=== PATIENT | female | born 1955 | race Caucasian/White ===

== ENCOUNTER 2020-10-02 14:58 | Emergency (ER) | payer OTHER, SELFPAY ==
--- NOTE | ~2020-10-02 | XR_ITS ---
EXAMINATION: XR chest 2V DATE: 10/02/2020 15:52 INDICATION: Mid chest pain. Fall. TECHNIQUE: Frontal and lateral views of the chest were obtained. COMPARISON: Chest single view 11/12/2018 FINDINGS: The chest demonstrates clear lungs without pneumonia, pleural effusion, or pneumothorax. Th e heart size is normal. IMPRESSION: 1. No acute cardiopulmonary disease. Reviewed, dictated and finalized at location A.
--- NOTE | ~2020-10-02 | XR_ITS ---
EXAMINATION: XR wrist RT min 3V DATE: 10/02/2020 15:52 INDICATION: Right wrist pain. Fall. TECHNIQUE: 4 views of right wrist were obtained. COMPARISON: None. FINDINGS: Bone alignment is normal. No fracture. There is mild osteoarthritis of first carpometacarpa l joint. IMPRESSION: 1. Mild osteoarthritis of first carpometacarpal joint. Reviewed, dictated and finalized at location A.
--- NOTE | ~2020-10-02 | XR_ITS ---
EXAMINATION: XR toe 1st RT min 2V DATE: 10/02/2020 15:52 INDICATION: Right great toe injury and swelling. TECHNIQUE: 3 views of right great toe were obtained. COMPARISON: None. FINDINGS: There is mild hallux valgus. No fracture. There is mild osteoarthritis of first metatarsoph alangeal joint and first interphalangeal joint. IMPRESSION: 1. Mild hallux valgus. 2. Mild polyarticular osteoarthritis. Reviewed, dictated and finalized at location A.
[2020-10-02 15:27] VITALS: BP 139/52; PULSE 84; RESP 20; TEMP 36.6; O2SAT 100
--- NOTE | 2020-10-02 15:32 | ED.FALL ---
HPI - Fall General Chief Complaint: Fall Stated Complaint: Right Wrist Pain,Right toe Are Time Seen by Provider: 10/02/20 15:21 Source: patient and RN notes reviewed Mode of arrival: ambulatory Limitations: no limitations History of Present Illness HPI Narrative: Patient presents today complaining of a fall after she was walking down the road and her back went into spasm. She fell forward injuring her chin, right wrist, rib cage, and right great toe. She denies head injury or loss of consciousness, neck pain, shortness of breath. She currently rates her pain 9.5/10. She currently takes naproxen, gabapentin, and prednisone for her chronic back pain. Injury occurred 1 hour prior to arrival. MD complaint: fall Related Data Home Medications Medication Instructions Recorded Confirmed gabapentin 10/02/20 gabapentin 10/02/20 lidocaine patch 10/02/20 naproxen 10/02/20 Allergies Allergy/AdvReac Type Severity Reaction Status Date / Time No Known Allergies Allergy Mild Verified 04/03/10 08:52 Review of Systems Review of Systems: CONSTITUTIONAL: Denies body aches, fever, chills, or sweats. EYES: Denies visual changes, redness, or discharge. ENT: Denies rhinorrhea, congestion, sore throat, or otalgia. CARDIOVASCULAR: Denies chest pain, palpitations, or edema. RESPIRATORY: Denies cough or dyspnea. GASTROINTESTINAL: Denies abdominal pain, nausea, vomiting, or diarrhea. GENITOURINARY: Denies dysuria or hematuria. SKIN: Denies rash, itching, or wounds. MUSCULOSKELETAL: Denies back pain, or myalgia. + Right wrist injury, right great toe injury, rib injury NEUROLOGIC: Denies headache, numbness, tingling, or weakness. PSYCH: Denies depression or anxiety. PMFSH Comments At time of signature, I have reviewed and agree with nursing past medical, surgical, social and family history unless otherwise noted. Please see nursing chart for further information. There is no relevant family history pertinent to the presenting complaint Exam Narrative: GENERAL: Well-appearing, well-nourished, and in no acute distress. HEAD: Normocephalic, atraumatic. EYES: EOMI. No redness or drainage. Conjunctivae normal. ENT: Mucous membranes pink and moist. NECK: Normal AROM. CHEST: No respiratory distress. Clear to auscultation. Mild tenderness to the left ribs at the nipple line just left of the sternum. Faint dime sized bruise to this area as well. No crepitus or deformity noted. HEART: Regular rate and rhythm. No murmur appreciated. Normal peripheral pulses. ABDOMEN: Soft, nontender, nondistended, normal active bowel sounds. EXTREMITIES: Right wrist: Tenderness to the distal radius. Bruising and mild edema to the thenar eminence. Full range of motion with increased pain. Distal sensation intact. Capillary refill normal. Radial pulse normal. Right great toe: Mild edema noted. No ecchymosis or erythema noted. No deformity noted. Tenderness to the toe. Toenail intact and is nontender. Full range of motion noted. Distal sensation intact. Capillary refill normal. SKIN: Warm, dry, no rash. Capillary refill normal. Normal skin turgor. NEURO: No focal deficits. Alert and oriented x3. Gait steady. PSYCH: Normal affect. No signs of depression or anxiety. Course Vital Signs Vital signs: Vital Signs Temperature 97.8 F 10/02/20 15:27 Pulse Rate 84 10/02/20 15:27 Respiratory Rate 20 10/02/20 15:27 Blood Pressure 139/52 L 10/02/20 15:27 Pulse Oximetry 100 10/02/20 15:27 Temperature 97.8 F 10/02/20 15:27 Pulse Rate 84 10/02/20 15:27 Respiratory Rate 20 10/02/20 15:27 Blood Pressure 139/52 L 10/02/20 15:27 Pulse Oximetry 100 10/02/20 15:27 Reviewed. Pt has been instructed to follow up with her PCP regarding her elevated blood pressure today. MDM - Fall Differential Diagnosis Differential diagnosis: Likely other (Toe fracture, toe contusion, wrist sprain, wrist contusion, wrist fracture, rib fracture,
== END 2020-10-02 16:29 | disposition home or self-care (01) ==
PROVIDERS: Emergency Provider Nurse Practitioner; PCP Nurse Practitioner
DX: S00.83XA Contusion of other part of head, initial encounter (principal); S20.212A Contusion of left front wall of thorax, initial encounter; S63.501A Unspecified sprain of right wrist, initial encounter; S93.501A Unspecified sprain of right great toe, initial encounter; W19.XXXA Unspecified fall, initial encounter
CPT/HCPCS: 71046; 73110; 73660; 99214; G0463

== ENCOUNTER 2022-04-10 12:40 | Outpatient (CLI) | payer MEDICARE, SELFPAY ==
--- NOTE | 2022-04-10 12:51 | ECG_ITS ---
Measurements Intervals [place] Rate: 64 P: [place]: 0 QRS: 46 QRSD: 90 T: 32 QT: 404 QTc: 417 Interpretive Statements SINUS RHYTHM WITH INTERMITTENT JUNCTIONAL BEATS ABNORMAL RHYTHM ECG NO PREVIOUS ECG AVAILABLE FOR COMPARISON Electronically Signed On 04-10-2022 16:34:43 CONTINUITY PERSON by Jose Cuadra M.D.
== END 2022-04-10 12:41 | disposition home or self-care (01) ==
PROVIDERS: PCP Nurse Practitioner Family; Visit Provider Nurse Practitioner Family
DX: I49.9 Cardiac arrhythmia, unspecified (principal); R01.1 Cardiac murmur, unspecified; R42 Dizziness and giddiness
CPT/HCPCS: 93005

== ENCOUNTER 2022-07-21 19:31 | Emergency (ER) | payer MEDICARE, SELFPAY ==
--- NOTE | ~2022-07-21 | XR_ITS ---
EXAMINATION: XR elbow LT min 3V DATE: 07/21/2022 19:59 INDICATION: Left elbow pain post fall TECHNIQUE: Anteroposterior, two oblique and lateral views of the left elbow were obtained. COMPARISON: None. FINDINGS: Alignment is normal. No fracture or joint effusion. Mild osteoarthritis at the left elbow with mild n onuniform joint space narrowing and small marginal osteophytes in all 3 compartments. Soft tissues ar e unremarkable. IMPRESSION: 1. Mild osteoarthritis of the left elbow. No acute osseous abnormality. Reviewed, dictated and finalized at location A.
--- NOTE | ~2022-07-21 | XR_ITS ---
EXAMINATION: XR shoulder LT min 2V DATE: 07/21/2022 19:59 INDICATION: Left shoulder pain post fall TECHNIQUE: AP internally and externally rotated and AP oblique externally rotated views of the left s houlder were obtained. COMPARISON: None FINDINGS: Normal alignment. No fracture.Mild left glenohumeral and acromioclavicular osteoarthritis. This is p ortions of the lungs are clear. Multilevel anterior spinal fusion in the mid to lower cervical spine with bone graft cages at 3 levels and anterior plate and screw fixation. Soft tissues are unremarkabl e. IMPRESSION: Mild left glenohumeral and acromio clavicular osteoarthritis. No acute osseous abnormality. Reviewed, dictated and finalized at location A.
[2022-07-21 19:39] VITALS: BP 124/57; PULSE 77; RESP 18; TEMP 36.7; O2SAT 100
--- NOTE | 2022-07-21 19:39 | ED.FALL ---
HPI - Fall General Chief Complaint: Extremity Injury, Upper Stated Complaint: Lt Shoulder and Elbow Pain Due to Fall Time Seen by Provider: 07/21/22 19:39 Source: patient Mode of arrival: ambulatory Limitations: no limitations History of Present Illness HPI Narrative: Patient is a 66-year-old female who presents with left shoulder and elbow pain after fall and kitchen. Patient states she was having a back spasm and sciatic pain shooting down her legs causing her to fall. Patient states she fell directly on to left arm. Patient denies hitting her head or having any episode of LOC. patient states it is now very painful to move arm but denies any numbness or tingling in arm. Related Data Allergies Allergy/AdvReac Type Severity Reaction Status Date / Time No Known Allergies Allergy Mild Verified 07/21/22 19:43 Review of Systems Review of Systems: All systems reviewed & are unremarkable except as noted in HPI and below Constitutional: Constitutional: Denies body ache(s), Denies chills, Denies fatigue, Denies fever(s), Denies headache(s), Denies malaise and Denies weakness Eyes: Eyes: Denies blurry vision, Denies irritation and Denies loss of vision ENT: Denies otalgia, Denies headache(s), Denies nasal discharge, Denies sinus pain and Denies sore throat Cardiovascular: Cardiovascular: Denies chest pain, Denies irregular heart rhythm and Denies dyspnea Respiratory: Respiratory: Denies dyspnea Gastrointestinal: Gastrointestinal: Denies abdominal pain, Denies melena, Denies hematochezia, Denies diarrhea, Denies nausea and Denies vomiting Musculoskeletal: Musculoskeletal: Denies back pain, Denies myalgias and Reports arthralgias Integumentary/Breasts: Skin/Breast: Denies pruritus and Denies rash Neurologic: Denies headache(s), Denies loss of vision and Denies weakness Psychiatric: Psychiatric: Reports no additional psychiatric complaints Endocrine: Endocrine: Denies fatigue PMFSH Past Medical History Medical History Abnormal heart rhythm Anemia Anxiety B12 deficiency Cervical radiculitis Cervical vertebral fusion Cervicalgia Encounter to establish care Folic acid deficiency GERD (gastroesophageal reflux disease) Light-headed feeling group home use of drug Low back pain with right-sided sciatica Murmur Muscle cramps Pre-op testing Screening for cardiovascular condition Urinary incontinence Surgical History Surgical History H/O gastric bypass H/O parathyroidectomy Family History Family History Mother Cerebrovascular accident Diabetes mellitus Hypertension Heart disease Father Heart disease Diabetes mellitus Hypertension Social History Social History Smoking status: Never smoker Alcohol intake: current Alcohol use details: Very Rarely Substance use: never Substance use type: does not use Current Housing: Decline to Answer Concerned About Future Housing: Decline to Answer Difficulty Paying Gas/Electric Bills: Decline to Answer Difficulty Paying for Meds: Decline to Answer Currently Unemployed: Decline to Answer Education: Decline to Answer Difficulty w/ Childcare or Family Care: Decline to Answer Comments At time of signature, agree with nursing past medical, surgical, social and family history. There is no relevant family history pertinent to the presenting complaint. Exam Const: General: cooperative, healthy appearing, comfortable, no acute distress and well nourished Nutritional Appearance: well nourished Orientation/consciousness: patient oriented x3 Limitations: no limitations HENMT: Head: normal to inspection, normocephalic and atraumatic Ears: hearing grossly normal bilaterally and external ears normal Face/Nose/Sinus: Normal die mounter
== END 2022-07-21 20:20 | disposition home or self-care (01) ==
PROVIDERS: Emergency Provider Nurse Practitioner Family; PCP Nurse Practitioner Family
DX: M25.512 Pain in left shoulder (principal); M25.522 Pain in left elbow; W19.XXXA Unspecified fall, initial encounter; K21.9 Gastro-esophageal reflux disease without esophagitis; Z90.89 Acquired absence of other organs
CPT/HCPCS: 73030; 73080; 99214; A4565; G0463

== ENCOUNTER 2023-06-15 09:06 | Outpatient (CLI) | payer MEDICARE, SELFPAY ==
[2023-06-15 10:18] LABS: Basophils Absolute Auto 0.1 K/mm3 (0.0-0.1); Basophils Percent Auto 1.1 % (0.2-1.2); Eosinophils Absolute Auto 0.1 K/mm3 (0-0.3); Eosinophils Percent Auto 1.3 % (0-4.4); Hematocrit 28.9 % (37.0-47.0); Hemoglobin 8.3 g/dL (12.0-15.0); Immature Granulocyte Absolute 0.02 K/mm3 (0.00-0.031); Immature Granulocyte Percent A 0.4 % (0-0.5); Lymphocytes Absolute Auto 1.69 K/mm3 (0.9-3.2); Lymphocytes Percent Auto 31.4 % (18.3-44.2); Mean Corpuscular HGB Conc 28.7 g/dl (32-36); Mean Corpuscular Hemoglobin 18.7 pg (26-34); Mean Corpuscular Volume 65.2 fl (80-100); Mean Platelet Volume 9.5 fl (7.4-10.4); Monocytes Absolute Auto 0.4 K/mm3 (0.1-0.6); Monocytes Percent Auto 6.5 % (2.6-8.5); Neutrophils Absolute Auto 3.2 K/mm3 (1.3-6.7); Neutrophils Percent Auto 59.3 % (45.5-73.1); Platelet Count Result 318 k/mm3 (150-375); Red Blood Count 4.43 M/mm3 (4.2-5.4); Red Cell Distribution Width 20.5 % (11.5-14.5); White Blood Count 5.4 K/mm3 (4.5-10.0)
[2023-06-15 10:20] LABS: Appearance Urine Clear (Clear); Bilirubin Urine Negative (Negative); Blood Urine Negative (Negative); Color Urine Yellow (Yellow); Glucose Urine UA Negative (Negative); Ketones Urine Negative (Negative); Leukocyte Esterase Ur Negative LEU/UL (Negative); Nitrate Urine Negative (Negative); Protein Urine Negative (Negative); Specific Grav Ur 1.021 (1.001-1.035)
[2023-06-15 10:28] LABS: Add Urine Microscopic? NO
[2023-06-15 10:29] LABS: Alanine Aminotransferase 10 U/L (6-35); Albumin Level 4.1 g/dL (3.5-5.1); Alkaline Phosphatase 66 U/L (38-126); Anion Gap 4 mmol/L (4-12); Aspartate Amino Transferase 23 U/L (14-36); Bilirubin,Total 0.5 mg/dL (0.2-1.3); Blood Urea Nitrogen 18 mg/dL (7-17); Calcium 8.4 mg/dL (8.4-10.2); Carbon Dioxide 28 mmol/L (22-30); Chloride 109 mmol/L (98-107); Cholesterol 185 mg/dL (0-200); Estimated Glomerular Filt Rate > 60; Glucose 105 mg/dL (65-110); HDL Direct 91 mg/dL; Potassium 4.2 mmol/L (3.4-5.0); Sodium 141 mmol/L (137-145); Triglycerides 46 mg/dL (<150)
[2023-06-15 10:36] LABS: Iron 27 ug/dL (37-170)
[2023-06-15 10:40] LABS: LDL Cholesterol Direct 77 mg/dL
[2023-06-15 10:44] LABS: Percent Iron Saturation 7 % (20-50)
[2023-06-15 10:45] LABS: Vitamin D 25 Hydroxy 13.8 ng/mL
[2023-06-15 11:06] LABS: Ferritin 5.18 ng/mL (11.1-264)
[2023-06-15 11:07] LABS: Anisocytosis 2+; Hypochromasia 1+; Platelet Estimate Adequate (Adequate)
[2023-06-15 11:08] LABS: Schistocytes None Seen
== END 2023-06-15 09:07 | disposition home or self-care (01) ==
PROVIDERS: PCP Nurse Practitioner Family; Visit Provider Nurse Practitioner Family
DX: D50.9 Iron deficiency anemia, unspecified (principal); F41.9 Anxiety disorder, unspecified; E53.8 Deficiency of other specified B group vitamins; D64.9 Anemia, unspecified; E55.9 Vitamin D deficiency, unspecified; Z13.6 Encounter for screening for cardiovascular disorders; Z13.29 Encounter for screening for other suspected endocrine disorder
CPT/HCPCS: 36415; 80053; 80061; 81003; 82306; 82607; 82728; 83540; 83550; 84443; 85025

== ENCOUNTER 2023-09-16 14:28 | Outpatient (CLI) | payer MEDICARE, SELFPAY ==
[2023-09-16 15:05] LABS: Hematocrit 35.8 % (37.0-47.0); Hemoglobin 10.6 g/dL (12.0-15.0); Mean Corpuscular HGB Conc 29.6 g/dl (32-36); Mean Corpuscular Hemoglobin 18.9 pg (26-34); Mean Corpuscular Volume 63.9 fl (80-100); Mean Platelet Volume 8.9 fl (7.4-10.4); Platelet Count Result 311 k/mm3 (150-375); Red Cell Distribution Width 21.2 % (11.5-14.5); White Blood Count 5.6 K/mm3 (4.5-10.0)
[2023-09-16 15:18] LABS: Iron 27 ug/dL (37-170)
[2023-09-16 15:20] LABS: Alanine Aminotransferase 11 U/L (6-35); Albumin Level 4.7 g/dL (3.5-5.1); Alkaline Phosphatase 73 U/L (38-126); Anion Gap 9 mmol/L (4-12); Aspartate Amino Transferase 24 U/L (14-36); Bilirubin,Total 0.5 mg/dL (0.2-1.3); Blood Urea Nitrogen 13 mg/dL (7-17); Carbon Dioxide 27 mmol/L (22-30); Chloride 102 mmol/L (98-107); Estimated Glomerular Filt Rate > 60; Glucose 108 mg/dL (65-110); Lipase 58 U/L (23-300); Potassium 4.2 mmol/L (3.4-5.0); Sodium 138 mmol/L (137-145)
[2023-09-16 15:27] LABS: Percent Iron Saturation 6 % (20-50)
[2023-09-16 15:55] LABS: Ferritin 5.65 ng/mL (11.1-264)
[2023-09-16 16:25] LABS: Folic Acid 5.2 ng/mL (2.76->20)
== END 2023-09-16 14:29 | disposition home or self-care (01) ==
LOC: ANHLAB 14:33
PROVIDERS: PCP Nurse Practitioner Family; Visit Provider Nurse Practitioner
DX: D50.9 Iron deficiency anemia, unspecified (principal); R53.83 Other fatigue; E53.8 Deficiency of other specified B group vitamins; K21.9 Gastro-esophageal reflux disease without esophagitis; K28.7 Chronic gastrojejunal ulcer without hemorrhage or perforation; R10.13 Epigastric pain; R11.0 Nausea
CPT/HCPCS: 36415; 80053; 82607; 82728; 82746; 83540; 83550; 83690; 85027

== ENCOUNTER 2023-11-28 12:47 | Day surgery (SDC) | payer MEDICARE, SELFPAY ==
[2023-10-03 11:49] VITALS: BMI 23.5
[2023-10-09 10:18] VITALS: BMI 22.4
--- NOTE | 2023-11-28 13:21 | SUR.PREOP ---
PT STATES SHE VOMITTED THE [facility]. SO SHE DROVE TO THE PHARMACY/CONVENIENCE STORE AND PURCHASED ALL THE OTC LAXATIVES I COULD FIND AND TOOK THEM PT C/O STOMACH CRAMPING. STATES LAST BM WAS YELLOW/ORANGE AND CLEAR.
[2023-11-28 13:26] VITALS: BMI 22.3
[2023-11-28 13:29] VITALS: BP 101/64; PULSE 68; RESP 16; TEMP 36.9; O2SAT 100
--- NOTE | 2023-11-28 13:32 | SUR.PREOP ---
DR FORTE NOTIFIED OF PT'S CHOICE OF BOWEL PREP
[2023-11-28] MEDS: LACTATED RINGERS 1,000 ML 150 ML IV CONT (13:46)
--- NOTE | 2023-11-28 14:08 | PM.HPGS ---
History of Present Illness History of Present Illness Consent: Risks, benefits, and alternatives have been discussed and questions answered. Patient agrees to proceed with procedure. Chief complaint: Iron Dificient Anemia, HX Colon Polyps, Nausea Narrative: Makenna Harrison is a 68 year old female referred both colonoscopy and EGD. Patient states she was found to have iron deficiency anemia. This has delayed anticipated cervical spine surgery. Patient denies any obvious blood in her stools. She does take iron supplements but this causes her nausea and she is unable to take it consistently. Patient also has a history of gastric bypass in the past. Previous endoscopy 5 years ago revealed anastomotic ulcers. Additionally patient has a history of colon polyps 5 years ago. Patient has chronically been maintained on omeprazole since having her EGD years ago. She has an appointment to see hematology, but has not yet seen the [facility] to arrange intravenous iron. Review of Systems Review of Systems: All systems reviewed & are unremarkable except as noted in HPI and below PMFSH Past Medical History Medical History (Updated 09/16/23 @ 14:36 by Dotty Sellers APRN) Abnormal heart rhythm Anemia Anxiety B12 deficiency Cervical radiculitis Cervical vertebral fusion Cervicalgia Depression Encounter to establish care Folic acid deficiency GERD (gastroesophageal reflux disease) Light-headed feeling correction use of drug Low back pain radiating to both legs Low back pain with right-sided sciatica Murmur Muscle cramps Osteopenia Pre-op testing Screening for cardiovascular condition Urinary incontinence Vitamin D deficiency Surgical History Surgical History (Updated 11/28/23 @ 14:11 by Johnny Rider MD) H/O gastric bypass H/O parathyroidectomy History of laminectomy Family History Family History Mother Cerebrovascular accident Diabetes mellitus Hypertension Heart disease Father Heart disease Diabetes mellitus Hypertension Social History Social History Smoking status: Never smoker Alcohol intake: current Alcohol use details: Very Rarely Substance use: never Substance use type: does not use Lack of Transportation: No Lack of Food: Often True Current Housing: I Have Housing Concerned About Future Housing: No Difficulty Paying Gas/Electric Bills: YES Difficulty Paying for Meds: YES Currently Unemployed: No Education: Master's Degree or Higher Difficulty w/ Childcare or Family Care: No Living arrangements: alone Spiritual care concerns: No Meds Home Medications and Allergies Home Medications Medication Instructions Recorded Confirmed Type cholecalciferol (vitamin D3) 1,250 1,250 mcg PO WEEKLY #4 caps 06/13/23 11/28/23 Rx mcg (50,000 unit) capsule cyanocobalamin (vitamin B-12) 1,000 mcg IM MONTHLY #1 mL 06/13/23 11/28/23 Rx 1,000 mcg/mL injection solution fluticasone propionate 50 1 spray intranasal BID #16 grams 06/13/23 11/28/23 Rx mcg/actuation nasal spray,suspension (Flonase Allergy Relief) multivitamin with iron 1 tablet PO DAILY #30 tabs 06/13/23 11/28/23 Rx omeprazole 40 mg capsule,delayed 40 mg PO BID #180 caps 06/13/23 11/28/23 Rx release syringe with needle 3 mL 23 gauge #1 ea 06/13/23 06/13/23 Rx x 1 1/2 ([employer] Luer Lock Syringe with needle) alendronate 35 mg tablet 35 mg PO WEEKLY #12 tabs 06/25/23 11/28/23 Rx calcium carbonate [Calcium 500] 1 tablet PO DAILY 06/25/23 11/28/23 History famotidine 40 mg tablet 40 mg PO QHS #30 tabs 09/16/23 11/28/23 Rx sucralfate 1 gram tablet See Rx Instructions .Route 09/16/23 11/28/23 Rx .COMPLEX #360 tabs acetaminophen 500 mg tablet 500 mg PO QID PRN Pain 10/15/23 11/28/23 History (Acetaminophen Extra Strength) Allergies Allergy/AdvReac Type Severity Reaction Status
--- NOTE | 2023-11-28 14:18 | WPDANESEPPF ---
Anes - Initial Pre Proc Eval Procedure: Operation Date: 11/28/23 14:30 Proposed Procedures p Esophagogastroduodenoscopy - Johnny Rider MD s Diagnostic Colonoscopy - Johnny Rider MD Date/Time: 11/28/23 14:18 Surgeon: Johnny Rider MD Pre Op Diagnosis: Iron Dificient Anemia, HX Colon Polyps, Nausea Patient Data Age: 68 Gender: F Height: 1.68 m Weight: 62.8 kg Last Vital Signs Temp 36.9 C 11/28/23 13:29 Pulse 68 11/28/23 13:29 Resp 16 11/28/23 13:29 BP 101/64 11/28/23 13:29 Pulse Ox 100 11/28/23 13:29 O2 Del Method Room Air 11/28/23 13:29 Allergies Allergy/AdvReac Type Severity Reaction Status Date / Time No Known Allergies Allergy Mild Verified 11/28/23 13:18 Home Medications Medication Instructions Recorded Confirmed Type cholecalciferol (vitamin D3) 1,250 1,250 mcg PO WEEKLY #4 caps 06/13/23 11/28/23 Rx mcg (50,000 unit) capsule cyanocobalamin (vitamin B-12) 1,000 mcg IM MONTHLY #1 mL 06/13/23 11/28/23 Rx 1,000 mcg/mL injection solution fluticasone propionate 50 1 spray intranasal BID #16 grams 06/13/23 11/28/23 Rx mcg/actuation nasal spray,suspension (Flonase Allergy Relief) multivitamin with iron 1 tablet PO DAILY #30 tabs 06/13/23 11/28/23 Rx omeprazole 40 mg capsule,delayed 40 mg PO BID #180 caps 06/13/23 11/28/23 Rx release syringe with needle 3 mL 23 gauge #1 ea 06/13/23 06/13/23 Rx x 1 1/2 ([employer] Luer Lock Syringe with needle) alendronate 35 mg tablet 35 mg PO WEEKLY #12 tabs 06/25/23 11/28/23 Rx calcium carbonate [Calcium 500] 1 tablet PO DAILY 06/25/23 11/28/23 History famotidine 40 mg tablet 40 mg PO QHS #30 tabs 09/16/23 11/28/23 Rx sucralfate 1 gram tablet See Rx Instructions .Route 09/16/23 11/28/23 Rx .COMPLEX #360 tabs acetaminophen 500 mg tablet 500 mg PO QID PRN Pain 10/15/23 11/28/23 History (Acetaminophen Extra Strength) Patient hx anesthesia problems: none Family hx anesthesia problems: none Results Review: All pre-operative results and documents have been reviewed as part of the pre-operative evaluation. [facility] Past Medical History Medical History (Updated 09/16/23 @ 14:36 by Dotty Sellers APRN) Abnormal heart rhythm Anemia Anxiety B12 deficiency Cervical radiculitis Cervical vertebral fusion Cervicalgia Depression Encounter to establish care Folic acid deficiency GERD (gastroesophageal reflux disease) Light-headed feeling half-way use of drug Low back pain radiating to both legs Low back pain with right-sided sciatica Murmur Muscle cramps Osteopenia Pre-op testing Screening for cardiovascular condition Urinary incontinence Vitamin D deficiency Surgical History Surgical History (Updated 11/28/23 @ 14:11 by Johnny Rider MD) H/O gastric bypass H/O parathyroidectomy History of laminectomy Family History Family History Mother Cerebrovascular accident Diabetes mellitus Hypertension Heart disease Father Heart disease Diabetes mellitus Hypertension Social History Social History Smoking status: Never smoker Alcohol intake: current Alcohol use details: Very Rarely Substance use: never Substance use type: does not use Lack of Transportation: No Lack of Food: Often True Current Housing: I Have Housing Concerned About Future Housing: No Difficulty Paying Gas/Electric Bills: YES Difficulty Paying for Meds: YES Currently Unemployed: No Education: Master's Degree or Higher Difficulty w/ Childcare or Family Care: No Living arrangements: alone Spiritual care concerns: No Anes - Eval Final PreProcedure Day of Procedure 11/28/23 14:18 Patient weight: normal Heart: regular rate and rhythm Lungs: clear to auscultation and normal air movement Airway: Mallampati scale class II Neurological: alert and oriented Last oral intake: >/
[2023-11-28 15:23] VITALS: BP 100/62; PULSE 58; RESP 14; O2SAT 100
--- NOTE | 2023-11-28 15:27 | WPDANESPN ---
Anes - Prog Note Post-Op Date/Time: 11/28/23 15:27 Cardiovascular status: normal Respiratory status: normal Airway patency: baseline Mental status: baseline Post-Op hydration status: normal Vital Signs: Last Vital Signs Temp 36.9 C 11/28/23 13:29 Pulse 68 11/28/23 13:29 Resp 16 11/28/23 13:29 BP 101/64 11/28/23 13:29 Pulse Ox 100 11/28/23 13:29 O2 Del Method Room Air 11/28/23 13:29 Pain Score (VAS): 0 I/O: Intake & Output 11/27/23 11/28/23 11/28/23 23:59 07:59 15:59 Intake Total 500 Balance 500 Post-procedural complaints: none Patient Feedback: Patient satisfied with anesthetic care. Other Findings: Patient vital signs back to baseline. Patient denies nausea and vomiting. Patient's pain under control. Patient OK for discharge.
[2023-11-28 15:33] VITALS: BP 117/74; PULSE 72; RESP 16; O2SAT 100
[2023-11-28 15:43] VITALS: BP 104/77; PULSE 63; RESP 16; O2SAT 100
== END 2023-11-28 16:01 | disposition home or self-care (01) ==
PROVIDERS: PCP Nurse Practitioner Family; Visit Provider Internal Medicine Gastroenterology
PROC: 0DJ08ZZ Inspection of Upper Intestinal Tract, Via Natural or Artificial Opening Endoscopic (ICD-10-PCS; CPT 43235; principal; 2023-11-28 14:30)
PROC: 0DJD8ZZ Inspection of Lower Intestinal Tract, Via Natural or Artificial Opening Endoscopic (ICD-10-PCS; CPT 45378; 2023-11-28 14:30)
DX: Z86.0100 Personal history of colon polyps, unspecified (principal); D50.9 Iron deficiency anemia, unspecified; K64.8 Other hemorrhoids; R13.19 Other dysphagia
CPT/HCPCS: 45378; 43235

== ENCOUNTER 2023-12-26 07:51 | Outpatient (CLI) | payer MEDICARE, SELFPAY ==
--- NOTE | ~2023-12-26 | XR_ITS ---
EXAMINATION: XR UGIAC w barium swallow DATE: 12/26/2023 09:04 INDICATION: Dysphagia. TECHNIQUE: The patient drank thick barium, gas-producing crystals, and thin barium. A total of 1330 f luoroscopic images of the hypopharynx, esophagus, stomach, and proximal small bowel were obtained. Fl uoroscopy exposure time was 1.5 minutes. Total DAP was 3.592 Gycm^2 COMPARISON: None. FINDINGS: The pharynx is symmetric and without evidence of mass lesion or mucosal irregularity. The esophagus i s normal without mass, stricture or diverticula. Esophageal motility is normal. Small sliding-type hi atal hernia with gastroesophageal junction approximately 6 cm above level of the diaphragm. A few epi sodes of spontaneous gastroesophageal reflux were observed with contrast extending cephalad into the upper thoracic esophagus. Postoperative change of prior gastric bypass procedure with prompt passage of contrast through the remaining small intrathoracic and intra-abdominal portions of the stomach int o the limb a which appears unremarkable. C3-C6 anterior spinal fusion with interbody bone graft cages and anterior plate-screw fixation. Discectomy and prosthetic disc at C6-C7. IMPRESSION: 1. Postoperative change of Brii-en-Y gastric bypass procedure with small sliding-type hiatal hernia a nd recurrent episodes of spontaneous gastroesophageal reflux. 2. Normal esophagus with no abnormal masses, strictures or diverticula. Aside from mass effect upon t he posterior wall of the hypopharynx and proximal esophagus resulting from an anterior plate-screw fi xation for anterior spinal fusion, no other etiologies identified for reported difficulty with endosc opic advancement. Reviewed, dictated and finalized at location A. IMPRESSION: 1. Postoperative change of Brii-en-Y gastric bypass procedure with small slidin g-type hiatal hernia and recurrent episodes of spontaneous gastroesophageal ref lux. 2. Normal esophagus with no abnormal masses, strictures or diverticula. Aside f rom mass effect upon the posterior wall of the hypopharynx and proximal esophag us resulting from an anterior plate-screw fixation for anterior spinal fusion, no other etiologies identified for reported difficulty with endoscopic advancem ent.
== END 2023-12-26 07:52 | disposition home or self-care (01) ==
PROVIDERS: PCP Nurse Practitioner Family; Visit Provider Internal Medicine Gastroenterology
DX: R13.10 Dysphagia, unspecified (principal); Z98.84 Bariatric surgery status
CPT/HCPCS: 74246

== ENCOUNTER 2024-04-29 12:28 | Outpatient (CLI) | payer MEDICARE, SELFPAY ==
--- NOTE | 2024-04-29 13:05 | ECG_ITS ---
Test Date: 2024-04-29 13:17:20 Measurements Intervals [place] Rate: 49 P: 78 [place]: 197 QRS: 39 QRSD: 92 T: 38 QT: 436 QTc: 395 Interpretive Statements SINUS BRADYCARDIA No previous ECG available for comparison Electronically Signed On 04-29-2024 15:50:19 NET ARCHITECT by Jose Cuadra M.D.
[2024-04-29 13:14] LABS: Basophils Absolute Auto 0.1 K/mm3 (0.0-0.1); Basophils Percent Auto 0.9 % (0.2-1.2); Eosinophils Percent Auto 0.7 % (0-4.4); Hematocrit 28.9 % (37.0-47.0); Hemoglobin 8.3 g/dL (12.0-15.0); Immature Granulocyte Absolute 0.01 K/mm3 (0.00-0.031); Immature Granulocyte Percent A 0.2 % (0-0.5); Immature Platelet Fraction Pct 3.9 % (0.9-11.2); Lymphocytes Absolute Auto 2.13 K/mm3 (0.9-3.2); Lymphocytes Percent Auto 36.3 % (18.3-44.2); Mean Corpuscular HGB Conc 28.7 g/dl (32-36); Mean Corpuscular Hemoglobin 18.2 pg (26-34); Mean Corpuscular Volume 63.4 fl (80-100); Mean Platelet Volume 9.4 fl (7.4-10.4); Monocytes Absolute Auto 0.5 K/mm3 (0.1-0.6); Monocytes Percent Auto 9.2 % (2.6-8.5); Neutrophils Absolute Auto 3.1 K/mm3 (1.3-6.7); Neutrophils Percent Auto 52.7 % (45.5-73.1); Platelet Count Result 228 k/mm3 (150-375); Red Blood Count 4.56 M/mm3 (4.2-5.4); Red Cell Distribution Width 21.5 % (11.5-14.5); White Blood Count 5.9 K/mm3 (4.5-10.0)
[2024-04-29 13:28] LABS: Iron 17 ug/dL (37-170)
[2024-04-29 13:30] LABS: Alanine Aminotransferase 9 U/L (6-35); Alkaline Phosphatase 59 U/L (38-126); Anion Gap 7 mmol/L (4-12); Aspartate Amino Transferase 20 U/L (14-36); Bilirubin,Total 0.2 mg/dL (0.2-1.3); Blood Urea Nitrogen 16 mg/dL (7-17); Calcium 8.5 mg/dL (8.4-10.2); Carbon Dioxide 25 mmol/L (22-30); Chloride 106 mmol/L (98-107); Estimated Glomerular Filt Rate > 60; Glucose 95 mg/dL (65-110); Potassium 4.3 mmol/L (3.4-5.0); Sodium 138 mmol/L (137-145)
[2024-04-29 13:48] LABS: Percent Iron Saturation 4 % (20-50); Vitamin D 25 Hydroxy 14.4 ng/mL
--- OUTSIDE RECORDS SUMMARY | 2024-04-29 13:49 | XMS_ITS ---
Author Organization [facility] Address [address] [place] [address] Care Team Providers Care District Service Manager Name Role Phone PhilipIrvinKit Unavailable [phone] REASON FOR VISIT New Patient / L4-5 LIZBETH (local) / WC CHAO VASQUEZ Encounters Encounter Location Date Provider Diagnosis [place] [facility] [address] [place] [address] 04/19/2023 Kit Palacios PLAN OF TREATMENT No Information Progress Notes * Makenna PEGUERO:[birth year] (68 yo F)Acc No.[id number]:04/19/2023 Progress Notes Patient: Makenna PEGUERO Sada Provider: Kit Palacios DO :1955 Age:67 Y Sex:Female Date:04/19/2023 Address:[address] [place] [address];[id number] Subjective: * Chief Complaints: * 1. New Patient / L4-5 LIZBETH (local) / WC CHAO VASQUEZ. * Medical History: Objective: Assessment: Plan: * Treatment: * Images: * Sign off status: Pending * Provider: Kit Palacios DO Date: 04/19/2023
--- OUTSIDE RECORDS SUMMARY | 2024-04-29 13:49 | XMS_ITS | Clinical Summary ---
Author Organization [facility] Address [address] [place] [address] Care Team Providers Care Automation Technologist Name Role Phone Jasper Easton MD Unavailable [phone] Oren Morfin MD Unavailable [phone] Angie Tamez MANAGER USER INTERFACE-[facility] Primary Care Provi karine Source Comments [facility],non-owned Affiliates and Associated Physician Practices is amultiple site organization consisting of ambulatory clinics and hospital sitesin [place], [place], [place] and [place]. This disclosure is being madepursuant to the Care Everywhere program and may not contain all information available regarding this patient. Last updated 17.[facility] Allergies Active Allergy Reactions Criticality Noted Date Comments Tuberculin Purified Protein Derivative Other 02/02/2016 Had positive PPD not to be retested Medications * Be aware that medications may not be up to date on this document. Alwaysverify current medications with the patient. Medication Sig Dispensed Refills Start Date End Date Status Vitamins/Minerals TABS Take 1 Tab by mouth once daily. Active cyanocobalamin (VITAMIN B-12) injection Inject 1,000 mcg into muscle every 30 days 1 mL 5 04/02/2017 Active ondansetron (ZOFRAN) 4 MG tablet Take 1 tablet by mouth every 6 hours as needed for Nausea/Vomiting 10 tablet 04/25/2018 Active Additional Information Patient not taking.Reported on 07/16/2018 sucralfate (CARAFATE) 1 GM/10ML suspensionIndicatio ns:Gastroesophageal reflux disease, esophagitis presence not specified Take 10 mL by mouth 4 times daily 1200 mL 07/04/2018 Active omeprazole (PRILOSEC) 20 MG capsuleIndications: Gastroesophageal reflux disease, esophagitis presence not specified,S/P gastric bypass Take 1 capsule by mouth once daily 30 capsule 07/04/2018 Active ondansetron, disintegrating, (ZOFRAN ODT) 4 MG tablet Take 1 tablet by mouth every 6 hours as needed for Nausea/Vomiting Allow tablet to dissolve on the tongue 30 tablet 07/11/2018 Active vitamin D, ergocalciferol, (DRISDOL) 36738 units capsule Take 1 capsule by mouth every 7 days 12 capsule 07/29/2018 Active vitamin D, ergocalciferol, (DRISDOL) 05369 units capsule TAKE ONE CAPSULE BY MOUTH EVERY 30 DAYS 12 capsule 09/08/2018 Active omeprazole (PRILOSEC) 20 MG capsuleIndications: Bariatric surgery status,Nausea without vomiting,Heartburn Take 1 capsule by mouth daily before breakfast 30 capsule 10/23/2019 Active sucralfate (CARAFATE) 1 GM/10ML suspensionIndicatio ns:Bariatric surgery status,Nausea without vomiting,Heartburn Take 10 mL by mouth 4 times daily 1200 mL 10/23/2019 Active ondansetron (ZOFRAN) 4 MG tabletIndications:B ariatric surgery status,Nausea without vomiting,Heartburn Take 1 tablet by mouth every 6 hours as needed for Nausea/Vomiting 10 tablet 10/23/2019 Active Active Problems Problem Noted Date Diagnosed Date Left carotid bruit 07/31/2017 Overview (07/31/2017): Ultrasound ordered with echo. Mixed stress and urge urinary incontinence 11/20 Overview (11/24/2016): vesicare didn't help in past 11/20/16 E coli caceres sensitive, bactrim. PVR 14mL Encounter for routine gynecological examination 03/20/2016 Systolic murmur 10/26/2015 Overview (07/31/2017): Needs further eval. Echo ordered. Pt reports will comply with getting it done this time. 07-31-2017 here for physical exam, now worried so she states she will get echo this time and now needs carotid ultrasound as there is a left carotid bruit. Degeneration of cervical intervertebral disc 09/2015 Overview (10/26/2015): Intermittent neck/periscapular pain which she intermittently will take either Lyrica of gabapentin for. Admits does not take these scheduled as ordered S/P gastric bypass 04/04/2015 Overview (10/26/2015): Brii-en-y Major depressive disorder, single episode, moder ate 03/14/2015 Overview (10/26/2015): Sees Psych. On Cymbalta Vitamin B 12 deficiency 03/14/2015 Overview (10/26/2015): On IM Vitamin B12 per wt loss center Screening examination for sexually transmitted d isease 02/11/2014 PPD positive, treated 01/16/2013 GERD (gastroesophageal reflux disease) 2 Overview (10/26/2015): On PPI daily and PRN carafate per [facility] Loss center Asthma 02/04/2012 Primary hyperparathyroidism 06/25/2011 IGT (impaired glucose tolerance) Overview (10/26/2015): Improved with wt loss. Has been doing ok off metformin Chronic rhinitis DJD (degenerative joint disease), lumbar Nephrolithiasis Resolved Problems Problem Noted Date Diagnosed Date Resolved Date Cervical radiculopathy 03/14/201510/25 Shortness of breath 12/30/2011 04/05/19 16 Morbid obesity 10/26/2015 Immunizations Name Administration Dates Next Due INFLUENZA VACCINE 10/10/2017 PNEUMOCOCCAL PPSV23 09/28/2011 TD (AGE 8-ADULT) 09/26/2010 Family History Medical History Relation Name Comments Diabetes Father Blindness Mother due to diabetes Dementia Mother Diabetes Mother Stroke Mother Relation Name Status Comments Father Mother Social History Tobacco Use Types Packs/Day Years Used Date Smoking Tobacco: Former Cigarettes Smokeless Tobacco: Never Comments:quit Alcohol Use Standard Drinks/Week Comments Yes 0.8 (1 standard drink = 0.6 oz p ure alcohol) SOCIAL/RARE Sex and Gender Information Value Date Recorded Sex Assigned at Not on file Gender Identity Not on file Sexual Orientation Not on file Last Filed Vital Signs Vital Sign Reading Time Taken Comments Blood Pressure 141/59 07/16/2018 8:41 AM CDT Pulse 73 07/16/2018 8:41 AM CDT Temperature 36.7 C (98 F) 07/16/2018 7:10 AM CDT Respiratory Rate 16 07/16/2018 8:41 AM CDT Oxygen Saturation 100% 07/16/2018 8:00 AM CDT Inhaled Oxygen Concentration 97% 07/16/2018 8 :41 AM CDT Weight 72.6 kg (160 lb) 07/16/2018 7:10 AM CDT Height 167.6 cm (5' 6 ) 07/16/2018 7:10 AM CDT Body Mass Index 25.82 07/16/2018 7:10 AM CDT Plan of Treatment Health Maintenance Due Date Last Done Comments COLOGUARD (AGES 45-75) - COLON CA SCREENING 1956 CT COLONOGRAPHY - COLON CA SCREENING 1955 FIT - COLON CA SCREENING 1955 FLEX SIG - COLON CA SCREENING 1955 ZOSTER VACCINE (1 of 2) 2006 PNEUMOCOCCAL VACCINE 50+ (2 of 2 - PCV) 09/27/2012 09/28/2011 Respiratory Syncytial Virus (RSV) Vaccine Pt: or over 60 yrs (1 - Risk 60-74 years 1-dose series) 2016 MAMMOGRAM 02/07/2017 02/07/2015, 01/25, 12/16/2012, Additional history exists COLON MONITORING 02/24/2017 02/25/2012, 02/25/2012 Colorectal Cancer Screening 02/24/2017 DTAP/TDAP/TD VACCINES (2 - Td or Tdap) 09/26/2020 09/26/2010 SCREENING FOR DIABETES 07/16/2021 9, 04/11/2018, 03/30/2018, Additional history exists COLONOSCOPY - COLON CA SCREENING 02/24/2022 02/25/2012, 02/25/2012 LIPID TESTING 08/14/2022 08/14/2017, 04/25, 09/22/2010 COVID-19 VACCINE ( season) 2023 INFLUENZA VACCINE (#1) 2023 10/10/2017 DEPRESSION SCREENING 02/26/2024 BONE DENSITY TESTING Completed 12/12/2010 HEPATITIS C SCREENING Completed 02/14/2016 HEPATITIS B VACCINE Aged Out No longe r eligible based on patient's age to complete this topic HIB VACCINE Aged Out No longer eligi ble based on patient's age to complete this topic HPV VACCINE Aged Out No longer eligi ble based on patient's age to complete this topic MENINGOCOCCAL (Group B) VACCINE Aged Out No longer eligible based on patient's age to complete this topic MENINGOCOCCAL VACCINE Aged Out No terence sara eligible based on patient's age to complete this topic Goals Goal Patient Goal Type Associated Problems Recent Progress Patient-Stated? Author Exercise 5X per week (30 min per time) Exercise Natalee Cry Note: The [employer] recommends all adults get a minimum of 150 minutes of moderate physical activity a week. This can be completed as 30 minutes of brisk walking on most days of the week. Even 10 minutes of exercise a day can provide benefit and will add up over the week. If able, try to take the stairs instead of the elevator or park farther away in the parking lot. Start slow and try to increase your amount of activity over several weeks. Exercise will help to improve your cholesterol readings and blood pressure and to be overall healthier. Medical Devices Implanted Type Area Garage Attendant Device Identifier Shelf Expiration Date Model / Serial / Lot Stent Nphurstm 24cm 8.5fr [facility] Pgtl Implanted:Qty: 1 on 03/29/2018 at [facility] [employer] 11/14/2020 [id number] / / [id number] Description:Dr.Kao De Leon Uret 6fr 26cm Pgtl Crv Tpr Tip Implanted:Qty: 1 on 04/10/2018 by Andrey Cardenas MD at [facility] [employer] 01/29/2021 [id number] / / [id number] Procedures Procedure Name Priority Date/Time Associated Diagnosis Comments COMPREHENSIVE METABOLIC PANEL Routine 07/16/2018 9:41 AM CDT Bariatric surgery status Epigastric pain Morbid obesity (HCC) BMI 26.0-26.9,adult Vitamin D deficiency Vitamin deficiency Gastroesophageal reflux disease without esophagitis Nausea without vomiting LIPID PROFILE Routine 08/14/2017 1:24 PM CDT History of diabetes mellitus, type II HEPATITIS C ANTIBODY Routine 02/14/2016 7:30 AM DATA WAREHOUSE SPECIALIST Bariatric surgery status MAMMO BILAT SCREENING Routine 02/07/2015 10:58 AM DATA WAREHOUSE SPECIALIST Visit for screening mammogram ENDOSCOPY, COLON, DIAGNOSTIC Routine 02/25/2012 10:38 AM DATA WAREHOUSE SPECIALIST DEXA BONE DENSITY 2 SITES Routine 12/12/2010 9:04 AM CDT Hyperparathyroidis m Hypercalcemia from Last 3 Months or Most Recently Relevant to Health Maintenance Results * COMPREHENSIVE METABOLIC PANEL (07/16/2018 9:41 AM CDT) Glucose 92 74 - 106 mg/dL [facility] ACCOUNT BILL BUN 18 9.8 - 20.1 mg/dL [facility] ACCOUNT BILL Creatinine 0.65 0.55 - 1.02 mg/dL [facility] ACCOUNT BILL eGFR by MDRD >60 >60 mL/min/1.7 3m2 [facility] ACCOUNT BILL eGFR by MDRD >60 >60 mL/min/1.7 3m2 [facility] ACCOUNT BILL Comment:Attention clinician: BUN Reference Range has changed. Sodium 140 136 - 145 mmol/L [facility] ACCOUNT BILL Potassium 4.0 3.5 - 5.1 mmol/L [facility] ACCOUNT BILL Chloride 105 98 - 107 mmol/L [facility] ACCOUNT BILL CO2 27 23 - 31 mmol/L [facility] ACCOUNT BILL Calcium 9.2 8.4 - 10.2 mg/dL [facility] ACCOUNT BILL Protein Total 6.8 6.4 - 8.3 gm/dL [facility] ACCOUNT BILL Albumin 4.2 3.2 - 4.6 gm/dL [facility] ACCOUNT BILL Bilirubin Total 0.5 0.2 - 1.0 mg/dL [facility] ACCOUNT BILL Alkaline Phosphatase 95 40 - 150 U/L [facility] ACCOUNT BILL AST 21 5 - 34 U/L [facility] ACCOUNT BILL ALT 16 13 - 61 U/L [facility] ACCOUNT BILL Blood BLOOD SPECIMEN / Unknown 07/16/2018 9:41 AM CDT 07/16/2018 Narrative Resulting Agency Comment Lab Testing performed at: [facility] [id number] [place] [address] [address] [place] [id number] Ivy Encarnacion MANAGER USER INTERFACE-SWEET P[employer]LED FRUIT MAKER LAB - CHEMIS TRY ORDERABLES Performing Organization Address City/[facility] Co de Phone Number [facility] ACCOUNT BILL [address] [place] [address] * LIPID PROFILE (08/14/2017 1:24 PM CDT) Cholesterol 196 100 - 199 mg/dL [facility] INSURANCE BILL Triglycerides 73 0 - 149 mg/dL [facility] INSURANCE BILL HDL Cholesterol 100 >39 mg/dL [facility] INSURANCE BILL VLDL Calculated 15 5 - 40 mg/dL [facility] INSURANCE BILL LDL Calculated 81 0 - 99 mg/dL [facility] INSURANCE BILL Comment NOT NEEDED [facility] INSURANCE BILL Comment: FASTING Ancillary determined the test is not needed Blood BLOOD SPECIMEN / Unknown 08/14/2017 1:24 PM CDT 08/14/2017 Narrative Resulting Agency Comment [facility] [address] [facility] [id number] Darlin Mcclain MANAGER USER INTERFACE-SWEET PICKLED FRUIT MAKER LAB - CHEMISTRY ORDERABLES Performing Organization Address [facility] de Phone Number [facility] INSURANCE BILL [address] [place] [address] * HEPATITIS C ANTIBODY (02/14/2016 7:30 AM DATA WAREHOUSE SPECIALIST) HCV Antibody Screen Non Reactive Non Reactive 02/14/2016 3:06 PM DATA WAREHOUSE SPECIALIST [facility] HCV S/C Ratio 0.12 0.00 - 0.79 02/14/2016 3:06 PM DATA WAREHOUSE SPECIALIST [facility] Comment: Zjdiqq-ym-pvvyhv ratio (S/CO) <0.80: Non Reactive Blood BLOOD SPECIMEN / Unknown Lab Venipuncture / Unknown 02/14/2016 7:30 AM DATA WAREHOUSE SPECIALIST 02/14/2016 7:41 AM DATA WAREHOUSE SPECIALIST Narrative [facility] - 02/14/2016 3:06 PM DATA WAREHOUSE SPECIALIST Non Reactive - Antibodies to Hepatitis C virus (HCV) were not detected, result does not exclude early acute HCV infection. Leena Keita MD LAB - CHEMISTRY LEELAMikael SALINAS Performing Organization Address City/[facility]/ZIP Co de Phone Number [facility] [address] [place] [address] * MAMMO SCREENING DIGITAL IMAGE BILAT [id number] (02/07/2015 10:58 AM DATA WAREHOUSE SPECIALIST) Anatomical Region Laterality Modality Breast Bilateral Mammography 02/07/2015 1:53 PM DATA WAREHOUSE SPECIALIST Narrative 02/07/2015 1:55 PM DATA WAREHOUSE SPECIALIST FULL FIELD DIGITAL BILATERAL SCREENING MAMMOGRAMS WITH CAD AND 3-D TOMOSYNTHESIS DATE: 02/07/2015 10:37 AM PREVIOUS EXAM DATE: 02/09/2014 INDICATION: Screening TECHNIQUE: Bilateral craniocaudad (CC) and mediolateral oblique (MLO) views. Images were interpreted with the aid of CAD. 3-D tomosynthesis images were performed. TECHNOLOGIST: Meliza Edgar, RT (R)(M) TISSUE DENSITY: There are scattered areas of fibroglandular density FINDINGS: No discrete abnormality. No significant interval change. ASSESSMENT: BI-RADS 2: Benign finding(s) RECOMMENDATIONS: Continued annual screening mammography The above findings should be correlated with physical examination. A relatively nonspecific study should not preclude additional evaluation if suspicious findings are present clinically. An [employer]. [facility] Centers utilize [employer] as a reminder system to notify patients of their next recommended mammograms. Michael Lock Peoples DO MAMMO ORDERABLES * ENDOSCOPY, COLON, DIAGNOSTIC (02/25/2012 10:38 AM DATA WAREHOUSE SPECIALIST) Narrative [facility] ENDOSCOPY - 02/25/2012 10:38 AM DATA WAREHOUSE SPECIALIST Procedure Note Justyn Phillips MD - 02/25/2012 10:38 AM CST Justyn Phillips MD GI PROCEDURE ORDERA BLES Performing Organization Address City/[facility]/ZIP Co de Phone Number [facility] * DEXA BONE DENSITY 2 SITES (12/12/2010 9:04 AM CDT) Anatomical Region Laterality Modality Mammography 12/12/2010 9:14 AM CDT Narrative 12/12/2010 9:14 AM CDT BONE MINERAL DENSITY STUDY INDICATION: Osteoporosis screening. FINDINGS: The average bone mineral density from L1 to L4 is 1.082 g/cm2. The T-score is -0.8 and the Z-score is -1.3. The average bone mineral density of the total mean hips is 0.971 g/cm2. The T-score is -0.3 and the Z-score is -0.5. ASSESSMENT: Findings are consistent with normal total mean bone mineral density. No significant increased fracture risk. [employer]IZATION DEFINITIONS OSTEOPENIA = -1 to -2.5 SD BELOW T SCORE. OSTEOPOROSIS = Less than -2.5 SD BELOW T SCORE Procedure Note Patti Fiore MD - 12/12/2010 BONE MINERAL DENSITY STUDY INDICATION: Osteoporosis screening. FINDINGS: The average bone mineral density from L1 to L4 is 1.082 g/cm2. The T-score is -0.8 and the Z-score is -1.3. The average bone mineral density of the total mean hips is 0.971 g/cm2. The T-score is -0.3 and the Z-score is -0.5. ASSESSMENT: Findings are consistent with normal total mean bone mineral density. No significant increased fracture risk. WOR[employer]IZATION DEFINITIONS OSTEOPENIA = -1 to -2.5 SD BELOW T SCORE. OSTEOPOROSIS = Less than -2.5 SD BELOW T SCORE Mary Gonzalez MD DEXA ORDERABLES from Last 3 Months or Most Recently Relevant to Health Maintenance Advance Directives * Full Code (Latest Code Status on File) Date Activated Date Inactivated Comments 04/10/2018 6:10 PM 04/11/2018 6:50 PM * Full Code Date Activated Date Inactivated Comments 04/10/2018 1:02 PM 04/10/2018 6:10 PM * Full Code Date Activated Date Inactivated Comments 03/29/2018 12:28 AM 03/30/2018 3:15 PM * Full Code Date Activated Date Inactivated Comments 01/13/2014 5:25 PM 01/15/2014 7:25 PM * FULL RESUSCITATION Date Activated Date Inactivated Comments 09/26/2011 2:50 PM 09/28/2011 12:42 PM Care Teams Automation Technologist Relationship Specialty Start Date End Date Angie Tamez, MANAGER USER INTERFACE-SWEET PICKLED FRUIT MAKER [address] [address] PCP - General 08/18/20 [place] [address] [facility] [address] [place] [address] Pulmonary Disease 05/09/12 [place] [id number] [address] Orthopedic Surgery 09/09/14
--- OUTSIDE RECORDS SUMMARY | 2024-04-29 13:49 | XMS_ITS | Patient Health Summary ---
Author Organization [facility] Address [address] [place] [address] Care Team Providers Care Aerographer Name Role Phone Jasper Easton MD Unavailable [phone] Oren Morfin MD Unavailable [phone] Angie Tamez SAS BI DEVELOPER-[facility] Primary Care Provi karine Note from [facility],non-owned Affiliates and Associated Physician Practices is amultiple site organization consisting of ambulatory clinics and hospital sitesin [place], [place], [place] and [place]. This disclosure is being madepursuant to the Care Everywhere program and may not contain all information available regarding this patient. Last updated 17.[facility] Allergies * Tuberculin Purified Protein Derivative(Other) * Citalopram,Inactive Medications * Be aware that medications may not be up to date on this document. Alwaysverify current medications with the patient. * Vitamins/Minerals TABS Take 1 Tab by mouth once daily. * cyanocobalamin (VITAMIN B-12) injection(Started 04/02/2017) Inject 1,000 mcg into muscle every 30 days 5 refills remaining * ondansetron (ZOFRAN) 4 MG tablet(Started 04/25/2018) Take 1 tablet by mouth every 6 hours as needed for Nausea/Vomiting * sucralfate (CARAFATE) 1 GM/10ML suspension(Started 07/04/2018) Take 10 mL by mouth 4 times daily * omeprazole (PRILOSEC) 20 MG capsule(Started 07/04/2018) Take 1 capsule by mouth once daily * ondansetron, disintegrating, (ZOFRAN ODT) 4 MG tablet(Started 07/11/2018) Take 1 tablet by mouth every 6 hours as needed for Nausea/Vomiting Allow tablet to dissolve on the tongue * vitamin D, ergocalciferol, (DRISDOL) 18466 units capsule(Started 07/29/2018) Take 1 capsule by mouth every 7 days * vitamin D, ergocalciferol, (DRISDOL) 75326 units capsule(Started 09/08/2018) TAKE ONE CAPSULE BY MOUTH EVERY 30 DAYS * omeprazole (PRILOSEC) 20 MG capsule(Started 10/23/2019) Take 1 capsule by mouth daily before breakfast * sucralfate (CARAFATE) 1 GM/10ML suspension(Started 10/23/2019) Take 10 mL by mouth 4 times daily * ondansetron (ZOFRAN) 4 MG tablet(Started 10/23/2019) Take 1 tablet by mouth every 6 hours as needed for Nausea/Vomiting Active Problems Problem Noted Date Diagnosed Date Left carotid bruit 07/31/2017 Mixed stress and urge urinary incontinence 11/20 Encounter for routine gynecological examination 03/20/2016 Systolic murmur 10/26/2015 Degeneration of cervical intervertebral disc 09/2015 S/P gastric bypass 04/04/2015 Major depressive disorder, single episode, moder ate 03/14/2015 Vitamin B 12 deficiency 03/14/2015 Screening examination for sexually transmitted d isease 02/11/2014 PPD positive, treated 01/16/2013 GERD (gastroesophageal reflux disease) 2 Asthma 02/04/2012 Primary hyperparathyroidism 06/25/2011 IGT (impaired glucose tolerance) Chronic rhinitis DJD (degenerative joint disease), lumbar Nephrolithiasis Resolved Problems Problem Noted Date Diagnosed Date Resolved Date Cervical radiculopathy 03/14/201510/25 Shortness of breath 12/30/2011 04/05/19 16 Morbid obesity 10/26/2015 Immunizations * INFLUENZA VACCINE(Given 10/10/2017) * PNEUMOCOCCAL PPSV23(Given 09/28/2011) * TD (AGE 8-ADULT)(Given 09/26/2010) Social History Tobacco Use Types Packs/Day Years [...] Mass Index 25.82 07/16/2018 7:10 AM CDT Medical Devices Implanted Type Area Coder Device Identifier Shelf Expiration Date Model / Serial / Lot Stent Nphurstm 24cm 8.5fr [employer] Pgtl Implanted:Qty: 1 on 03/29/2018 at [facility] [employer] 11/14/2020 [id number] / / [id number] Description: Stent Uret 6fr 26cm Pgtl Crv Tpr Tip Implanted:Qty: 1 on 04/10/2018 by Andrey Cardenas MD at [facility] [employer] 01/29/2021 [id number] / / [id number] Procedures * COPPER BLOOD(Performed 07/16/2018) Performed for Bariatric surgery status, Epigastric pain, Morbid obesity (HCC), BMI 26.0-26.9,adult,Vitamin D deficiency, Vitamin deficiency, Gastroesophageal reflux disease without esophagitis, Nausea without vomiting * COMPREHENSIVE METABOLIC PANEL(Performed 07/16/2018) Performed for Bariatric surgery status, Epigastric pain, Morbid obesity (HCC), BMI 26.0-26.9,adult,Vitamin D deficiency, Vitamin deficiency, Gastroesophageal reflux disease without esophagitis, Nausea without vomiting * CBC W/O DIFFERENTIAL(Performed 07/16/2018) Performed for Bariatric surgery status, Epigastric pain, Morbid obesity (HCC), BMI 26.0-26.9,adult,Vitamin D deficiency, Vitamin deficiency, Gastroesophageal reflux disease without esophagitis, Nausea without vomiting * ZINC BLOOD(Performed 07/16/2018) Performed for Bariatric surgery status, Epigastric pain, Morbid obesity (HCC), BMI 26.0-26.9,adult,Vitamin D deficiency, Vitamin deficiency, Gastroesophageal reflux disease without esophagitis, Nausea without vomiting * MAGNESIUM BLOOD(Performed 07/16/2018) Performed for Bariatric surgery status, Epigastric pain, Morbid obesity (HCC), BMI 26.0-26.9,adult,Vitamin D deficiency, Vitamin deficiency, Gastroesophageal reflux disease without esophagitis, Nausea without vomiting * VITAMIN K1(Performed 07/16/2018) Performed for Bariatric surgery status, Epigastric pain, Morbid obesity (HCC), BMI 26.0-26.9,adult,Vitamin D deficiency, Vitamin deficiency, Gastroesophageal reflux disease without esophagitis, Nausea without vomiting * VITAMIN E(Performed 07/16/2018) Performed for Bariatric surgery status, Epigastric pain, Morbid obesity (HCC), BMI 26.0-26.9,adult,Vitamin D deficiency, Vitamin deficiency, Gastroesophageal reflux disease without esophagitis, Nausea without vomiting * VITAMIN D 25-HYDROXY(Performed 07/16/2018) Performed for Bariatric surgery status, Epigastric pain, Morbid obesity (HCC), BMI 26.0-26.9,adult,Vitamin D deficiency, Vitamin deficiency, Gastroesophageal reflux disease without esophagitis, Nausea without vomiting * VITAMIN B12(Performed 07/16/2018) Performed for Bariatric surgery status, Epigastric pain, Morbid obesity (HCC), BMI 26.0-26.9,adult,Vitamin D deficiency, Vitamin deficiency, Gastroesophageal reflux disease without esophagitis, Nausea without vomiting * VITAMIN B1(Performed 07/16/2018) Performed for Bariatric surgery status, Epigastric pain, Morbid obesity (HCC), BMI 26.0-26.9,adult,Vitamin D deficiency, Vitamin deficiency, Gastroesophageal reflux disease without esophagitis, Nausea without vomiting * VITAMIN A(Performed 07/16/2018) Performed for Bariatric surgery status, Epigastric pain, Morbid obesity (HCC), BMI 26.0-26.9,adult,Vitamin D deficiency, Vitamin deficiency, Gastroesophageal reflux disease without esophagitis, Nausea without vomiting * SELENIUM(Performed 07/16/2018) Performed for Bariatric surgery status, Epigastric pain, Morbid obesity (HCC), BMI 26.0-26.9,adult,Vitamin D deficiency, Vitamin deficiency, Gastroesophageal reflux disease without esophagitis, Nausea without vomiting * PTH INTACT(Performed 07/16/2018) Performed for Bariatric surgery status, Epigastric pain, Morbid obesity (HCC), BMI 26.0-26.9,adult,Vitamin D deficiency, Vitamin deficiency, Gastroesophageal reflux disease without esophagitis, Nausea without vomiting * IRON BLOOD(Performed 07/16/2018) Performed for Bariatric surgery status, Epigastric pain, Morbid obesity (HCC), BMI 26.0-26.9,adult,Vitamin D deficiency, Vitamin deficiency, Gastroesophageal reflux disease without esophagitis, Nausea without vomiting * FOLATE(Performed 07/16/2018) Performed for Bariatric surgery status, Epigastric pain, Morbid obesity (HCC), BMI 26.0-26.9,adult,Vitamin D deficiency, Vitamin deficiency, Gastroesophageal reflux disease without esophagitis, Nausea without vomiting * FERRITIN(Performed 07/16/2018) Performed for Bariatric surgery status, Epigastric pain, Morbid obesity (HCC), BMI 26.0-26.9,adult,Vitamin D deficiency, Vitamin deficiency, Gastroesophageal reflux disease without esophagitis, Nausea without vomiting * HELICOBACTER PYLORI UREASE (STL)(Performed 07/16/2018) Performed for Diagnosis unknown * ESOPHAGOGASTRODUODENOSCOPY (EGD) DIAGNOSTIC(Performed 07/16/2018) * CARDIAC EKG ORDER(Performed 06/04/2018) * CARDIAC EKG ORDER(Performed 04/14/2018) * CBC W/O DIFFERENTIAL(Performed 04/11/2018) Performed for Nephrolithiasis * BASIC METABOLIC PANEL (CALCIUM TOTAL)(Performed 04/11/2018) Performed for Nephrolithiasis * FL MARISSA SURGERY(Performed 04/10/2018) Performed for Nephrolithiasis * CULTURE TISSUE+GRAM STAIN(Performed 04/10/2018) Performed for Nephrolithiasis * CULTURE ANAEROBE(Performed 04/10/2018) Performed for Nephrolithiasis * STONE ANALYSIS QUANT(Performed 04/10/2018) Performed for Nephrolithiasis * ENDOTRACHEAL TUBE NOTE(Performed 04/10/2018) * PERCUTANEOUS NEPHROLITHOTOMY(Performed 04/10/2018) Performed for Renal stone * EKG 12-LEAD(Performed 04/04/2018) Performed for Nephrolithiasis * CBC W AUTO DIFFERENTIAL(Performed 03/30/2018) * BASIC METABOLIC PANEL (CALCIUM TOTAL)(Performed 03/30/2018) * IR PERC NEPHROSTOMY LEFT(Performed 03/29/2018) Performed for Renal colic * CBC W AUTO DIFFERENTIAL(Performed 03/29/2018) * BASIC METABOLIC PANEL (CALCIUM TOTAL)(Performed 03/29/2018) * PT-INR [facility](Performed 03/29/2018) * CULTURE URINE(Performed 03/28/2018) * URINALYSIS REFLEX TO MICROSCOPIC NO CULTURE(Performed 03/28/2018) * CT ABDOMEN PELVIS WO CONTRAST(Performed 03/28/2018) Performed for Renal colic * DIFFERENTIAL MANUAL(Performed 03/28/2018) * COMPREHENSIVE METABOLIC PANEL(Performed 03/28/2018) * CBC W AUTO DIFFERENTIAL(Performed 03/28/2018) * FERRITIN(Performed 08/14/2017) Performed for Vitamin B 12 deficiency * RETIC COUNT(Performed 08/14/2017) Performed for Vitamin B 12 deficiency * IRON + TRANSFERRIN PANEL(Performed 08/14/2017) Performed for Vitamin B 12 deficiency * MAGNESIUM BLOOD(Performed 08/14/2017) Performed for Muscle cramps * LIPID PROFILE(Performed 08/14/2017) Performed for History of diabetes mellitus, type II * T4 FREE(Performed 08/14/2017) Performed for Other fatigue * TSH(Performed 08/14/2017) Performed for Other fatigue * URINALYSIS REFLEX TO MICROSCOPIC NO CULTURE(Performed 08/14/2017) Performed for Acute cystitis without hematuria * VITAMIN B12 FOLATE PANEL(Performed 08/14/2017) Performed for Vitamin B 12 deficiency * VITAMIN D 25-HYDROXY(Performed 08/14/2017) Performed for Vitamin D deficiency * HEMOGLOBIN A1C(Performed 08/14/2017) Performed for History of diabetes mellitus, type II * COMPREHENSIVE METABOLIC PANEL(Performed 08/14/2017) Performed for History of diabetes mellitus, type II * CBC W AUTO DIFFERENTIAL(Performed 08/14/2017) Performed for Vitamin B 12 deficiency * CULTURE URINE COMPREHENSIVE(Performed 08/14/2017) Performed for Acute cystitis without hematuria * COMPREHENSIVE METABOLIC PANEL(Performed 03/11/2017) Performed for Acute bronchitis, unspecified organism, Severe asthma with exacerbation, unspecified whether persistent (HCC), Acute non-recurrent sinusitis, unspecified location * CBC W AUTO DIFFERENTIAL(Performed 03/11/2017) Performed for Acute bronchitis, unspecified organism, Severe asthma with exacerbation, unspecified whether persistent (HCC), Acute non-recurrent sinusitis, unspecified location * XR CHEST 2VW(Performed 03/11/2017) Performed for Acute bronchitis, unspecified organism, Severe asthma with exacerbation, unspecified whether persistent (HCC), Acute non-recurrent sinusitis, unspecified location * CULTURE URINE(Performed 11/20/2016) Performed for Acute cystitis without hematuria * ZINC BLOOD(Performed 11/20/2016) Performed for Bariatric surgery status, Exogenous obesity, BMI 31.0-31.9,adult, Intestinal malabsorption, unspecified type (HCC), Vitamin deficiency, Vitamin D deficiency * VITAMIN D 25-HYDROXY(Performed 11/20/2016) Performed for Bariatric surgery status, Exogenous obesity, BMI 31.0-31.9,adult, Intestinal malabsorption, unspecified type (HCC), Vitamin deficiency, Vitamin D deficiency * VITAMIN B12(Performed 11/20/2016) Performed for Bariatric surgery status, Exogenous obesity, BMI 31.0-31.9,adult, Intestinal malabsorption, unspecified type (HCC), Vitamin deficiency, Vitamin D deficiency * VITAMIN B1(Performed 11/20/2016) Performed for Bariatric surgery status, Exogenous obesity, BMI 31.0-31.9,adult, Intestinal malabsorption, unspecified type (HCC), Vitamin deficiency, Vitamin D deficiency * PTH INTACT(Performed 11/20/2016) Performed for Bariatric surgery status, Exogenous obesity, BMI 31.0-31.9,adult, Intestinal malabsorption, unspecified type (HCC), Vitamin deficiency, Vitamin D deficiency * MAGNESIUM BLOOD(Performed 11/20/2016) Performed for Bariatric surgery status, Exogenous obesity, BMI 31.0-31.9,adult, Intestinal malabsorption, unspecified type (HCC), Vitamin deficiency, Vitamin D deficiency * IRON BLOOD(Performed 11/20/2016) Performed for Bariatric surgery status, Exogenous obesity, BMI 31.0-31.9,adult, Intestinal malabsorption, unspecified type (HCC), Vitamin deficiency, Vitamin D deficiency * FERRITIN(Performed 11/20/2016) Performed for Bariatric surgery status, Exogenous obesity, BMI 31.0-31.9,adult, Intestinal malabsorption, unspecified type (HCC), Vitamin deficiency, Vitamin D deficiency * COMPREHENSIVE METABOLIC PANEL(Performed 11/20/2016) Performed for Bariatric surgery status, Exogenous obesity, BMI 31.0-31.9,adult, Intestinal malabsorption, unspecified type (HCC), Vitamin deficiency, Vitamin D deficiency * CBC W AUTO DIFFERENTIAL(Performed 11/20/2016) Performed for Bariatric surgery status, Exogenous obesity, BMI 31.0-31.9,adult, Intestinal malabsorption, unspecified type (HCC), Vitamin deficiency, Vitamin D deficiency * BLADDER SCAN - POINT OF CARE (AMB)(Performed 11/20/2016) Performed for Mixed stress and urge urinary incontinence * URINALYSIS AUTO W MICROSCOPIC - POINT OF CARE (AMB)(Performed 11/20/2016) Performed for Mixed stress and urge urinary incontinence * INFLUENZA A+B - POINT OF CARE (AMB)(Performed 03/20/2016) Performed for Cough, Chest congestion * ECHOCARDIOGRAM 2D WITH DOPPLER(Performed 02/22/2016) Performed for Heart murmur * HEPATITIS C ANTIBODY(Performed 02/14/2016) Performed for Bariatric surgery status * LIPASE BLOOD(Performed 02/14/2016) Performed for Bariatric surgery status * CORTISOL BLOOD(Performed 02/14/2016) Performed for Bariatric surgery status * C-PEPTIDE(Performed 02/14/2016) Performed for Bariatric surgery status * INSULIN LEVEL(Performed 02/14/2016) Performed for Bariatric surgery status * FOLATE(Performed 02/14/2016) Performed for Bariatric surgery status * VITAMIN B12(Performed 02/14/2016) Performed for Bariatric surgery status * HEMOGLOBIN A1C(Performed 02/14/2016) Performed for Bariatric surgery status * CBC W AUTO DIFFERENTIAL(Performed 02/14/2016) Performed for Bariatric surgery status * COMPREHENSIVE METABOLIC PANEL(Performed 02/14/2016) Performed for Bariatric surgery status * VITAMIN D 25-HYDROXY(Performed 02/14/2016) Performed for Bariatric surgery status * HEMOGLOBIN A1C(Performed 10/26/2015) Performed for IGT (impaired glucose tolerance) * GLUCOSE - POINT OF CARE(Performed 2015) * MAGNESIUM BLOOD(Performed 2015) * PT PTT PANEL(Performed 2015) * COMPREHENSIVE METABOLIC PANEL(Performed 2015) * CBC W AUTO DIFFERENTIAL(Performed 2015) * VITAMIN B1(Performed 10/10/2015) Performed for Bariatric surgery status, Severely overweight, BMI 28.0- 28.9,adult, Vitamin deficiency, Vitamin D deficiency, Mineral deficiency, Intestinal malabsorption following gastrectomy (HCC) * ZINC BLOOD(Performed 10/10/2015) Performed for Bariatric surgery status, Severely overweight, BMI 28.0- 28.9,adult, Vitamin deficiency, Vitamin D deficiency, Mineral deficiency, Intestinal malabsorption following gastrectomy (HCC) * VITAMIN D 25-HYDROXY(Performed 10/10/2015) Performed for Bariatric surgery status, Severely overweight, BMI 28.0- 28.9,adult, Vitamin deficiency, Vitamin D deficiency, Mineral deficiency, Intestinal malabsorption following gastrectomy (HCC) * VITAMIN B12(Performed 10/10/2015) Performed for Bariatric surgery status, Severely overweight, BMI 28.0- 28.9,adult, Vitamin deficiency, Vitamin D deficiency, Mineral deficiency, Intestinal malabsorption following gastrectomy (HCC) * PTH INTACT(Performed 10/10/2015) Performed for Bariatric surgery status, Severely overweight, BMI 28.0- 28.9,adult, Vitamin deficiency, Vitamin D deficiency, Mineral deficiency, Intestinal malabsorption following gastrectomy (HCC) * MAGNESIUM BLOOD(Performed 10/10/2015) Performed for Bariatric surgery status, Severely overweight, BMI 28.0- 28.9,adult, Vitamin deficiency, Vitamin D deficiency, Mineral deficiency, Intestinal malabsorption following gastrectomy (HCC) * IRON BLOOD(Performed 10/10/2015) Performed for Bariatric surgery status, Severely overweight, BMI 28.0- 28.9,adult, Vitamin deficiency, Vitamin D deficiency, Mineral deficiency, Intestinal malabsorption following gastrectomy (HCC) * FOLATE RBC(Performed 10/10/2015) Performed for Bariatric surgery status, Severely overweight, BMI 28.0- 28.9,adult, Vitamin deficiency, Vitamin D deficiency, Mineral deficiency, Intestinal malabsorption following gastrectomy (HCC) * FERRITIN(Performed 10/10/2015) Performed for Bariatric surgery status, Severely overweight, BMI 28.0- 28.9,adult, Vitamin deficiency, Vitamin D deficiency, Mineral deficiency, Intestinal malabsorption following gastrectomy (HCC) * COMPREHENSIVE METABOLIC PANEL(Performed 10/10/2015) Performed for Bariatric surgery status, Severely overweight, BMI 28.0- 28.9,adult, Vitamin deficiency, Vitamin D deficiency, Mineral deficiency, Intestinal malabsorption following gastrectomy (HCC) * CBC W/O DIFFERENTIAL(Performed 10/10/2015) Performed for Bariatric surgery status, Severely overweight, BMI 28.0- 28.9,adult, Vitamin deficiency, Vitamin D deficiency, Mineral deficiency, Intestinal malabsorption following gastrectomy (HCC) * PAP IG RFLX HPV ASCU(Performed 04/18/2015) Performed for Well woman exam with routine gynecological exam * T3 FREE(Performed 04/18/2015) Performed for Other fatigue * T4 FREE(Performed 04/18/2015) Performed for Other fatigue * TSH(Performed 04/18/2015) Performed for Other fatigue * MAMMO BILAT SCREENING(Performed 02/07/2015) Performed for Visit for screening mammogram * INFLUENZA A+B - POINT OF CARE (AMB)(Performed 12/28/2014) Performed for Body aches * FERRITIN(Performed 11/15/2014) Performed for Bariatric surgery status, Obesity, Unspecified intestinal malabsorption (HCC), Unspecified vitamin D deficiency, Unspecified nutritional deficiency, Unspecified vitamin deficiency, Mineral deficiency, not elsewhere classified * COMPREHENSIVE METABOLIC PANEL(Performed 11/15/2014) Performed for Bariatric surgery status, Obesity, Unspecified intestinal malabsorption (HCC), Unspecified vitamin D deficiency, Unspecified nutritional deficiency, Unspecified vitamin deficiency, Mineral deficiency, not elsewhere classified * CBC W/O DIFFERENTIAL(Performed 11/15/2014) Performed for Bariatric surgery status, Obesity, Unspecified intestinal malabsorption (HCC), Unspecified vitamin D deficiency, Unspecified nutritional deficiency, Unspecified vitamin deficiency, Mineral deficiency, not elsewhere classified * VITAMIN A(Performed 11/15/2014) Performed for Bariatric surgery status, Obesity, Unspecified intestinal malabsorption (HCC), Unspecified vitamin D deficiency, Unspecified nutritional deficiency, Unspecified vitamin deficiency, Mineral deficiency, not elsewhere classified * HEMOGLOBIN A1C(Performed 11/15/2014) Performed for Bariatric surgery status, Obesity, Unspecified intestinal malabsorption (HCC), Unspecified vitamin D deficiency, Unspecified nutritional deficiency, Unspecified vitamin deficiency, Mineral deficiency, not elsewhere classified * ZINC BLOOD(Performed 11/15/2014) Performed for Bariatric surgery status, Obesity, Unspecified intestinal malabsorption (HCC), Unspecified vitamin D deficiency, Unspecified nutritional deficiency, Unspecified vitamin deficiency, Mineral deficiency, not elsewhere classified * VITAMIN D 25-HYDROXY(Performed 11/15/2014) Performed for Bariatric surgery status, Obesity, Unspecified intestinal malabsorption (HCC), Unspecified vitamin D deficiency, Unspecified nutritional deficiency, Unspecified vitamin deficiency, Mineral deficiency, not elsewhere classified * VITAMIN B12(Performed 11/15/2014) Performed for Bariatric surgery status, Obesity, Unspecified intestinal malabsorption (HCC), Unspecified vitamin D deficiency, Unspecified nutritional deficiency, Unspecified vitamin deficiency, Mineral deficiency, not elsewhere classified * VITAMIN B1(Performed 11/15/2014) Performed for Bariatric surgery status, Obesity, Unspecified intestinal malabsorption (HCC), Unspecified vitamin D deficiency, Unspecified nutritional deficiency, Unspecified vitamin deficiency, Mineral deficiency, not elsewhere classified * PTH INTACT(Performed 11/15/2014) Performed for Bariatric surgery status, Obesity, Unspecified intestinal malabsorption (HCC), Unspecified vitamin D deficiency, Unspecified nutritional deficiency, Unspecified vitamin deficiency, Mineral deficiency, not elsewhere classified * MAGNESIUM BLOOD(Performed 11/15/2014) Performed for Bariatric surgery status, Obesity, Unspecified intestinal malabsorption (HCC), Unspecified vitamin D deficiency, Unspecified nutritional deficiency, Unspecified vitamin deficiency, Mineral deficiency, not elsewhere classified * IRON BLOOD(Performed 11/15/2014) Performed for Bariatric surgery status, Obesity, Unspecified intestinal malabsorption (HCC), Unspecified vitamin D deficiency, Unspecified nutritional deficiency, Unspecified vitamin deficiency, Mineral deficiency, not elsewhere classified * FOLATE RBC(Performed 11/15/2014) Performed for Bariatric surgery status, Obesity, Unspecified intestinal malabsorption (HCC), Unspecified vitamin D deficiency, Unspecified nutritional deficiency, Unspecified vitamin deficiency, Mineral deficiency, not elsewhere classified * PAIN MANAGEMENT PROCEDURE TIME(Performed 11/15/2014) Performed for Spinal stenosis in cervical region, Brachial neuritis or radiculitis NOS * MRI CERVICAL SPINE WO CONTRAST(Performed 09/20/2014) Performed for Neck pain, Numbness and tingling in left arm * XR SHOULDER LEFT 2VW OR MORE(Performed 09/10/2014) Performed for Neck pain, Left shoulder pain * XR CERVICAL SPINE 2 OR 3VW(Performed 09/10/2014) Performed for Neck pain, Left shoulder pain * MAMMO BILAT SCREENING(Performed 02/09/2014) Performed for Other screening mammogram * PANNICULECTOMY(Performed 01/13/2014) Performed for Panniculitis * PATHOLOGY TISSUE EXAM (STL)(Performed 01/13/2014) * EKG 12-LEAD(Performed 01/13/2014) Performed for Preop examination * ZINC BLOOD(Performed 10/01/2013) Performed for Skin yeast infection, Bariatric surgery status, Obesity, Unspecified Intestinal Malabsorption (Hcc), Loss of weight, Unspecified vitamin D deficiency, Unspecified nutritional deficiency, Unspecified vitamin deficiency, Mineral deficiency, not elsewhere classified * VITAMIN D 25-HYDROXY(Performed 10/01/2013) Performed for Skin yeast infection, Bariatric surgery status, Obesity, Unspecified Intestinal Malabsorption (Hcc), Loss of weight, Unspecified vitamin D deficiency, Unspecified nutritional deficiency, Unspecified vitamin deficiency, Mineral deficiency, not elsewhere classified * VITAMIN B12(Performed 10/01/2013) Performed for Skin yeast infection, Bariatric surgery status, Obesity, Unspecified Intestinal Malabsorption (Hcc), Loss of weight, Unspecified vitamin D deficiency, Unspecified nutritional deficiency, Unspecified vitamin deficiency, Mineral deficiency, not elsewhere classified * VITAMIN B1(Performed 10/01/2013) Performed for Skin yeast infection, Bariatric surgery status, Obesity, Unspecified Intestinal Malabsorption (Hcc), Loss of weight, Unspecified vitamin D deficiency, Unspecified nutritional deficiency, Unspecified vitamin deficiency, Mineral deficiency, not elsewhere classified * PTH INTACT(Performed 10/01/2013) Performed for Skin yeast infection, Bariatric surgery status, Obesity, Unspecified Intestinal Malabsorption (Hcc), Loss of weight, Unspecified vitamin D deficiency, Unspecified nutritional deficiency, Unspecified vitamin deficiency, Mineral deficiency, not elsewhere classified * MAGNESIUM BLOOD(Performed 10/01/2013) Performed for Skin yeast infection, Bariatric surgery status, Obesity, Unspecified Intestinal Malabsorption (Hcc), Loss of weight, Unspecified vitamin D deficiency, Unspecified nutritional deficiency, Unspecified vitamin deficiency, Mineral deficiency, not elsewhere classified * IRON BLOOD(Performed 10/01/2013) Performed for Skin yeast infection, Bariatric surgery status, Obesity, Unspecified Intestinal Malabsorption (Hcc), Loss of weight, Unspecified vitamin D deficiency, Unspecified nutritional deficiency, Unspecified vitamin deficiency, Mineral deficiency, not elsewhere classified * FOLATE RBC(Performed 10/01/2013) Performed for Skin yeast infection, Bariatric surgery status, Obesity, Unspecified Intestinal Malabsorption (Hcc), Loss of weight, Unspecified vitamin D deficiency, Unspecified nutritional deficiency, Unspecified vitamin deficiency, Mineral deficiency, not elsewhere classified * FERRITIN(Performed 10/01/2013) Performed for Skin yeast infection, Bariatric surgery status, Obesity, Unspecified Intestinal Malabsorption (Hcc), Loss of weight, Unspecified vitamin D deficiency, Unspecified nutritional deficiency, Unspecified vitamin deficiency, Mineral deficiency, not elsewhere classified * COMPREHENSIVE METABOLIC PANEL(Performed 10/01/2013) Performed for Skin yeast infection, Bariatric surgery status, Obesity, Unspecified Intestinal Malabsorption (Hcc), Loss of weight, Unspecified vitamin D deficiency, Unspecified nutritional deficiency, Unspecified vitamin deficiency, Mineral deficiency, not elsewhere classified * CBC W AUTO DIFFERENTIAL(Performed 10/01/2013) Performed for Skin yeast infection, Bariatric surgery status, Obesity, Unspecified Intestinal Malabsorption (Hcc), Loss of weight, Unspecified vitamin D deficiency, Unspecified nutritional deficiency, Unspecified vitamin deficiency, Mineral deficiency, not elsewhere classified * VAS BILATERAL VENOUS DUPLEX LE(Performed 09/25/2013) Performed for Pain in joint, lower leg, unspecified laterality * MAGNESIUM BLOOD(Performed 09/24/2013) * CK BLOOD(Performed 09/24/2013) * D-DIMER(Performed 09/24/2013) * PT PTT PANEL(Performed 09/24/2013) * COMPREHENSIVE METABOLIC PANEL(Performed 09/24/2013) * CBC W AUTO DIFFERENTIAL(Performed 09/24/2013) * XR CHEST 2VW(Performed 08/18/2013) Performed for Cough * COMPLETE PFT W/WO BRONCHODILATOR(Performed 01/16/2013) Performed for Chronic rhinitis, Shortness of breath, Asthma, GERD (gastroesophageal reflux disease), Chronic cough * BLOOD GASES ART (ISTAT)(Performed 01/16/2013) * BLOOD GASES ARTERIAL POCT(Performed 01/16/2013) Performed for Chronic rhinitis, Chronic cough, Asthma (HCC) * COOXIMETRY ARTERIAL(Performed 01/16/2013) Performed for Chronic rhinitis, Shortness of breath, Asthma, GERD (gastroesophageal reflux disease), Chronic cough * XR CHEST 2VW(Performed 01/16/2013) Performed for Chronic rhinitis, Shortness of breath, Asthma, GERD (gastroesophageal reflux disease), Chronic cough * MAMMO BILAT SCREENING(Performed 12/16/2012) Performed for Other screening mammogram * FOLATE RBC(Performed 09/17/2012) Performed for Obesity, Bariatric surgery status, Loss of weight, (Hcc), Unspecified Nutritional Deficiency, Unspecified Vitamin Deficiency, Mineral Deficiency, Not Elsewhere Classified, Unspecified Vitamin D Deficiency, Rash * ZINC BLOOD(Performed 09/17/2012) Performed for Obesity, Bariatric surgery status, Loss of weight, (Hcc), Unspecified Nutritional Deficiency, Unspecified Vitamin Deficiency, Mineral Deficiency, Not Elsewhere Classified, Unspecified Vitamin D Deficiency, Rash * VITAMIN D 25-HYDROXY(Performed 09/17/2012) Performed for Obesity, Bariatric surgery status, Loss of weight, (Hcc), Unspecified Nutritional Deficiency, Unspecified Vitamin Deficiency, Mineral Deficiency, Not Elsewhere Classified, Unspecified Vitamin D Deficiency, Rash * VITAMIN B12(Performed 09/17/2012) Performed for Obesity, Bariatric surgery status, Loss of weight, (Hcc), Unspecified Nutritional Deficiency, Unspecified Vitamin Deficiency, Mineral Deficiency, Not Elsewhere Classified, Unspecified Vitamin D Deficiency, Rash * VITAMIN B1(Performed 09/17/2012) Performed for Obesity, Bariatric surgery status, Loss of weight, (Hcc), Unspecified Nutritional Deficiency, Unspecified Vitamin Deficiency, Mineral Deficiency, Not Elsewhere Classified, Unspecified Vitamin D Deficiency, Rash * PTH INTACT(Performed 09/17/2012) Performed for Obesity, Bariatric surgery status, Loss of weight, (Hcc), Unspecified Nutritional Deficiency, Unspecified Vitamin Deficiency, Mineral Deficiency, Not Elsewhere Classified, Unspecified Vitamin D Deficiency, Rash * MAGNESIUM BLOOD(Performed 09/17/2012) Performed for Obesity, Bariatric surgery status, Loss of weight, (Hcc), Unspecified Nutritional Deficiency, Unspecified Vitamin Deficiency, Mineral Deficiency, Not Elsewhere Classified, Unspecified Vitamin D Deficiency, Rash * IRON BLOOD(Performed 09/17/2012) Performed for Obesity, Bariatric surgery status, Loss of weight, (Hcc), Unspecified Nutritional Deficiency, Unspecified Vitamin Deficiency, Mineral Deficiency, Not Elsewhere Classified, Unspecified Vitamin D Deficiency, Rash * FERRITIN(Performed 09/17/2012) Performed for Obesity, Bariatric surgery status, Loss of weight, (Hcc), Unspecified Nutritional Deficiency, Unspecified Vitamin Deficiency, Mineral Deficiency, Not Elsewhere Classified, Unspecified Vitamin D Deficiency, Rash * COMPREHENSIVE METABOLIC PANEL(Performed 09/17/2012) Performed for Obesity, Bariatric surgery status, Loss of weight, (Hcc), Unspecified Nutritional Deficiency, Unspecified Vitamin Deficiency, Mineral Deficiency, Not Elsewhere Classified, Unspecified Vitamin D Deficiency, Rash * CBC W AUTO DIFFERENTIAL(Performed 09/17/2012) Performed for Obesity, Bariatric surgery status, Loss of weight, (Hcc), Unspecified Nutritional Deficiency, Unspecified Vitamin Deficiency, Mineral Deficiency, Not Elsewhere Classified, Unspecified Vitamin D Deficiency, Rash * FOLATE RBC(Performed 05/09/2012) Performed for IGT (impaired glucose tolerance) * FERRITIN(Performed 05/09/2012) Performed for IGT (impaired glucose tolerance) * VITAMIN B12(Performed 05/09/2012) Performed for IGT (impaired glucose tolerance) * MAGNESIUM BLOOD(Performed 05/09/2012) Performed for IGT (impaired glucose tolerance) * IRON BLOOD(Performed 05/09/2012) Performed for IGT (impaired glucose tolerance) * COMPREHENSIVE METABOLIC PANEL(Performed 05/09/2012) Performed for IGT (impaired glucose tolerance) * PTH INTACT(Performed 05/09/2012) Performed for IGT (impaired glucose tolerance) * CBC W AUTO DIFFERENTIAL(Performed 05/09/2012) Performed for IGT (impaired glucose tolerance) * ZINC BLOOD(Performed 05/09/2012) Performed for IGT (impaired glucose tolerance) * VITAMIN B1(Performed 05/09/2012) Performed for IGT (impaired glucose tolerance) * PATHOLOGY/CYTOLOGY REPORT ORDER(Performed 02/28/2012) * ENDOSCOPY, COLON, DIAGNOSTIC(Performed 02/25/2012) * EGD(Performed 02/25/2012) * GROSS + MICRO EXAM(Performed 02/25/2012) * ENDOSCOPY, COLON, SCREENING(Performed 02/25/2012) * ENDOSCOPY ORDER(Performed 02/25/2012) * BRONCHIAL CHALLENGE(Performed 02/04/2012) Performed for Morbid obesity (HCC), Chronic rhinitis, Shortness of breath * MAMMO BILAT SCREENING(Performed 01/09/2012) Performed for Other screening mammogram * CT SINUS WO CONTRAST(Performed 01/08/2012) Performed for Morbid obesity (HCC), Chronic rhinitis, Shortness of breath * LAB MISC TEST(Performed 01/07/2012) * FUNGAL ANTIBODY PANEL IMMUNODIFFUSION(Performed 01/07/2012) * CBC W AUTO DIFFERENTIAL(Performed 01/07/2012) * IGE BLOOD(Performed 01/07/2012) * COOXIMETRY ARTERIAL(Performed 12/28/2011) Performed for Acute upper respiratory infections of unspecified site, Allergic rhinitis, cause unspecified, Pneumonia, organism unspecified * BLOOD GASES ARTERIAL(Performed 12/28/2011) Performed for Acute upper respiratory infections of unspecified site, Allergic rhinitis, cause unspecified, Pneumonia, organism unspecified * COMPLETE PFT W/WO BRONCHODILATOR(Performed 12/28/2011) Performed for Acute upper respiratory infections of unspecified site, Allergic rhinitis, cause unspecified, Pneumonia, organism unspecified * XR CHEST 2VW(Performed 12/24/2011) Performed for Pneumonia * XR CHEST 2VW(Performed 11/19/2011) Performed for Pneumonia * XR CHEST 2VW(Performed 11/12/2011) Performed for Pneumonia * GLUCOSE - POINT OF CARE(Performed 09/28/2011) * BASIC METABOLIC PANEL (CALCIUM TOTAL)(Performed 09/28/2011) * CBC W AUTO DIFFERENTIAL(Performed 09/28/2011) * GLUCOSE - POINT OF CARE(Performed 09/27/2011) * GLUCOSE - POINT OF CARE(Performed 09/27/2011) * GLUCOSE - POINT OF CARE(Performed 09/27/2011) * FL FLUORO UPPER GI TRACT + KUB(Performed 09/27/2011) Performed for Morbid obesity (HCC) * BASIC METABOLIC PANEL (CALCIUM TOTAL)(Performed 09/27/2011) * CBC W AUTO DIFFERENTIAL(Performed 09/27/2011) * GLUCOSE - POINT OF CARE(Performed 09/27/2011) * GLUCOSE - POINT OF CARE(Performed 09/26/2011) * GLUCOSE - POINT OF CARE(Performed 09/26/2011) * GLUCOSE - POINT OF CARE(Performed 09/26/2011) * POTASSIUM BLOOD(Performed 09/26/2011) * VITAMIN B12(Performed 09/14/2011) Performed for Other specified pre-operative examination * VITAMIN B1(Performed 09/14/2011) Performed for Other specified pre-operative examination * VITAMIN D 25-HYDROXY(Performed 09/14/2011) Performed for Other specified pre-operative examination * COMPREHENSIVE METABOLIC PANEL(Performed 09/14/2011) Performed for Other specified pre-operative examination * CBC W AUTO DIFFERENTIAL(Performed 09/14/2011) Performed for Other specified pre-operative examination * VITAMIN B12 FOLATE PANEL(Performed 08/03/2011) Performed for Paresthesia of hand * PTH INTACT(Performed 07/05/2011) * LAB RESULTS ORDER(Performed 07/01/2011) * IMAGING/RADIOLOGY/XRAY RESULTS ORDER(Performed 07/01/2011) * GLUCOSE - POINT OF CARE(Performed 06/30/2011) * BASIC METABOLIC PANEL (CALCIUM TOTAL)(Performed 06/30/2011) * GLUCOSE - POINT OF CARE(Performed 06/29/2011) * GLUCOSE - POINT OF CARE(Performed 06/29/2011) * GLUCOSE - POINT OF CARE(Performed 06/29/2011) * PTH INTACT(Performed 06/29/2011) * TYPE SCRN XMATCH RBC X1(Performed 06/29/2011) * GROSS + MICRO EXAM(Performed 06/29/2011) * PTH INTACT(Performed 06/29/2011) Performed for Primary hyperparathyroidism (HCC) * GLUCOSE - POINT OF CARE(Performed 06/29/2011) * EKG 12-LEAD(Performed 06/28/2011) Performed for Other specified pre-operative examination * NM PARATHYROID SCAN(Performed 05/21/2011) Performed for Hyperparathyroidism, Hypercalcemia * HEMOGLOBIN A1C(Performed 05/08/2011) Performed for Nausea & vomiting, Hyperparathyroidism, Abnormal blood chemistry, Diabetes type 2, controlled ([facility]) * T4 FREE(Performed 05/08/2011) Performed for Nausea & vomiting, Hyperparathyroidism, Abnormal blood chemistry, Diabetes type 2, controlled ([facility]) * PTH INTACT(Performed 05/08/2011) Performed for Nausea & vomiting, Hyperparathyroidism, Abnormal blood chemistry, Diabetes type 2, controlled ([facility]) * TSH REFLEX FREE T4(Performed 05/08/2011) Performed for Nausea & vomiting, Hyperparathyroidism, Abnormal blood chemistry, Diabetes type 2, controlled ([facility]) * LIPID PROFILE(Performed 05/08/2011) Performed for Nausea & vomiting, Hyperparathyroidism, Abnormal blood chemistry, Diabetes type 2, controlled ([facility]) * COMPREHENSIVE METABOLIC PANEL(Performed 05/08/2011) Performed for Nausea & vomiting, Hyperparathyroidism, Abnormal blood chemistry, Diabetes type 2, controlled ([facility]) * CBC W AUTO DIFFERENTIAL(Performed 05/08/2011) Performed for Nausea & vomiting, Hyperparathyroidism, Abnormal blood chemistry, Diabetes type 2, controlled ([facility]) * VITAMIN D 25-HYDROXY(Performed 05/08/2011) Performed for Nausea & vomiting, Hyperparathyroidism, Abnormal blood chemistry, Diabetes type 2, controlled ([facility]) * DEXA BONE DENSITY 2 SITES(Performed 12/12/2010) Performed for Hyperparathyroidism, Hypercalcemia * VASCULAR LAB ORDER(Performed 12/08/2010) * CREATININE URINE TIMED(Performed 11/16/2010) Performed for Hyperparathyroidism, Hypercalcemia, Glucose intolerance (impaired glucose tolerance) * CALCIUM URINE TIMED(Performed 11/16/2010) Performed for Hyperparathyroidism, Hypercalcemia * PTH INTACT(Performed 11/14/2010) * VITAMIN D 25-HYDROXY(Performed 11/14/2010) * CALCIUM BLOOD(Performed 11/14/2010) * VITAMIN D 1,25 DIHYDROXY(Performed 10/26/2010) Performed for Hyperparathyroidism, Hypercalcemia * VITAMIN D 25-HYDROXY(Performed 10/26/2010) Performed for Hyperparathyroidism, Hypercalcemia * REF LAB-NO SPECIMEN RECEIVED(Performed 10/26/2010) * COMPREHENSIVE METABOLIC PANEL(Performed 10/26/2010) Performed for Hyperparathyroidism, Hypercalcemia * MAMMO BILAT SCREENING(Performed 09/27/2010) Performed for Screening mammogram, Other screening mammogram * TSH(Performed 09/22/2010) * PTH INTACT(Performed 09/22/2010) * VITAMIN D 1,25 DIHYDROXY(Performed 09/22/2010) * COMPREHENSIVE METABOLIC PANEL(Performed 09/22/2010) * LIPID PROFILE(Performed 09/22/2010) * HEMOGLOBIN A1C(Performed 09/22/2010) * CBC W AUTO DIFFERENTIAL(Performed 09/22/2010) * B-TYPE NATRIURETIC PEPTIDE(Performed 09/22/2010) * MICROALB/CREAT RATIO URINE RANDOM PANEL(Performed 09/22/2010) * PAP SMEAR IG HPV HR(Performed 09/21/2010) Performed for Well woman exam with routine gynecological exam * RUBEOLA ANTIBODY IGG(Performed 05/25/2010) * MUMPS ANTIBODY IGG(Performed 05/25/2010) * RUBELLA ANTIBODY IGG(Performed 05/25/2010) * HEPATITIS B SURFACE ANTIBODY(Performed 05/25/2010) Results * COPPER BLOOD (07/16/2018 9:41 AM CDT) Pathologist [facility] Copper 136 72 - 166 ug/dL [facility] ACCOUNT BILL Comment: This test was developed and its performance characteristics determined by [facility]. It has not been cleared or approved by the Food and Drug Administration. Detection Limit = 5 Blood BLOOD SPECIMEN / Unknown 07/16/2018 9:41 AM CDT 07/16/2018 Narrative Resulting Agency Comment Lab Testing performed at: [address] [id number] Ivy Encarnacion APRN-BOTTOM CRANE OPERATOR LAB - CHEMIS TRY ORDERABLES [facility] ACCOUNT BILL [address] [place] [address] * (ABNORMAL) CBC W/O DIFFERENTIAL (07/16/2018 9:41 AM CDT) Only the most recent of4 resultswithin the time period is included. WBC 5.2 4.4 - 10.7 x10E9/L [facility] ACCOUNT BILL RBC 4.42 3.80 - 5.20 x10E12/L [facility] ACCOUNT BILL Hemoglobin 11.4(L) 12.0 - 15.6 gm/dL [facility] ACCOUNT BILL Hematocrit 36.5 35.9 - 45.5 % [facility] ACCOUNT BILL MCV 82.6 80.7 - 98.3 fl [facility] ACCOUNT BILL MCH 25.8(L) 26.7 - 34.0 pg [facility] ACCOUNT BILL MCHC 31.2 30.8 - 35.9 gm/dL [facility] ACCOUNT BILL RDW 14.6 12.1 - 14.9 % [facility] ACCOUNT BILL Platelet Count 203 153 - 416 x10E9/L [facility] ACCOUNT BILL Comment:MPV FL BLOOD ([facility]) 1 1.0 fl 9.4-12.9 Blood BLOOD SPECIMEN / Unknown 07/16/2018 9:41 AM CDT 07/16/2018 Narrative Resulting Agency Comment Lab Testing performed at: [facility] [id number] [place] [address] Dr Sivan AGRAWAL [phone] Ivy Encarnacion SAS BI DEVELOPER-BOTTOM CRANE OPERATOR LAB - HEMATO LOGY ORDERABLES [facility] ACCOUNT BILL [address] [place] [address] * COMPREHENSIVE METABOLIC PANEL (07/16/2018 9:41 AM CDT) Only the most recent of17 resultswithin the time period is included. Glucose 92 74 - 106 mg/dL [facility] [...] Resulting Agency Comment Lab Testing performed at: [facility] [place] [address] [facility] [address] Sivan AGRAWAL [phone] Ivy Encarnacion APRN-BOTTOM CRANE OPERATOR LAB - CHEMIS TRY ORDERABLES Performing Organization Address City/[facility] Co de Phone Number [facility] ACCOUNT BILL [address] [place] [address] * VITAMIN K1 (07/16/2018 9:40 AM CDT) Pathologist [facility] Vitamin K1 0.43 0.13 - 1.88 ng/mL [facility] ACCOUNT BILL Comment: This test was developed and its performance characteristics determined by [facility]. It has not been cleared or approved by the Food and Drug Administration. FASTING Blood BLOOD SPECIMEN / Unknown 07/16/2018 9:40 AM CDT 07/16/2018 Narrative Resulting Agency Comment Lab Testing performed at: [address] [phone] Ivy YUSUF LAB - CHEMIS TRY ORDERABLES Performing Organization Address City/[facility] Co de Phone Number [facility] ACCOUNT BILL [address] [place] [address] * ZINC BLOOD (07/16/2018 9:40 AM CDT) Only the most recent of7 resultswithin the time period is included. Zinc, Plasma or Serum 81 56 - 134 ug/dL [facility] ACCOUNT BILL Comment: Detection Limit = 5 FASTING Blood BLOOD SPECIMEN / Unknown 07/16/2018 9:40 AM CDT 07/16/2018 Narrative [facility] ACCOUNT BILL - 07/18/2018 6:06 AM CDT Test(s) [id number], Plasma or Serum was developed and its performance characteristics determined by [facility]. It has not been cleared or approved by the Food and Drug Administration. Resulting Agency Comment Lab Testing performed at: [facility] [address] [phone] Ivy Encarnacion APRN-[employer]Mindful LAB - CHEMIS TRY ORDERABLES Performing Organization Address [facility] de Phone Number [facility] ACCOUNT BILL [address] [place] [address] * VITAMIN A (07/16/2018 9:40 AM CDT) Only the most recent of2 resultswithin the time period is included. Vitamin A 39.1 22.0 - 69.5 ug/dL [facility] ACCOUNT BILL Comment: Reference intervals for vitamin A determined from [facility] internal studies. Individuals with vitamin A less than 20 ug/dL are considered vitamin A deficient and those with serum concentrations less than 10 ug/dL are considered severely deficient. . This test was developed and its performance characteristics determined by [facility]. It has not been cleared or approved by the Food and Drug Administration. FASTING Blood BLOOD SPECIMEN / Unknown 07/16/2018 9:40 AM CDT 07/16/2018 Narrative Resulting Agency Comment Lab Testing performed at: [facility] [address] [phone] Ivy Encarnacion [facility] - CHEMIS TRY ORDERABLES Performing Organization Address [facility] de Phone Number [facility] ACCOUNT BILL [address] [place] [address] * VITAMIN E (07/16/2018 9:40 AM CDT) Vitamin E Alpha Tocopherol 12.0 9.0 - 29.0 mg/L [facility] ACCOUNT BILL Comment: This test was developed and its performance characteristics determined by [facility]. It has not been cleared or approved by the Food and Drug Administration. Vitamin E Gamma Tocopherol 2.3 0.5 - 4.9 mg/L [facility] ACCOUNT BILL Comment: This test was developed and its performance characteristics determined by [facility]. It has not been cleared or approved by the Food and Drug Administration. Reference intervals for alpha and gamma-tocopherol determined from National Health and Nutrition Examination Survey, 7268-8945. Individuals with alpha-tocopherol levels less than 5.0 mg/L are considered vitamin E deficient. FASTING Blood BLOOD SPECIMEN / Unknown 07/16/2018 9:40 AM CDT 07/16/2018 Narrative Resulting Agency Comment Lab Testing performed at: [facility] [address] [phone] Ivy Encarnacion APRN-BOTTOM CRANE OPERATOR LAB - CHEMIS TRY ORDERABLES Performing Organization Address [facility] de Phone Number [facility] ACCOUNT BILL [address] [place] [address] * VITAMIN B1 (07/16/2018 9:40 AM CDT) Only the most recent of8 resultswithin the time period is included. Vitamin B1 Whole Blood 101.3 66.5 - 200.0 nmol/L [facility] ACCOUNT BILL Comment: This test was developed and its performance characteristics determined by [facility]. It has not been cleared or approved by the Food and Drug Administration. FASTING Blood BLOOD SPECIMEN / Unknown 07/16/2018 9:40 AM CDT 07/16/2018 Narrative Resulting Agency Comment Lab Testing performed at: [facility] [address] [phone] Ivy Encarnacion APRN-BOTTOM CRANE OPERATOR LAB - CHEMIS TRY ORDERABLES Performing Organization Address [facility] de Phone Number [facility] ACCOUNT BILL [address] [place] [address] * SELENIUM (07/16/2018 9:40 AM CDT) Selenium 169 91 - 198 ug/L [facility] ACCOUNT BILL Comment: This test was developed and its performance characteristics determined by [facility]. It has not been cleared or approved by the Food and Drug Administration. FASTING Blood BLOOD SPECIMEN / Unknown 07/16/2018 9:40 AM CDT 07/16/2018 Narrative Resulting Agency Comment Lab Testing performed at: [facility] [address] [phone] Ivy Encarnacion APRN-BOTTOM CRANE OPERATOR LAB - CHEMIS TRY ORDERABLES [facility] ACCOUNT BILL [address] [place] [address] * PTH INTACT (07/16/2018 9:40 AM CDT) Only the most recent of13 resultswithin the time period is included. PTH Intact 40 15 - 65 pg/mL [facility] ACCOUNT BILL Comment:FASTING Blood BLOOD SPECIMEN / Unknown 07/16/2018 9:40 AM CDT 07/16/2018 Narrative Resulting Agency Comment Lab Testing performed at: [facility] [place] [address] [facility] [phone] Ivy Encarnacion APRN-BOTTOM CRANE OPERATOR LAB - CHEMIS TRY ORDERABLES Performing Organization Address City/[facility]/ZIP Co de Phone Number [facility] ACCOUNT BILL [address] [place] [address] * (ABNORMAL) VITAMIN D 25-HYDROXY (07/16/2018 9:40 AM CDT) Only the most recent of12 resultswithin the time period is included. Vitamin D, 25 Hydroxy 16.8(L) 30 - 100 ng/mL [facility] ACCOUNT BILL Comment: Vitamin D Status: Deficiency <20 ng/mL Insufficiency 20-30 ng/mL Sufficiency 30-100 ng/mL Toxicity >100 ng/mL FASTING Blood BLOOD SPECIMEN / Unknown 07/16/2018 9:40 AM CDT 07/16/2018 Narrative Resulting Agency Comment Lab Testing performed at: [facility] [place] [address] [place] [phone] Ivy Encarnacion APRN-BOTTOM CRANE OPERATOR LAB - CHEMIS TRY ORDERABLES [facility] ACCOUNT BILL [address] [place] [address] * MAGNESIUM BLOOD (07/16/2018 9:40 AM CDT) Only the most recent of10 resultswithin the time period is included. Magnesium 2.1 1.6 - 2.6 mg/dL [facility] ACCOUNT BILL Comment:FASTING Blood BLOOD SPECIMEN / Unknown 07/16/2018 9:40 AM CDT 07/16/2018 Narrative Resulting Agency Comment Lab Testing performed at: [place] [address] Sivan AGRAWAL [id number] Ivy Encarnacion APRN-BOTTOM CRANE OPERATOR LAB - CHEMIS TRY ORDERABLES [facility] ACCOUNT BILL [address] [place] [address] * IRON BLOOD (07/16/2018 9:40 AM CDT) Only the most recent of7 resultswithin the time period is included. Iron 54 50 - 170 ug/dL [facility] ACCOUNT BILL Comment:FASTING Blood BLOOD SPECIMEN / Unknown 07/16/2018 9:40 AM CDT 07/16/2018 Narrative Resulting Agency Comment Lab Testing performed at: [place] [address] Sivan AGRAWAL [id number] Ivy Encarnacion APRN-BOTTOM CRANE OPERATOR LAB - CHEMIS TRY ORDERABLES [facility] ACCOUNT BILL [address] [place] [address] * FOLATE (07/16/2018 9:40 AM CDT) Only the most recent of2 resultswithin the time period is included. Folate 9.8 7.0 - 31.4 ng/mL [facility] ACCOUNT BILL Comment: Attention clinician: Reference Range has changed. FASTING Blood BLOOD SPECIMEN / Unknown 07/16/2018 9:40 AM CDT 07/16/2018 Narrative Resulting Agency Comment Lab Testing performed at: [address] Sivan AGRAWAL [phone] vIy Encarnacion APRN-BOTTOM CRANE OPERATOR LAB - CHEMIS TRY ORDERABLES Performing Organization Address City/[facility]/ZIP Co de Phone Number [facility] ACCOUNT BILL [address] [place] [address] * VITAMIN B12 (07/16/2018 9:40 AM CDT) Only the most recent of9 resultswithin the time period is included. [facility] Vitamin B12 418 213 - 816 pg/mL [facility] ACCOUNT BILL Comment:FASTING Blood BLOOD SPECIMEN / Unknown 07/16/2018 9:40 AM CDT 07/16/2018 Narrative Resulting Agency Comment Lab Testing performed at: [address] Sivan AGRAWAL [phone] Ivy Encarnacion APRN-BOTTOM CRANE OPERATOR LAB - CHEMIS TRY ORDERABLES Performing Organization Address [facility] Co de Phone Number [facility] ACCOUNT BILL [address] [place] [address] * FERRITIN (07/16/2018 9:40 AM CDT) Only the most recent of8 resultswithin the time period is included. [facility] Ferritin 11 5 - 204 ng/mL [facility] ACCOUNT BILL Comment: Attention clinician: Reference Range has changed. FASTING Blood BLOOD SPECIMEN / Unknown 07/16/2018 9:40 AM CDT 07/16/2018 Narrative Resulting Agency Comment Lab Testing performed at: [address] Sivan AGRAWAL [phone] Ivy Encarnacion APRN-BOTTOM CRANE OPERATOR LAB - CHEMIS TRY ORDERABLES Performing Organization Address City/[facility] Co de Phone Number [facility] ACCOUNT BILL [address] [place] [address] * HELICOBACTER PYLORI UREASE (STL) (07/16/2018 8:02 AM CDT) Pathologist [facility] Helicobacter pylori Urease Initial Negative Negative 07/17/2018 5:03 PM CDT [facility] Helicobacter pylori Urease Final Negative Negative 07/17/2018 5:03 PM CDT [facility] Comment:This is an appended report. These results have been appended to a previously preliminary verified report. Microbiology GASTRIC ANTRAL BIOPSY SPECIMEN / Unknown 07/16/2018 8:02 AM CDT 07/16/2018 2:21 PM CDT Sanjay Atkinson MD LAB - MICROBIOLOGY O RDERABLES [facility] [address] [place] [address] * CARDIAC EKG ORDER (06/04/2018 2:51 PM CDT) Only the most recent of2 resultswithin the time period is included. Narrative 06/04/2018 2:51 PM CDT Ordered by an unspecified provider. Scanned Document CARDIAC SERVICES ORD ERABLES * (ABNORMAL) BASIC METABOLIC PANEL (CALCIUM TOTAL) (04/11/2018 12:32 AM PARTNER ALLIANCE MANAGER) Only the most recent of6 resultswithin the time period is included. BUN 17 7 - 26 mg/dL 04/11/2018 1:13 AM [facility] Creatinine 0.8 0.6 - 1.2 mg/dL 04/11/2018 1:13 AM [facility] Sodium 139 136 - 145 mmol/L 04/11/2018 1:13 AM [facility] Potassium 4.3 3.5 - 4.5 mmol/L 04/11/2018 1:13 AM [facility] Chloride 106 98 - 107 mmol/L 04/11/2018 1:13 AM [facility] CO2 24 22 - 29 mmol/L 04/11/2018 1:13 AM [facility] Glucose 129(H) 70 - 115 mg/dL 04/11/2018 1:13 AM [facility] Calcium 9.0 8.4 - 10.2 mg/dL 04/11/2018 1:13 AM [facility] Anion Gap 13 8 - 18 04/11/2018 1:13 AM [facility] BUN/Creatinine Ratio 21 7 - 23 04/11/2018 1:13 AM [facility] Osmolality Calculated 291 270 - 300 mOsm/kg 04/11/2018 1:13 AM [facility] eGFR >60 >60 mL/min/1.7 3 m2 04/11/2018 1:13 AM [facility] Blood BLOOD SPECIMEN / Unknown Lab Venipuncture / Unknown 04/11/2018 12:32 AM PARTNER ALLIANCE MANAGER 04/11/2018 12:48 AM PARTNER ALLIANCE MANAGER Bj Teran MD LAB - CHEMISTRY JUSTIN SALINAS [facility] [address] [place] [address], [facility] [phone] * [place] MARISSA SURGERY (04/10/2018 7:51 PM PARTNER ALLIANCE MANAGER) Narrative [facility] - 04/10/2018 7:51 PM PARTNER ALLIANCE MANAGER Fluoroscopy was used for this exam in the OR. Please see the Operative report. Andrey Cardenas MD FLUOROSCOPY ORDERA BLES [facility] * CULTURE TISSUE+GRAM STAIN (04/10/2018 4:53 PM PARTNER ALLIANCE MANAGER) Culture No growth EN 04/13/2018 6:12 AM PARTNER ALLIANCE MANAGER [facility] Gram Stain No organisms seen 019 6:12 AM PARTNER ALLIANCE MANAGER [facility] Gram Stain No polymorphonuclear cells 04/13/2018 6:12 AM PARTNER ALLIANCE MANAGER [facility] Microbiology ENTIRE KIDNEY / Unknown Collection / Unknown 04/10/2018 4:53 PM PARTNER ALLIANCE MANAGER 04/10/2018 6:34 PM PARTNER ALLIANCE MANAGER Andrey Cardenas MD LAB - MICROBIOLOGY ORDERABLES Performing Organization Address City/[facility]/ZIP Co de Phone Number [facility] [address] [place] [address], [facility] [phone] * (ABNORMAL) CULTURE ANAEROBE (04/10/2018 4:53 PM PARTNER ALLIANCE MANAGER) Culture No anaerobic organisms isolated EN 04/16/2018 11:33 AM PARTNER ALLIANCE MANAGER [facility] Culture Rare Staphylococcus epidermidis(A) 04/16/2018 11:33 AM [facility] MICRO[facility] Comment:Call Microbiology La boratory at if further workup is required Microbiology ENTIRE KIDNEY / Unknown Collection / Unknown 04/10/2018 4:53 PM PARTNER ALLIANCE MANAGER 04/10/2018 6:34 PM PARTNER ALLIANCE MANAGER Andrey Cardenas MD LAB - MICROBIOLOGY ORDERABLES [facility] [address] [place] [address], [facility] [phone] * STONE ANALYSIS QUANT (04/10/2018 4:31 PM PARTNER ALLIANCE MANAGER) Color Brown 04/17/2018 2:10 PM PARTNER ALLIANCE MANAGER [facility] ([facility]) Size 15 mm 04/17/2018 2:10 PM PARTNER ALLIANCE MANAGER [facility] ([facility]) Weight 1392.7 mg 04/17/2018 2:10 PM PARTNER ALLIANCE MANAGER [facility] ([facility]) Composition Comment 04/17/2018 2:10 PM PARTNER ALLIANCE MANAGER [facility] ([facility]) Comment:Percentage (Represen ts the % composition) Calcium Oxalate Monohydrate 85 % 04/17/2018 2:10 PM PARTNER ALLIANCE MANAGER [facility] ([facility]) Calcium phosphate 15 % 019 2:10 PM PARTNER ALLIANCE MANAGER [facility] ([facility]) Nidus No Nidus visualized 04/17/2018 2:10 PM PARTNER ALLIANCE MANAGER [facility] ([facility]) Please Note Comment 04/17/2018 2:10 PM PARTNER ALLIANCE MANAGER [facility] ([facility]) Comment: Calculi report without photograph will follow via computer, mail, or cable tool driller delivery. Comment Comment 04/17/2018 2:10 PM PARTNER ALLIANCE MANAGER [facility] ([facility]) Comment: Physician questions regarding Calculi Analysis contact [facility] at: [phone]. Disclaimer Comment 04/17/2018 2:10 PM PARTNER ALLIANCE MANAGER [facility] ([facility]) Comment: This test was developed and its performance characteristics determined by [employer]. It has not been cleared or approved by the Food and Drug Administration. Pathology/Cytolo gy CALCULUS SPECIMEN / Unknown Collection / Unknown 04/10/2018 4:31 PM PARTNER ALLIANCE MANAGER 04/11/2018 8:00 AM PARTNER ALLIANCE MANAGER Narrative [facility] ([facility]) - 04/17/2018 2:10 PM PARTNER ALLIANCE MANAGER Performed at: 01 - [facility] [id number] Facility Maintenance Manager: Jessica Mcnair MD, Phone: [phone] Andrey Cardenas MD LAB - URINE CHEMIS TRY ORDERABLES Performing Organization Address City/[facility]/ZIP Co de Phone Number [facility] ([facility]) [address] [place] [address] * EKG 12-LEAD (04/04/2018 3:15 PM PARTNER ALLIANCE MANAGER) Only the most recent of3 resultswithin the time period is included. Ventricular Rate 55 BPM [facility] Atrial Rate 55 BPM [facility] P-R Interval 162 ms [facility] QRS Duration ms 88 ms [facility] Q-T Interval ms 432 ms [facility] QTC Calculation (Bezet) 413 ms [facility] Calculated P [place] 58 degrees [facility] Calculated R [place] 59 degrees [facility] Calculated T [place] 51 degrees [facility] Interpretation EKG SINUS BRADYCARDIA OTHERWISE NORMAL ECG POOR R WAVE PROGRESSION NO PREVIOUS ECGS AVAILABLE Confirmed by [email or web address] BEAVER ([id number]), brands editor Janeth Fink ([id number]) on 05/28/2018 4:11:23 PM [facility] 04/04/2018 3:15 PM PARTNER ALLIANCE MANAGER 05/28/2018 4:11 PM CDT Lauro Rouse DO ECG ORDERABLES Performing Organization Address City/[facility]/ZIP Co de Phone Number [facility] * (ABNORMAL) CBC W AUTO DIFFERENTIAL (03/30/2018 4:35 AM PARTNER ALLIANCE MANAGER) Only the most recent of18 resultswithin the time period is included. WBC 6.6 3.5 - 10.5 10 3/uL 03/30/2018 5:02 AM [facility] RBC 4.51 3.90 - 5.00 10 6/uL 03/30/2018 5:02 AM [facility] Hemoglobin 11.7(L) 12.0 - 15.5 g/dL 03/30/2018 5:02 AM [facility] Hematocrit 37.2 35.0 - 45.0 % 03/30/2018 5:02 AM [facility] MCV 82.5 81.0 - 97.0 fL 03/30/2018 5:02 AM [facility] MCH 25.9(L) 28.0 - 34.0 pg 03/30/2018 5:02 AM [facility] MCHC 31.5(L) 32.0 - 36.0 g/dL 03/30/2018 5:02 AM [facility] Platelet Count 160 150 - 400 10 3/uL 03/30/2018 5:02 AM [facility] RDW-SD 46.7 36.0 - 50.0 fL 03/30/2018 5:02 AM [facility] RDW-CV 15.6(H) 11.2 - 14.8 % 03/30/2018 5:02 AM [facility] MPV 10.8 9.3 - 12.8 fL 03/30/2018 5:02 AM [facility] nRBC Absolute 0.00 0 10 3/uL 03/30/2018 5:02 AM [facility] nRBC Auto 0.0 0 /100 WBC 03/30/2018 5:02 AM [facility] Neutrophils % 52.4 35.0 - 70.0 % 03/30/2018 5:02 AM [facility] Lymphocytes % 39.8 19.7 - 55.1 % 03/30/2018 5:02 AM [facility] Monocytes % 6.2 3.0 - 15.0 % 03/30/2018 5:02 AM [facility] Eosinophils % 0.8 0.0 - 6.0 % 03/30/2018 5:02 AM [facility] Basophil % 0.6 0.0 - 1.5 % 03/30/2018 5:02 AM [facility] Neutrophils Absolute 3.5 1.6 - 7.0 10 3/uL 03/30/2018 5:02 AM [facility] Lymphocyte Absolute 2.6 0.8 - 2.9 10 3/uL 03/30/2018 5:02 AM [facility] Monocytes Absolute 0.41 0.14 - 0.66 10 3/uL 03/30/2018 5:02 AM [facility] Eosinophils Absolute 0.05 0.00 - 0.45 10 3/uL 03/30/2018 5:02 AM [facility] Basophils Absolute 0.04 0.00 - 0.06 10 3/uL 03/30/2018 5:02 AM [facility] Immature Granulocytes % 0.2 0.0 - 1.0 % 03/30/2018 5:02 AM [facility] Blood BLOOD SPECIMEN / Unknown Lab Venipuncture / Unknown 03/30/2018 4:35 AM PARTNER ALLIANCE MANAGER 03/30/2018 4:49 AM PARTNER ALLIANCE MANAGER Jeremi Chowdhury Abilio DO LAB - HEMATOLOGY ORDERABLES [facility] [address] [place] [address] * IR PERC NEPHROSTOMY LEFT (03/29/2018 1:58 PM PARTNER ALLIANCE MANAGER) Anatomical Region Laterality Modality Abdomen X-Ray Angiograph y 03/30/2018 8:32 PM PARTNER ALLIANCE MANAGER Impressions 03/31/2018 11:19 AM PARTNER ALLIANCE MANAGER Impression: 1.Left antegrade nephroureterogram demonstrated obstruction at the level of the left ureterovesicular junction. 2.Placement of a left 8.5 [place]an x 24 cm internal-external nephroureteral stent catheter via a posterior left lower pole calyx under ultrasound and fluoroscopic guidance, as described above. Follow-up: Flush the catheter with 10 mL of saline twice a day. The catheter is open for gravity drainage, and the output should be recorded. Drain can be capped after 24 hours, or after urine clears, and allow for internal drainage. The patient should be scheduled to follow-up in IR in 8-12 weeks for routine catheter exchange if no surgical intervention is planned and the catheter is still in place at that time. Dr. Duran performed/was present throughout the procedure and provided the moderate sedation service. Please see the nursing sedation flowsheet. This report was approved by Ezequiel Melendez on 03/30/2018 8:49 PM . I, Dr. LEXA DURAN have personally reviewed and interpreted this examination/study. This report was electronically signed by LEXA DURAN on 03/31/2018 11:19 AM . Narrative 03/31/2018 11:19 AM PARTNER ALLIANCE MANAGER History: 62 y.o.femalewith a past medical history of HTN, hyperparathyroidism, GERD, and asthma, who presented to the ED withleft flank pain and nausea of one day onset. The pain is described asthrobbing, and radiates to the LLQ. She reports nausea without emesis. Associated loss of appetite. She alsoreports urinary urgency, but deniesdysuria orhematuria. CT revealed an obstructing1.2cm calculus at the left UPJ with minimal left perinephric fat stranding. VIR consulted for left PCN. Operators: 1.Dr. Lexa Duran, Attending Physician 2.Dr. Ezequiel Melendez, Fellow Physician Anesthesia: 1.Local anesthesia - 10 mL of 1% lidocaine 2.Intravenous conscious sedation - Versed 3 mg and Fentanyl 150 mcg Procedure: 1.Limited ultrasound evaluation of the left kidney. 2.Percutaneous access of the left pelvicalyceal system under ultrasound guidance. 3.Left antegrade nephroureterogram. 4.Placement of 8.5 [place]an x 24 cm internal-external nephroureteral stent catheter via a left posterior lower pole calyx under fluoroscopic guidance. Start time: 12:36 PM End time: 1:59 PM Sedation initiated time: 12:35 PM Fluoroscopic time: 11.6 minutes Contrast: 15 mL of Isovue-300 Procedure in detail: The procedure, risks, and possible complications were explained to the patient in detail, and informed consent was obtained.The patient was brought to the angiography suite and placed in a prone position on the procedure table. The left flank was prepped and draped in the usual sterile manner. The patient was given 400 mg Ciprofloxacin IV for antibiotic prophylaxis prior to the procedure. The patient received intravenous Versed and Fentanyl for conscious sedation. A qualified radiology nurse monitored the patients vital signs throughout the procedure. Cooperative Education Director radiograph of the abdomen and pelvis was obtained which demonstrated the previously identified 1.2 cm left renal UPJ radiopaque calculus. Limited ultrasound of the left kidney was performed, demonstrating a nondilated collecting system. Local anesthesia at the skin entry site was achieved with 1% lidocaine. Under ultrasound guidance, a posterior lower pole calyx was accessed using a 21-gauge Accustick needle. The needle entry was documented. The initial aspirate was urine with a pink tinge. Through the Accustick needle, a 0.018 inch wire was advanced into the main ureter. The needle was removed, and over the microwire, an AccuStick assembly was advanced with the AccuStick sheath terminating within the inferior pole calyx. Contrast was hand injected through the sheath, and an antegrade nephroureterogram was performed, demonstrating a nondilated pelvicalyceal collecting system with filling of the ureter to the level of the mid segment. Following system upsized to 0.035 inch system, a Glidewire and KMP catheter were advanced to the distal ureter. Ureterogram was obtained, demonstrating filling of the distal ureter without passage of contrast into the bladder. No radiopaque stone was apparent. Glidewire and KMP catheter combination were manipulated into the bladder. After making the appropriate measurements, an Amplatz wire was coiled within the bladder, over which an 8.5 [place] by 24 cm nephroureteral stent catheter was placed. Wire/inner stiffener were removed, and pigtail deployed and locked in the distal and proximal locations, and catheter secured with 2-0 Prolene. Proper location was confirmed with hand-injection of contrast, and catheter connected to gravity bag drainage. The patient tolerated the procedure well and was transferred to the holding area in stable condition. There were no immediate complications associated with the procedure. Procedure Note Lexa Duran MD - 03/31/2018 History: 62 y.o.femalewith a past medical history of HTN, hyperparathyroidism, GERD, and asthma, who presented to the ED withleft flank pain and nausea of one day onset. The pain is describedasthrobbing, and radiates to the LLQ. She reports nausea without emesis. Associated loss of appetite. She alsoreports urinary urgency, but deniesdysuria orhematuria. CT revealed an obstructing1.2cm calculus at the left UPJwith minimal left perinephric fat stranding. VIR consulted for left PCN. Operators: 1.Dr. Lexa Duran, Attending Physician 2.Dr. Ezequiel Melendez, Fellow Physician Anesthesia: 1.Local anesthesia - 10 mL of 1% lidocaine 2.Intravenous conscious sedation - Versed 3 mg and Fentanyl 150 mcg Procedure: 1.Limited ultrasound evaluation of the left kidney. 2.Percutaneous access of the left pelvicalyceal system under ultrasound guidance. 3.Left antegrade nephroureterogram. 4.Placement of 8.5 [place]an x 24 cm internal-external nephroureteral stent catheter via a left posterior lower pole calyx under fluoroscopic guidance. Start time: 12:36 PM End time: 1:59 PM Sedation initiatedtime: 12:35 PM Fluoroscopic time: 11.6 minutes Contrast: 15 mL of Isovue-300 Procedure in detail: The procedure, risks, and possible complications were explained to the patient in detail, and informed consent was obtained.The patient was brought to the angiography suite and placed in a prone position on the procedure table. The left flank was prepped and draped in the usual sterile manner. The patient was given 400 mg Ciprofloxacin IV for antibiotic prophylaxis prior to the procedure. The patient received intravenous Versed and Fentanyl for conscious sedation. A qualified radiology nurse monitored the patients vital signs throughout the procedure. Cooperative Education Director radiograph of the abdomen and pelvis was obtained whichdemonstrated the previously identified 1.2 cm left renal UPJ radiopaque calculus. Limited ultrasound of the left kidney was performed, demonstrating a nondilated collecting system. Local anesthesia at the skin entry sitewas achieved with 1% lidocaine. Under ultrasound guidance, a posterior lower pole calyx was accessed using a 21-gauge Accustick needle. The needle entry was documented. The initial aspirate was urine with a pink tinge. Through the Accustick needle, a 0.018 inch wire was advanced into themain ureter. The needle was removed, and over the microwire, an AccuStick assembly was advanced with the AccuStick sheath terminating within the inferior pole calyx. Contrast was hand injected through the sheath, andan antegrade nephroureterogram was performed, demonstrating a nondilated pelvicalyceal collecting system with filling of the ureter to the levelof the mid segment. Following system upsized to 0.035 inch system, a Glidewire and KMP catheter were advanced to the distal ureter. Ureterogram was obtained, demonstrating filling of the distal ureter without passage of contrast into the bladder. No radiopaque stone was apparent. Glidewire and KMP catheter combination were manipulated into the bladder. After making the appropriate measurements, an Amplatz wire was coiled within the bladder, over which an 8.5 [place] by 24 cm nephroureteral stent catheter was placed. Wire/inner stiffener were removed, and pigtail deployed and locked inthe distal and proximal locations, and catheter secured with 2-0 Prolene. Proper location was confirmed with hand-injection of contrast, and catheter connected to gravity bag drainage. The patient tolerated the procedure well and was transferred to the holding area in stable condition. There were no immediate complications associated with the procedure. Impression: 1.Left antegrade nephroureterogram demonstrated obstruction at the level of the left ureterovesicular junction. 2.Placement of a left 8.5 [place] x 24 cm internal-externalnephroureteral stent catheter via a posterior left lower pole calyx under ultrasoundand fluoroscopic guidance, as described above. Follow-up: Flush the catheter with 10 mL of saline twice a day. The catheter is open for gravity drainage, and the output should berecorded. Drain can be capped after 24 hours, or after urine clears, and allow for internal drainage. The patient should be scheduled to follow-up in IRin 8-12 weeks for routine catheter exchange if no surgical intervention is planned and the catheter is still in place at that time. Dr. Duran performed/was present throughout the procedure and provided the moderate sedation service. Please see the nursing sedation flowsheet. This report was approved by Ezequiel Melendez on 03/30/2018 8:49 PM . I, Dr. LEXA DURAN have personally reviewed and interpreted this examination/study. This report was electronically signed by LEXA DURAN on 03/31/2018 11:19 AM. Tani Jones MD IR ORDERABLES * PT-INR [facility] (03/29/2018 5:21 AM [facility]) PT 13.5 12.1 - 14.8 Seconds 03/29/2018 5:34 AM [facility] INR 1.1 See Comment 03/29/2018 5:34 AM [facility] Comment: The suggested therapeutic range for standard coumadin (warfarin) therapy is an INR of 2.0-3.0. For high-risk patients (Mechanical Mitral Valve Prosthesis, etc.), the suggested prophylactic therapeutic range is an INR of 2.5-3.5. Blood BLOOD SPECIMEN / Unknown Venipuncture / Unknown 03/29/2018 5:21 AM PARTNER ALLIANCE MANAGER 03/29/2018 5:25 AM PARTNER ALLIANCE MANAGER Jeremi Chowdhury Dumontier DO LAB - COAGULATION ORDERABLES Performing Organization Address City/[facility]/ZIP Co de Phone Number [facility] [address] [place] [address], [facility] [phone] * CULTURE URINE (03/28/2018 5:05 PM PARTNER ALLIANCE MANAGER) Only the most recent of2 resultswithin the time period is included. Culture Urine <10,000 CFU/mL urogenital rigoberto EN 03/30/2018 10:18 AM [facility] Urine URINE SPECIMEN OBTAINED BY CLEAN CATCH PROCEDURE / Unknown Collection / Unknown 03/28/2018 5:05 PM PARTNER ALLIANCE MANAGER 03/28/2018 5:07 PM PARTNER ALLIANCE MANAGER Jeremi Chowdhury Asmitaontgareth DO LAB - MICROBIOLOG Y ORDERABLES Performing Organization Address City/[facility]/ZIP Co de Phone Number [facility] [address] [place] [address], [facility] [phone] * (ABNORMAL) URINALYSIS REFLEX TO MICROSCOPIC NO CULTURE (03/28/2018 3:52 PM PARTNER ALLIANCE MANAGER) Only the most recent of2 resultswithin the time period is included. Color UA Yellow Straw, Yellow, Colorless 03/28/2018 4:10 PM [facility] Clarity UA Clear Clear, Slt Cloudy 03/28/2018 4:10 PM [facility] Specific Pierce UA 1.025 1.005 - 1.030 03/28/2018 4:10 PM [facility] pH UA 5.0 5.0 - 8.0 pH 03/28/2018 4:10 PM [facility] Protein UA Negative Negative mg/dL 03/28/2018 4:10 PM [facility] Glucose UA Negative Negative mg/dL 03/28/2018 4:10 PM [facility] Ketone UA 2+(A) Negative mg/dL 03/28/2018 4:10 PM [facility] Bilirubin UA Negative Negative mg/dL 03/28/2018 4:10 PM [facility] Blood UA 1+(A) Negative 03/28/2018 4:10 PM [facility] Nitrite UA Negative Negative 03/28/2018 4:10 PM [facility] Leukocyte Esterase Negative Negative 03/28/2018 4:10 PM [facility] Urobilinogen UA Negative Negative mg/dL 03/28/2018 4:10 PM [facility] RBC UA 6-10(A) None Seen, 0-2, 3-5 /HPF 03/28/2018 4:10 PM [facility] WBC UA 0-5 None Seen, 0-5 /HPF 03/28/2018 4:10 PM [facility] Bacteria UA 1+(A) None, Trace /HPF 03/28/2018 4:10 PM [facility] Squamous Epithelial Cells UA 0-2 None Seen, 0-2 /HPF 03/28/2018 4:10 PM [facility] Mucus UA 1+ None, 1+ /LPF 03/28/2018 4:10 PM THE [facility] Urine URINE SPECIMEN OBTAINED BY CLEAN CATCH PROCEDURE / Unknown Collection / Unknown 03/28/2018 3:52 PM PARTNER ALLIANCE MANAGER 03/28/2018 4:00 PM PARTNER ALLIANCE MANAGER Tani Jones MD LAB - URINALYSIS O RDERABLES [facility] [address] [place] [address] * CT ABDOMEN PELVIS WO CONTRAST (03/28/2018 3:43 PM PARTNER ALLIANCE MANAGER) Anatomical Region Laterality Modality Abdomen, Pelvis Computed Tomogra phy 03/28/2018 3:35 PM PARTNER ALLIANCE MANAGER Impressions 03/28/2018 5:02 PM PARTNER ALLIANCE MANAGER IMPRESSION: 1. 1.2 x 1.0 cm calculus in the left ureteropelvic junction with left perinephric fat stranding and hydronephrosis indicating obstruction. 2. Cholelithiasis with mildly distended gallbladder without other evidence of acute cholecystitis. If the patient has right upper quadrant pain, ultrasound could be considered. Preliminary results were discussed with Dr. Knox by Dr. Vernon at 3:37 PM . Dictated by Emerson Vernon MD (vice president client services). This report was approved by Emerson Vernon on 03/28/2018 3:[address] Monie Paige M.D. have personally reviewed and interpreted this examination/study. This report was electronically signed by Monie KIM M.D. on 03/28/2018 5:02 PM . Narrative 03/28/2018 5:02 PM PARTNER ALLIANCE MANAGER EXAMINATION: Computed tomography (CT) of the abdomen and pelvis without contrast HISTORY: RT/o kidney stone TECHNIQUE: CT of the abdomen and pelvis was performed without contrast according to standard protocol. FINDINGS: No prior study is available for comparison at the time of this dictation. Evaluation of visceral and vascular structures is degraded due to lack of intravenous contrast administration. There are mild atherosclerotic calcifications of the aorta and its branches. The visible lung bases are clear. The heart size is normal without pericardial effusion. The liver appears normal. There is a gallstone in the neck of the gallbladder that measures approximately 2.2 cm. The gallbladder is slightly distended but there is no evidence of gallbladder wall thickening, pericholecystic fluid or fat stranding. The intrahepatic and extrahepatic bile ducts are nondilated. The spleen, pancreas, and adrenal glands appear normal. There is a 1.2 x 1.0 cm calculus in the left ureteropelvic junction. The left ureter is decompressed distal to the calculus. There is left perinephric fat stranding and hydronephrosis indicating acute obstruction. There are no other renal calculi. The right kidney is normal. The patient is status post Brii-en-Y gastric bypass. There are postoperative changes of the small bowel in the left upper quadrant. There is no evidence of bowel obstruction. There are colonic diverticula without evidence of acute diverticulitis. No free air or free fluid is identified within the abdomen. There is no abdominal lymphadenopathy. The urinary bladder is distended with fluid and appears normal. The uterus is present. No free fluid is seen within the pelvis. There is no pelvic lymphadenopathy. Small calcifications within the pelvis likely represent phleboliths rather than calculi. Bone windows demonstrate no suspicious lytic or blastic lesions. The visible osseous structures are intact. Procedure Note Nicolle Kim MD - 03/28/2018 EXAMINATION: Computed tomography (CT) of the abdomen and pelvis without contrast HISTORY: RT/o kidney stone TECHNIQUE: CT of the abdomen and pelvis was performed without contrast according to standard protocol. FINDINGS: No prior study is available for comparison at the time of this dictation. Evaluation of visceral and vascular structures is degraded due to lackof intravenous contrast administration. There are mild atherosclerotic calcifications of the aorta and its branches. The visible lung bases are clear. The heart size is normal without pericardial effusion. The liver appears normal. There is a gallstone in the neck of the gallbladder that measures approximately 2.2 cm. The gallbladder is slightly distended but there is no evidence of gallbladder wall thickening, pericholecystic fluid or fat stranding. The intrahepatic and extrahepatic bile ducts are nondilated. The spleen, pancreas, andadrenal glands appear normal. There is a 1.2 x 1.0 cm calculus in the left ureteropelvic junction. The left ureter is decompressed distal to the calculus. There is left perinephric fat stranding and hydronephrosis indicating acuteobstruction. There are no other renal calculi. The right kidney is normal. The patient is status post Brii-en-Y gastric bypass. There are postoperative changes of the small bowel in the left upper quadrant.There is no evidence of bowel obstruction. There are colonic diverticulawithout evidence of acute diverticulitis. No free air or free fluid isidentified within the abdomen. There is no abdominal lymphadenopathy. The urinary bladder is distended with fluid and appears normal. Theuterus is present. No free fluid is seen within the pelvis. There is no pelvic lymphadenopathy. Small calcifications within the pelvis likely represent phleboliths rather than calculi. Bone windows demonstrate no suspicious lytic or blastic lesions. The visible osseous structures are intact. IMPRESSION: 1. 1.2 x 1.0 cm calculus in the left ureteropelvic junction with left perinephric fat stranding and hydronephrosis indicating obstruction. 2. Cholelithiasis with mildly distended gallbladder without otherevidence of acute cholecystitis. If the patient has right upper quadrant pain, ultrasound could be considered. Preliminary results were discussed with Dr. Knox by Dr. Vernon at3:37 PM . Dictated by Emerson Vernon MD (vice president client services). This report was approved by Emerson Vernon on 03/28/2018 3:57 PM . IDr. Monie M.D. have personally reviewed and interpretedthis examination/study. This report was electronically signed by Monie KIM M.D. on 03/28/2018 5:02 PM . Brian Pastor MD CT ORDERABLES * (ABNORMAL) DIFFERENTIAL MANUAL (03/28/2018 2:40 PM PARTNER ALLIANCE MANAGER) WBC (corrected for NRBC) 7.6 10 3/uL 03/28/2018 3:27 PM [facility] Total Cell Count 100 03/28/2018 3:27 PM [facility] Neutrophils Absolute Manual 6.00 1.60 - 7.00 10 3/uL 03/28/2018 3:27 PM [facility] Comment:(BANDS+SEGS) x WBC = NEUT # (ANC) Lymphocyte Absolute Manual 1.14 0.80 - 2.90 10 3/uL 03/28/2018 3:27 PM [facility] Monocytes Absolute Manual 0.38 0.14 - 0.66 10 3/uL 03/28/2018 3:27 PM [facility] Basophil Absolute Manual 0.08(H) 0.00 - 0.06 10 3/uL 03/28/2018 3:27 PM [facility] Band % Manual 1 0 - 10 % 03/28/2018 3:27 PM [facility] Neutrophil % Manual 78(H) 30 - 60 % 03/28/2018 3:27 PM [facility] Lymphocyte % Manual 15(L) 20 - 45 % 03/28/2018 3:27 PM [facility] Monocytes % Manual 5 2 - 10 % 03/28/2018 3:27 PM [facility] Basophils % Manual 1 0 - 3 % 03/28/2018 3:27 PM [facility] Platelet Estimate Adequate Adequate 03/28/2018 3:27 PM [facility] RBC Morphology Normal 03/28/2018 3:27 PM [facility] Blood BLOOD SPECIMEN / Unknown Venipuncture / Unknown 03/28/2018 2:40 PM PARTNER ALLIANCE MANAGER 03/28/2018 2:52 PM PARTNER ALLIANCE MANAGER Tani Jones MD LAB - HEMATOLOGY O RDERABLES [facility] [address] [phone] * CULTURE URINE COMPREHENSIVE (08/14/2017 1:24 PM CDT) Urine Culture Comprehensive Final report [facility] INSURANCE BILL Result 1 [facility] INSURANCE BILL Comment: Mixed urogenital rigoberto 25,000-50,000 colony forming units per mL FASTING Microbiology URINE SPECIMEN OBTAINED BY CLEAN CATCH PROCEDURE / Unknown 08/14/2017 1:24 PM CDT 08/14/2017 Narrative Resulting Agency Comment [facility] [address] [facility] [phone] Darlin Mcclain APRN-BOTTOM CRANE OPERATOR LAB - MICROBIOL OGY [facility]ABLES [facility] [address] [place] [address] * HEMOGLOBIN A1C (08/14/2017 1:24 PM CDT) Only the most recent of6 resultswithin the time period is included. Hemoglobin A1c 5.5 4.8 - 5.6 % [facility] INSURANCE BILL Comment: . Pre-diabetes: 5.7 - 6.4 Diabetes: >6.4 Glycemic control for adults with diabetes: <7.0 FASTING Whole Blood BLOOD SPECIMEN / Unknown 08/14/2017 1:24 PM CDT 08/14/2017 Narrative Resulting Agency Comment [facility] [address] [facility] [phone] Darlin Mcclain APRN-BOTTOM CRANE OPERATOR LAB - CHEMISTRY ORDERABLES [facility] INSURANCE BILL [address] [place] [address] * (ABNORMAL) RETIC COUNT (08/14/2017 1:24 PM CDT) Reticulocyte Count 0.5(L) 0.6 - 2.6 % [facility] INSURANCE BILL Comment:FASTING Blood BLOOD SPECIMEN / Unknown 08/14/2017 1:24 PM CDT 08/14/2017 Narrative Resulting Agency Comment [facility] [address] [facility] [phone] Darlin Andreinaa SAS BI DEVELOPER-BOTTOM CRANE OPERATOR LAB - HEMATOLOG Y ORDERABLES [facility] INSURANCE BILL [address] [place] [address] * VITAMIN B12 FOLATE PANEL (08/14/2017 1:24 PM CDT) Only the most recent of2 resultswithin the time period is included. Vitamin B12 592 232 - 1,245 pg/mL [facility] INSURANCE BILL Folate >20.0 >3.0 ng/mL [facility] INSURANCE BILL Comment: A serum folate concentration of less than 3.1 ng/mL is considered to represent clinical deficiency. FASTING Blood BLOOD SPECIMEN / Unknown 08/14/2017 1:24 PM CDT 08/14/2017 Narrative Resulting Agency Comment [facility] [address] [facility] [phone] Darlindarryl Hdza SAS BI DEVELOPER-BOTTOM CRANE OPERATOR LAB - CHEMISTRY ORDERABLES Performing Organization Address City/[facility] Co de Phone Number [facility] INSURANCE BILL [address] [place] [address] * TSH (08/14/2017 1:24 PM CDT) Only the most recent of3 resultswithin the time period is included. TSH 2.510 0.450 - 4.500 uIU/mL [facility] INSURANCE BILL Comment:FASTING Blood BLOOD SPECIMEN / Unknown 08/14/2017 1:24 PM CDT 08/14/2017 Narrative Resulting Agency Comment [facility] [address] [facility] [phone] Darlin Daysiwalda SAS BI DEVELOPER-BOTTOM CRANE OPERATOR LAB - CHEMISTRY ORDERABLES [facility] INSURANCE BILL [address] [place] [address] * T4 FREE (08/14/2017 1:24 PM CDT) Only the most recent of3 resultswithin the time period is included. T4 Free 1.17 0.82 - 1.77 ng/dL [facility] INSURANCE BILL Comment:FASTING Blood BLOOD SPECIMEN / Unknown 08/14/2017 1:24 PM CDT 08/14/2017 Narrative Resulting Agency Comment [facility] [address] [facility] [phone] Darlin Mcclain SAS BI DEVELOPER-BOTTOM CRANE OPERATOR LAB - CHEMISTRY ORDERABLES Performing Organization Address City/[facility]/ZIP Co de Phone Number [facility] INSURANCE BILL [address] [place] [address] * IRON + TRANSFERRIN PANEL (08/14/2017 1:24 PM CDT) Iron 75 27 - 159 ug/dL [facility] INSURANCE BILL Transferrin 302 200 - 370 mg/dL [facility] INSURANCE BILL Comment:FASTING Blood BLOOD SPECIMEN / Unknown 08/14/2017 1:24 PM CDT 08/14/2017 Narrative Resulting Agency Comment [facility] [address] [facility] [phone] Darlin Sarahi SAS BI DEVELOPER-BOTTOM CRANE OPERATOR LAB - CHEMISTRY ORDERABLES Performing Organization Address [facility] de Phone Number [facility] INSURANCE BILL [address] [place] [address] * LIPID PROFILE (08/14/2017 1:24 PM CDT) Only the most recent of3 resultswithin the time period is included. Cholesterol 196 100 - 199 mg/dL [facility] [...] PM CDT 08/14/2017 Narrative Resulting Agency Comment [facility] [address] [facility] [phone] Darlin Mcclain VASYL-BOTTOM CRANE OPERATOR LAB - CHEMISTRY ORDERABLES [facility] INSURANCE BILL [address] [place] [address] * XR CHEST PA AND LATERAL (03/11/2017 12:04 PM PARTNER ALLIANCE MANAGER) Only the most recent of6 resultswithin the time period is included. Anatomical Region Laterality Modality Chest Radiographic Oksana ging 03/11/2017 12:4 8 PM PARTNER ALLIANCE MANAGER Impressions 03/11/2017 12:48 PM PARTNER ALLIANCE MANAGER No acute disease. Narrative 03/11/2017 12:48 PM PARTNER ALLIANCE MANAGER Chest Two Views History: Acute bronchitis, unspecified. COMPARISON: August 18, 2013. FINDINGS: The lungs are clear without airspace consolidation or pulmonary edema. No pneumothorax or pleural effusion is seen. The cardiomediastinal contour is unremarkable. Procedure Note Carlos Enrique Santacruz MD - 03/11/2017 Chest Two Views History: Acute bronchitis, unspecified. COMPARISON: August 18, 2013. FINDINGS: The lungs are clear without airspace consolidation or pulmonary edema. No pneumothorax or pleural effusion is seen. The cardiomediastinal contour is unremarkable. IMPRESSION No acute disease. Darlin Mcclain VASYL-BOTTOM CRANE OPERATOR DIAGNOSTIC IMAG ING ORDERABLES * BLADDER SCAN - POINT OF CARE (AMB) (11/20/2016) mL 14cc Urine URINE / Unknown 11/20/2016 Vinnie Tian MD LAB - POINT OF CARE ORDERABLES * URINALYSIS AUTO W MICROSCOPIC - POINT OF CARE (AMB) (11/20/2016) Clarity UA POCT cloudy Color UA POCT yellow Glucose UA neg Negative Bilirubin UA POCT neg Negative Ketone UA neg Negative Specific Pierce UA POCT 1.030 1.002 - 1.030 Blood UA small Negative pH UA 5.5 5.0 - 8.0 pH units Protein UA POCT trace Negative Urobilinogen UA 0.2 0.1 - 1.0 Nitrite UA POCT positive Negative Leukocyte UA small Negative QC Verified Yes Yes RBC UA POCT 5-10 0 - 1 HPF WBC UA POCT 5-10 0 - 1 HPF Epithelial Cell UA POCT neg 0 - 1 HPF Bacteria UA POCT few None Mucus UA POCT neg None Casts UA POCT neg None LPF Crystals UA POCT few None LPF Urine Other Urine URINE / Unknown 11/20/2016 Vinnie Tian MD LAB - POINT OF CARE ORDERABLES * INFLUENZA A+B - POINT OF CARE (AMB) (03/20/2016 8:29 AM PARTNER ALLIANCE MANAGER) Only the most recent of2 resultswithin the time period is included. Influenza A Antigen Rapid Negative Negative Influenza B Antigen Rapid Negative Negative Influenza Internal Control neg NEGATIVE - POSITIVE Influenza Lot Number [id number] Influenza Expiration Date Other NASOPHARYNGEAL SWAB / Unknown 03/20/2016 8:29 AM PARTNER ALLIANCE MANAGER Leena Keita MD LAB - POINT OF CARE ORDERABLES * ECHOCARDIOGRAM 2D WITH DOPPLER (02/22/2016 11:59 AM PARTNER ALLIANCE MANAGER) 02/22/2016 11:5 9 AM PARTNER ALLIANCE MANAGER Narrative [facility] - 02/23/2016 3:06 PM PARTNER ALLIANCE MANAGER [facility] [place] [facility] [id number] [place] [address] Transthoracic Echocardiogram 2D, M-mode, Doppler, and Color Doppler Patient: LAYNE PEGUERO MR number: [id number] Height: 64 in Weight: 179 lb BSA: 1.87 m Study date: 22-Feb-2016 : 1955 Age: 60 years Gender: Female Race: Allergies: TUBERCULIN PURIFIED PROTEIN DERIVATIVE Reading Physician: Moustapha Quezada MD Referring Physician: Leena Keita MD DOG BREEDER: Kalpana Hilliard [facility] Cardiology Group: [facility] Summary: - Clinical question: - Murmur - History: - GERD,Systolic murmur - Left ventricle: - Systolic function was normal. Ejection fraction was estimated in the range of 55 % to 65 %. - There were no regional wall motion abnormalities. - Wall thickness was normal. - Mitral valve: - There was mild regurgitation. - Tricuspid valve: - There was mild regurgitation. Indications: Murmur History: Prior history: GERD,Systolic murmur Procedure: The study was performed in the [facility]. The transthoracic approach was used. The study included complete 2D imaging, M-mode, complete spectral Doppler, and color Doppler. Systolic blood pressure was 126 mmHg. Diastolic blood pressure was 84 mmHg. Image quality was adequate. Left ventricle: Size was normal. Systolic function was normal. Ejection fraction was estimated in the range of 55 % to 65 %. There were no regional wall motion abnormalities. Wall thickness was normal. Aortic valve: The valve was trileaflet. Leaflets exhibited normal thickness and normal cuspal separation. Doppler: There was no stenosis. There was no regurgitation. Aorta: The root exhibited normal size. Mitral valve: Valve structure was normal. There was normal leaflet separation. Doppler: The transmitral velocity was within the normal range. There was no evidence for stenosis. There was mild regurgitation. Left atrium: Size was normal. Right ventricle: The size was normal. Systolic function was normal. Wall thickness was normal. Pulmonic valve: Leaflets exhibited normal thickness, no calcification, and normal cuspal separation. Doppler: There was no regurgitation. Pulmonary artery: The size was normal. Doppler: Systolic pressure was within the normal range. Tricuspid valve: The valve structure was normal. There was normal leaflet separation. Doppler: The transtricuspid velocity was within the normal range. There was no evidence for tricuspid stenosis. There was mild regurgitation. Right atrium: Size was normal. Pericardium: The pericardium was normal in appearance. System measurement tables CW PV Vmax: 1.3 m/s AV VTI: 41.5 cm AV Vmax: 1.7 m/s AV maxP.1 mmHg AV meanP.2 mmHg PV maxP.9 mmHg TR Vmax: 2.5 m/s TR maxP mmHg MM LA Diam: 4.4 cm Ao Diam: 2.5 cm IVSd: 1 cm LVIDd: 4.7 cm LVIDs: 2.5 cm LVPWd: 0.8 cm PW LVOT Vmax: 0.9 m/s Lateral E/e': 9.9 Septal E/e': 10.2 Lateral e': 0.1 m/s MV A Jorge Alberto: 0.6 m/s MV Dec Pierce: 4.4 m/s2 MV E Jorge Alberto: 1 m/s MV E/A Ratio: 1.7 Septal e': 0.1 m/s Prepared and signed by Moustapha Quezada MD Signed 23-Feb-2016 15:06:23 Procedure Note Moustapha Quezada MD - 02/23/2016 [facility] [place] [facility] [address] [facility] [address] [place] [address] Transthoracic Echocardiogram 2D, M-mode, Doppler, and Color Doppler Patient: LAYNE PEGUERO MR number: [id number] Height: 64 in Weight: 179 lb BSA: 1.87 m Study date: 22-Feb-2016 : 1955 Age: 60 years Gender: Female Race: Allergies: TUBERCULIN PURIFIED PROTEIN DERIVATIVE Reading Physician: Moustapha Quezada MD Referring Physician: Leena Keita MD DOG BREEDER: Kalpana Hilliard [facility] Cardiology Group: [facility] Summary: - Clinical question: - Murmur - History: - GERD,Systolic murmur - Left ventricle: - Systolic function was normal. Ejection fraction was estimated in the range of 55 % to 65 %. - There were no regional wall motion abnormalities. - Wall thickness was normal. - Mitral valve: - There was mild regurgitation. - Tricuspid valve: - There was mild regurgitation. Indications: Murmur History: Prior history: GERD,Systolic murmur Procedure: The study was performed in the [facility]. The transthoracic approach was used. The study included complete 2D imaging, M-mode, complete spectral Doppler, and color Doppler. Systolic blood pressure was 126 mmHg. Diastolic blood pressure was 84 mmHg. Image quality was adequate. Left ventricle: Size was normal. Systolic function was normal. Ejection fraction was estimated in the range of 55 % to 65 %. There were no regional wall motion abnormalities. Wall thickness was normal. Aortic valve: The valve was trileaflet. Leaflets exhibited normal thickness and normal cuspal separation. Doppler: There was no stenosis. There was no regurgitation. Aorta: The root exhibited normal size. Mitral valve: Valve structure was normal. There was normal leaflet separation. Doppler: The transmitral velocity was within the normal range. There was no evidence for stenosis. There was mild regurgitation. Left atrium: Size was normal. Right ventricle: The size was normal. Systolic function was normal. Wall thickness was normal. Pulmonic valve: Leaflets exhibited normal thickness, no calcification, and normal cuspal separation. Doppler: There was no regurgitation. Pulmonary artery: The size was normal. Doppler: Systolic pressure was within the normal range. Tricuspid valve: The valve structure was normal. There was normal leaflet separation. Doppler: The transtricuspid velocity was within the normal range. There was no evidence for tricuspid stenosis. There was mild regurgitation. Right atrium: Size was normal. Pericardium: The pericardium was normal in appearance. System measurement tables CW PV Vmax: 1.3 m/s AV VTI: 41.5 cm AV Vmax: 1.7 m/s AV maxP.1 mmHg AV meanP.2 mmHg PV maxP.9 mmHg TR Vmax: 2.5 m/s TR maxP mmHg MM LA Diam: 4.4 cm Ao Diam: 2.5 cm IVSd: 1 cm LVIDd: 4.7 cm LVIDs: 2.5 cm LVPWd: 0.8 cm PW LVOT Vmax: 0.9 m/s Lateral E/e': 9.9 Septal E/e': 10.2 Lateral e': 0.1 m/s MV A Jorge Alberto: 0.6 m/s MV Dec Pierce: 4.4 m/s2 MV E Jorge Alberto: 1 m/s MV E/A Ratio: 1.7 Septal e': 0.1 m/s Prepared and signed by Moustapha Quezada MD Signed 23-Feb-2016 15:06:23 Leena Keita MD ECHO ORDERABLES [facility] * C-PEPTIDE (02/14/2016 7:30 AM PARTNER ALLIANCE MANAGER) C-Peptide 1.56 0.78 - 1.89 ng/mL 02/14/2016 2:32 PM PARTNER ALLIANCE MANAGER [facility] Blood BLOOD SPECIMEN / Unknown Lab Venipuncture / Unknown 02/14/2016 7:30 AM PARTNER ALLIANCE MANAGER 02/14/2016 7:41 AM PARTNER ALLIANCE MANAGER Leena Keita MD LAB - CHEMISTRY JUSTIN SALINAS Performing Organization Address City/[facility]/ZIP Co de Phone Number [facility] [address] [place] [address] [phone] * INSULIN LEVEL (02/14/2016 7:30 AM PARTNER ALLIANCE MANAGER) Insulin 10.1 3.0 - 25.0 mU/L 02/14/2016 2:32 PM PARTNER ALLIANCE MANAGER [facility] Blood BLOOD SPECIMEN / Unknown Lab Venipuncture / Unknown 02/14/2016 7:30 AM PARTNER ALLIANCE MANAGER 02/14/2016 7:41 AM PARTNER ALLIANCE MANAGER Leena Keita MD LAB - CHEMISTRY JUSTIN SALINAS Performing Organization Address [facility] Co de Phone Number [facility] [address] [place] [address] [phone] * LIPASE BLOOD (02/14/2016 7:30 AM PARTNER ALLIANCE MANAGER) Pathologist [facility] Lipase 91 73 - 393 U/L 02/14/2016 8:17 AM [facility] Blood BLOOD SPECIMEN / Unknown Lab Venipuncture / Unknown 02/14/2016 7:30 AM PARTNER ALLIANCE MANAGER 02/14/2016 7:41 AM PARTNER ALLIANCE MANAGER Leena Keita MD LAB - CHEMISTRY JUSTIN SALINAS Performing Organization Address City/[facility] Co de Phone Number [facility] [address] [place] [address] * HEPATITIS C ANTIBODY (02/14/2016 7:30 AM PARTNER ALLIANCE MANAGER) Pathologist [facility] HCV Antibody Screen Non Reactive Non Reactive 02/14/2016 3:06 PM [facility] HCV S/C Ratio 0.12 0.00 - 0.79 02/14/2016 3:06 PM [facility] Comment: Hxzqal-yo-rueoem ratio (S/CO) <0.80: Non Reactive Blood BLOOD SPECIMEN / Unknown Lab Venipuncture / Unknown 02/14/2016 7:30 AM PARTNER ALLIANCE MANAGER 02/14/2016 7:41 AM PARTNER ALLIANCE MANAGER Narrative [facility] - 02/14/2016 3:06 PM PARTNER ALLIANCE MANAGER Non Reactive - Antibodies to Hepatitis C virus (HCV) were not detected, result does not exclude early acute HCV infection. Leena Keita MD LAB - CHEMISTRY JUSTIN SALINAS Performing Organization Address [facility] Co de Phone Number [facility] [address] [place] [address] * CORTISOL BLOOD (02/14/2016 7:30 AM PARTNER ALLIANCE MANAGER) Cortisol 11.44 3.1 - 22.4 ug/dL 02/14/2016 2:27 PM PARTNER ALLIANCE MANAGER [facility] Blood BLOOD SPECIMEN / Unknown Lab Venipuncture / Unknown 02/14/2016 7:30 AM PARTNER ALLIANCE MANAGER 02/14/2016 7:41 AM PARTNER ALLIANCE MANAGER Leena Keita MD LAB - CHEMISTRY JUSTIN SALINAS Performing Organization Address [facility] Co de Phone Number [facility] [facility] [address] [place] [id number] * (ABNORMAL) GLUCOSE - POINT OF CARE (2015 9:50 PM CDT) Only the most recent of14 resultswithin the time period is included. Glucose WB/POC 209(H) 70 - 106 mg/dL 10/26/2015 7:07 AM CDT [facility] Blood BLOOD SPECIMEN / Unknown 2015 9:50 PM CDT 10/26/2015 7:07 AM CDT Kristal De Jesus MD LAB - POINT OF CARE ORDERABLES Performing Organization Address [facility] Co de Phone Number [facility] [address] [place] [address] * PT PTT PANEL (2015 7:49 PM CDT) Only the most recent of2 resultswithin the time period is included. PT 10.2 9.5 - 11.6 sec 2015 8:10 PM CDT [facility] INR 1.0 0.9 - 1.1 2015 8:10 PM CDT [facility] PTT 23.2 21.0 - 32.0 sec 2015 8:10 PM CDT [facility] Blood BLOOD SPECIMEN / Unknown 2015 7:49 PM CDT 2015 7:55 PM CDT Narrative [facility] - 2015 8:10 PM CDT Conventional Warfarin Anticoagulant Therapy: INR Reference Range: 2.0-3.0 Intensive Warfarin Anticoagulant Therapy: INR Reference Range: 2.5-3.5 Heparin Therapeutic Range for PTT: 47.7 - 68.6 seconds. Kristal De Jesus MD LAB - COAGULATI ON ORDERABLES [facility] [address] [place] [address] * FOLATE RBC (10/10/2015 2:04 PM CDT) Only the most recent of5 resultswithin the time period is included. Folate Hemolysate 386.6 Not Estab. ng/mL [facility] ACCOUNT BILL Folate RBC 1,004 >498 ng/mL [facility] ACCOUNT BILL Blood specimen (specimen) BLOOD SPECIMEN / Unknown 10/10/2015 2:04 PM CDT 10/10/2015 4:03 PM CDT Narrative Resulting Agency Comment [facility] [address] [facility] [phone] Ivy Encarnacion APRN-BOTTOM CRANE OPERATOR LAB - CHEMIS TRY ORDERABLES [facility] ACCOUNT BILL [address] [place] [address] * PAP SMEAR IG RFLX HPV ASCU (PO REF LAB) (04/18/2015 11:43 AM PARTNER ALLIANCE MANAGER) Diagnosis [facility] ACCOUNT BILL Comment:NEGATIVE FOR INTRAEP ITHELIAL LESION AND MALIGNANCY. Specimen Adequacy [facility] ACCOUNT BILL Comment: Satisfactory for evaluation. Endocervical and/or squamous metaplastic cells (endocervical component) are present. Clinician Provided ICD10 [facility] ACCOUNT BILL Comment: Z01.419 E53.8 B00.2 R53.83 Performed by [facility] ACCOUNT BILL Comment:Anita Louis, Cyto technologist (ASCP) Comment . [facility] ACCOUNT BILL Note [facility] ACCOUNT BILL Comment: The Pap smear is a screening test designed to aid in the detection of premalignant and malignant conditions of the uterine cervix. It is not a diagnostic procedure and should not be used as the sole means of detecting cervical cancer. Both false-positive and false-negative reports do occur. . IGLBP CPT Code Automation [facility] ACCOUNT BILL Comment: This liquid based ThinPrep(R) pap test was screened with the use of an image guided system. Note [facility] ACCOUNT BILL Comment: The HPV DNA reflex criteria were not met with this specimen result therefore, no HPV testing was performed. . Miscellaneous samples (specimen) PART OF UTERINE CERVIX / Unknown 04/18/2015 11:43 AM PARTNER ALLIANCE MANAGER 04/19/2015 1:33 AM PARTNER ALLIANCE MANAGER Narrative [facility] ACCOUNT BILL - 04/19/2015 3:27 PM PARTNER ALLIANCE MANAGER No. of containers..01 CYTYC Thin Prep Vial Resulting Agency Comment [facility] [address] [facility] [phone] Zoe Bright PA-C LAB - PATHOLOGY/CY TOLOGY ORDERABLES [facility] ACCOUNT BILL * T3 FREE (04/18/2015 11:17 AM PARTNER ALLIANCE MANAGER) T3 Free 2.32 2.18 - 3.98 pg/mL [facility] ACCOUNT BILL Blood specimen (specimen) BLOOD SPECIMEN / Unknown 04/18/2015 11:17 AM PARTNER ALLIANCE MANAGER 04/18/2015 2:17 PM PARTNER ALLIANCE MANAGER Narrative Resulting Agency Comment [facility] [address] [place] [phone] Zoe Bright PA-C LAB - CHEMISTRY OR DERABLES [facility] ACCOUNT BILL * MAMMO SCREENING DIGITAL IMAGE BILAT G0202 (02/07/2015 10:58 AM PARTNER ALLIANCE MANAGER) Only the most recent of5 resultswithin the time period is included. Anatomical Region Laterality Modality Breast Bilateral Mammography 02/07/2015 1:53 PM PARTNER ALLIANCE MANAGER Narrative 02/07/2015 1:55 PM PARTNER ALLIANCE MANAGER FULL FIELD DIGITAL BILATERAL SCREENING MAMMOGRAMS WITH CAD AND 3-D TOMOSYNTHESIS DATE: 02/07/2015 10:37 AM PREVIOUS EXAM DATE: 02/09/2014 INDICATION: Screening TECHNIQUE: Bilateral craniocaudad (CC) and mediolateral oblique (MLO) views. Images were interpreted with the aid of CAD. 3-D tomosynthesis images were performed. TECHNOLOGIST: Meliza Edgar RT (R)(M) TISSUE DENSITY: There are scattered areas of fibroglandular density FINDINGS: No discrete abnormality. No significant interval change. ASSESSMENT: BI-RADS 2: Benign finding(s) RECOMMENDATIONS: Continued annual screening mammography The above findings should be correlated with physical examination. A relatively nonspecific study should not preclude additional evaluation if suspicious findings are present clinically. An [employer]. [facility] utilize [facility] as a reminder system to notify patients of their next recommended mammograms. Michael Peoples DO MAMMO ORDERABLES * PAIN MANAGEMENT PROCEDURE TIME (11/15/2014 10:43 AM CDT) Anatomical Region Laterality Modality X-Ray Angiograph y Narrative 11/15/2014 10:57 AM CDT Jeremi Palacios MD 11/15/2014 10:57 AM Epidural Cervical C6-C7 with no Epidurogram Layne Peguero Provider: Jeremi Palacios MD 1955 Date: 11/15/2014 Michael Peoples (General) Pt. prestents today for a injection. Allergies: Allergies as of 11/15/2014 (No Known Allergies) Procedure: Epidural Cervical C6-C7 Diagnosis/Indication:Cervical epidural steroid injection 723.0 Indication: Intractable neck and upper extremity pain. Other conservative therapies and/or treatments provided inadequate pain relief. Informed Consent: After the patient was informed of the risks and benefits of the procedure and all questions were answered, consent was signed.Risks benefits, and alternative were discussed including risk of infection, bleeding , nerve damage, worsening pain, no pain relief whatsoever, transient increase in blood pressure, blood sugar, fluid retention,possibility of headache, possibility of shingles, or any other viral outbreak secondary to immunosuppressant effects of steroid use Prep: Pt identified, proper procedure identified, site identified, and marked by Dr. Palacios. Pt is not on Coumidin, Plavix or other blood thinners. 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 The patient was placed in a prone position and was prepped with Chloraprep. Procedure: Lidocaine 1% was injected with a 25 gauge needle at C6-C7 verifying placement with the fluoroscopy. An 18 gauge Touhy needle was placed into the epidural space using loss of resistance technique with preservative free (PF) normal saline. No cerebral spinal fluid or blood was aspirated prior to the injection. 80 milligrams of Depo medrol was injected into the epidural space. Complications: None Estimated Blood Loss: None The patient tolerated the procedure well and there were no complications. The patient was taken to the recovery area. The patient remained in stable condition with no apparent complications. Vital signs stable. Injection site clean, dry, and intact. Post procedure instructions were given to the patient and a follow up appointment was confirmed. The patient was discharged with information on how to reach the clinic at anytime for questions or concerns. Pt ambulatory, denies complaints, DC to home. Pt survey given. Procedure codes: Epi Cer/Thor (S), Fluoro Follow Up: 1 week Jeremi Palacios MD Jeremi Palacios MD DIAGNOSTIC IMAGING O RDERABLES * MRI SPINE CERVICAL NON CONTRAST (09/20/2014 9:19 AM CDT) Anatomical Region Laterality Modality Pelvis Magnetic Resonan ce 09/20/2014 10:4 8 AM CDT Impressions 09/20/2014 11:08 AM CDT Multilevel degenerative change most significant at C3-C4 and C6-C7 as above. Please correlate and further evaluation can be obtained as warranted. Edited by Marcela Garg on 09/20/2014 11:01 AM Narrative 09/20/2014 11:08 AM CDT MRI Cervical Spine Without Contrast Indication: Neck pain and left arm pain. Technique: Multisequence, multiplanar MRI sequences of the cervical spine without contrast Findings: Visible portions of the brain are unremarkable. The spinal cord has normal signal. No compression deformity or bone marrow edema is seen. C2-C3: Diffuse disc bulge and minor canal stenosis. C3-C4: Diffuse disc bulge and moderate canal stenosis. Right lateral recess stenosis. Mild right neural foraminal narrowing. C4-C5: Diffuse disc bulge and mild to moderate canal stenosis and mild bilateral neural foraminal narrowing. C5-C6: Diffuse disc bulge and moderate canal stenosis. Mild left neural foraminal narrowing. C6-C7: Diffuse disc bulge and superimposed upper central disc protrusion narrows the left lateral recess. There is mild bilateral neural foraminal narrowing. Overall moderate canal stenosis. C7-T1: No stenosis. The visible lung apices are clear. No soft tissue abnormality is seen. Procedure Note Rashard Woo MD - 09/20/2014 MRI Cervical Spine Without Contrast Indication: Neck pain and left arm pain. Technique: Multisequence, multiplanar MRI sequences of the cervical spine without contrast Findings: Visible portions of the brain are unremarkable. The spinal cord has normal signal. No compression deformity or bone marrow edema is seen. C2-C3: Diffuse disc bulge and minor canal stenosis. C3-C4: Diffuse disc bulge and moderate canal stenosis. Right lateral recess stenosis. Mild right neural foraminal narrowing. C4-C5: Diffuse disc bulge and mild to moderate canal stenosis and mild bilateral neural foraminal narrowing. C5-C6: Diffuse disc bulge and moderate canal stenosis. Mild left neural foraminal narrowing. C6-C7: Diffuse disc bulge and superimposed upper central disc protrusion narrows the left lateral recess. There is mild bilateral neural foraminal narrowing. Overall moderate canal stenosis. C7-T1: No stenosis. The visible lung apices are clear. No soft tissue abnormality is seen. IMPRESSION Multilevel degenerative change most significant at C3-C4 and C6-C7 as above. Please correlate and further evaluation can be obtained as warranted. Edited by Marcela Garg on 09/20/2014 11:01 AM Oren Morfin MD MR ORDERABLES * XR SHOULDER 2+ VW LEFT (09/10/2014 9:48 AM CDT) Anatomical Region Laterality Modality Upper Extremity Radiographic Oksana ging Narrative 09/10/2014 10:13 AM CDT [facility] 09/10/2014 10:13 AM Please see progress notes for result. Oren Morfin MD DIAGNOSTIC IMAGING O RDERABLES * XR CERVICAL SPINE 2 OR 3 VW (09/10/2014 9:47 AM CDT) Anatomical Region Laterality Modality Spine Radiographic Oksana ging Narrative 09/10/2014 10:13 AM CDT [facility] 09/10/2014 10:13 AM Please see progress notes for result. Oren Morfin MD DIAGNOSTIC IMAGING O RDERABLES * GROSS + MICRO EXAM (STL) (01/13/2014 12:34 PM PARTNER ALLIANCE MANAGER) Case Report Surgical Pathology Report Case: [id number] Authorizing Provider: Uday Ledesma MD Collected: 01/13/2014 12:34 PM Ordering Location: [facility] Received: 01/13/2014 02:07 PM Pathologist: Tyler White MD Specimen: Adipose Tissue, adipose tissue 01/18/2014 3:32 PM PARTNER ALLIANCE MANAGER [facility] Final Diagnosis 1. Adipose tissue: -- Skin and mature adipose tissue ELVIS/stanislaw 01/18/2014 3:32 PM PARTNER ALLIANCE MANAGER [facility] Gross Description Received in formalin in a container labeled [place]. , adipose tissue . The container holds fragments of skin with adipose tissue measuring 60 x 24 x 6.5 cm in aggregate. Specimen has a total weight of 3,245 grams. The skin surface is pink-bray and unremarkable. There are no scars or lesions grossly identified. Section shows a yellow-bray diffuse fibrous fatty cut surface. There are no lesions or masses grossly identified. Customer Solutions Supervisor sections are submitted in cassettes A1-A4. DYT/alcynthia 01/18/2014 3:32 PM PARTNER ALLIANCE MANAGER [facility] Microscopic Description Sections show skin and adipose tissue. Skin is by squamous epithelium displaying normal maturation. Adipose tissue is morphologically unremarkable. ELVIS/stanislaw 01/18/2014 3:32 PM PARTNER ALLIANCE MANAGER [facility] Pathology/Cytolo gy ADIPOSE TISSUE / Unknown 01/13/2014 12:34 PM PARTNER ALLIANCE MANAGER 01/13/2014 2:07 PM PARTNER ALLIANCE MANAGER Comment:unknown Uday Ledesma MD LAB - PATHOLOGY/CYTO LOGY ORDERABLES [facility] [address] [place] [address] * VENOUS DUPLEX LE BILATERAL (09/25/2013 1:50 PM CDT) Anatomical Region Laterality Modality Ultrasound 09/25/2013 1:27 PM CDT Narrative Procedure Note Esau Craven MD - 09/25/[address] [address] Lower Extremity Venous Ultrasound Report Pat.Name: LAYNE PEGUERO Pat.ID: [id number] St.Date: 09/25/2013 Exam Time: 1:27:00 PM Study Type:LE Venous Age: 8 1955,57Y Sex: FEMALE Sonogrphr: Aguila Hammer RDMS, BINUT Pat. Stat.:Outpatient CPT - 4: 01179 Reason for Study:Pain -Leg, bilateral, Swelling -Leg, bilateral Procedures:Lower Extremity Venous - Bilateral Visit ID: [id number] SUMMARY: There is no evidence of an acute deep or superficial venous thrombosis in either the right or left lower extremity. FINDINGS: Procedure: Venous duplex imaging of both lower extremities was performed using color flow and spectral Doppler analysis. Study Quality: This study is of adequate technical quality. Bilateral: All vessels seen appear patent and compressible. There was spontaneous and phasic flow seen in all the major veins of both lower extremities. Appropriate augmentation with distal compression. Signed 09/25/2013 03:36 PM Esau Craven MD Uday Ledesma MD VASCULAR LAB ORDERAB LES * D-DIMER (09/24/2013 12:29 AM CDT) D-Dimer 0.23 0 - 0.5 mg/L FEU 09/24/2013 2:35 AM CDT [facility] Blood BLOOD SPECIMEN / Unknown 09/24/2013 12:29 AM CDT 09/24/2013 12:34 AM CDT Narrative [facility] - 09/24/2013 2:35 AM CDT The innovance D-dimer assay now in use at [facility], [facility] and [facility] is intended for use as an aid in diagnosis of venous thromboembolism [(VTE): deep vein thrombosis (DVT), pulmonary embolism (PE), and disseminated intravascular coagulation (DIC)], and has received FDA approval to exclude VTE in patients with low or moderate pretest probability of PE or DVT (per Wells' rules). At a clinical cut-off value 0.50 mg/L FEU, the Negative Predictive Value of this assay is 99.8% for excluding PE and 100% for excluding DVT. A very low percentage of patients with VTE may yield D-dimer results below cut- off value. An elevated D-dimer result has low specificity (40.4% for PE, 35.5% for DVT) and is a poor predictor of VTE. An elevated D-dimer result may indicate DIC in the appropriate clinical setting. Results of this test should always be interpreted in conjunction with the patient's medical history, clinical presentation, and other findings. Kristal De Jesus MD LAB - COAGULATI ON ORDERABLES Performing Organization Address City/State/[facility] Co de Phone Number [facility] [address] [place] [address] * CK BLOOD (09/24/2013 12:29 AM CDT) CK 74 35 - 232 U/L 09/24/2013 1:54 AM CDT [facility] Blood BLOOD SPECIMEN / Unknown 09/24/2013 12:29 AM CDT 09/24/2013 12:34 AM CDT Kristal De Jesus MD LAB - CHEMISTRY ORDERABLES Performing Organization Address City/[facility] Co de Phone Number [facility] [address] [place] [address] * COMPLETE PFT W/WO BRONCHODILATOR (01/16/2013 12:00 PM PARTNER ALLIANCE MANAGER) 01/16/2013 12:0 0 PM PARTNER ALLIANCE MANAGER Narrative Transcriptions Jasper Easton MD - 01/16/2013 1:28 PM CST [facility] PULMONARY FUNCTION TEST REPORT PATIENT: LAYNE PEGUERO MR#: [id number] ADMIT DATE: 01/16/2013 CSN: [id number] DATE OF PROCEDURE: 01/16/2013 :1955 PHYSICIAN: Jasper Easton MD REFERRING PHYSICIAN: Jasper Easton MD 1. Baseline spirometry reveals normal expiratory flows. 2. Following administration of bronchodilator, there is no significant change in expiratory flows. 3. FEV1/FVC ratio is decreased consistent with obstruction. 4. Lung volumes are within normal limits. 5. Gas transfer capacity is normal. 6. Flow volume loop has a normal configuration. 7. Arterial blood gases on room air demonstrate no hypoxemia orhypercapnia. IMPRESSION: Normal expiratory flows with no significant reversibilityon bronchodilator administration. There is a minimal decrease in FEV1/FVCratio consistent with very mild obstruction. There is no restrictive lungdisease. Gas transfer capacity is normal with normal oxygenation and ventilationon room air arterial blood gases. Compared to the prior PFT from12/28/2011, expiratory flows, lung volumes, and gas transfer capacity have allincreased with stable, normal room air arterial blood gases. Overall, this is consistent with improvement in pulmonary function and gas transfercapacity since the prior PFT. Jasper Khoury MD EUGENIO/MODL #:[id number] Jasper Easton MD RESPIRATORY THERAPY ORDERABLES Performing Organization Address [facility] Co de Phone Number [facility] * BLOOD GASES ART (ISTAT) (01/16/2013 11:43 AM PARTNER ALLIANCE MANAGER) pH Arterial POCT 7.39 7.35 - 7.45 pH 01/16/2013 11:46 AM PARTNER ALLIANCE MANAGER [facility] pCO2 Arterial 40.7 32 - 43 mmHg 01/16/2013 11:46 AM [facility] pO2 Arterial 83 72 - 104 mmHg 01/16/2013 11:46 AM [facility] HCO3 Arterial POCT 24.8 22 - 26 mmol/L 01/16/2013 11:46 AM [facility] BE Arterial 0 -2 - 2 mmol/L 01/16/2013 11:46 AM [facility] TCO2 Arterial Calc POCT 26 22 - 29 mmol/L 01/16/2013 11:46 AM [facility] O2 Saturation Arterial 96 90 - 100 % 01/16/2013 11:46 AM [facility] Site R Radial 01/16/2013 11:46 AM [facility] Cesario's Test POS/PASS 01/16/2013 11:46 AM [facility] Treatment Delivery Method Room Air 01/16/2013 11:46 AM [facility] FI O2 0.21 % 01/16/2013 11:46 AM [facility] Sample iSTAT ARTERI 01/16/2013 11:46 AM [facility] PT iSTAT [id number] 01/16/2013 11:46 AM [facility] Device 01/16/2013 11:46 AM [facility] Manager Commission ID [id number] 01/16/2013 11:46 AM [facility] Blood ARTERIAL BLOOD SPECIMEN / Unknown 01/16/2013 11:43 AM PARTNER ALLIANCE MANAGER 01/16/2013 11:46 AM PARTNER ALLIANCE MANAGER Jasper Easton MD LAB - POINT OF CARE ORDERABLES [facility] [address] [place] [address] * BLOOD GASES ARTERIAL POCT (01/16/2013 10:41 AM PARTNER ALLIANCE MANAGER) Comment Notification Only - See Separate Report 01/16/2013 12:00 PM [facility] Blood BLOOD SPECIMEN / Unknown 01/16/2013 10:41 AM PARTNER ALLIANCE MANAGER 01/16/2013 10:41 AM PARTNER ALLIANCE MANAGER Jasper Easton MD LAB - BLOOD GASES OR DERABLES Performing Organization Address [facility] Co de Phone Number [facility] [address] [place] [address] * (ABNORMAL) COOXIMETRY ARTERIAL (01/16/2013 10:41 AM PARTNER ALLIANCE MANAGER) Only the most recent of2 resultswithin the time period is included. Hemoglobin Arterial 11.8(L) 14.0 - 16.0 gm/dL 01/16/2013 11:59 AM PARTNER ALLIANCE MANAGER [facility] Oxyhemoglobin Arterial 96 % 01/16/2013 11:59 AM PARTNER ALLIANCE MANAGER [facility] Carboxyhemoglobin Arterial 0.0 0.0 - 2.5 % 01/16/2013 11:59 AM PARTNER ALLIANCE MANAGER [facility] Methemoglobin Arterial 2.1(H) 0.0 - 2.0 % 01/16/2013 11:59 AM PARTNER ALLIANCE MANAGER [facility] Blood ARTERIAL BLOOD SPECIMEN / Unknown 01/16/2013 10:41 AM PARTNER ALLIANCE MANAGER 01/16/2013 10:41 AM PARTNER ALLIANCE MANAGER Jasper Easton MD LAB - BLOOD GASES OR DERABLES Performing Organization Address [facility] de Phone Number [facility] [address] [place] [address] * PATHOLOGY/CYTOLOGY REPORT ORDER (02/28/2012) Justyn Phillips MD LAB - PATHOLOGY/CYT OLOGY ORDERABLES * ENDOSCOPY, COLON, DIAGNOSTIC (02/25/2012 10:38 AM PARTNER ALLIANCE MANAGER) Narrative [facility] - 02/25/2012 10:38 AM PARTNER ALLIANCE MANAGER Procedure Note Justyn Phillips MD - 02/25/2012 10:38 AM CST Justyn Phillips MD GI PROCEDURE ORDERA BLES Performing Organization Address [facility] Co de Phone Number [facility] * EGD (02/25/2012 10:23 AM PARTNER ALLIANCE MANAGER) Narrative [facility] - 02/25/2012 10:23 AM PARTNER ALLIANCE MANAGER Procedure Note Justyn Phillips MD - 02/25/2012 10:23 AM CST Justyn Phillips MD GI PROCEDURE ORDERA BLES [facility] * GROSS + MICRO EXAM (02/25/2012 10:14 AM PARTNER ALLIANCE MANAGER) Only the most recent of2 resultswithin the time period is included. [facility] Pre-Op Diagnosis Dyspepsia [facility] Post-Op Diagnosis Irregular Z-line, GJ anastomosis with erythema and small area of ulceration, sigmoid colon polyp [facility] Clinical Findings Same [facility] Gross Description [facility] Comment: There are three portions received in formalin described below, each submitted entirely in separate screened cassettes that are designated according to their respective specimen container label. BLOCK A - Anastomotic site biopsy - three bray mucosal fragments 1-5 mm greatest dimension, levels B - Gastric pouch biopsy - four bray mucosal fragments 2-4 mm greatest dimension, levels C - Sigmoid polyp - 3 mm bray polypoid tissue fragment, levels (ME)na Grossed By Bj Alves M.D. [facility] Microscopic Examination [facility] Comment: Microscopic examination corroborates the diagnosis. NM/scs Diagnosis [facility] Comment: Anastomotic site, endoscopic biopsy: Benign fragments of gastric and small intestinal-type mucosa demonstrating minimal-mild chronic inflammation and patchy mucosal congestion Negative for neoplasia/malignancy Stomach, gastric pouch, endoscopic biopsy: Benign fragments of fundic-type gastric mucosa demonstrating mild chronic inflammation and reactive epithelial changes Methylene blue negative for Helicobacter organisms Sigmoid colon polyp, endoscopic biopsy: Tubular adenoma, minute fragment NM/scs 02/28/12 Read by Marlon Betancourt M.D. [facility] Released by MARLON BETANCOURT [facility] Performed By [facility] at [facility],[address] [place] [phone] [facility] BIOPSY SPECIMEN / Unknown 02/25/2012 10:14 AM PARTNER ALLIANCE MANAGER 02/27/2012 11:29 AM PARTNER ALLIANCE MANAGER Justyn Phillips MD LAB - PATHOLOGY/CYT OLOGY ORDERABLES [facility] [address] [place] [address] * ENDOSCOPY ORDER (02/25/2012) Justyn Phillips MD GI PROCEDURE ORDERA BLES * ENDOSCOPY, COLON, SCREENING (02/25/2012) Justyn Phillips MD GI PROCEDURE ORDERA BLES * BRONCHIAL CHALLENGE WITH METHACHOLINE (02/04/2012) 02/04/2012 Narrative Transcriptions Jasper Easton MD - 02/05/2012 4:32 AM CST [facility] [facility] Pulmonary Function Test [facility] REPORT PATIENT: LAYNE PEGUERO [facility]#: [id number] ADMIT DATE: 02/04/2012CCT#: [id number] DATE OF PROCEDURE: 02/04/2012DOB: 1955 PHYSICIAN: Jasper Easton MD REFERRING PHYSICIAN: Jasper Easton MD 1.The patient was tested with incremental doses of methacholine to amaximum dose of 25 mg. 2.Beginning at 10 mg of methacholine and ending at 25 mg of methacholine,there was a significant decrease in expiratory flows. FVC decreased by19% and FEV1 decreased by 21%. 3.Administration of bronchodilator after methacholine resulted in returnof expiratory flows to baseline. IMPRESSION: Positive methacholine challenge with evidence forsignificant, reversible airway obstruction (asthma). Jasper Easton MD EUGENIO/MedQ #:[id number] Jasper Easton MD PFT ORDERABLES [facility] * CT SINUS NON IV CONTRAST (01/08/2012 4:11 PM PARTNER ALLIANCE MANAGER) Anatomical Region Laterality Modality Head Computed Tomogra phy 01/08/2012 4:23 PM PARTNER ALLIANCE MANAGER Impressions 01/08/2012 4:34 PM PARTNER ALLIANCE MANAGER Bilateral maxillary sinus mucosal thickening. The left ostiomeatal unit is obstructed. Narrative 01/08/2012 4:[address] SINUSES WITHOUT CONTRAST INDICATION: Chronic sinusitis. TECHNIQUE: Axial images with reconstructions of the sinuses without contrast. FINDINGS: Bilateral maxillary sinus mucosal thickening is present. The left ostiomeatal unit is obstructed. 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 The right ostiomeatal unit is patent. Frontal sinuses and ethmoid air cells and sphenoid sinuses are clear. Orbits and globes are unremarkable. Procedure Note Rashard Woo MD - 01/08/2012 CT SINUSES WITHOUT CONTRAST INDICATION: Chronic sinusitis. TECHNIQUE: Axial images with reconstructions of the sinuses without contrast. FINDINGS: Bilateral maxillary sinus mucosal thickening is present. The left ostiomeatal unit is obstructed. 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 The right ostiomeatal unit is patent. Frontal sinuses and ethmoid air cells and sphenoid sinuses are clear. Orbits and globes are unremarkable. IMPRESSION Bilateral maxillary sinus mucosal thickening. The left ostiomeatal unit is obstructed. Jasper Easton MD CT ORDERABLES * LAB MISC TEST (01/07/2012 6:35 PM PARTNER ALLIANCE MANAGER) Test Name Allergen Respiratoy P8 [facility] Test Result [facility] Comment: See scanned report. BLOOD SPECIMEN / Unknown 01/07/2012 6:35 PM PARTNER ALLIANCE MANAGER 01/07/2012 6:35 PM PARTNER ALLIANCE MANAGER Narrative [facility] - 01/21/2012 7:19 AM PARTNER ALLIANCE MANAGER allergen respiratory r8 Jasper Easton MD LAB SEND OUT [facility] [address] [place] [address] * FUNGAL ANTIBODY PANEL (01/07/2012 6:25 PM PARTNER ALLIANCE MANAGER) Histoplasma Antibody None Detected None Detected [facility] Blastomyces Antibody by Immunodiffusion None Detected None Detected [facility] Coccidiomyces Antibody Immuno Diffusion None Detected None Detected [facility] Aspergillus Antibody Immuno Diffusion None Detected None Detected [facility] Comment Ref Lab [facility] Comment: Comments and Normal Ranges for Component Histoplasma INTERPRETIVE INFORMATION/ Histoplasma Abs by ID The immunodiffusion test can detect precipitins to specific Histoplasma protein antigens (M and H). The M band often appears first and may occur without the H band. M precipitin is found in about 70 percent of both acute and chronic histoplasmosis cases. Both M and H occur together in only about 10 percent of patients. Comments and Normal Ranges for Component Blastomyces AB[ID] INTERPRETIVE INFORMATION/ Blastomyces Ab (ID) A positive result may suggest active or recent infection. The test is positive in about 80% of cases. Cross reactions occur, especially with histoplasmosis. A negative test (none detected) does not exclude blastomycosis. Comments and Normal Ranges for Component Coccidioides INTERPRETIVE INFORMATION/ Coccidioides Ab (ID) Coccidioides immunodiffusion measures IgM (IDTP) and IgG (IDCF) antibodies. Positive IDTP may suggest acute primary infection and may be detected within one to three weeks after the onset of primary infection. IDTP are rarely detected six months after infection. IDTP may also reappear with relapse or may persist in disseminated infections. Positive IDCF may be present in a recent infection and may persist for months or years after primary infection. Negative fungal serology does not rule out the possibility of current infection. Comments and Normal Ranges for Component Aspergillus Ab INTERPRETIVE INFORMATION/ Aspergillus Ab (ID) In general, immunodiffusion measures IgG and a positive result may suggest past infection. The test is positive in about 90% of sera from patients with aspergilloma and 50-70 percent of patients with allergic bronchopulmonary aspergillosis. A negative test (none detected) does not exclude aspergillosis. BLOOD SPECIMEN / Unknown 01/07/2012 6:25 PM PARTNER ALLIANCE MANAGER 01/07/2012 6:25 PM PARTNER ALLIANCE MANAGER Narrative [facility] - 01/13/2012 7:51 AM PARTNER ALLIANCE MANAGER Performed By [address] [address] Jasper Easton MD LAB - CHEMISTRY JUSTIN SALINAS [facility] [address] [place] [address] * IGE BLOOD (01/07/2012 6:25 PM PARTNER ALLIANCE MANAGER) IgE 23.5 <158 IU/ml [facility] BLOOD SPECIMEN / Unknown 01/07/2012 6:25 PM PARTNER ALLIANCE MANAGER 01/07/2012 6:25 PM PARTNER ALLIANCE MANAGER Narrative [facility] - 01/08/2012 12:29 PM PARTNER ALLIANCE MANAGER Performed By [facility] - [facility] [address] [place] [address] Jasper Easton MD LAB - CHEMISTRY ORDE BRAD Performing Organization Address City/[facility]/ZIP Co de Phone Number [facility] [address] [place] [address] * (ABNORMAL) BLOOD GASES ARTERIAL (12/28/2011 8:12 AM CDT) pH Arterial 7.44(H) 7.38 - 7.42 pH Units [facility] pCO2 Arterial 36 35 - 45 mm Hg [facility] pO2 Arterial 67(L) 80 - 105 mm Hg [facility] O2 Saturation Arterial 94(L) 95 - 98 % [facility] HCO3 Arterial 25 22 - 26 mmol/L [facility] TCO2 Arterial 26 23 - 27 mmol/L [facility] Base Excess Arterial 1 -2 to 3 mmol/L [facility] Site R Radial [facility] FI O2 Arterial 21 [facility] Cesario's Test Pass [facility] Blood specimen (specimen) ARTERIAL BLOOD SPECIMEN / Unknown 12/28/2011 8:12 AM CDT 12/28/2011 8:22 AM CDT Jasper Easton MD LAB - BLOOD GASES OR DERABLES Performing Organization Address City/[facility]/ZIP Co de Phone Number [facility] [address] [place] [address] * COMPLETE PFT W/WO BRONCHODILATOR (12/28/2011) 12/28/2011 Narrative Transcriptions Jasper Easton MD - 12/29/2011 4:54 AM CDT [facility] Pulmonary Function Test [facility] PUL[facility] REPORT PATIENT: LAYNE PEGUERO [facility]#: [id number] ADMIT DATE: 12/28/2011T#: [id number] DATE OF PROCEDURE: 12/28/2011DOB: 1955 PHYSICIAN: Jasper Easton MD REFERRING PHYSICIAN: Jasper Easton MD 1.Baseline spirometry reveals normal expiratory flows. 2.Following administration of bronchodilator, there is no significantchange in expiratory flows. 3.FEV1/FVC ratio is normal. 4.Lung volumes are within normal limits. 5.Gas transfer capacity is normal. 6.Flow volume loop has a normal configuration. 7.Arterial blood gases on room air demonstrate no hypoxemia orhypercapnia. IMPRESSION: Normal expiratory flows with no significant reversibility onbronchodilator administration. There is no obstructive lung disease. Ifsignificant reversible airway obstruction is still suspected, amethacholine challenge may provide additional information. There is norestrictive lung disease. Gas transfer capacity is normal with normaloxygenation and ventilation on room air arterial blood gases. Jasper Easton MD EUGENIO/MedQ #:[id number] Jasper Easton MD RESPIRATORY THERAPY ORDERABLES [facility] * FL FLUORO UPPER GI TRACT + KUB (09/27/2011 9:10 AM CDT) Anatomical Region Laterality Modality Abdomen Radiographic Oksana ging 09/27/2011 2:24 PM CDT Impressions 09/27/2011 2:24 PM CDT No evidence of extravasation or obstruction Narrative 09/27/2011 2:24 PM CDT BARIATRIC UPPER GI INDICATION: Post operative day one following a Brii-en-Y gastric bypass procedure. FINDINGS: She swallowed the water soluble contrast without difficulty. There is rapid outflow from the neostomach into the jejunum. I do not see any evidence of extravasation or obstruction. Incidental note is made of degenerative changes in the lower thoracic and lumbar spine. There is a levocurvature centered at about T8 Procedure Note Kenneth Stanton MD - 09/27/2011 BARIATRIC UPPER GI INDICATION: Post operative day one following a Biri-en-Y gastric bypass procedure. FINDINGS: She swallowed the water soluble contrast without difficulty. There is rapid outflow from the neostomach into the jejunum. I do not see any evidence of extravasation or obstruction. Incidental note is made of degenerative changes in the lower thoracic and lumbar spine. There is a levocurvature centered at about T8 IMPRESSION No evidence of extravasation or obstruction Uday Granda MD FLUOROSCOPY ORDERABL ES * POTASSIUM BLOOD (09/26/2011 9:01 AM CDT) Potassium 4.0 3.5 - 5.1 mmol/L [facility] Blood specimen (specimen) BLOOD SPECIMEN / Unknown 09/26/2011 9:01 AM CDT 09/26/2011 9:02 AM CDT Sanjay Atkinson MD LAB - CHEMISTRY JUSTIN SALINAS Performing Organization Address [facility] Co de Phone Number [facility] [address] [place] [address] * LAB RESULTS ORDER (07/01/2011 3:22 PM CDT) Narrative Transcriptions Document, Scanned - 07/01/2011 3:22 PM CDT Scanned Document LAB - THERAPEUTIC DR UG MONITORING ORDERABLES * IMAGING/RADIOLOGY/XRAY RESULTS ORDER (07/01/2011 3:22 PM CDT) Anatomical Region Laterality Modality Other Narrative Transcriptions Document, Scanned - 07/01/2011 3:22 PM CDT Scanned Document IMAGING * TYPE SCRN XMATCH RBC X1 (06/29/2011 9:35 AM CDT) ABO Rh A Pos [facility] Antibody Screen Neg Negative [facility] Number of Units 1 [facility] BLOOD SPECIMEN / Unknown 06/29/2011 9:35 AM CDT 06/29/2011 9:47 AM CDT Xavier Sampson MD LAB - BLOOD BANK ORD ERABLES [facility] [address] [place] [address] * NM PARATHYROID SCAN (05/21/2011 11:49 AM CDT) Anatomical Region Laterality Modality Head Nuclear Medicine 05/21/2011 12:2 0 PM CDT Impressions 05/21/2011 12:20 PM CDT Focus of abnormally increased persistent tracer accumulation along the caudal aspect of the left thyroid lobe, suspicious for a parathyroid adenoma. Narrative 05/21/2011 12:20 PM CDT PARATHYROID SCAN INDICATION: Hypercalcemia, RADIOPHARMACEUTICAL: 20 mCi of Tc 99m Sestamibi FINDINGS: Anterior immediate and 2-1/2 hours delay images, as well as SPECT reconstructions, oblique images, show an abnormal focus of increased tracer accumulation on both the immediate and delayed images, just inferior to the lower pole of the left thyroid gland. Scintigraphically this would be suspicious for a parathyroid adenoma. Physiologic activity is seen within the salivary glands appear Procedure Note Kenneth Stanton MD - 05/21/2011 PARATHYROID SCAN INDICATION: Hypercalcemia, RADIOPHARMACEUTICAL: 20 mCi of Tc 99m Sestamibi FINDINGS: Anterior immediate and 2-1/2 hours delay images, as well as SPECT reconstructions, oblique images, show an abnormal focus of increased tracer accumulation on both the immediate and delayed images, just inferior to the lower pole of the left thyroid gland. Scintigraphically this would be suspicious for a parathyroid adenoma. Physiologic activity is seen within the salivary glands appear IMPRESSION Focus of abnormally increased persistent tracer accumulation along the caudal aspect of the left thyroid lobe, suspicious for a parathyroid adenoma. Mary Gonzalez MD NM ORDERABLES * (ABNORMAL) TSH REFLEX FREE T4 (05/08/2011 9:23 AM CDT) TSH 4.880(H) 0.450 - 4.500 uIU/mL [facility] ACCOUNT BILL Blood specimen (specimen) BLOOD SPECIMEN / Unknown 05/08/2011 9:23 AM CDT 05/08/2011 6:23 PM CDT Narrative Resulting Agency Comment [facility] [address] [facility] [id number] Itzel Cheng MD LAB - CHEMISTRY O RDERABLES [facility] ACCOUNT BILL * DEXA BONE DENSITY 2 SITES (12/12/2010 [...] T SCORE Mary Gonzalez MD DEXA ORDERABLES * VASCULAR LAB ORDER (12/08/2010) Anatomical Region Laterality Modality Other Leonidas Olivarez MD VASCULAR LAB ORDERABLES * (ABNORMAL) CREATININE URINE TIMED (11/16/2010 3:16 PM CDT) Creatinine 24 Hour Urine 77.7 15.0 - 278.0 mg/dL [facility] INSURANCE BILL Creatine 24 Hour Urine 2214.5(H) 800.0 - 1800.0 mg/24 hr [facility] INSURANCE BILL TIMED URINE SPECIMEN / Unknown 11/16/2010 3:16 PM CDT 11/16/2010 7:11 PM CDT Narrative Resulting Agency Comment [address] [phone] Mary Gonzalez MD LAB - URINE CHEMISTR Y ORDERABLES [facility] INSURANCE BILL * (ABNORMAL) CALCIUM URINE TIMED (11/16/2010 3:16 PM CDT) Calcium Urine 28.1 Not Estab. mg/dL [facility] INSURANCE BILL Calcium 24 Hour Urine 800.9(H) 100.0 - 300.0 mg/24 hr [facility] INSURANCE BILL TIMED URINE SPECIMEN / Unknown 11/16/2010 3:16 PM CDT 11/16/2010 7:11 PM CDT Narrative Resulting Agency Comment [facility] [address] [place] [id number] Mary Gonzalez MD LAB - URINE CHEMISTR Y ORDERABLES [facility] INSURANCE BILL * (ABNORMAL) CALCIUM BLOOD (11/14/2010 6:05 PM CDT) Calcium 11.5(H) 8.5 - 10.1 mg/dl [facility] BLOOD SPECIMEN / Unknown 11/14/2010 6:05 PM CDT 11/14/2010 6:05 PM CDT Mary Gonzalez MD LAB - CHEMISTRY ORDE BRAD [facility] [address] [place] [address] * VITAMIN D 1,25 DIHYDROXY (10/26/2010 3:08 PM CDT) Only the most recent of2 resultswithin the time period is included. Calcitriol (1,25 di-OH Vit D) 58.8 10.0 - 75.0 pg/mL [facility] INSURANCE BILL BLOOD SPECIMEN / Unknown 10/26/2010 3:08 PM CDT 10/26/2010 10:17 PM CDT Narrative Resulting Agency Comment [address] [phone] Mary Gonzalez MD LAB - CHEMISTRY JUSTIN SALINAS [facility] INSURANCE BILL * PO REF LAB-NO SPECIMEN RECEIVED (10/26/2010 3:07 PM CDT) Pathologist [facility] No Specimen Received [facility] ACCOUNT BILL Comment: No plasma specimen received. [facility] will contact your patient to schedule a time for recollection. Should we be unable to make contact with your patient, your office will be notified. TEST: PTH INTACT [id number] 10/26/2010 3:07 PM CDT 10/26/2010 10:22 PM CDT Narrative Resulting Agency Comment [address] [phone] Mary Gonzalez MD LAB - CHEMISTRY JUSTIN SALINAS [facility] ACCOUNT BILL * MICROALB/CREAT RATIO URINE RANDOM PANEL (09/22/2010 6:10 PM CDT) Microalbumin Urine 1.38 mg/dl [facility] Creatinine Urine 146.42 mg/dl [facility] Microalbumin/Crea tinine Ratio 9.42 mg/g [facility] Additional Comment [facility] Comment: Additional Results not in our Test Definition Total Volume. random Microalbumin 1.38 URINE SPECIMEN OBTAINED BY CLEAN CATCH PROCEDURE / Unknown 09/22/2010 6:10 PM CDT 09/22/2010 6:20 PM CDT Narrative Resulting Agency Comment Performed By [facility] [address] [place] [address] Itzel Cheng MD LAB - URINE CHEMI STRY ORDERABLES Performing Organization Address [facility] Co de Phone Number [facility] [address] [place] [address] * B-TYPE NATRIURETIC PEPTIDE (09/22/2010 6:10 PM CDT) BNP 32.2 0.0 - 100.0 pg/mL [facility] Interpretation BNP D [facility] Comment: A cutoff of 100 pg/ml has been demonstrated to provide the maximal combination of sensitivity, specificity, and negative predictive value for contributing to the diagnosis of congestive heart failure (CHF) only. A BNP value greater than or equal to 100 pg/ml is consistent with a diagnosis of CHF in the appropriate clinical setting. False positive results are more common in females greater than 75 years of age. Blood concentrations of natriuretic peptides may also be elevated in patients with myocardial infarction and in patients who are candidates for or are undergoing renal dialysis. BLOOD SPECIMEN WITH EDTA / Unknown 09/22/2010 6:10 PM CDT 09/22/2010 6:17 PM CDT Itzel Cheng MD LAB - CHEMISTRY O RDERABLES Performing Organization Address [facility] Co de Phone Number [facility] [address] [place] [address] * PAP SMEAR IG HPV HR (PO REF LAB) (09/21/2010 8:03 AM CDT) Diagnosis [facility] INSURANCE BILL Comment:NEGATIVE FOR INTRAEP ITHELIAL LESION AND MALIGNANCY. Specimen Adequacy [facility] INSURANCE BILL Comment: Satisfactory for evaluation. Endocervical and/or squamous metaplastic cells (endocervical component) are present. Clinician Provided ICD9 [facility] INSURANCE BILL Comment: V72.31 ; Routine gynecological examination V76.12 ; Other screening mammogram V76.51 ; Special screening for malignant neoplasms, colon 252.00 ; Hyperparathyroidism, unspecified 790.5 ; Other nonspecific abnormal serum enzyme levels 790.22 ; Impaired glucose tolerance test (oral) 268.9 ; Unspecified vitamin D deficiency 272.4 ; Other and unspecified hyperlipidemia Performed by [facility] INSURANCE BILL Comment:Nataliya Matson Cytote chnologist (ASCP) Comment . [facility] INSURANCE BILL Note [facility] INSURANCE BILL Comment: The Pap smear is a screening test designed to aid in the detection of premalignant and malignant conditions of the uterine cervix. It is not a diagnostic procedure and should not be used as the sole means of detecting cervical cancer. Both false-positive and false-negative reports do occur. . IGLBP CPT Code Automation [facility] INSURANCE BILL Comment: This liquid based ThinPrep(R) pap test was screened with the use of an image guided system. Human papillomavirus High Risk Negative Negative [facility] Comment: This high-risk HPV test detects thirteen high-risk types (16/18/31/33/35/39/45/51/52/56/58/59/68) without differentiation. . MICROSCOPIC CYTOLOGIC EXAMINATION OF SMEAR OF SPECIMEN FROM FEMALE GENITAL TRACT PREPARED USING PAPANICOLAOU TECHNIQUE / Unknown 09/21/2010 8:03 AM CDT 09/22/2010 9:23 AM CDT Narrative [facility] - 09/26/2010 12:08 PM CDT No. of containers..01 CYTYC Thin Prep Vial Resulting Agency Comment [address] [phone] Itzel Cheng MD LAB - PATHOLOGY/C YTOLOGY ORDERABLES [facility] * (ABNORMAL) RUBEOLA ANTIBODY IGG (05/25/2010 4:05 PM CDT) Measles (Rubeola) Antibody IgG 3.9(H) SEE BELOW IV [facility] Comment: <0.9 Negative presumed non-immune >=0.9 to <1.1 Equivocal >=1.1 Positive presumed immune Interpretation Rubeola [facility] Comment: When equivocal results are obtained, another specimen should be collected 10 to 14 days later, and tested in parallel with the initial specimen. If the second specimen is also equivocal, the patient is negative for primary or recent infection, and equivocal for antibody status. If the second sample is positive, the patient can be considered to have a primary infection. BLOOD SPECIMEN / Unknown 05/25/2010 4:05 PM CDT 05/25/2010 7:02 PM CDT Provider Unknown LAB - CHEMISTRY ORDE BRAD Performing Organization Address [facility] Co de Phone Number [facility] [address] [place] [address] * (ABNORMAL) MUMPS ANTIBODY IGG (05/25/2010 4:05 PM CDT) Mumps Virus Antibody IgG 8.7(H) SEE BELOW IV [facility] Comment: <0.9 Negative presumed non-immune >=0.9 to <1.1 Equivocal >=1.1 Positive presumed immune BLOOD SPECIMEN / Unknown 05/25/2010 4:05 PM CDT 05/25/2010 7:02 PM CDT Provider Unknown LAB - CHEMISTRY ORDMikael SALINAS Performing Organization Address [facility] Co de Phone Number [facility] [address] [place] [address] * RUBELLA ANTIBODY IGG (05/25/2010 4:05 PM CDT) Rubella Antibody 74.2 SEE BELOW IU/ml [facility] Comment: =>10.0 Positive-Immune 5.0-9.9 Suggest Repeat Testing <5.0 Negative-Nonimmune BLOOD SPECIMEN / Unknown 05/25/2010 4:05 PM CDT 05/25/2010 7:02 PM CDT Provider Unknown LAB - SEROLOGY ORDER MICA Performing Organization Address [facility] Co de Phone Number [facility] [address] [place] [address] * HEPATITIS B SURFACE ANTIBODY (05/25/2010 4:05 PM CDT) Hepatitis B Virus Surface Antibody Nonreactive Nonreactive [facility] BLOOD SPECIMEN / Unknown 05/25/2010 4:05 PM CDT 05/25/2010 7:02 PM CDT Provider Unknown LAB - CHEMISTRY ORDE BRAD Performing Organization Address [facility]/ZIP Co de Phone Number [facility] [address] [place] [address] Care Teams Aerographer Relationship Specialty Start Date End Date Angie Tamez APRN-BOTTOM CRANE OPERATOR [address] [facility] [address] [place] [address] PCP - General 08/18/20 [place] [address] [facility] [address] [place] [address] Pulmonary Disease 05/09/12 [place] [address] [facility] [address] [place] [address] Orthopedic Surgery 09/09/14
--- OUTSIDE RECORDS SUMMARY | 2024-04-29 13:49 | XMS_ITS ---
Author Organization [facility] [place] Address [address] [address] Care Team Providers Care Program Director/Morning Show Host Name Role Phone Kit Palacios [phone] Encounters Encounter Location Date Provider Diagnosis [place] [facility] [address] [place] [address] 04/28/2023 Kit Palacios PLAN OF TREATMENT No Information Progress Notes * Uriel HARRISONB:1955 (67 yo F)Acc No.[id number]:04/28/2023 Patient: Makenna HARRISON :1955 Age:67 Y Sex:Female Address:[address] [place] [address], [place] [address] * true * Date:
--- OUTSIDE RECORDS SUMMARY | 2024-04-29 13:49 | XMS_ITS | Encounter Summary ---
Author Organization [facility] Address [facility] [place] [address] Care Team Providers Care Percussion Welding Machine Operator Name Role Phone Angie Tamez NP Primary Care Provider [phone] Encounter Details Date Type Department Care Team ([facility] st Contact Info) Description 08/31/2020 Weesht Message Enc [facility] Family Medicine [facility] [address] [id number] Angie Tamez, KERRIE [address] [address] RE: Question Social History Tobacco Use Types Packs/Day Years Used Date Smoking Tobacco: Never Smokeless Tobacco: Never Alcohol Use Standard Drinks/Week Comments Never 0 (1 standard drink = 0.6 oz pur e alcohol) AUDIT-C Answer Date Recorded Q1: How often do you have a drink containing alc ohol? 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 No / Unsure 08/28/2020 1:47 PM CDT documented as of this encounter Plan of Treatment Not on file documented as of this encounter Visit Diagnoses Not on filedocumented in this encounter Additional Health Concerns Assessment Noted Time PHQ-9 Depression Total Score: 3 07/21/19 21 11:34 AM CDT documented as of this encounter Care Teams Percussion Welding Machine Operator Relationship Specialty Start Date End Date Angie Tamez NP [address] [place] [address] [place] [address] PCP - General NURSE PRACTITIONER 05/11/20 11/25/23 documented as of this encounter
--- OUTSIDE RECORDS SUMMARY | 2024-04-29 13:49 | XMS_ITS | Clinical Summary ---
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 Gender Identity Not on file Sexual Orientation Not on file Plan of Treatment Health Maintenance Due Date Last Done Comments DTAP/TDAP/TD VACCINES (1 - Tdap) 10/26/1975 BREAST CANCER SCREENING 1996 COLORECTAL SCREENING 2001 Colorectal Cancer Screening 2001 FIT-DNA Q 3 years 2001 FIT/FOBT Q 1 year 2001 Flex Sig/CT Colonography Q 5 years 2001 PNEUMOCOCCAL VACCINE 50+ YEARS (1 of 1 - PCV) 10/26/19 07 ZOSTER VACCINE (1 of 2) 2006 OSTEOPOROSIS SCREENING 2021 INFLUENZA VACCINE (#1) 2023 RSV VACCINE (60+ or ) (1 - 1-dose 75+ series) 10/26/[address] [place] [address] OPEN ACCESS [facility] Address: [place] [address] [place] [address] [address]
--- OUTSIDE RECORDS SUMMARY | 2024-04-29 13:49 | XMS_ITS | Encounter Summary ---
Author Organization [employer] Address 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
--- OUTSIDE RECORDS SUMMARY | 2024-04-29 13:49 | XMS_ITS | Clinical Summary ---
Author Organization [facility] Address [address] [place] [address] Care Team Providers Care Care Tech Name Role Phone Unavailable Primary Care Provider Unavailabl e Allergies Active Allergy Reactions Criticality Noted Date Comments Tuberculin, Ppd Other (see comment) Low 02/02/2016 Had positive PPD not to be retested Medications Nerve Stimulator (TENS THERAPY PAIN RELIEF) DeviceIndication s:Chronic bilateral low back pain with bilateral sciatica Apply to affected area for pain relief 1 each 1 Active VITAMIN D2, ERGOCALCIFEROL, 96102 UNITS capsuleIndicatio ns:Vitamin D deficiency TAKE ONE CAPSULE BY MOUTH EVERY 30 DAYS 12 capsule 1 Active lidocaine 5 %Indications:Chr onic bilateral low back pain with bilateral sciatica Remove & Discard patch within 12 hours or as directed by MD 5 patch 1 Active Multiple Vitamins-Mineral s (CENTRUM SILVER ADULT 50+) TabIndications:H x of gastric bypass Take 1 tablet by mouth daily. 90 tablet 1 1 Active cyanocobalamin 1000 MCG/ML injectionIndicat ions:Vitamin B12 deficiency Inject 1ml weekly for 4 weeks then 1ml monthly. Get vit B12 level done in 6 months from start of injections. 10 mL 1 Active Syringe/Needle, Disp, (SYRINGE 3CC/25GX5/8 ) 25G X 5/8 3 ML MiscIndications: Vitamin B12 deficiency Use weekly with B-12 injections 50 each 1 Active fluticasone propionate 50 MCG/ACT nasal sprayIndications :Chronic seasonal allergic rhinitis 1 spray by Each Nostril route daily. 11.1 mL 1 1 Active methylPREDNISolo ne, RIDDHI, 4 MG tablet 2 Active DULoxetine (CYMBALTA) 20 MG capsuleIndicatio ns:Depression, unspecified depression type Take 1 capsule (20 mg total) by mouth daily. 90 capsule 2 2 Active pantoprazole EC (PROTONIX) 40 MG tabletIndication s:Gastric ulcer without hemorrhage or perforation, unspecified chronicity,Gastr oesophageal reflux disease with esophagitis without hemorrhage Take 1 tablet (40 mg total) by mouth daily. 90 tablet 2 2 Active Active Problems Problem Noted Date Diagnosed Date Epigastric pain 09/28/2020 Overview (09/28/2020): Added automatically from request for surgery [id number] History of colon polyps 09/28/2020 Overview (09/28/2020): Added automatically from request for surgery [id number] Lumbar radiculopathy 08/23/2020 Prediabetes 07/20/2020 Anxiety and depression 01/12/2019 Vitamin D deficiency 12/23/2017 Hyperlipidemia 12/23/2017 Heart murmur 12/02/2017 History of parathyroidectomy 12/02/2017 History of bariatric surgery 12/02/2017 Screening examination for sexually transmitted d isease 02/11/2014 Overview (10/07/2020): Added automatically from request for surgery [id number] GERD (gastroesophageal reflux disease) 2 Overview (10/07/2020): On PPI daily and PRN carafate per [facility]t. Loss center Primary hyperparathyroidism ([facility]) Obesity 11/02/2010 Cardiomegaly 11/02/2010 Family history of heart disease 11/02/2010 Sleep apnea 11/02/2010 Resolved Problems Problem Noted Date Diagnosed Date Resolved Date Hypercalcemia 09/17/2019 07/20/2020 Dysthymia 12/09/2017 07/20/2020 Immunizations Name Administration Dates Next Due Fluzone 6 Months+ Quad (0.5 mL Prefilled Syringe ) 12/11/2019 Hepatitis B (Generic: Adult) 12/09/2017 Influenza (Generic) 10/10/2017,02/26/2016 Influenza Adult (Generic) 12/09/2017 MMR 01/09/2008 MMR (Generic) 12/09/2017 MODERNA COVID-19 (12+) MRNA, LNP-S, PF, 100 MCG/ 0.5 ML DOSE 05/27/2020,04/22/2020 Pneumococcal (Pneumovax 23) 12/12/2017, 2 Td (Tenivac) preservative free 09/26/2010 Tdap (Generic) 12/02/2017 Varicella Vaccine 12/12/2017 Family History Medical History Relation Comments Afib Father Hx of Cardiovers ion Diabetes Father Hypertension Father Meslothelioma Father Alzheimers Mother Diabetes Mother Heart Disease Mother Hypertension Mother Relation Status Comments Brother Alive Father (Age 73) Mother (Age 73) Social History Tobacco Use Types Packs/Day Years Used Date Smoking Tobacco: Never Smokeless Tobacco: Never Tobacco Cessation:Counseling Given: Yes Alcohol Use Standard Drinks/Week Comments Never 0 [...] file Not on file Not on file Last Filed Vital Signs Vital Sign Reading Time Taken Comments Blood Pressure 127/79 10/12/2021 10:05 AM CDT Pulse 57 10/12/2021 10:05 AM CDT Temperature 35.8 C (96.5 F) 10/12/2021 9:50 AM CDT Respiratory Rate 21 10/12/2021 10:05 AM CDT Oxygen Saturation 97% 10/12/2021 10:05 AM CDT Inhaled Oxygen Concentration - - Weight 82.6 kg (182 lb 3.2 oz) 10/10/2021 2:55 P M CDT Height 167.6 cm (5' 6 ) 10/10/2021 2:55 PM CDT Body Mass Index 29.41 10/10/2021 2:55 PM CDT Plan of Treatment Health Maintenance Due Date Last Done Comments Mammogram Screening 1996 Zoster Vaccines (1 of 2) 02/06/2018 Annual Medicare Wellness Visit 2021 Dexa Scan (General) 2021 Pneumococcal Vaccine: 65+ Years (2 of 2 - PCV) 2021 12/12/2017, 09/28/2011 COVID-19 Vaccine (3 - season) 2023 05/27/2020, 04/22/2020 Influenza Adult (#1) 2023 12/11/2019, 12/09/2017, 10/10/2017, Additional history exists PHQ-2 (Physician [place]) 02/26/2024 DTaP, Tdap and Td Vaccines (2 - Td or Tdap) 12/03/2027 12/02/2017, 09/26/2010 Colorectal Cancer Screening Colonoscopy (10 Years) 10/05/2030 10/05/2020 RSV Immunization or 60+ Years (1 - 1-dose 75+ series) 10/26/2031 Hepatitis C Completed 07/21/2020 Meningococcal B Vaccine Aged Out No l onger eligible based on patient's age to complete this topic Meningococcal Vaccine Aged Out No terence sara eligible based on patient's age to complete this topic RSV Immunizations Under 20 Months Aged Out No longer eligible based on patient's age to complete this topic Procedures Procedure Name Priority Date/Time Associated Diagnosis Comments HEPATITIS C ANTIBODY Routine 07/21/2020 12:28 PM CDT Need for hepatitis C screening test from Last 3 Months or Most Recently Relevant to Health Maintenance Results * HEPATITIS C ANTIBODY (07/21/2020 12:28 PM CDT) HEPATITIS C AB 0.1 0.0 - 0.9 s/co ratio [facility] 1 Comment: Negative: < 0.8 Indeterminate: 0.8 - 0.9 Positive: > 0.9 The CDC recommends that a positive HCV antibody result be followed up with a HCV Nucleic Acid Amplification test (436470). 07/21/2020 12:2 8 PM CDT 07/21/2020 Narrative [facility] - 07/22/2020 8:08 AM CDT Performed at: 01 - [facility] [address] [id number] Termite Helper: Dawit Burks PhD, Phone: [phone] us Angieselene Tamez NP LABORATORY Final Res ult [facility] [address] [place] [address] [facility] 1 from Last 3 Months or Most Recently Relevant to Health Maintenance Insurance MEDICAID MEDICARE
--- OUTSIDE RECORDS SUMMARY | 2024-04-29 13:50 | XMS_ITS | Continuity of Care Document ---
Author Organization [facility] Address [address] [place] [address] Phone Care Team Providers Care Director Of Aviation Name Role Phone Irvin Shepherd MD Unavailable Unavailable Procedures Procedure Date CERVICAL SPINE CT W CONTRAST <content ID='ProcedureDescri ption_1' xmlns='[email or web address]'>Myelography Lumbar Inject, Incl Radiological S&I; Cervical</content> SURGICAL TRAY LOW OSMOLAR CONTRAST (200 TO 299 MG IODI NE) Advance Directives Directive Yes / No Effective Date File Name No Information Encounters Encounter Description Practice Location Reason(s) For Visit Diagnoses Date Provider Providers Copied on Encounter [facility], [address], [place], [place], [id number], [place] tel:[phone] [facility] No Information Joao Bryan. [address] [place], [place], [id number], [place]. tel:[phone] Referring Provider: Mitchell Graham [address], [place], [address]. tel:[phone] Family History Family Member Type Diagnosis Age At Onset No Information Payers Payer name Insurance type Covered democrat ID Authorxenaa titony(s) [employer] [id number] Social History Type Description Quantity Date Captured Comments Sex Female Smoking Status No Information Chief Complaint And Reason For Visit No Information Reason For Referral Reason For Referral No Information History Of Present Illness Encounter Date Complaint History Of Prese nt Illness No Information Functional Status Date Functional Assessmen t No Information Instructions Date Instruction Additional Infor mation No Information Assessments Type Assessment Date No Information Patient Care Teams Name Effective Dates (start - stop) Status Members No Information
--- OUTSIDE RECORDS SUMMARY | 2024-04-29 13:50 | XMS_ITS | Encounter Summary ---
Author Organization [facility] Address [address] [facility] [place] [address] Care Team Providers Care Window Repairer Name Role Phone Jasper Easton MD Unavailable [phone] Michael Peoples DO Primary Care Provider [phone] Oren Morfin MD Unavailable [phone] BrothDeon tabor Primary Care Provider [phone] Keerthi Knight MD Primary Care Provider [phone] Leena Keita MD Primary Care Provider [phone] Leena Keita MD Primary Care Provider [phone] Angie Tamez PLOW SHAKER-INFORMATION TECHNOLOGY SPECIALIST Primary Care Provi karine Leena Keita MD Unavailable [phone] Leena Keita MD Unavailable [phone] Ivy Encarnacion PLOW SHAKER-INFORMATION TECHNOLOGY SPECIALIST Unavailable [phone] Encounter Details Date Type Department Care Team (Late st Contact Info) Description 10/19/2010 [facility] DEPT Unknown, Provider Social History Tobacco Use Types Packs/Day Years Used Date Smoking Tobacco: Never Assessed Sex and Gender Information Value Date Recorded Sex Assigned at Not on file Gender Identity Not on file Sexual Orientation Not on file documented as of this encounter Plan of Treatment Not on file documented as of this encounter Visit Diagnoses Not on filedocumented in this encounter Care Teams Window Repairer Relationship Specialty [place] [address] [place] [address] PCP - General Family Medicine 02/16/13 04/03/15 Deon Lopez DO [address] [place] [address] PCP - General Family Medicine 04/04/15 10/25/15 Keerthi Knight MD [address] [place] [address] PCP - General Family Medicine 10/26/15 02/01/16 [place] [address] [place] [address] PCP - General Internal Medicine 02/02/16 04/09/18 [place] Keita [place] [id number] [place] [address] [address] [place] [address] PCP - General 04/11/18 08/17/20 Angie Tamez, PLOW SHAKER-[facility] [address] [place] [address] PCP - General 08/18/20 [place] [address] [place] [address] PCP - Attributed-Exclusive Choice 08/10/16 12/15/16 [place] [address] [facility] [address] [place] [address] PCP - Attributed-Exclusive Choice 05/16/17 12/26/17 Ivy Encarnacion APRN-INFORMATION TECHNOLOGY SPECIALIST [address] [facility] [address] [place] [address] PCP - Attributed-Exclusive Choice 12/16/16 05/15/17 [place] [address] [facility] [address] [place] [address] Pulmonary Disease 05/09/12 [place] [address] [facility] [address] [place] [address] Orthopedic Surgery 09/09/14 documented as of this encounter
--- OUTSIDE RECORDS SUMMARY | 2024-04-29 13:50 | XMS_ITS | Referral Summary ---
Author Organization [facility] Address [address] [facility] [place] [address] Care Team Providers Care Appraiser Oil And Water Name Role Phone Jasper Easton MD Unavailable [phone] Oren Morfin MD Unavailable [phone] Angie Tamez CAN WORKER-[facility] Primary Care Provi karine Source Comments [facility],non-owned Affiliates and Associated Physician Practices is amultiple site organization consisting of ambulatory clinics and hospital sitesin [place], [place], [place] and [place]. This disclosure is being madepursuant to the Care Everywhere program and may not contain all information available regarding this patient. Last updated 17.[facility] Allergies Active Allergy Reactions Criticality Noted Date [...] tablet 07/11/2018 Active vitamin D, ergocalciferol, (DRISDOL) 58323 units capsule Take 1 capsule by mouth every 7 days 12 capsule 07/29/2018 Active vitamin D, ergocalciferol, (DRISDOL) 76342 units capsule TAKE ONE CAPSULE BY MOUTH [...] PNEUMOCOCCAL PPSV23 09/28/2011 TD (AGE 8-ADULT) 09/26/2010 Social History Tobacco Use Types Packs/Day Years [...] Mass Index 25.82 07/16/2018 7:10 AM CDT Functional Status Functional Status Response Date of Assess ment Is person deaf or have serious hearing difficult y? No 04/11/2018 Is person blind or have serious difficulty seein g? No 04/11/2018 Does person have serious dif ficulty walking/climbing stairs? No 04/11/2018 Does person have difficulty dressing/bathing? No 04/11/2018 Does person have difficulty doing errands alone? No 04/11/2018 Cognitive Status Response Date of Assessm ent Does person have difficulty concentrating/remembering/making decisions? No 04/11/2018 Plan of Treatment Not on file Goals Goal Patient Goal Type Associated Problems Recent Progress Patient-Stated? Author Exercise 5X per week (30 min per time) Exercise No Natalee Merrill Note: The [employer] recommends all adults [...] overall healthier. Medical Devices Implanted Type Area Tube Balancer Device Identifier Shelf Expiration Date Model / Serial / Lot Stent Nphurstm 24cm 8.5fr [facility] Implanted:Qty: 1 on 03/29/2018 at [facility] [employer] 11/14/2020 [id number] / / [id number] Description:Dr.Kao De Leon Uret 6fr 26cm Pgtl Crv Tpr Tip Implanted:Qty: 1 on 04/10/2018 by Andrey Cardenas MD at [facility] [employer] 01/29/2021 [id number] / / [id number] Procedures Procedure Name Priority Date/Time Associated Diagnosis Comments COMPREHENSIVE METABOLIC PANEL Routine 07/16/2018 9:41 AM CDT Bariatric surgery status Epigastric pain Morbid obesity (HCC) BMI 26.0-26.9,adult Vitamin D deficiency Vitamin deficiency Gastroesophageal reflux disease without esophagitis Nausea without vomiting LIPID PROFILE Routine 08/14/2017 1:24 PM CDT History of diabetes mellitus, type II HEPATITIS C ANTIBODY Routine 02/14/2016 7:30 AM FOOTBALL COACH Bariatric surgery status MAMMO BILAT SCREENING Routine 02/07/2015 10:58 AM FOOTBALL COACH Visit for screening mammogram ENDOSCOPY, COLON, DIAGNOSTIC Routine 02/25/2012 10:38 AM FOOTBALL COACH DEXA BONE DENSITY 2 SITES Routine 12/12/2010 [...] Resulting Agency Comment Lab Testing performed at: [address] [place] [id number] Ivy Encarnacion APRN-CLIENT ADVOCATE LAB - CHEMIS TRY ORDERABLES [facility] ACCOUNT BILL [address] [place] [address] * LIPID PROFILE (08/14/2017 1:24 PM CDT) [facility] Signature Cholesterol 196 100 - 199 mg/dL [facility] [...] CDT 08/14/2017 Narrative Resulting Agency Comment [facility] [place] [address] [facility] [id number] Darlin Mcclain CAN WORKER-CLIENT ADVOCATE LAB - CHEMISTRY ORDERABLES [facility] INSURANCE BILL [address] [place] [address] * HEPATITIS C ANTIBODY (02/14/2016 7:30 AM FOOTBALL COACH) HCV Antibody Screen Non Reactive Non Reactive 02/14/2016 3:06 PM FOOTBALL COACH [facility] HCV S/C Ratio 0.12 0.00 - 0.79 02/14/2016 3:06 PM FOOTBALL COACH [facility] Comment: Nkqpmw-ns-xnlpfx ratio (S/CO) <0.80: Non Reactive Blood BLOOD SPECIMEN / Unknown Lab Venipuncture / Unknown 02/14/2016 7:30 AM FOOTBALL COACH 02/14/2016 7:41 AM FOOTBALL COACH Narrative [facility] - 02/14/2016 3:06 PM FOOTBALL COACH Non Reactive - Antibodies to Hepatitis C virus (HCV) were not detected, result does not exclude early acute HCV infection. Leena Keita MD LAB - CHEMISTRY JUSTIN SALINAS Performing Organization Address City/State/[facility] Co de Phone Number [facility] [address] [place] [address] * MAMMO SCREENING DIGITAL IMAGE BILAT [id number] (02/07/2015 10:58 AM FOOTBALL COACH) Anatomical Region Laterality Modality Breast Bilateral Mammography 02/07/2015 1:53 PM FOOTBALL COACH Narrative 02/07/2015 1:55 PM FOOTBALL COACH FULL FIELD DIGITAL BILATERAL SCREENING MAMMOGRAMS WITH [...] if suspicious findings are present clinically. An [employer] Facility. [facility] utilize naaya as a reminder system to notify patients of their next recommended mammograms. Michael Lock Peoples DO MAMMO ORDERABLES * ENDOSCOPY, COLON, DIAGNOSTIC (02/25/2012 10:38 AM FOOTBALL COACH) Narrative [facility] ENDOSCOPY - 02/25/2012 10:38 AM FOOTBALL COACH Procedure Note Justyn Phillips MD - 02/25/2012 10:38 AM CST Justyn Phillips MD GI PROCEDURE ORDERA BLES [facility] ENDOSCOPY * DEXA BONE DENSITY 2 [...] or Most Recently Relevant to Health Maintenance Administered Medications Advance Directives * Full Code (Latest Code [...] 2:50 PM 09/28/2011 12:42 PM Care Teams Appraiser Oil And Water Relationship Specialty Start Date End Date Dashawn Angiewander Xie APRN-CLIENT ADVOCATE [address] [place] [address] PCP - General 08/18/[address] [place] [address] [facility] [address] [place] [address] Pulmonary Disease 05/09/12 [place] [address] [facility] [address] [place] [address] Orthopedic Surgery 09/09/14
--- OUTSIDE RECORDS SUMMARY | 2024-04-29 13:50 | XMS_ITS | Data Portability ---
Author Organization [facility] IP Address [address] [place] [address] Assessment No assessment recorded. Plan of Treatment Reminders Order Date Submit Date Provider Last Modified By Organization Details Last Modified Time Details Appointments None recorded. Lab None recorded. Referral physical therapy knee referral 2020 021 [email or web address] Not available 12:30:15 Procedures None recorded. Surgeries None recorded. Imaging XR, knee 2020 021 [id number] [facility] ([facility]), [address] [place], [address], 12:17:20 XR, knee 2020 021 [id number] [facility] ([facility]), [address] [place], [address], 14:41:02 XR, knee 2020 021 [email or web address] [facility] ([facility]), [address] [place], [address], 11:53:53 XR, knee 2020 021 [facility] ([facility]), [address] [place], [address], 14:16:25 Medication Orders None recorded. Patient TargetsNo targets recorded. Patient Instructions Encounter Date Encounter Id Patient Instructions Last Modified By Organization Details Last Modified Time 05/02/2020 [id number] Out of work and school until next appointment dschwarze Not available 05/02/2020 14:58:28 Fracture treatment, including operative and nonoperative care, was discussed at length with the patient. Detailed explanations were provided to patient for different treatments. If patient desires surgical intervention, then would need to be referred to [facility] [facility] as this type of [place] is not performed by [place]. The patient prefers nonoperative treatment and desires continued follow up here at [facility]. The patient accepts the risks of, but not limited to, nonunion, malunion, stiffness, persistent pain, loss of motion and strength, and possible need for future referral for surgery. dschwarze Not available 05/02/2020 14:58:38 05/26/2020 [id number] Out of work and school until next appointment dschwarze Not available 05/26/2020 11:17:55 Fracture treatment, including operative and nonoperative care, was discussed at length with the patient. Detailed explanations were provided to patient for different treatments. If patient desires surgical intervention, then would need to be referred to [facility] [facility] as this type of surgery is not performed by [place]. The patient prefers nonoperative treatment and desires continued follow up here at [facility]. The patient accepts the risks of, but not limited to, nonunion, malunion, stiffness, persistent pain, loss of motion and strength, and possible need for future referral for surgery. dschwarze Not available 05/26/2020 11:17:54 06/20/2020 [id number] Out of work and school until next appointment dschwarze Not available 06/20/2020 14:51:44 Fracture treatment, including operative and nonoperative care, was discussed at length with the patient. Detailed explanations were provided to patient for different treatments. If patient desires surgical intervention, then would need to be referred to [facility] as this type of surgery is not performed by [place]. The patient prefers nonoperative treatment and desires continued follow up here at [facility]. The patient accepts the risks of, but not limited to, nonunion, malunion, stiffness, persistent pain, loss of motion and strength, and possible need for future referral for surgery. dschwarze Not available 06/20/2020 14:51:44 07/11/2020 [id number] Out of work and school until next appointment dschwarze Not available 07/11/2020 14:39:00 Fracture treatment, including operative and nonoperative care, was discussed at length with the patient. Detailed explanations were provided to patient for different treatments. If patient desires surgical intervention, then would need to be referred to [facility] [facility] as this type of surgery is not performed by [place]. The patient prefers nonoperative treatment and desires continued follow up here at [facility]. The patient accepts the risks of, but not limited to, nonunion, malunion, stiffness, persistent pain, loss of motion and strength, and possible need for future referral for surgery. dschwarze Not available 07/11/2020 14:39:00 09/01/2020 [id number] Out of work and school until next appointment dschwarze Not available 09/01/2020 11:53:50 Fracture treatment, including operative and nonoperative care, was discussed at length with the patient. Detailed explanations were provided to patient for different treatments. If patient desires surgical intervention, then would need to be referred to [facility] as this type of surgery is not performed by [place]. The patient prefers nonoperative treatment and desires continued follow up here at [facility]. The patient accepts the risks of, but not limited to, nonunion, malunion, stiffness, persistent pain, loss of motion and strength, and possible need for future referral for surgery. dschwarze Not available 09/01/2020 11:53:50 Reason for Referral Referring Physician: Jeevan Clements, Orthopedic Surgery, Encounter Date: 07/11/2020 Results Created Date Observation Date Name Description Value Unit Range Abnormal Flag Note LastModifiedBy Organization Detail LastModifiedTime 04/26/19 21 04/23/2020 XR, hip + pelvi s, unila teral No observ ation record ed. BARCODE Not Available 2020 10:07:08 04/26/19 21 04/23/2020 XR, knee No observ ation record ed. BARCODE Not Available 2020 10:07:08 04/27/19 21 04/25/2020 CT, lower extre mity, w/o contr ast EXAMIN ATION: CT left knee withou t contra st. ACCESS ION: [id number] REASON FOR EXAM: [id number] 003: Closed fractu re proxim al tibia, bicond ylar COMPAR LATRELL: 021 TECHNI QUE: Axial CT images of the left knee are obtain ed withou t the use of IV contra st agent. Subseq uent velasco l and sagitt al reform atted sequen jane are create d for evalua tion. Automa rosa exposu re contro l was utiliz ed for dose reduct ion. FINDIN GS: Fractu re of the latera l tibial platea u is seen. Fractu re line extend s to the articu lar surfac e in the latera lmost portio n of the tibial platea u. Fractu re line is seen extend ing deep to the tibial platea u tank refinisher iorly and latera lly. Minima l depres shahab of the tibial platea u is possib le. I suspec t this measur es less than 1 mm. No eviden ce of displa cement is seen. Bones are in near-a natomi c alignm ent. Lipohe marthr osis is seen. No other fractu res seen. There is spurri ng of the femur, tibia, and patell a noted. ===== IMPRES SHAHAB:= ==== 1. Latera l tibial platea u fractu re seen. Fractu re line extend s to the articu lar surfac e in the latera l region . Minima l depres shahab of the tibial platea u is possib le. If presen t, depres shahab may measur e less than 1 mm. 2. Osteoa rthrit is of the knee. READ BY: KIRAN ANDERS MD Date: 2020 09:26 dschwarkenna [facility] ([facility]) [address] [place], [address], 04/28/2020 12:10:28 05/03/19 21 05/02/2020 XR, knee EXAMIN ATION: Left knee ACCESS ION: [id number] EXAM DATE: 05/03/19 21 1:24 PM REASON FOR EXAM: [id number] 003: Closed fractu re proxim al tibia, bicond ylar Fractu re follow -up COMPAR LATRELL: 021 TECHNI QUE: 3 views FINDIN GS: Latera l tibial platea u fractu re is again visual ized. No defini te bridgi ng callus . Modera te joint effusi on is persis tent. No new injury . IMPRES SHAHAB: 1. Latera l tibial platea u fractu re is again visual ized. No defini te bridgi ng callus . Modera te joint effusi on is persis tent. No new injury . READ BY: PALAK BEAVER, RIGOBERTO Date: 2020 13:56 [facility] ([facility]) [address] [place], [address], 05/02/2020 17:21:55 05/27/1905/26/2020 XR, knee Examin ation: Left knee 3 views Access ion: [id number] Exam Date/T bessy: 05/27/19 10:33 AM Reason For Exam: [id number] 003: Closed fractu re proxim al tibia, bicond ylar Compar latrell: May 02, 2020 Techni que: 3 views of the left knee were obtain ed. Findin gs: Small knee effusi on is presen t. Superi or and inferi or patell ar osteop hytes are presen t. There has been furthe r interv al healin g of the latera l tibial platea u fractu re. Increa sing sclero sis is presen t. Decrea sing lucenc y about the superi or cortic al irregu larity . ===== IMPRES SHAHAB:= ==== 1. Healin g latera l tibial platea u fractu re is presen t. Healin g and remode ling are incomp lete. Small effusi on. READ BY: CHIKA GOODWIN Date: 2020 10:52 [facility] ([facility]) [address] [place], [address], 05/26/2020 13:23:05 07/12/19 21 07/11/2020 XR, knee EXAMIN ATION: Left knee ACCESS ION: [id number] EXAM DATE: 021 1:47 PM REASON FOR EXAM: [id number] 003: Closed fractu re proxim al tibia, bicond ylar Fractu re follow -up COMPAR LATRELL: 05/27/19 21 TECHNI QUE: 3 views FINDIN GS: Immobi lizati on device in place which obscur es fine bony detail . Soft tissue swelli ng and joint effusi on to remain . Latera l tibial platea u fractu re is not clearl y visual ized on this examin ation. No new injury is apprec iated. IMPRES SHAHAB: 1. Immobi lizati on device in place which obscur es fine bony detail . Soft tissue swelli ng and joint effusi on to remain . Latera l tibial platea u fractu re is not clearl y visual ized on this examin ation. No new injury is apprec iated. READ BY: PALAK BEAVER, RIGOBERTO Date: 2020 14:33 [facility] [address] [place], [address], 07/11/2020 16:41:11 09/02/19 21 09/01/2020 XR, knee EXAMIN ATION: Left knee ACCESS ION: [id number] EXAM DATE: 09/02/19 11:18 AM REASON FOR EXAM: [id number] 003: Fractu re of condyl e of tibia Fractu re follow -up COMPAR LATRELL: 021 TECHNI QUE: 3 views FINDIN GS: Mild soft tissue swelli ng. Small joint effusi on. Early medial predom inant tricom partme ntal osteoa rthrit is. No acute fractu re or disloc ation. Latera l tibial platea u is slight ly irregu lar. IMPRES SHAHAB: 1. Early medial predom inant osteoa rthrit is. No fractu re lines visual ized on this study. Irregu larity of the latera l tibial platea u. READ BY: PALAK BEAVER, RIGOBERTO Date: 2020 14:06 [facility] [address] [place], [address], 09/05/2020 14:45:41 Result Notes None recorded. Problems No Known Problems Procedures Surgical History None recorded. Imaging Results Imaging Date Name Status Lastified by [facility] Details LastModified Time 04/23/2020 XR, hip + pelvis, unilateral completed BARCODE Information not available 04/25/2020 10:07:08 04/23/2020 XR, knee completed [facility] Information no t available 04/25/2020 10:07:08 04/25/2020 CT, lower extremity, w/o contrast completed dschwarze [facility] ([facility]) [address], [place], [address], 04/28/2020 12:10:28 05/02/2020 XR, knee completed dschwarze [facility] ([facility]) [address], [place], [address], 05/02/2020 17:21:55 05/26/2020 XR, knee completed dschwarze [facility] ([facility]) [address], [place], [address], 05/26/2020 13:23:05 07/11/2020 XR, knee completed dschwarze [facility] ([facility]) [address], [place], [address], 07/11/2020 16:41:11 09/01/2020 XR, knee completed dschwarze [facility] ([facility]) [address], [place], [address], 09/05/2020 14:45:41 Procedure Notes None recorded. Medical Equipment None Reported. Allergies No known drug allergies Medications Name Sig Start Date Stop Date Status Note LastModified by Organization Details LastModified Time prednisone 20 mg tablet active Not Available Not Available Not Available penicillin V potassium 500 mg tablet TAKE 1 TABLET BY MOUTH FOUR TIMES DAILY UNTIL GONE active Not Available Not Available No t Available acetaminoph en 300 mg-codeine 30 mg tablet TAKE 1 TABLET BY MOUTH EVERY 8 HOURS NEEDED FOR PAIN active Not Available Not Available No t Available oxycodone-a cetaminophe n 5 mg-325 mg tablet TAKE 1 TABLET BY MOUTH EVERY 4 HOURS NEEDED FOR PAIN 05/26 completed Not Available Not Available Not Available famciclovir 500 mg tablet TAKE 1 TABLET BY MOUTH TWICE DAILY NEEDED active Not Available Not Available No t Available lidocaine 5 % topical patch UNWRAP AND APPLY 1 PATCH TO THE AFFECTED AREA DAILY FOR 12 HOURS AT A TIME active Not Available Not Available No t Available omeprazole 20 mg capsule,del ayed release TAKE 1 CAPSULE BY MOUTH EVERY DAY active Not Available Not Available No t Available gabapentin 100 mg capsule active Not Available Not Available Not Available ergocalcife rol (vitamin D2) 1,250 mcg (50,000 unit) capsule active Not Available Not Available Not Available naproxen 500 mg tablet TAKE 1 TABLET BY MOUTH TWICE DAILY WITH FOOD active Not Available Not Available No t Available Vitals Date Recorded Body height Respiratory rate Body temperature Heart rate Pain severity - 0-10 verbal numeric rating [Score] - Reported Systolic blood pressure Diastolic blood pressure Provider Name and Address Organization Details Last Updated DateTime 1 167.64 cm 20 /min 96.9 [degF] 64 /min 7 134 mm[Hg] 80 mm[Hg] Anita Peters LPN [facility] 1 14:08:33 Date Recorded Body height Heart rate Respiratory rate Body temperature Pain severity - 0-10 verbal numeric rating [Score] - Reported Systolic blood pressure Diastolic blood pressure Provider Name and Address Organization Details Last Updated DateTime 1 167.64 cm 67 /min 20 /min 97.5 [degF] 6 124 mm[Hg] 74 mm[Hg] Anita Peters LPN [facility] 1 11:14:30 Date Recorded Body height Heart rate Respiratory rate Body temperature Pain severity - 0-10 verbal numeric rating [Score] - Reported Systolic blood pressure Diastolic blood pressure Provider Name and Address Organization Details Last Updated DateTime 1 167.64 cm 65 /min 18 /min 98 [degF] 0 134 mm[Hg] 76 mm[Hg] Anita Peters LPN [facility] 1 14:44:12 Date Recorded Body height Heart rate Respiratory rate Pain severity - 0-10 verbal numeric rating [Score] - Reported Body temperature Systolic blood pressure Diastolic blood pressure Provider Name and Address Organization Details Last Updated DateTime 1 167.64 cm 72 /min 20 /min 3 97.5 [degF] 135 mm[Hg] 66 mm[Hg] Anita Peters LPN [place] [facility] 1 14:14:45 Date Recorded Body height Body mass index (BMI) Body weight Heart rate Respiratory rate Body temperature Pain severity - 0-10 verbal numeric rating [Score] - Reported Systolic blood pressure Diastolic blood pressure Provider Name and Address Organization Details Last Updated DateTime 1 167.64 cm 35.4 kg/m2 20927.1 7 g 68 /min 18 /min 97.3 [degF] 2 142 mm[Hg] 87 mm[Hg] Anita Peters LPN [place] [facility] 1 11:51:28 Social History None recorded. Functional Status None recorded. Mental Status None recorded. Family History Nothing Reported. Medical History No medical history recorded. Gynecological HistoryNo gynecological history recorded. Obstetrics History GPAL:G 0 P 0 0 0 0 Past Encounters Encounter ID Performer Location Encounter Start Date Encounter Closed Date Diagnosis/Indication Diagnosis SNOMED-CT Code Diagnosis ICD10 Code Diagnosis Note [id number] Jeevan Clements MD [facility] ts [address] [place] [address] 04/25/2020 14:19:48 05/02/2020 11:41:45 Pain in left knee [id number] 52462 M25.562 Closed fra cture of left tibial plateau 2760356640 3871577 S82.142A Strict NWMPercoce tKnee Immobilize r full timeRTC 1 wk to review CT20 min discussion of Tx plan [id number] Jeevan Clements MD [facility] [address] [place] [address] 05/02/2020 14:00:54 05/03/2020 11:39:43 Pain in left knee [id number] 62313 M25.562 Closed fra cture of left tibial plateau 2615891291 2497743 S82.142A Strict NWBPercoce t prn start weaning soonKnee Immobilize r full [id number] min discussion of Tx planReq pt to remain housebound , limit mobilizati on to decrease shoulder painDeclin e PT for crutch training [id number] Jeevan Clements MD [facility] [address] [place] [address] 05/26/2020 11:07:36 05/26/2020 13:41:44 Pain in left knee 1640332309 21253 M25.562 Closed fra cture of left tibial plateau 3294116705 3053439 S82.142A Strict NWB Percocet prn start weaning Knee Immobilize r wean OOW 20 min discussion of current Tx plan Req pt to remain housebound , limit mobilizati on to decrease shoulder pain Decline PT for crutch training [id number] Jeevan Clements MD [facility] [address] [place] [address] 06/20/2020 14:17:01 06/23/2020 16:56:15 Pain in left knee 1514472785 29238 M25.562 Closed fra cture of left tibial plateau 1848851134 0434167 S82.142A Strict NWB encouraged , return to walker, w/c, crutches, 10 min Percocet prn start weaning Knee Immobilize r wean OOW 20 min discussion of current Tx plan and consequenc es of WBAT 15 min Req pt to remain housebound , limit mobilizati on to decrease shoulder pain Decline hospital for XRs Decline PT for crutch training [id number] Jeevan Clements MD [facility] [address] [place] [address] 07/11/2020 14:10:26 07/12/2020 11:26:00 Pain in left knee 9746040740 40362 M25.562 Closed fra cture of left tibial plateau 9934110223 7283826 S82.142A Start WBAT encouraged , D/C brace start weaning Knee Immobilize r wean OOW, anticipate RTW next 2-3 weeks 20 min discussion of current Tx plan and consequenc es of XR change [id number] Jeevan Clements MD [facility] [address] [place] [address] 09/01/2020 10:39:46 09/05/2020 11:10:16 Pain in left knee 9333563646 80397 M25.562 Closed fra cture of left tibial plateau [id number] 9946823 S82.142A WBAT Health Concerns Section Related Observation LastModified by Organization Detai ls LastModified Time None Recorded Concern Status LastModified by Organization Details LastModified Time None Recorded Advance Directives Directive None Recorded Payers Encounter Date Sequence Insurance Name Policy Number Policy Ramos Covered Member ID Ramos Member ID Guarantor Name 05/02/2020 1 [employer] (PPO) Makenna Harrison [id number] Makenna Harrison 05/02/2020 1 [place] [employer] Makenna Harrison [id number] Makenna Harrison 05/26/2020 1 [place] Makenna Harrison [id number] Makenna Harrison 06/20/2020 1 [place] [facility] [place] [facility] Makenna Harrison [id number] Makenna Harrison 07/11/2020 1 [facility] (MEDICAID O) [id number] Makenna Harrison [id number] Makenna Harrison 09/01/2020 1 [facility] (MEDICAID HMO) [id number] Makenna Harrison [id number] Makenna Harrison Notes Date Note Type Note Provider Name and Address Organization Details Recorded Time 05/02/2020 text/html KneeReported bypatient.Location:lef t; posterior; lateral; deep Quality:stabbing; throbbing; sharp; deep; constant; improving Severity:moderate Duration:continuous since onset Timing:acute Context:fall; lost balance and fell backwards Alleviating Factors:ice; rest; elevation; narcotics; brace; walker Aggravating Factors:standing Associated Symptoms:weakness;swel ling;radiation down leg Previous Surgery:none Prior Imaging:x ray; [facility] Previous Injections:none Previous PT:none Work Related:no Working:noNotes:Has job starting at [employer] sit down work availableHas wheelchair comingHas walker and crutchesShoulders hurt from using walker too muchRequesting handicap sticker DOI 04/23/20 Jeevan Clements MD [address] [place], [address], [facility] 05/02/2020 14:58:57 05/26/2020 text/html KneeReported bypatient.Location:lef t; posterior; lateral; deep Quality:stabbing; throbbing; sharp; deep; constant; improving Severity:moderate Duration:continuous since onset Timing:acute Context:fall; lost balance and fell backwards Alleviating Factors:ice; rest; elevation; narcotics; brace; walker Aggravating Factors:standing Associated Symptoms:weakness;swel ling;radiation down leg Previous Surgery:none Prior Imaging:x ray; [facility] Previous Injections:none Previous PT:none Work Related:no Working:noNotes:[facility] sit down work availableHas wheelchairHas walker and crutchesShoulders hurt from using walker too muchRequesting handicap sticker DOI 04/23/20 Jeevan Clements MD [address] [place], [address], [facility] 05/26/2020 11:56:36 06/20/2020 text/html KneeReported bypatient.Location:lef t; posterior; lateral; deep Quality:aching; stabbing; throbbing; deep; improving Severity:moderate Duration:continuous since onset Timing:acute Context:fall; lost balance and fell backwards Alleviating Factors:ice; rest; elevation; narcotics; brace; walker Aggravating Factors:standing Associated Symptoms:weakness;swel ling;radiation down leg Previous Surgery:none Prior Imaging:x ray; [facility] Previous Injections:none Previous PT:none Work Related:no Working:noNotes:Has job starting at [facility], on holdNo sit down work available, OOWHas wheelchair, not usingHas walker and crutches, not usingShoulders hurt from using walker/ crutches too much, so stop usingRequesting handicap sticker DOI 04/23/20 Not using walker, crutches, but using cane occ Jeevan Clements MD [address] [place], [address], [facility] 06/20/2020 15:01:49 07/11/2020 text/html KneeReported bypatient.Location:lef t; posterior; lateral; deep Quality:aching; stabbing; throbbing; deep; improving Severity:moderate Duration:continuous since onset Timing:acute Context:fall; lost balance and fell backwards Alleviating Factors:ice; rest; elevation; narcotics; brace; walker Aggravating Factors:standing Associated Symptoms:weakness;swel ling;radiation down leg Previous Surgery:none Prior Imaging:x ray; [facility] Previous Injections:none Previous PT:none Work Related:no Working:noNotes:Has job starting at [facility], on holdNo sit down work available, OOWHas wheelchair, not usingHas walker and crutchesShoulders hurt from using walker/ crutches too much, so stop usingRequesting handicap sticker DOI 04/23/20 using walker, BUT WBAT in hallways Jeevan Clements MD [address] [place], [address], [facility] 07/11/2020 15:10:12 09/01/2020 text/html KneeReported bypatient.Location:lef t; posterior; lateral; deep Quality:aching; stabbing; throbbing; deep; improving Severity:moderate Duration:continuous since onset Timing:acute Context:fall; lost balance and fell backwards Alleviating Factors:ice; rest; elevation; narcotics; brace; walker Aggravating Factors:standing Associated Symptoms:weakness;swel ling;radiation down leg Previous Surgery:none Prior Imaging:x ray; [facility] Previous Injections:none Previous PT:none Work Related:no Working:noNotes:Has job starting at [facility], on holdNo sit down work available, OOWHas wheelchair, not usingHas walker and crutchesShoulders hurt from using walker/ crutches too much, so stop usingRequesting handicap sticker DOI 04/23/20 using walker, BUT WBAT in hallways Jeevan Clements MD [address] [place], [address], [facility] 09/01/2020 12:43:33 OBGyn Episode No OBEpisode recorded.
--- OUTSIDE RECORDS SUMMARY | 2024-04-29 13:50 | XMS_ITS | Patient Health Record ---
Author Organization [facility] [place] Address [address] [address] Care Team Providers Care Salvage Inspector Name Role Phone Kit Palacios Unavailable [phone] ALLERGIES No Known Allergies REASON FOR REFERRAL No Information MEDICATIONS Medication SIG (Take, Route, Frequency, Duration) Notes Start Date End Date Status Ibuprofen PRN Active Omeprazole 40 MG TAKE 1 CAPSULE BY MO UTH DAILY Oral for 90 Days Active Naproxen PRN Active Tylenol Extra Strength 500 MG 1 tablet as needed Orally every 6 hrs Active Advil PRN Active SOCIAL HISTORY Tobacco Use: Social History Observation Description Date Details (start date - stop date) Never Smoker NA - NA Sex Assigned At : Social History Observation Description Sex Assigned At Unknown Tobacco Use/Smoking Question Answer Notes Are you a nonsmoker PROBLEMS Problem Type ICD Code Onset Dates Problem Status W/U Status Risk SNOMED Code Notes Problem DDD (degenerative disc disease), lumbar (M51.36) Active confirmed Degenerative disc disease (12999410) Problem Spondylolisthesis at L4-L5 level (M43.16) Active confirmed Acquired spondylolisthesis (126127589) Problem 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) Active confirmed Displace ment of lumbar intervertebral disc without myelopathy (08622833) Problem Lumbosacral radiculopathy (M54.17) Active confirmed Lumbosacral radiculopathy (0438567) VITAL SIGNS Heart Rate 55 /min 04/30/2023 Temperature 97.9 degrees Fahrenheit 04/30/2023 Respiratory Rate 18 /min 04/30/2023 Blood pressure diastolic 65 mm Hg 04/30/2023 Height 66 in 04/30/2023 Blood pressure systolic 99 mm Hg 04/30/2023 Weight 140 lbs 04/30/2023 BMI 22.59 kg/m2 04/30/2023 Encounters Encounter Location Date Provider Diagnosis [facility] [address] [place] [address] 04/30/2023 Kit Palacios Herniated lumbar dis c without myelopathy M51.26 ; Lumbosacral radiculopathy M54.17 ; Spondylolisthesis at L4-L5 level M43.16 and DDD (degenerative disc disease), lumbar M51.36 ASSESSMENTS Encounter Date Diagnosis Assessment Notes Treatment Notes Treatment Clinical Notes Section Notes 04/30/2023 Herniated lumbar disc without myelopathy (ICD-10 - M51.26) 04/30/2023 Lumbosacral radiculopathy (ICD-10 - M54.17) Impression1. Chronic, worsening, low back pain radiating both lower extremities, described L5 radicular pattern.2. Multiple level lumbar degenerative disc changes including progressed disc protrusion L4/5 with significant encroachment of bilateral lateral recesses and likely impingement of descending L5 nerve roots.3. Grade 1 anterior spondylolisthesis L4/5 with minimal retrolisthesis L1/2, L2/3 and L3/4.4. Unspecified thoracic pain.5. Previous C6/7 fusion with subsequent revision and implantation of artificial disc November 2022.6. Work-related injury 12/17/2019Plan1. Proceed with midline (interlaminar (L4/5 epidural steroid injection with fluoroscopy. She does not request sedation.2. Patient was unclear as to her follow-up with Dr. Jaron Cardoso therefore I suggest that she call his office with progress report over the next 5-7 days.3. Patient was encouraged to maintain some form of daily home exercise program with maintenance of core strength and trunk flexibility. Patient appears quite debilitated and for the past 1 year or longer has required use of a walker for gait stability. Pain scores on numeric scale:Prein jection: 11/04Postinj ection: 09/0304/30/2023 Spondylolisthesis at L4-L5 level (ICD-10 - M43.16) 04/30/2023 DDD (degenerative disc disease), lumbar (ICD-10 - M51.36) PLAN OF TREATMENT No Information MEDICATIONS ADMINISTERED Medication Instructions Date of Administration Dosage Notes Midline (Interlaminar) L4/5 LIZBETH 04/30/2023 MEDICAL (GENERAL) HISTORY Medical History History ICD Code parathyroidectomy arthritis kidney stones reflux pepticulcer panic attacks urinary incontinence Surgical History Surgery Date(Month/Year) parathyroidectomy gastric bypass 2011 Revision surgery C6/7/ Artificial Disc O ctober 2022 Prior C6/7 A/P fusion
--- OUTSIDE RECORDS SUMMARY | 2024-04-29 13:50 | XMS_ITS | CONTINUITY OF CARE DOCUMENT ---
Author Name tamela rapp Address Unknown Organization [facility] Address [address] [place] [address] Phone [phone] Care Team Providers Care Commissary Agent Name Role Phone Shannon Looney MD Unavailable [phone] LUKASZ COLLINS MD Unavailable LUKASZ COLLINS MD Unavailable PROBLEMS Condition Status Date Provider Notes HTN ESSENTIAL active Darron Nunez MD CARDIOMEGALY active Darron Nunez MD LVH active Darron Nunez MD DIABETES MELLITUS, BORDERLINE active Darron Nunez MD SLEEP APNEA active Darron Nunez MD EDEMA active Darron Nunez MD FAMILY HISTORY OF HEART DISEASE active Rohit Nunez MD OBESITY active Darron Nunez MD ENCOUNTERS Date Type Provider Location Encounter Diag nosis - In-person encounter Office Visit Darron Nunez MD [facility] HTN ESSENTIALOBESITYCARDIOMEGALYLVHFAMILY HISTORY OF HEART DISEASEDIABETES MELLITUS, BORDERLINESLEEP APNEAEDEMA VITAL SIGNS Date Observation Value Provider blood pressure, diastolic, left arm 80 mm [Hg] Sumanth Holcomb MA blood pressure, systolic, left arm 139 mm [Hg] Sumnath Holcomb MA blood pressure, diastolic, right arm 79 m m[Hg] Sumanth Holcomb MA blood pressure, systolic, right arm 139 m m[Hg] Sumanth Holcomb MA oxygen saturation, oximetry 95 % Sumanth Holcomb MA blood pressure, diastolic 79 mm[Hg] Ya Holcomb MA blood pressure, systolic 139 mm[Hg] Aye Holcomb MA pulse rate 80 /min Sumanth Mary benz MA respiratory rate E&M 20 /min Sumanth Fortunenelly ABDUL weight E&M 324 [lb_av] Sumanth Welshoriana benz MA ALLERGIES No Known Drug Allergies HISTORY OF MEDICATION USE Medication Status Instructions Dates Provider Indications Com ments GNP VITAMIN D TABLET active 1 tab daily Sumanth Holcomb MA PX ASPIRIN TABLET active 1 tab daily Paulino Holcomb MA KCL IN DEXTROSE-NACL 10-5-0.2 MEQ/L-%-% SOLN active 1 tab daily Sumanth Holcomb MA LASIX 40 MG ORAL TABLET active 1 tab daily Sumanth Holcomb MA METFORMIN HCL 500 MG ORAL TABLET active 1 tab daily Sumanth Holcomb MA LEXAPRO 10 MG ORAL TABLET active one per day Sumanth Holcomb MA LISINOPRIL 10 MG ORAL TABLET active 1 tab daily Sumanth Holcomb MA SOCIAL HISTORY Date Observation Value Provider social history E&M Marital Statu s: L anne with family/friends E thnicity: Darron Nunez MD drug use none Darron Lombardo social history reviewed E&M reviewed Darron Nunez MD physical exercise, frequency, days per week yes [employer] caffeine use, averag e drinks per day yes [employer] alcohol use, average drinks per day none [employer] smoking status Non-smoker [employer] physical exercise, frequency, days per week yes Sumanth Fortunenelly ABDUL alcohol use, average drinks per day none Sumanth Fortunenelly ABDUL smoking status Non-Smoker Sumanth Welsh oren ABDUL MENTAL STATUS Date Observation Value Provider assessment of judgme nt and insight E&M Alert and oriented to time, place and person. Mood and affect are normal. Darron Nunez MD INSURANCE PROVIDERS Payer name Policy type / Coverage type Shirley red libertarian ID [employer] insurance [employer] [id number] TREATMENT PLAN Date Name Performer new patient: O rders: S tress Test - Adenosine (45434) Darron Nunez MD new patient: H er updated medication list for this problem includes: Lisinopril 10 Mg Tabs (Lisinopril) ..... 1 tab daily Lasix 40 Mg Tabs (Furosemide) ..... 1 tab daily Px Aspirin Tabs (Aspirin tabs) ..... 1 tab daily Orders: C omplete Echo (CPT-59002) BP today: 139/79 Prior BP: / () Darron Nunez MD new patient: H er updated medication list for this problem includes: Lisinopril 10 Mg Tabs (Lisinopril) ..... 1 tab daily Lasix 40 Mg Tabs (Furosemide) ..... 1 tab daily Px Aspirin Tabs (Aspirin tabs) ..... 1 tab daily Orders: S tress Test - Adenosine (58912) BP today: 139/79 Darron Nunez MD new patient: O rders: V enous Doppler Bilateral LE (50141) V enous Doppler Bilateral LE - Standing (CPT-48528) Darron Nunez MD Date Name Venous Doppler Bilat eral LE - Standing Venous Doppler Bilat eral LE Stress Test - Adenos ine Complete Echo HISTORY OF PROCEDURES Procedure Date Procedure Name Provider Procedure Notes S tatus EKG Darron Nunez MD complete d
[2024-04-29 13:57] LABS: Anisocytosis 1+; Hypochromasia 1+; Platelet Estimate Adequate (Adequate); Schistocytes None Seen
[2024-04-29 14:01] LABS: Ferritin 5.97 ng/mL (11.1-264)
[2024-04-29 14:02] LABS: Add Urine Microscopic? NO; Appearance Urine Clear (Clear); Bilirubin Urine Negative (Negative); Blood Urine Negative (Negative); Color Urine Yellow (Yellow); Glucose Urine UA Negative (Negative); Ketones Urine Negative (Negative); Leukocyte Esterase Ur Negative LEU/UL (Negative); Nitrate Urine Negative (Negative); Protein Urine Negative (Negative); Specific Grav Ur 1.019 (1.001-1.035); pH Urine 6.5 (5.0-9.0)
[2024-04-29 14:36] LABS: Folic Acid 5.5 ng/mL (2.76->20)
== END 2024-04-29 12:29 | disposition home or self-care (01) ==
PROVIDERS: PCP Nurse Practitioner Family; Visit Provider Nurse Practitioner Family
DX: Z01.818 Encounter for other preprocedural examination (principal); E55.9 Vitamin D deficiency, unspecified; R39.15 Urgency of urination; D64.9 Anemia, unspecified; E53.8 Deficiency of other specified B group vitamins
CPT/HCPCS: 36415; 80053; 81003; 82306; 82607; 82728; 82746; 83540; 83550; 85025; 85055; 93005

== ENCOUNTER 2024-05-19 11:33 | Emergency (ER) | payer MEDICARE, SELFPAY ==
--- NOTE | ~2024-05-19 | XR_ITS ---
XR shoulder RT min 2V Ordering provider: Dee Dee Fox APRN History: . fall, pain . Comparison: None. FINDINGS: BONES: No acute fracture or dislocation. JOINT SPACES: The acromioclavicular joint is normal. The glenohumeral joint is normal. SOFT TISSUES: Normal. Degenerative changes of the spine with dextroscoliosis. IMPRESSION: No acute osseous abnormality right shoulder. Reviewed, dictated and finalized at location A.
--- NOTE | ~2024-05-19 | XR_ITS ---
EXAMINATION: XR ribs RT 2V DATE: 05/19/2024 12:50 INDICATION: Right chest pain. Fall. TECHNIQUE: 2 views of the right ribs on 4 radiographs were obtained. COMPARISON: Chest 2 views 10/02/2020 FINDINGS: There is no pneumonia, pleural effusion, or pneumothorax. The heart size is normal. There a re changes of anterior fusion procedure in cervical spine. IMPRESSION: 1. No rib fracture. Reviewed, dictated and finalized at location A. IMPRESSION: 1. No rib fracture.
[2024-05-19 11:56] VITALS: BP 117/62; PULSE 73; RESP 16; TEMP 36.6; O2SAT 100
--- NOTE | 2024-05-19 12:06 | ED.FALL ---
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 Says she tripped, then her sciatic pain flared causing her to fall. Denies LOC. Rates pain all over as 10/10. Endorses swelling and bruising to right outer eye, and right shoulder with decreased range of motion. 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 Denies headache, dizziness, neck pain, nausea, vomiting, vision changes or confusion. Pt drove herself here. Related Data Home Medications ?Medication ?Instructions ?Recorded ?Confirmed ?Last Taken ?Type calcium carbonate [Calcium 500] 1 tablet PO DAILY 06/25/23 05/07/24 11/26/23 History acetaminophen 500 mg tablet 500 mg PO QID PRN Pain 10/15/23 05/07/24 11/26/23 History (Acetaminophen Extra Strength) alendronate 35 mg tablet 70 mg PO WEEKLY 05/07/24 05/07/24 Unknown History fluticasone propionate 50 1 spray intranasal BID PRN 05/07/24 05/07/24 Unknown History mcg/actuation nasal allergies spray,suspension (Flonase Allergy Relief) metoprolol succinate 25 mg 25 mg PO DAILY 05/07/24 05/07/24 Unknown History tablet,extended release 24 hr Allergies Allergy/AdvReac Type Severity Reaction Status Date / Time No Known Allergies Allergy Mild Verified 05/19/24 12:04 Review of Systems Review of Systems: CONSTITUTIONAL: Denies fever, chills, or sweats. EYES: Denies visual changes, redness, or discharge. ENT: Denies rhinorrhea, epistaxis. CARDIOVASCULAR: Denies chest pain, palpitations, or edema. RESPIRATORY: Denies cough or dyspnea. GASTROINTESTINAL: Denies abdominal pain, nausea, vomiting, or diarrhea. GENITOURINARY: Denies dysuria or hematuria. SKIN: reports right eye bruising MUSCULOSKELETAL: reports myalgia, right shoulder and right rib pain NEUROLOGIC: Denies headache, numbness, tingling, or weakness. 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 Anemia Cervical vertebral fusion GERD (gastroesophageal reflux disease) Anxiety Surgical History Surgical History (Reviewed 04/20/24 @ 09:39 by Refugio García [facility]) History of laminectomy H/O gastric bypass H/O parathyroidectomy Family History Family History (Reviewed 04/20/24 @ 09:39 by Refugio García [facility]) Mother Cerebrovascular accident Diabetes mellitus Hypertension Heart disease Father Heart disease Diabetes mellitus Hypertension Social History Social History (Reviewed 04/20/24 @ 09:39 by Refugio García [facility]) Smoking status: Never smoker Alcohol intake: never Alcohol use details: Very Rarely Substance use: never Substance use type: does not use Lack of Transportation: No Lack of Food: Often True Current Housing: I Have Housing Concerned About Future Housing: No Difficulty Paying Gas/Electric Bills: YES Difficulty Paying for Meds: YES Currently Unemployed: No Education: Master's Degree or Higher Difficulty w/ Childcare or Family Care: No Living arrangements: alone Spiritual care concerns: No Comments At time of signature, I have reviewed and agree with nursing past medical, surgical, social and family history unless otherwise noted. Please see nursing chart for further information. There is no relevant family history pertinent to the presenting complaint Exam Narrative: GENERAL: Well-appearing, in no acute distress. HEAD: Right lateral orbit with mild superficial abrasion, swelling and bruising; no occlusion EYES: EOMI, PERRLA. No redness or drainage. Conjunctivae normal. ENT: Mucous membranes pink and moist. NECK: Normal AROM. No VPT. CHEST: No respiratory distress. Clear to auscultation. HEART: Regular rate and rhythm. No murmur appreciated. Normal peripheral pulses. ABDOMEN: Soft, nontender, nondistended, normal active bowel sounds. MUSCULOSKELETAL: Reports tenderness to right anterior deltoid, upper arm. Decreased ROM to RUE at shoulder due to reports of pain; pt is able to lift the arm at shoulder to point to rib pain. Full ROM right elbow and wrist. Finger cascade normal. Reports right lower anterior rib tenderness with palpation. SKIN: Warm, dry, no rash. Capillary refill normal. Normal skin turgor. NEURO: No focal deficits. Alert and oriented x3. Gait steady. PSYCH: appears anxious Course Course Emergency Course: Patient is aware of diagnosis, understands and agrees to treatment plan. Anticipatory guidance given. Patient agrees to follow-up as directed and is aware of reasons to seek care at the emergency department. Portions of this record may have been created with voice recognition software Level of Care: Express Care Visit Vital Signs Vital signs: Vital Signs Temperature 97.8 F 05/19/24 11:56 Pulse Rate 73 05/19/24 11:56 Respiratory Rate 16 05/19/24 11:56 Blood Pressure 117/62 05/19/24 11:56 Pulse Oximetry 100 05/19/24 11:56 Oxygen Delivery Room Air 05/19/24 11:56 Temperature 97.8 F 05/19/24 11:56 Pulse Rate 73 05/19/24 11:56 Respiratory Rate 16 05/19/24 11:56 Blood Pressure 117/62 05/19/24 11:56 Pulse Oximetry 100 05/19/24 11:56 Oxygen Delivery Room Air 05/19/24 11:56 MDM - Fall MDM Narrative Medical decision making narrative: Discussed physical exam findings and xray right shoulder and right ribs. Advised against NSAIDs, pt says she has EGD planned for anemia. Advised supportive measures and signs/symptoms to go to the ER. Pt is appropriate for outpt treatment and f/u. Differential Diagnosis Differential diagnosis: Likely dislocation of shoulder region, fracture of wrist, compression fracture, concussion without loss of consciousness and other (Shoulder dislocation, clavicle fracture, humerus fracture, scapular fracture, acromioclavicular joint injury, rotator cuff tear, bicep tendon rupture, tricep tendon rupture, cervical radiculopathy) Imaging Data Radiologist's impression: Patient: Makenna Harrison : 1955 MR#: [id number] Age: 68 Acct:[id number] Loc: [facility] ADM Date: 05/19/24Attending Dr: Ordering Physician: Dee Dee Fox APRN Date of Service: 05/19/24 Procedure(s): XR shoulder RT min 2V Accession Number(s): [id number] cc: Suni Campos APN; Dee Dee Fox APRN~ XR shoulder RT min 2V Ordering provider: Dee Dee Fox APRN History: . fall, pain . Comparison: None. FINDINGS: BONES: No acute fracture or dislocation. JOINT SPACES: The acromioclavicular joint is normal. The glenohumeral joint is normal. SOFT TISSUES: Normal. Degenerative changes of the spine with dextroscoliosis. IMPRESSION: No acute osseous abnormality right shoulder. Patient: Makenna Harrison : 1955 MR#: [id number] Age: 68 Acct:[id number] Loc: [facility] ADM Date: 05/19/24Attending Dr: Ordering Physician: Dee Dee Fox APRN Date of Service: 05/19/24 Procedure(s): XR ribs RT Accession Number(s): [id number] cc: Suni Campos APN; Dee Dee Fox APRN~ EXAMINATION: XR ribs RT 2V DATE: 05/19/2024 12:50 INDICATION: Right chest pain. Fall. TECHNIQUE: 2 views of the right ribs on 4 radiographs were obtained. COMPARISON: Chest 2 views 10/02/2020 FINDINGS: There is no pneumonia, pleural effusion, or pneumothorax. The heart size is normal. There are changes of anterior fusion procedure in cervical spine. IMPRESSION: 1. No rib fracture. Discharge Plan Discharge Clinical Impression: Contusion of right eye, Musculoskeletal pain Patient Disposition: Home, Self-Care Condition: Stable Instructions: Black Eye (ED), Musculoskeletal Pain (ED) Additional Instructions: Please follow up with your Primary Care Doctor within 48-72 hours - call for an appointment. Avoid lifting. pushing. pulling, or anything that worsens the pain. Recommend gentle stretching Take Tylenol 1000mg every 8 hours Over the counter pain cream like icy/hot or biofreeze, or Salon pas/lidocaine 4% patch. You may apply heat or cold to the areas as needed. If you experience any worsening pain, swelling, numbness, weakness, problems with bladder or bowel function, weakness or loss of feeling in one or both of your legs, or any other serious concerns. Patient Language: Tuvaluan Prescriptions: No Action famotidine 40 mg tablet 40 mg PO QHS Qty: 30 3RF cholecalciferol (vitamin D3) 1,250 mcg (50,000 unit) capsule 1,250 mcg PO WEEKLY Qty: 4 11RF omeprazole 40 mg capsule,delayed release(DR/EC) 40 mg PO BID Qty: 180 3RF multivitamin with iron Tablet 1 tablet PO DAILY Qty: 30 11RF cyanocobalamin (vitamin B-12) 1,000 mcg/mL solution 1,000 mcg IM MONTHLY Qty: 1 11RF (DME) syringe with needle [Galazar Luer Lock Syr-needle] 3 mL 23 gauge x 1 1/2 syringe See Rx Instructions .Route Qty: 1 11RF Rx Instructions: As directed fluticasone propionate [Flonase Allergy Relief] 50 mcg/actuation spray,suspension 1 spray intranasal BID PRN (Reason: allergies) Rx Instructions: administer one spray into each nostril twice daily alendronate 35 mg tablet 70 mg PO WEEKLY metoprolol succinate 25 mg tablet extended release 24 hr 25 mg PO DAILY Patient Comments: Pt reports being non compliant with this. Plans to start taking it as prescribed. calcium carbonate [Calcium 500] 1 tablet PO DAILY acetaminophen [Acetaminophen Extra Strength] 500 mg Tablet 500 mg PO QID PRN (Reason: Pain) Follow-up/Referrals: Suni Campos NP [Primary Care Provider] - Time of Disposition: 13:08
--- OUTSIDE RECORDS SUMMARY | 2024-05-19 13:56 | XMS_ITS | Encounter Summary ---
Author Organization [facility] Address 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
--- OUTSIDE RECORDS SUMMARY | 2024-05-19 13:56 | XMS_ITS | Clinical Summary ---
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 Gender Identity Not on file Sexual Orientation Not on file Plan of Treatment Upcoming Encounters Date Type Department Care Team (Late st Contact Info) Description 06/16/2024 2:30 PM CDT Office Visit [facility] - [place] [address] [place] [address] Kristina Bajwa MD [address] [place] [address] Health Maintenance Due Date Last Done Comments [...] OSTEOPOROSIS SCREENING 2021 INFLUENZA VACCINE (#1) 2023 Medicare Advantage ([place]) Prev entative Visit/Annual Wellness Visit 02/26/2024 RSV VACCINE (60+ or ) (1 - 1-dose 75+ series) 10/26/2031 Insurance [facility] OPEN ACCESS [facility]
--- OUTSIDE RECORDS SUMMARY | 2024-05-19 13:56 | XMS_ITS ---
Author Organization [facility] [place] Address [address] [address] Care Team Providers Care Salt Cutter Name Role Phone Kit Palacios [phone] Encounters Encounter Location Date Provider Diagnosis [facility] [address] [place] [address] 04/28/2023 Kit Palacios PLAN OF TREATMENT No Information Progress Notes * Uriel HARRISONB:1955 (67 yo F)Acc No.[id number]:04/28/2023 Patient: Makenna HARRISON :1955 Age:67 Y Sex:Female Address:[address] [place] [address], [place] [address] * true * Date:
--- OUTSIDE RECORDS SUMMARY | 2024-05-19 13:56 | XMS_ITS ---
Author Organization [facility] [place] Address [address] [address] Care Team Providers Care Top Icer Name Role Phone Kit Palacios Unavailable [phone] ALLERGIES No Known Allergies REASON FOR VISIT WC--OK SANAZ VASQUEZ/ Dr. 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) Active confirmed Displace ment of lumbar intervertebral disc without myelopathy (77123297) Problem Lumbosacral radiculopathy (M54.17) Active confirmed Lumbosacral radiculopathy (2688431) Problem Spondylolisthesis at L4-L5 level (M43.16) Active confirmed Acquired spondylolisthesis (531752462) Problem DDD (degenerative disc disease), lumbar (M51.36) Active confirmed Degenerative disc disease (78018387) VITAL SIGNS Temperature 97.9 degrees Fahrenheit 04/30/19 24 Heart Rate 55 /min 04/30/2023 Blood pressure systolic 99 mm Hg 04/30/19 24 Blood pressure diastolic 65 mm Hg 024 Weight 140 lbs 04/30/2023 BMI 22.59 kg/m2 04/30/2023 Height 66 in 04/30/2023 Respiratory Rate 18 /min 04/30/2023 Encounters Encounter Location Date Provider Diagnosis [place] [facility] [address] [place] [address] 04/30/2023 Kit Palacios Herniated lumbar dis c [...] lumbar (ICD-10 - M51.36) PLAN OF TREATMENT Treatment Notes Assessment Notes Lumbosacral radiculopathy Impression1. C hronic, worsening, low back pain radiating both lower [...] use of a walker for gait stability. MEDICATIONS ADMINISTERED Medication Instructions Date of Administration Dosage Notes Midline (Interlaminar) L4/5 LIZBETH 04/30/2023 Progress Notes * MARIELENA Makenna Sada:[birth year] (67 yo F)Acc No.[id number]:04/30/2023 Progress Notes Patient: Makenna HARRISON Provider: Kit Palacios DO :1955 Age:67 Y Sex:Female Date:04/30/2023 Address:[address] [place], [place] [id number] Subjective: * Chief Complaints: * WC--CHAO VASQUEZ/ Dr. Julian Cardoso/ INSTALLATIONS INSPECTOR and L4/5 LIZBETH (local) * HPI: New Patient Questionnaire: Pain Evaluation The patient completed a questionnaire that best described the pain. This form was reviewed and the responses included in this note. When did the pain first begin? years ago. What caused the pain? fall, work injury. Where does the pain start? back, neck, shoulders, legs. Where does the pain seem to travel? legs, buttocks, feet/ fingers. On scale of 1 to 10, what is the pain like today? , 9. On a scale of 1 to 10, what is your least pain? 4. On a scale of 1 to 10, what is your worst pain? 10. On a scale of 1 to 10, what is your overall average pain? 9. In your words, what best describes your pain? shooting, sharp, electric shock, stabbing/burning. The pain is best described as: severe. Which word best describes the timing of the pain? intermittent, very variable. Which symptoms is the pain associated with? numbness, tingling, bowel/bladder dysfunction. What makes the pain worse? walking, sitting, standing, lying down, driving, touch, rolling in bed, moving from sitting to standing, taking stairs, stress/fatigue. Which factors seem to relieve the pain? lying down, heat, massage, relaxation. What previous treatments have you tried? physical therapy, TENS unit, cold therapy, heat, relaxation training, cortisone injection, trigger point injections, epidural steroid injection. Have you ever tried Physical Therapy? yes. List past medications taken for your pain problem Tylenol. Oswestry Score 40. This 67-year-old white female presents to the pain clinic today upon referral from Dr. Jaron Cardoso, her orthopedic spine beauty consultant, requesting midline (interlaminar) L4/5 epidural steroid injection. 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 Although she describes neck pain radiating to the upper extremities as well as lower thoracic spinal pain, we are asked to address only her low back issues. She has undergone previous anterior and posterior cervical fusion C6/7 with revision in November 2022 and implantation of artificial disc. She has not undergone previous thoracic or lumbar spinal pain but states she has had discussions with her surgeon and there is expectation that she will require thoracic and lumbar spine surgery at some point in the future. She was last involved in physical therapy less than a year ago although compliance with home exercise program is not specified. For the past year or so, she has used a walker for gait stability. She indicates only modest improvement following the cervical surgery in November 2022. She is unable to work currently. She describes intermittent, moderate to severe intensity, shooting, sharp, electrical shock, stabbing and burning pain in the central low back area radiating to bilateral buttocks, left greater than right, and into the posterior thigh, calf, anterior tibial region and dorsal feet. She does not describe persistent lower extremity numbness, foot drop or neurogenic bowel/bladder symptoms. Past medical history includes peptic ulcer disease with previous bariatric surgery 2011 from which she has lost reportedly 200 pounds. Despite her history of prior ulcers, she does periodically use NSAIDs, alternated with acetaminophen. She is a non-smoker. She denies known drug allergies. I maging studies: M RI lumbar spine 03/27/2023 revealed termination of spinal cord L1/2 with normal distal cord signal. Mild retrolisthesis L1/2, L2/3 and L3/4 with grade 1 anterior listhesis L4/5. L1/2 reveals mild disc bulge with mild bilateral foraminal encroachment but no central canal narrowing. At L2/3, mild disc bulge contacting the descending L3 nerve roots at the lateral recess with mild bilateral foraminal encroachment but no central canal narrowing. At L3/4, small right subarticular disc protrusion may contact the descending right L4 nerve root at the lateral recess. No central canal stenosis although moderate right greater than left-sided foraminal encroachment is present. At L4/5, slightly progressed disc protrusion with severe hypertrophic facets bilaterally and at least a moderate degree of bilateral foraminal encroachment with marked narrowing of the lateral recesses and impingement of bilateral descending L5 nerve roots at the lateral recess. Mild to moderate canal stenosis appears to be worse than previous study. At L5/S1, mild disc bulge with severe hypertrophic facets bilaterally without central canal stenosis and with only mild degree of bilateral foraminal encroachment. C T lumbar spine without contrast 03/27/2023 revealed mild lumbar levocurvature. Retrolisthesis L1/2, L2/3 and L3/4 with grade 1 anterior listhesis L4/5. Multiple level lumbar degenerative disc changes with significant bilateral lateral recess encroachment at L4/5 due to moderate disc protrusion with contributions from advanced hypertrophic facet arthropathy bilaterally. Severe bilateral facet arthropathy noted L5/S1 without significant neural encroachment. * ROS: Pain Management ROS: Patient Reports: GENERAL: disturbed sleeping habits. Patient Denies: GENERAL: weight or appetite changes, fever, chills, . Patient Denies: EYE: eye infections, blurred vision, double vision, blindness. Patient Denies: ENT: hearing loss, inflamed nose, hoarseness, sore throat, bloody nose, sinusitis, dizziness. Patient Denies: CARDIAC: chest pains, heart murmur, skipped beats. Patient Reports: GENITOURINARY bladder incontinence. Patient Denies: GENITOURINARY d ifficulty urinating. Patient Denies: RESPIRATORY cough, coughing up blood, wheezing, shortness of breath, difficulty breathing on exertion. Patient Denies: GI constipation, diarrhea, blood in stools, nausea/vomiting. Patient Reports: NEUROLOGIC headaches, dizziness, falling, numbness. Patient Denies: NEUROLOGIC headaches, dizziness, falling, seizures, numbness, tremor. Patient Denies: ENDOCRINE hot and cold flashes. Patient Denies: HEMATOLOGICAL easy bruisability, difficulty in clotting the blood. Patient Denies: JOINTS joint or muscle limitation and pain other than the present illness. Patient Reports: PSYCHIATRIC anxiety. Patient Denies: PSYCHIATRIC: depression, mood swings a nxiety. Patient Denies: SKIN lacerations, abrasions, postules, nodules, tumors, breast changes. * Medical History: * Surgical History: parathyroidectomy gastric bypass 2011Revision surgery C6/7/ Artificial Disc Novemberrior C6/7 A/P fusion * Hospitalization/Major Diagno stic Procedure: No Hospitalization History. * Family History: Father: . Mother: . * Social History: Tobacco Use: Tobacco Use/Smoking Are you a nonsmoker Occupation Status: Employment Status: Retired. Marital Status: Marital Status: Single. Workmen's Compensation: Work Comp Status: Being treated under Workmen's Compensation, Not Receiving Disability benefits, Involved in legal action related to pain problem or considering it in the future. 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 Drugs/Alcohol: Do you smoke marijuana?: Denies. Miscellaneous: Caffeine: 1-2 cups per day. * Medications: TakingAdvil , Notes to Pharmacist: PRNNaproxen , Notes to Pharmacist: PRNTylenol Extra Strength 500 MG Tablet 1 tablet as needed Orally every 6 hrs Ibuprofen , Notes to Pharmacist: PRNOmeprazole 40 MG Capsule Delayed Release TAKE 1 CAPSULE BY MOUTH DAILY Oral Medication List reviewed and reconciled with the patientTaking Tito , Notes to Pharmacist: PRNTaking Naproxen , Notes to Pharmacist: PRNTaking Tylenol Extra Strength 500 MG Tablet 1 tablet as needed Orally every 6 hrs Taking Ibuprofen , Notes to Pharmacist: PRNTaking Omeprazole 40 MG Capsule Delayed Release TAKE 1 CAPSULE BY MOUTH DAILY Oral Medication List reviewed and reconciled with the patient * Allergies: N.K.D.A.no[Allergies Verified] Objective: * Vitals: Temp:97.9F, HR:55/min, BP:99/65mm Hg, Wt:140lbs, BMI:22.59Index, Ht: 66 in, RR:18/min, Ht-cm: 167.64 cm, Wt-k.5 kg. * Examination: DGS: New Patient Exam: General The patient appeared in no distress at rest,The patient is alert and oriented to time, person, and place. She uses a walker for gait stability.. Respiratory The lungs are grossly clear to auscultation in all landers. Cardiovascular Auscultation reveals a regular rate and sinus rhythm without obvious murmur. There are no extra sounds. The carotid upstroke is brisk and there are no bruits. There is no peripheral edema.. Gastrointestinal Abdomen is soft and nontender without obvious organomegaly or masses. She has history of bariatric surgery 2011.. Musculoskeletal Markedly antalgic and somewhat unsteady gait observed with use of walker. She reports pain with minimal degrees of trunk flexion or extension. She seems to exhibit some degree of global muscular deconditioning. She was tender in the lower lumbar paravertebral areas without active spasm. Although she has documented retrolisthesis multiple levels and mild grade 1 anterior listhesis L4/5, significant step-offs were not noted with palpation over spinous processes lumbar and lumbosacral areas. In seated position, Kareem's was fairly unremarkable bilaterally and SAUL demonstrated tight left greater than right hemipelvis.. Neurologic Patient does not describe areas of persistent sensory loss in the lower extremities. DTRs +1 bilateral patella and trace to 1 bilateral Achilles with greater blunting of left Achilles. Sciatic stretch sign difficult to assess due to tight hamstrings bilaterally.? Bilateral ankle dorsiflexion and plantarflexion against resistance appear fairly symmetrical. Specific bilateral EHL function against resistance appears grossly normal. She does not describe neurogenic bowel/bladder symptoms.. Assessment: * Assessment: 1. Herniated lumbar disc without myelopathy - M51.26 (Primary) 2. Lumbosacral radiculopathy - M54.17 3. Spondylolisthesis at L4-L5 level - M43.16 4. DDD (degenerative disc disease), lumbar - M51.36 Plan: * Treatment: * Procedures: Midline (interlaminar) L4/5 epidural steroid injection with fluoroscopy After signing consent, patient was taken to procedure area where she was placed prone on fluoroscopically compatible table. Monitors were applied consisting of automatic blood pressure cuff and pulse oximeter. No sedation was administered and no IV established. Lumbar area was widely prepped with Betadine solution allowed to dry on the skin. Sterile drapes were applied and aseptic technique observed. Using AP fluoroscopy, interlaminar space at L4/5 was easily identified. Overlying skin anesthetized with 0.5% preservative-free lidocaine via 27-gauge needle. 18-gauge 3.5 inch Touhy needle was inserted using left paramedian approach, easily entering the epidural space with [id number] to preservative-free saline technique. Confirmation of needle tip within epidural space was achieved with injection of 1 mL Omnipaque 240 revealing excellent and relatively widespread epidural distribution, slightly asymmetric to the left. This was followed by injection of 4 mL volume containing 0.5% preservative-free lidocaine with 80 mg preservative-free Depo- Medrol. Needle was withdrawn tip intact. No complications were encountered. Prep was wiped from the skin and latex free Band-Aid placed over puncture site. She was transported to recovery area where she was observed for short while before being discharged in satisfactory condition. Patient noted only modest improvement at the time of discharge. Please refer to clinical notes for specific pain scores. * Therapeutic Injections: Midline (Interlaminar) L4/5 LIZBETH given by Kit Palacios DO * Procedure Codes: Midline (Interlaminar) L4/5 LIZBETH * Preventive Medicine: PQRS: PQRS G8420:Normal BMI - f/u plan not required., G8428: Current medication with name, dosage, frequency, or route NOT documented, not given - performance NOT met., 1036F: Patient screened for tobacco use and identified as a non-user of tobacco.. Oswestry Score: Oswestry Score 40. * Images: * Sign off status: Completed true * Provider: Kit Palacios DO Date: 04/30/2023 History and Physical Notes * HPI (History of Present Illness) Category Sub-Category Detail Notes Category Not es New Patient Questionnaire When did the pain first begin? years ago This 67-year-old white female presents to the pain clinic today upon referral from Dr. Jaron Cardoso, her orthopedic spine beauty consultant, requesting midline (interlaminar) L4/5 epidural steroid injection. 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 Although she describes neck pain radiating to the upper extremities as well as lower thoracic spinal pain, we are asked to address only her low back issues. She has undergone previous anterior and posterior cervical fusion C6/7 with revision in November 2022 and implantation of artificial disc. She has not undergone previous thoracic or lumbar spinal pain but states she has had discussions with her surgeon and there is expectation that she will require thoracic and lumbar spine surgery at some point in the future. She was last involved in physical therapy less than a year ago although compliance with home exercise program is not specified. For the past year or so, she has used a walker for gait stability. She indicates only modest improvement following the cervical surgery in November 2022. She is unable to work currently. She describes intermittent, moderate to severe intensity, shooting, sharp, electrical shock, stabbing and burning pain in the central low back area radiating to bilateral buttocks, left greater than right, and into the posterior thigh, calf, anterior tibial region and dorsal feet. She does not describe persistent lower extremity numbness, foot drop or neurogenic bowel/bladder symptoms. Past medical history includes peptic ulcer disease with previous bariatric surgery 2011 from which she has lost reportedly 200 pounds. Despite her history of prior ulcers, she does periodically use NSAIDs, alternated with acetaminophen. She is a non-smoker. She denies known drug allergies. Imaging studies: MRI lumbar spine 03/27/2023 revealed termination of spinal cord L1/2 with normal distal cord signal. Mild retrolisthesis L1/2, L2/3 and L3/4 with grade 1 anterior listhesis L4/5. L1/2 reveals mild disc bulge with mild bilateral foraminal encroachment but no central canal narrowing. At L2/3, mild disc bulge contacting the descending L3 nerve roots at the lateral recess with mild bilateral foraminal encroachment but no central canal narrowing. At L3/4, small right subarticular disc protrusion may contact the descending right L4 nerve root at the lateral recess. No central canal stenosis although moderate right greater than left-sided foraminal encroachment is present. At L4/5, slightly progressed disc protrusion with severe hypertrophic facets bilaterally and at least a moderate degree of bilateral foraminal encroachment with marked narrowing of the lateral recesses and impingement of bilateral descending L5 nerve roots at the lateral recess. Mild to moderate canal stenosis appears to be worse than previous study. At L5/S1, mild disc bulge with severe hypertrophic facets bilaterally without central canal stenosis and with only mild degree of bilateral foraminal encroachment. CT lumbar spine without contrast 03/27/2023 revealed mild lumbar levocurvature. Retrolisthesis L1/2, L2/3 and L3/4 with grade 1 anterior listhesis L4/5. Multiple level lumbar degenerative disc changes with significant bilateral lateral recess encroachment at L4/5 due to moderate disc protrusion with contributions from advanced hypertrophic facet arthropathy bilaterally. Severe bilateral facet arthropathy noted L5/S1 without significant neural encroachment. What caused the pain? fall, work injury Where does the pain start? back, neck, s houlders, legs Where does the pain seem to travel? legs , buttocks, feet/ fingers On scale of 1 to 10, what is the pain like today? , 9 On a scale of 1 to 10, what is your least pain? 4 On a scale of 1 to 10, what is your worst pain? 10 On a scale of 1 to 10, what is your overall average pain? 9 In your words, what best yoanna cribes your pain? shooting, sharp, electric shock, stabbin g/burning The pain is best described as: severe Which word best describes th e timing of the pain? intermittent, very variable Which symptoms is the pain a ssociated with? numbness, tingling, bowel/bladder dysfun ction What makes the pain worse? walking, sitt ing, standing, lying down, driving, touch, rolling in bed, moving from sitting to standing, taking stairs, stress/fatigue Which factors seem to relieve the pain? lying down, heat, massage, relaxation What previous treatments have you tried? physical therapy, TENS unit, cold therapy, heat, relaxation training, cortisone injection, trigger point injections, epidural steroid injection Have you ever tried Physical Therapy? ye s List past medications taken for your pain problem Tylenol Pain Evaluation The patient complete d a questionnaire that best described the pain. This form was reviewed and the responses included in this note Oswestry Score 40 Examination Category Sub-Category Detail Notes Category Not es DGS: New Patient Exam General The patien t appeared in no distress at rest, The patient is alert and oriented to time, person, and place. She uses a walker for gait stability. Respiratory The lungs are grossl y clear to auscultation in all landers Cardiovascular Auscultation reveals a regular rate and sinus rhythm without obvious murmur. There are no extra sounds. The carotid upstroke is brisk and there are no bruits. There is no peripheral edema. Gastrointestinal Abdomen is soft and nontender without obvious organomegaly or masses. She has history of bariatric surgery 2011. Musculoskeletal Markedly antalgic an d somewhat unsteady gait observed with use of walker. She reports pain with minimal degrees of trunk flexion or extension. She seems to exhibit some degree of global muscular deconditioning. She was tender in the lower lumbar paravertebral areas without active spasm. Although she has documented retrolisthesis multiple levels and mild grade 1 anterior listhesis L4/5, significant step-offs were not noted with palpation over spinous processes lumbar and lumbosacral areas. In seated position, Kareem's was fairly unremarkable bilaterally and SAUL demonstrated tight left greater than right hemipelvis. Neurologic Patient does not yoanna cribe areas of persistent sensory loss in the lower extremities. DTRs +1 bilateral patella and trace to 1 bilateral Achilles with greater blunting of left Achilles. Sciatic stretch sign difficult to assess due to tight hamstrings bilaterally. Bilateral ankle dorsiflexion and plantarflexion against resistance appear fairly symmetrical. Specific bilateral EHL function against resistance appears grossly normal. She does not describe neurogenic bowel/bladder symptoms.
--- OUTSIDE RECORDS SUMMARY | 2024-05-19 13:56 | XMS_ITS | Clinical Summary ---
Author Organization [facility] Address [address] [place] [address] Care Team Providers Care News Director Name Role Phone Unavailable Primary Care Provider Unavailabl e Allergies Active Allergy Reactions Criticality Noted Date Comments Tuberculin, Ppd Other (see comment) Low 02/02/2016 Had positive PPD not to be retested Medications Nerve Stimulator (TENS THERAPY PAIN RELIEF) DeviceIndication s:Chronic bilateral low back pain with bilateral sciatica Apply to affected area for pain relief 1 each 1 Active VITAMIN D2, ERGOCALCIFEROL, 03694 UNITS capsuleIndicatio ns:Vitamin D deficiency TAKE ONE [...] (09/28/2020): Added automatically from request for surgery [id number] History of colon polyps 09/28/2020 Overview (09/28/2020): Added automatically from request for surgery [id number] Lumbar radiculopathy 08/23/2020 Prediabetes 07/20/2020 Anxiety and depression 01/12/2019 Vitamin D deficiency 12/23/2017 Hyperlipidemia 12/23/2017 Heart murmur 12/02/2017 History of parathyroidectomy 12/02/2017 History of bariatric surgery 12/02/2017 Screening examination for sexually transmitted d isease 02/11/2014 Overview (10/07/2020): Added automatically from request for surgery [id number] GERD (gastroesophageal reflux disease) 2 Overview (10/07/2020): On PPI daily and PRN carafate per [facility]. Loss center Primary hyperparathyroidism ([facility]) 06/25/2011 Obesity 11/02/2010 Cardiomegaly 11/02/2010 Family history of [...] 12/09/2017, 10/10/2017, Additional history exists PHQ-2 (Physician [place]) 02/26/2024 DTaP, Tdap and Td Vaccines (2 [...] with a HCV Nucleic Acid Amplification test (621685). 07/21/2020 12:2 8 PM CDT 07/21/2020 Narrative [facility] - 07/22/2020 8:08 AM CDT Performed at: 01 - [facility] [address] [id number] Dismantler: Dawit Burks PhD, Phone: [phone] us Angie Tamez [employer] Final Res ult [facility] [address] [place] [address] [facility] 1 from Last 3 Months or Most Recently Relevant to Health Maintenance Insurance MEDICAID MEDICARE
--- OUTSIDE RECORDS SUMMARY | 2024-05-19 13:56 | XMS_ITS ---
Author Organization [facility] [place] Address [address] [place] [address] Care Team Providers Care Cookee Name Role Phone PhilipIrvinKit Unavailable [phone] REASON FOR VISIT New Patient / L4-5 LIZBETH (local) / WC CHAO VASQUEZ Encounters Encounter Location Date Provider Diagnosis [facility] [address] [place] [address] 04/19/2023 Kit Palacios PLAN OF TREATMENT No Information Progress Notes * Makenna PEGUERO:[birth year] (68 yo F)Acc No.[id number]:04/19/2023 Progress Notes Patient: Makenna PEGUERO Sada Provider: Kit Palacios DO :1955 Age:67 Y Sex:Female Date:04/19/2023 Address:[address] [place] [address];[facility] Subjective: * Chief Complaints: * 1. New Patient / L4-5 LIZBETH (local) / WC CHAO VASQUEZ. * Medical History: Objective: Assessment: Plan: * Treatment: * Images: * Sign off status: Pending * Provider: Kit Palacios DO Date: 04/19/2023
--- OUTSIDE RECORDS SUMMARY | 2024-05-19 13:56 | XMS_ITS | Encounter Summary ---
Author Organization [facility] Address [facility] [place] [address] Care Team Providers Care Sql Developer Name Role Phone Angie Tamez NP Primary Care Provider [phone] Encounter Details Date Type Department Care Team ([facility] st Contact Info) Description 08/31/2020 Unisfairt Message Enc [facility] Family Medicine [facility] [address] [address] Angie Tamez, KERRIE [address] [address] RE: Question Social History Tobacco Use Types [...] documented as of this encounter Care Teams Sql Developer Relationship Specialty Start Date End Date Angie Tamez NP [address] [place] [address] PCP - General NURSE PRACTITIONER 05/11/20 11/25/23 documented as of this encounter
--- OUTSIDE RECORDS SUMMARY | 2024-05-19 13:57 | XMS_ITS | Encounter Summary ---
Author Organization [facility] Address [address] [facility] [place] [address] Care Team Providers Care Grievance Coordinator Name Role Phone Jasper Easton MD Unavailable [phone] Michael Peoples DO Primary Care Provider [phone] Oren Morfin MD Unavailable [phone] BrothDeon tabor Primary Care Provider [phone] Keerthi Knight MD Primary Care Provider [phone] Leena Keita MD Primary Care Provider [phone] Leena Keita MD Primary Care Provider [phone] Angie Tamez RAISE MINER-AIR INTELLIGENCE SPECIALIST Primary Care Provi karine Leena Keita MD Unavailable [phone] Leena Keita MD Unavailable [phone] Ivy Encarnacion RAISE MINER-AIR INTELLIGENCE SPECIALIST Unavailable [phone] Encounter Details Date Type Department Care Team [...] on filedocumented in this encounter Care Teams Grievance Coordinator Relationship Specialty [place] [address] [address] [place] [address] PCP - General Family Medicine 02/16/13 04/03/15 Deon Lopez DO [address] [place] [address] PCP - General Family Medicine 04/04/15 10/25/15 Keerthi Knight MD [address] [place] [address] PCP - General Family Medicine 10/26/15 02/01/16 [place] [address] [address] [place] [address] PCP - General Internal Medicine 02/02/16 04/09/18 [place] [id number] [place] [address] [employer] [address] [place] [address] PCP - General 04/11/18 08/17/20 Angie Tamez, RAISE MINER-AIR INTELLIGENCE SPECIALIST [address] [place] [address] PCP - General 08/18/20 [place] [address] [address] [place] [address] PCP - Attributed-Exclusive Choice 08/10/16 12/15/16 [place] [address] [facility] [address] [place] [address] PCP - Attributed-Exclusive Choice 05/16/17 12/26/17 Ivy Encarnacion APRN-AIR INTELLIGENCE SPECIALIST [address] [facility] [address] [place] [address] PCP - Attributed-Exclusive Choice 12/16/16 05/15/17 [place] [address] [facility] [address] [place] [address] Pulmonary Disease 05/09/12 [place] [address] [facility] [address] [place] [address] Orthopedic Surgery 09/09/14 documented as of this encounter
--- OUTSIDE RECORDS SUMMARY | 2024-05-19 13:57 | XMS_ITS | Data Portability ---
Author Organization [facility] Address [address] [place] [address] Assessment No assessment recorded. Plan of Treatment Reminders Order Date Submit Date Provider Last Modified By Organization Details Last Modified Time Details Appointments None recorded. Lab None recorded. Referral physical therapy knee referral 2020 021 [email or web address] Not available 12:30:15 Procedures None recorded. Surgeries None recorded. Imaging XR, knee 2020 021 [email or web address] [facility] ([facility] [address] [place], [address], 12:17:20 XR, knee 2020 021 [email or web address] [facility] ([facility]), [address] [place], [address], 14:41:02 XR, knee 2020 021 [email or web address] [facility] ([facility]), [address] [place], [address], 11:53:53 XR, knee 2020 021 [email or web address] [facility] ([facility]), [address] [place], [address], 14:16:25 Medication Orders None recorded. Patient TargetsNo targets recorded. Patient Instructions Encounter Date Encounter Id Patient Instructions Last Modified By Organization Details Last Modified Time 05/02/2020 [id number] Out of work and school until next appointment [email or web address] Not available 05/02/2020 14:58:28 Fracture treatment, including operative and nonoperative care, was discussed at length with the patient. Detailed explanations were provided to patient for different treatments. If patient desires surgical intervention, then would need to be referred to [facility] as this type of surgery is not performed by tx. The patient prefers nonoperative treatment and desires continued follow up here at [facility]. The patient accepts the risks of, but not limited to, nonunion, malunion, stiffness, persistent pain, loss of motion and strength, and possible need for future referral for surgery. dschwarze Not available 05/02/2020 14:58:38 05/26/2020 [id number] Out of work and school until next appointment dschwarze Not available 05/26/2020 11:17:55 Fracture treatment, including operative and nonoperative care, was discussed at length with the patient. Detailed explanations were provided to patient for different treatments. If patient desires surgical intervention, then would need to be referred to [facility] as this type of surgery is not performed by tx. The patient prefers nonoperative treatment and desires continued follow up here at [facility]. The patient accepts the risks of, but not limited to, nonunion, malunion, stiffness, persistent pain, loss of motion and strength, and possible need for future referral for surgery. dschwarze Not available 05/26/2020 11:17:54 06/20/2020 [id number] Out of work and school until next appointment dschwarze Not available 06/20/2020 14:51:44 Fracture treatment, including operative and nonoperative care, was discussed at length with the patient. Detailed explanations were provided to patient for different treatments. If patient desires surgical intervention, then would need to be referred to [facility] as this type of surgery is not performed by tx. The patient prefers nonoperative treatment and desires continued follow up here at [facility]. The patient accepts the risks of, but not limited to, nonunion, malunion, stiffness, persistent pain, loss of motion and strength, and possible need for future referral for surgery. dschwarze Not available 06/20/2020 14:51:44 07/11/2020 [id number] Out of work and school until next appointment dschwarze Not available 07/11/2020 14:39:00 Fracture treatment, including operative and nonoperative care, was discussed at length with the patient. Detailed explanations were provided to patient for different treatments. If patient desires surgical intervention, then would need to be referred to [facility] as this type of surgery is not performed by tx. The patient prefers nonoperative treatment and desires continued follow up here at [facility]. The patient accepts the risks of, but not limited to, nonunion, malunion, stiffness, persistent pain, loss of motion and strength, and possible need for future referral for surgery. dschwarze Not available 07/11/2020 14:39:00 09/01/2020 [id number] Out of work and school until next appointment dschwarze Not available 09/01/2020 11:53:50 Fracture treatment, including operative and nonoperative care, was discussed at length with the patient. Detailed explanations were provided to patient for different treatments. If patient desires surgical intervention, then would need to be referred to [facility] as this type of surgery is not performed by tx. The patient prefers nonoperative treatment and desires continued follow up here at [facility]. The patient accepts the risks of, [...] knee withou t contra st. 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 Minima l depres [...] KIRAN ANDERS MD Date: 2020 09:26 [email or web address] [facility] ([facility]) [address] [place], [address], 04/28/2020 12:10:28 05/03/19 21 05/02/2020 XR, knee EXAMIN ATION: Left knee ACCESS ION: [id number] EXAM DATE: 05/03/19 21 1:24 PM REASON FOR EXAM: [id number] 003: Closed fractu re proxim al tibia, [...] PALAK BEAVER, RIGOBERTO Date: 2020 13:56 [email or web address] [address] [place], [address], 05/02/2020 17:21:55 05/27/1905/26/2020 XR, knee Examin ation: Left knee 3 views Access ion: [id number] Exam Date/T bessy: 05/27/19 10:33 AM Reason [...] BY: CHIKA GOODWIN Date: 2020 10:52 [facility]war[facility] [address] [place], [address], 05/26/2020 13:23:05 07/12/19 21 07/11/2020 XR, knee EXAMIN ATION: Left knee ACCESS ION: [id number] EXAM DATE: 021 1:47 PM REASON FOR [...] BY: PALAK BEAVER, RIGOBERTO Date: 2020 14:33 [facility] [address] [place], [address], 07/11/2020 16:41:11 09/02/19 21 09/01/2020 XR, knee EXAMIN ATION: Left knee ACCESS ION: [id number] EXAM DATE: 09/02/19 11:18 AM REASON FOR EXAM: [id number] 003: Fractu re of condyl e of [...] BY: PALAK BEAVER, RIGOBERTO Date: 2020 14:06 [facility] [address] [place], [address], 09/05/2020 14:45:41 Result Notes None recorded. Problems No Known Problems Procedures Surgical History None recorded. Imaging Results Imaging Date Name Status Lastified by [facility] Details LastModified Time 04/23/2020 XR, hip + pelvis, unilateral completed [facility] Information not available 04/25/2020 10:07:08 04/23/2020 XR, knee completed [facility] Information no t available 04/25/2020 10:07:08 04/25/2020 CT, lower extremity, w/o contrast completed dschwarze [facility] ([facility]) [address], [place], [address], 04/28/2020 12:10:28 05/02/2020 XR, knee completed dschwarze [facility] ([facility]) [address], [place], [address], 05/02/2020 17:21:55 05/26/2020 XR, knee completed dschwarze [facility] ([facility]) [address], [place], [address], 05/26/2020 13:23:05 07/11/2020 XR, knee completed dschwarze [facility]) [address], [place], [address], 07/11/2020 16:41:11 09/01/2020 XR, knee completed dschwarze [facility]) [address], [place], [address], 09/05/2020 14:45:41 Procedure Notes None recorded. Medical [...] 134 mm[Hg] 80 mm[Hg] Anita Peters LPN [facility] 1 14:08:33 Date Recorded Body height Heart rate Respiratory rate Body temperature Pain severity - 0-10 verbal numeric rating [Score] - Reported Systolic blood pressure Diastolic blood pressure Provider Name and Address Organization Details Last Updated DateTime 1 167.64 cm 67 /min 20 /min 97.5 [degF] 6 124 mm[Hg] 74 mm[Hg] Anita Peters LPN [facility] 1 11:14:30 Date Recorded Body height Heart rate Respiratory rate Body temperature Pain severity - 0-10 verbal numeric rating [Score] - Reported Systolic blood pressure Diastolic blood pressure Provider Name and Address Organization Details Last Updated DateTime 1 167.64 cm 65 /min 18 /min 98 [degF] 0 134 mm[Hg] 76 mm[Hg] Anita Peters LPN [facility] 1 14:44:12 Date Recorded Body height Heart [...] Updated DateTime 1 167.64 cm 35.4 kg/m2 19284.1 7 g 68 /min 18 /min 97.3 [...] SNOMED-CT Code Diagnosis ICD10 Code Diagnosis Note [id number] Jeevan Clements MD [facility] ts [address] [place] [address] 04/25/2020 14:19:48 05/02/2020 11:41:45 Pain in left knee 1380065850 40111 M25.562 Closed fra cture of left tibial plateau 5650455966 5629390 S82.142A Strict NWMPercoce tKnee Immobilize r full timeRTC 1 wk to review CT20 min discussion of Tx plan [id number] Jeevan Clements MD [facility] [address] [place] [address] 05/02/2020 14:00:54 05/03/2020 11:39:43 Pain in left knee 6528269527 02584 M25.562 Closed fra cture of left tibial plateau 9975284955 4521214 S82.142A Strict NWBPercoce t prn start weaning soonKnee Immobilize r full [id number] min discussion of Tx planReq pt to remain housebound , limit mobilizati on to decrease shoulder painDeclin e PT for crutch training [id number] Jeevan Clements MD [facility] [address] [place] [address] 05/26/2020 11:07:36 05/26/2020 13:41:44 Pain in left knee 2675127943 44538 M25.562 Closed fra cture of left tibial plateau 5642156035 8981772 S82.142A Strict NWB Percocet prn start weaning Knee Immobilize r wean OOW 20 min discussion of current Tx plan Req pt to remain housebound , limit mobilizati on to decrease shoulder pain Decline PT for crutch training [id number] Jeevan Clements MD [facility] [address] [place] [address] 06/20/2020 14:17:01 06/23/2020 16:56:15 Pain in left knee 0541694588 39185 M25.562 Closed fra cture of left tibial plateau 4214120765 0769149 S82.142A Strict NWB encouraged , return to walker, w/c, crutches, 10 min Percocet prn start weaning Knee Immobilize r wean OOW 20 min discussion of current Tx plan and consequenc es of WBAT 15 min Req pt to remain housebound , limit mobilizati on to decrease shoulder pain Decline hospital for XRs Decline PT for crutch training [id number] Jeevan Clements MD [facility] [address] [place] [address] 07/11/2020 14:10:26 07/12/2020 11:26:00 Pain in left knee 6602812505 09975 M25.562 Closed fra cture of left tibial plateau 5230186223 0749987 S82.142A Start WBAT encouraged , D/C brace start weaning Knee Immobilize r wean OOW, anticipate RTW next 2-3 weeks 20 min discussion of current Tx plan and consequenc es of XR change [id number] Jeevan Clements MD [facility] [address] [place] [address] 09/01/2020 10:39:46 09/05/2020 11:10:16 Pain in left knee 3040802576 64321 M25.562 Closed fra cture of left tibial plateau 4295958806 9620342 S82.142A WBAT Health Concerns Section Related Observation LastModified by Organization Detai ls LastModified Time None Recorded Concern Status LastModified by Organization Details LastModified Time None Recorded Advance Directives Directive None Recorded Payers Encounter Date Sequence Insurance Name Policy Number Policy Ramos Covered Member ID Ramos Member ID Guarantor Name 05/02/2020 1 [employer]ATIONAL (PPO) Makenna Harrison [id number] Makenna Harrison 05/02/2020 1 [place] [facility] Makenna Harrison [id number] Makenna Harrison 05/26/2020 1 [place] [facility] Makenna Harrison [id number] Makenna Harrison 06/20/2020 1 [place] [facility] PUBLIC AID Makenna Harrison [id number] Makenna Harrison 07/11/2020 1 [facility] (MEDICAID O) [id number] Makenna Harrison [id number] Makenna Harrison 09/01/2020 1 [facility] (MEDICAID HMO) [id number] Makenna Harrison [id number] Makenna Harrison Notes Date Note Type Note [...] PT:none Work Related:no Working:noNotes:Has job starting at [employer] sit down work availableHas wheelchair comingHas walker and crutchesShoulders hurt from using walker too muchRequesting handicap sticker DOI 04/23/20 Jeevan Clements MD [address] [place], [address], [facility] 05/02/2020 14:58:57 05/26/2020 text/html KneeReported bypatient.Location:lef t; posterior; lateral; deep Quality:stabbing; throbbing; sharp; deep; constant; improving Severity:moderate Duration:continuous since onset Timing:acute Context:fall; lost balance and fell backwards Alleviating Factors:ice; rest; elevation; narcotics; brace; walker Aggravating Factors:standing Associated Symptoms:weakness;swel ling;radiation down leg Previous Surgery:none Prior Imaging:x ray; [facility] Previous Injections:none Previous PT:none Work Related:no Working:noNotes:[facility] sit down work availableHas wheelchairHas walker and crutchesShoulders hurt from using walker too muchRequesting handicap sticker DOI 04/23/20 Jeevan Clements MD [address] [place], [address], [facility] 05/26/2020 11:56:36 06/20/2020 text/html KneeReported bypatient.Location:lef t; posterior; lateral; deep Quality:aching; stabbing; throbbing; deep; improving Severity:moderate Duration:continuous since onset Timing:acute Context:fall; lost balance and fell backwards Alleviating Factors:ice; rest; elevation; narcotics; brace; walker Aggravating Factors:standing Associated Symptoms:weakness;swel ling;radiation down leg Previous Surgery:none Prior Imaging:x ray; [facility] Previous Injections:none Previous PT:none Work Related:no Working:noNotes:Has job starting at [facility] [employer] [employer], on holdNo sit down work available, OOWHas wheelchair, not usingHas walker and crutches, not usingShoulders hurt from using walker/ crutches too much, so stop usingRequesting handicap sticker DOI 04/23/20 Not using walker, crutches, but using cane occ Jeevan Clements MD [address] [place], [address], [facility] 06/20/2020 15:01:49 07/11/2020 text/html KneeReported bypatient.Location:lef t; posterior; lateral; deep Quality:aching; stabbing; throbbing; deep; improving Severity:moderate Duration:continuous since onset Timing:acute Context:fall; lost balance and fell backwards Alleviating Factors:ice; rest; elevation; narcotics; brace; walker Aggravating Factors:standing Associated Symptoms:weakness;swel ling;radiation down leg Previous Surgery:none Prior Imaging:x ray; [facility] Previous Injections:none Previous PT:none Work Related:no Working:noNotes:Has job starting at [facility] [facility] [employer] [employer], on holdNo sit down work available, OOWHas wheelchair, not usingHas walker and crutchesShoulders hurt from using walker/ crutches too much, so stop usingRequesting handicap sticker DOI 04/23/20 using walker, BUT WBAT in hallways Jeevan Clements MD [address] [place], [address], [facility] 07/11/2020 15:10:12 09/01/2020 text/html KneeReported bypatient.Location:lef t; posterior; lateral; deep Quality:aching; stabbing; throbbing; deep; improving Severity:moderate Duration:continuous since onset Timing:acute Context:fall; lost balance and fell backwards Alleviating Factors:ice; rest; elevation; narcotics; brace; walker Aggravating Factors:standing Associated Symptoms:weakness;swel ling;radiation down leg Previous Surgery:none Prior Imaging:x ray; [facility] Previous Injections:none Previous PT:none Work Related:no Working:noNotes:Has job starting at [facility] [employer], on holdNo sit down work available, OOWHas wheelchair, not usingHas walker and crutchesShoulders hurt from using walker/ crutches too much, so stop usingRequesting handicap sticker DOI 04/23/20 using walker, BUT WBAT in hallways Jeevan Clements MD [address] [place], [address], [facility] 09/01/2020 12:43:33 OBGyn Episode No OBEpisode recorded.
--- OUTSIDE RECORDS SUMMARY | 2024-05-19 13:57 | XMS_ITS | Patient Health Record ---
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
--- OUTSIDE RECORDS SUMMARY | 2024-05-19 13:57 | XMS_ITS | Clinical Summary ---
Author Organization [facility] [employer] Address [address] [place] [address] Care Team Providers Care Manager Agricultural Name Role Phone Jasper Easton MD Unavailable [phone] Oren Morfin MD Unavailable [phone] Angie Tamez FARMER DIVERSIFIED [facility] Primary Care Provi karine Source Comments [facility],non-owned Affiliates and Associated Physician Practices is amultiple site organization consisting of ambulatory clinics and hospital sitesin [place], [place], [place] and [place]. This disclosure is being madepursuant to the Care Everywhere program and may not contain all information available regarding this patient. Last updated 17.[facility] Allergies Active Allergy Reactions Criticality Noted Date [...] tablet 07/11/2018 Active vitamin D, ergocalciferol, (DRISDOL) 41990 units capsule Take 1 capsule by mouth every 7 days 12 capsule 07/29/2018 Active vitamin D, ergocalciferol, (DRISDOL) 35371 units capsule TAKE ONE CAPSULE BY MOUTH [...] 12/16/2012, Additional history exists COLON MONITORING 02/24/2017 02/25/2012 Colorectal Cancer Screening 02/24/2017 DTAP/TDAP/TD VACCINES (2 - Td or Tdap) 09/26/2020 09/26/2010 SCREENING FOR DIABETES 07/16/2021 9, 04/11/2018, 03/30/2018, Additional history exists COLONOSCOPY - COLON CA SCREENING 02/24/2022 02/25/2012 LIPID TESTING 08/14/2022 08/14/2017, 04/25, 09/22/2010 COVID-19 VACCINE (1 - 2024-25 season) 2023 INFLUENZA VACCINE (#1) 2023 10/10/2017 [...] complete this topic MENINGOCOCCAL (Group B) VACCINE SHARED DECISION-MAKING Aged Out No longer eligible based on patient's age to complete this topic MENINGOCOCCAL GROUPS A/C/Y/W VACCINE Aged Out No longer eligible based on patient's age to complete this topic Goals Goal Patient Goal Type Associated Problems Recent Progress Patient-Stated? Author Exercise 5X per week (30 min per time) Exercise Natalee Cyr Note: The [employer] recommends all adults [...] overall healthier. Medical Devices Implanted Type Area Detailer Device Identifier Shelf Expiration Date Model / Serial / Lot Stent Nphurstm 24cm 8.5fr [facility] Pgtl Implanted:Qty: 1 on 03/29/2018 at [facility] [employer] 11/14/2020 [id number] / / [id number] Description:Dr.Kao De Leon Uret 6fr 26cm Pgtl Crv Tpr Tip Implanted:Qty: 1 on 04/10/2018 by Andrey Cardenas MD at [facility] [employer] 01/29/2021 [id number] / / [id number] Procedures Procedure Name Priority Date/Time Associated Diagnosis Comments COMPREHENSIVE METABOLIC PANEL Routine 07/16/2018 9:41 AM CDT Bariatric surgery status Epigastric pain Morbid obesity BMI 26.0-26.9,adult Vitamin D deficiency Vitamin deficiency Gastroesophageal reflux disease without esophagitis Nausea without vomiting LIPID PROFILE Routine 08/14/2017 1:24 PM CDT History of diabetes mellitus, type II HEPATITIS C ANTIBODY Routine 02/14/2016 7:30 AM ADVANCED MANUFACTURING ASSOCIATE Bariatric surgery status MAMMO BILAT SCREENING Routine 02/07/2015 10:58 AM ADVANCED MANUFACTURING ASSOCIATE Visit for screening mammogram ENDOSCOPY, COLON, SCREENING Routine 02/25/2012 DEXA BONE DENSITY 2 SITES Routine 12/12/2010 [...] Resulting Agency Comment Lab Testing performed at: [facility] [address] [place] [address] Dr Sivan AGRAWAL [phone] Ivy Trenton Shashank FARMER DIVERSIFIED CROPS-SOUND TRUCK OPERATOR LAB - CHEMIS TRY ORDERABLES Performing Organization Address City/[facility]/ZIP Co de Phone Number [facility] ACCOUNT BILL [address] [place] [address] * LIPID PROFILE (08/14/2017 1:24 PM CDT) [...] PM CDT 08/14/2017 Narrative Resulting Agency Comment [facility] [address] [facility] [phone] Darlin Sarahi FARMER DIVERSIFIED CROPS-SOUND TRUCK OPERATOR LAB - CHEMISTRY ORDERABLES Performing Organization Address City/[facility] Co de Phone Number [facility] INSURANCE BILL [address] [place] [address] * HEPATITIS C ANTIBODY (02/14/2016 7:30 AM ADVANCED MANUFACTURING ASSOCIATE) HCV Antibody Screen Non Reactive Non Reactive 02/14/2016 3:06 PM ADVANCED MANUFACTURING ASSOCIATE [facility] HCV S/C Ratio 0.12 0.00 - 0.79 02/14/2016 3:06 PM ADVANCED MANUFACTURING ASSOCIATE [facility] Comment: Bwnara-fq-xgspzh ratio (S/CO) <0.80: Non Reactive Blood BLOOD SPECIMEN / Unknown Lab Venipuncture / Unknown 02/14/2016 7:30 AM ADVANCED MANUFACTURING ASSOCIATE 02/14/2016 7:41 AM ADVANCED MANUFACTURING ASSOCIATE Narrative [facility] - 02/14/2016 3:06 PM ADVANCED MANUFACTURING ASSOCIATE Non Reactive - Antibodies to Hepatitis C virus (HCV) were not detected, result does not exclude early acute HCV infection. Leena Keita MD LAB - CHEMISTRY JUSTIN SALINAS [facility] Organization Address City/State/ZIP Co de Phone Number [facility] [address] [place] [address] * MAMMO SCREENING DIGITAL IMAGE BILAT [id number] (02/07/2015 10:58 AM ADVANCED MANUFACTURING ASSOCIATE) Anatomical Region Laterality Modality Breast Bilateral Mammography 02/07/2015 1:53 PM ADVANCED MANUFACTURING ASSOCIATE Narrative 02/07/2015 1:55 PM ADVANCED MANUFACTURING ASSOCIATE FULL FIELD DIGITAL BILATERAL SCREENING MAMMOGRAMS WITH [...] if suspicious findings are present clinically. An [employer] Facility. [facility] Centers utilize Revolver as a reminder system to notify patients of their next recommended mammograms. Michael Peoples DO MAMMO ORDERABLES * ENDOSCOPY, COLON, SCREENING (02/25/2012) Justyn Phillips MD GI PROCEDURE ORDERA BLES * DEXA BONE DENSITY 2 SITES (12/12/2010 [...] 2:50 PM 09/28/2011 12:42 PM Care Teams Manager Agricultural Relationship Specialty Start Date End Date Angie Tamez, FARMER DIVERSIFIED CROPS-SOUND TRUCK OPERATOR [address] [place] [address] PCP - General 08/18/20 [place] [address] [place] [address] Pulmonary Disease 05/09/12 [place] [address] [place] [address] Orthopedic Surgery 09/09/14
--- OUTSIDE RECORDS SUMMARY | 2024-05-19 13:57 | XMS_ITS | CONTINUITY OF CARE DOCUMENT ---
Author Name tamela rapp Address Unknown Organization [facility] Address [address] [place] [address] Phone [phone] Care Team Providers Care Air Traffic Control Manager Name Role Phone Shannon Looney MD Unavailable [phone] LUKASZ COLLINS MD Unavailable LUKASZ COLLINS MD Unavailable PROBLEMS Condition Status Date Provider Notes HTN ESSENTIAL active Darron Nunez MD OBESITY active Darron Nunez MD CARDIOMEGALY active Darron Nunez MD LVH active Darron Nunez MD FAMILY HISTORY OF HEART DISEASE active Rohit Nunez MD DIABETES MELLITUS, BORDERLINE active Darron Nunez MD SLEEP APNEA active Darron Nunez MD EDEMA active Darron Nunez MD ENCOUNTERS Date Type Provider Location Encounter Diag nosis - In-person encounter Office Visit Darron Nunez MD Taoism Office HTN ESSENTIALOBESITYCARDIOMEGALYLVHFAMILY HISTORY OF HEART DISEASEDIABETES MELLITUS, BORDERLINESLEEP APNEAEDEMA VITAL SIGNS Date Observation Value Provider blood pressure, diastolic, left arm 80 mm [Hg] Sumanth Holcomb MA blood pressure, systolic, left arm 139 mm [Hg] Sumanth Holcomb MA blood pressure, diastolic, right arm [...] use, average drinks per day none Sumanth Frotunenelly ABDUL smoking status Non-Smoker Sumanth Welsh oren ABDUL MENTAL STATUS Date Observation Value Provider assessment of judgme nt and insight E&M Alert and oriented to time, place and person. Mood and affect are normal. Darron Nunez MD INSURANCE PROVIDERS Payer name Policy type / Coverage type Shirley red alliance party ID [employer] insurance [facility] [facility] [id number] TREATMENT PLAN Date Name Performer new patient: O rders: S tress Test - Adenosine (80639) Darron Nunez MD new patient: H er updated medication list for this problem includes: Lisinopril 10 Mg Tabs (Lisinopril) ..... 1 tab daily Lasix 40 Mg Tabs (Furosemide) ..... 1 tab daily Px Aspirin Tabs (Aspirin tabs) ..... 1 tab daily Orders: C omplete Echo (CPT-74436) BP today: 139/79 Prior BP: / () Darron Nunez MD new patient: H er updated medication list for this problem includes: Lisinopril 10 Mg Tabs (Lisinopril) ..... 1 tab daily Lasix 40 Mg Tabs (Furosemide) ..... 1 tab daily Px Aspirin Tabs (Aspirin tabs) ..... 1 tab daily Orders: S tress Test - Adenosine (44164) BP today: 139/79 Darron Nunez MD new patient: O rders: V enous Doppler Bilateral LE (99946) V enous Doppler Bilateral LE - Standing (CPT-83310) Darron Nunez MD Date Name Venous Doppler Bilat eral LE - Standing Venous Doppler Bilat eral LE Stress Test - Adenos ine Complete Echo HISTORY OF PROCEDURES Procedure Date Procedure Name Provider Procedure Notes S tatus EKG Darron Nunez MD complete d
--- OUTSIDE RECORDS SUMMARY | 2024-05-19 13:57 | XMS_ITS | CONTINUITY OF CARE DOCUMENT ---
Author Name tamela rapp Address Unknown Organization [facility] Address [address] [place] [address] Phone [phone] Care Team Providers Care Soap Drier Tender Name Role Phone Shannon Looney MD Unavailable [phone] LUKASZ COLLINS MD Unavailable LUKASZ COLLINS [...] In-person encounter Office Visit Darron Nunez MD Amish Office HTN ESSENTIALOBESITYCARDIOMEGALYLVHFAMILY HISTORY OF HEART DISEASEDIABETES [...] Holcomb MA blood pressure, systolic 139 mm[Hg] yAe Holcomb MA pulse rate 80 /min Sumanth [...] Policy type / Coverage type Shirley red green party ID [employer] insurance [employer] [id number] TREATMENT PLAN Date Name Performer new patient: O rders: S tress Test - Adenosine (33331) Darron Nunez MD new patient: H er updated medication list for this problem includes: Lisinopril 10 Mg Tabs (Lisinopril) ..... 1 tab daily Lasix 40 Mg Tabs (Furosemide) ..... 1 tab daily Px Aspirin Tabs (Aspirin tabs) ..... 1 tab daily Orders: C omplete Echo (CPT-50254) BP today: 139/79 Prior BP: / () Darron Nunez MD new patient: H er updated medication list for this problem includes: Lisinopril 10 Mg Tabs (Lisinopril) ..... 1 tab daily Lasix 40 Mg Tabs (Furosemide) ..... 1 tab daily Px Aspirin Tabs (Aspirin tabs) ..... 1 tab daily Orders: S tress Test - Adenosine (58528) BP today: 139/79 Darron Nunez MD new patient: O rders: V enous Doppler Bilateral LE (20930) V enous Doppler Bilateral LE - Standing (CPT-04093) Darron Nunez MD Date Name Venous Doppler Bilat eral LE - Standing Venous Doppler Bilat eral LE Stress Test - Adenos ine Complete Echo HISTORY OF PROCEDURES Procedure Date Procedure Name Provider Procedure Notes S tatus EKG Darron Nunez MD complete d
== END 2024-05-19 13:10 | disposition home or self-care (01) ==
PROVIDERS: Emergency Provider Nurse Practitioner Family; PCP Nurse Practitioner Family
DX: S05.11XA Contusion of eyeball and orbital tissues, right eye, initial encounter (principal); W01.0XXA Fall on same level from slipping, tripping and stumbling without subsequent striking against object, initial encounter; M25.511 Pain in right shoulder; M79.621 Pain in right upper arm; R07.89 Other chest pain; K21.9 Gastro-esophageal reflux disease without esophagitis; M85.80 Other specified disorders of bone density and structure, unspecified site; R01.1 Cardiac murmur, unspecified; Z98.84 Bariatric surgery status; E55.9 Vitamin D deficiency, unspecified; E53.8 Deficiency of other specified B group vitamins
CPT/HCPCS: 71100; 73030; 99214; G0463

== ENCOUNTER 2024-06-16 15:42 | Outpatient (CLI) | payer MEDICARE, SELFPAY ==
[2024-06-16 15:53] LABS: Basophils Absolute Auto 0.1 K/mm3 (0.0-0.1); Basophils Percent Auto 1.3 % (0.2-1.2); Eosinophils Absolute Auto 0.1 K/mm3 (0-0.3); Eosinophils Percent Auto 1.3 % (0-4.4); Hematocrit 28.6 % (37.0-47.0); Hemoglobin 8.4 g/dL (12.0-15.0); Immature Granulocyte Absolute 0.02 K/mm3 (0.00-0.031); Immature Granulocyte Percent A 0.3 % (0-0.5); Lymphocytes Absolute Auto 2.19 K/mm3 (0.9-3.2); Lymphocytes Percent Auto 36.2 % (18.3-44.2); Mean Corpuscular HGB Conc 29.4 g/dl (32-36); Mean Corpuscular Hemoglobin 18.1 pg (26-34); Mean Corpuscular Volume 61.5 fl (80-100); Mean Platelet Volume 8.3 fl (7.4-10.4); Monocytes Absolute Auto 0.5 K/mm3 (0.1-0.6); Monocytes Percent Auto 8.6 % (2.6-8.5); Neutrophils Absolute Auto 3.2 K/mm3 (1.3-6.7); Neutrophils Percent Auto 52.3 % (45.5-73.1); Platelet Count Result 297 k/mm3 (150-375); Red Blood Count 4.65 M/mm3 (4.2-5.4); Red Cell Distribution Width 20.6 % (11.5-14.5); White Blood Count 6.1 K/mm3 (4.5-10.0)
[2024-06-16 16:01] LABS: Platelet Estimate Adequate (Adequate); Schistocytes None Seen
[2024-06-16 16:02] LABS: Anisocytosis 2+; Hypochromasia 1+; Ovalocytes 1+
[2024-06-16 16:31] LABS: Alanine Aminotransferase 12 U/L (6-35); Albumin Level 4.3 g/dL (3.5-5.1); Alkaline Phosphatase 77 U/L (38-126); Anion Gap 7 mmol/L (4-12); Aspartate Amino Transferase 28 U/L (14-36); Bilirubin,Total 0.3 mg/dL (0.2-1.3); Blood Urea Nitrogen 15 mg/dL (7-17); Calcium 8.4 mg/dL (8.4-10.2); Carbon Dioxide 27 mmol/L (22-30); Chloride 103 mmol/L (98-107); Estimated Glomerular Filt Rate > 60; Glucose 92 mg/dL (65-110); Potassium 4.4 mmol/L (3.4-5.0); Sodium 137 mmol/L (137-145)
[2024-06-16 16:44] LABS: Iron 22 ug/dL (37-170)
[2024-06-16 16:54] LABS: Percent Iron Saturation 5 % (20-50)
[2024-06-16 17:20] LABS: Ferritin 5.87 ng/mL (11.1-264)
[2024-06-16 17:38] LABS: Folic Acid 4.7 ng/mL (2.76->20)
--- OUTSIDE RECORDS SUMMARY | 2024-06-16 17:46 | XMS_ITS | CONTINUITY OF CARE DOCUMENT ---
Author Name tameal rapp Address Unknown Organization [facility] Address [address] [place] [address] Phone [phone] Care Team Providers Care Medicaid Billing Clerk Name Role Phone Shannon Looney MD Unavailable LUKASZ COLLINS MD Unavailable LUKASZ COLLINS MD [...] In-person encounter Office Visit Darron Nunez MD Buddhist Office HTN ESSENTIALOBESITYCARDIOMEGALYLVHFAMILY HISTORY OF HEART DISEASEDIABETES [...] ORAL TABLET active one per day Sumanth Holocmb MA LISINOPRIL 10 MG ORAL TABLET active [...] Policy type / Coverage type Shirley red republican ID [employer] insurance [employer] [id number] TREATMENT PLAN Date Name Performer new patient: O rders: S tress Test - Adenosine (97941) Darron Nunez MD new patient: H er updated medication list for this problem includes: Lisinopril 10 Mg Tabs (Lisinopril) ..... 1 tab daily Lasix 40 Mg Tabs (Furosemide) ..... 1 tab daily Px Aspirin Tabs (Aspirin tabs) ..... 1 tab daily Orders: C omplete Echo (CPT-[id number]) BP today: 139/79 Prior BP: / () Darron Nunez MD new patient: H er updated medication list for this problem includes: Lisinopril 10 Mg Tabs (Lisinopril) ..... 1 tab daily Lasix 40 Mg Tabs (Furosemide) ..... 1 tab daily Px Aspirin Tabs (Aspirin tabs) ..... 1 tab daily Orders: S tress Test - Adenosine (54058) BP today: 139/79 Darron Nunez MD new patient: O rders: V enous Doppler Bilateral LE (18220) V enous Doppler Bilateral LE - Standing (CPT-79109) Darron Nunez MD Date Name Venous Doppler Bilat eral LE - Standing Venous Doppler Bilat eral LE Stress Test - Adenos ine Complete Echo HISTORY OF PROCEDURES Procedure Date Procedure Name Provider Procedure Notes S tatus EKG Darron Nunez MD complete d
--- OUTSIDE RECORDS SUMMARY | 2024-06-16 17:46 | XMS_ITS | Encounter Summary ---
Author Organization [facility] Address [address] [place] [address] Care Team Providers Care Full Decator Operator Name Role Phone Jasper Easton MD Unavailable [phone] Michael Peoples DO Primary Care Provider [phone] Oren Morfin MD Unavailable [phone] BrothDeon tabor Primary Care Provider [phone] Keerthi Knight MD Primary Care Provider [phone] Leena Keita MD Primary Care Provider [phone] Leena Keita MD Primary Care Provider [phone] Angie Tamez OPTICAL ASSISTANT-POLYSOMNOGRAPH TECH Primary Care Provi karine Leena Keita MD Unavailable [phone] Leena Keita MD Unavailable [phone] Ivy Encarnacion OPTICAL ASSISTANT-POLYSOMNOGRAPH TECH Unavailable [phone] Encounter Details Date Type Department Care Team (Late st Contact Info) Description 10/19/2010 [facility] Unknown, Provider Social History Tobacco Use Types Packs/Day Years Used Date Smoking Tobacco: Never Assessed Comments Unknown Sex and Gender Information Value Date Recorded Sex Assigned at Not on file Legal Sex Female 12:05 PM MARKLOGIC DEVELOPER Gender Identity Not on file Sexual Orientation Not on file documented as of this encounter Plan of Treatment Not on file documented as of this encounter Visit Diagnoses Not on filedocumented in this encounter Care Teams Full Decator Operator Relationship Specialty Start Date End Date Peoples Rodriguez AshvinDO [address] [place] [address] PCP - General Family Medicine 02/16/13 04/03/15 Deon Lopez DO [address] [place], [place] [id number] PCP - General Family Medicine 04/04/15 10/25/15 Keerthi Knight MD [address] [place] [address] PCP - General Family Medicine 10/26/15 02/01/16 [place] [address] [place] [address] PCP - General Internal Medicine 02/02/16 04/09/18 [place] [address] [place] [address] PCP - General 04/11/18 08/17/20 Angie Tamez APRN-POLYSOMNOGRAPH TECH [address] [place] [address] PCP - General 08/18/20 [place] [address] [place] [address] PCP - Attributed-Exclusive Choice 08/10/16 12/15/16 [place] [address] [place], [place] [id number] PCP - Attributed-Exclusive Choice 05/16/17 12/26/17 Ivy Encarnacion APRN-POLYSOMNOGRAPH TECH [address] [place] [address] PCP - Attributed-Exclusive Choice 12/16/16 05/15/17 [place] [address] [place] [address] Pulmonary Disease 05/09/12 [place] [address] [address] [place], [place] [id number] Orthopedic Surgery 09/09/14 documented as of this encounter
--- OUTSIDE RECORDS SUMMARY | 2024-06-16 17:46 | XMS_ITS | Patient Health Record ---
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
--- OUTSIDE RECORDS SUMMARY | 2024-06-16 17:46 | XMS_ITS ---
Author Organization [facility] [place] Address [address] [place] [address] Care Team Providers Care Door Closer Name Role Phone Kit Palacios Unavailable [phone] ALLERGIES No Known Allergies REASON FOR VISIT WC--CHAO VASQUEZ/ Dr. Julian Cardoso/ CUFF SETTER OVERLOCK and L4/5 LIZBETH (local) MEDICATIONS Medication SIG (Take, Route, Frequency, Duration) Notes Start Date End Date Status Ibuprofen PRN Active Omeprazole 40 MG TAKE 1 CAPSULE BY [place] [facility] DAILY Oral for 90 Days Active Naproxen [...] ment of lumbar intervertebral disc without myelopathy (61697005) Problem Lumbosacral radiculopathy (M54.17) Active confirmed Lumbosacral radiculopathy (8397099) Problem Spondylolisthesis at L4-L5 level (M43.16) Active confirmed Acquired spondylolisthesis (213895563) Problem DDD (degenerative disc disease), lumbar (M51.36) Active confirmed Degenerative disc disease (26784047) VITAL SIGNS Temperature 97.9 degrees Fahrenheit 04/30/19 24 Blood pressure systolic 99 mm Hg 04/30/19 24 Blood pressure diastolic 65 mm Hg 024 Heart Rate 55 /min 04/30/2023 Respiratory Rate 18 /min 04/30/2023 Height 66 in 04/30/2023 Weight 140 lbs 04/30/2023 BMI 22.59 kg/m2 04/30/2023 Encounters Encounter Location Date Provider Diagnosis [facility] [address] [place] [address] 04/30/2023 Kit Palacios Herniated lumbar dis c [...] MARIELENA Makenna Sada:[birth year] (67 yo F)Acc No.[id number]:04/30/2023 Progress Notes Patient: Makenna HARRISON Provider: Kit Palacios DO :1955 Age:67 Y Sex:Female Date:04/30/2023 Address:[address] [place], [place] [id number] Subjective: * Chief Complaints: * WC--CHAO VASQUEZ/ Dr. Julian Cardoso/ CUFF SETTER OVERLOCK and L4/5 LIZBETH (local) * HPI: New [...] from Dr. Jaron Cardoso, her orthopedic spine certified ophthalmic surgical assistant, requesting midline (interlaminar) L4/5 epidural steroid injection. [...] approach, easily entering the epidural space with [id number] to preservative-free saline technique. Confirmation of needle [...] from Dr. Jaron Cardoso, her orthopedic spine certified ophthalmic surgical assistant, requesting midline (interlaminar) L4/5 epidural steroid injection. [...]
--- OUTSIDE RECORDS SUMMARY | 2024-06-16 17:46 | XMS_ITS | Clinical Summary ---
Author Organization [facility] Address [address] [place] [address] Care Team Providers Care Hand Cultivator Name Role Phone Unavailable Primary Care Provider Unavailabl e Allergies Active Allergy Reactions Criticality Noted Date Comments Tuberculin, Ppd Other (see comment) Low 02/02/2016 Had positive PPD not to be retested Medications Nerve Stimulator (TENS THERAPY PAIN RELIEF) DeviceIndication s:Chronic bilateral low back pain with bilateral sciatica Apply to affected area for pain relief 1 each 1 Active VITAMIN D2, ERGOCALCIFEROL, 46155 UNITS capsuleIndicatio ns:Vitamin D deficiency TAKE ONE [...] (09/28/2020): Added automatically from request for surgery [id number] History of colon polyps 09/28/2020 Overview (09/28/2020): Added automatically from request for surgery [id number] Lumbar radiculopathy 08/23/2020 Prediabetes 07/20/2020 Anxiety and depression 01/12/2019 Vitamin D deficiency 12/23/2017 Hyperlipidemia 12/23/2017 Heart murmur 12/02/2017 History of parathyroidectomy 12/02/2017 History of bariatric surgery 12/02/2017 Screening examination for sexually transmitted d isease 02/11/2014 Overview (10/07/2020): Added automatically from request for surgery [id number] GERD (gastroesophageal reflux disease) 2 Overview (10/07/2020): On PPI daily and PRN carafate per [facility] Loss center Primary hyperparathyroidism ([facility]) 06/25/2011 Obesity 11/02/2010 Cardiomegaly 11/02/2010 Family history of heart disease 11/02/2010 Sleep apnea 11/02/2010 Resolved Problems Problem Noted Date Diagnosed Date Resolved Date Hypercalcemia 09/17/2019 07/20/2020 Dysthymia 12/09/2017 07/20/2020 Immunizations Immunization Administration Dates Next Due Fluzone 6 Months+ [...] 1996 Zoster Vaccines (1 of 2) 02/06/2018 Pneumococcal Vaccine: 50+ Years (2 of 2 - PCV) 12/12/2018 12/12/2017, 09/28/2011 Annual Medicare Wellness Visit 2021 Dexa Scan (General) 2021 COVID-19 Vaccine (3 - 2023-2 5 season) 2023 05/27/2020, 04/22/2020 PHQ-2 (Physician Algaaciq) 02/26/2024 DTaP, Tdap and Td Vaccines ( 2 - Td or Tdap) 12/03/2027 12/02/2017, 09/26/2010 [...] 20 Months Aged Out No longer eligible b ased on patient's age to complete this topic [...] with a HCV Nucleic Acid Amplification test (307265). 07/21/2020 12:2 8 PM CDT 07/21/2020 Narrative [facility] - 07/22/2020 8:08 AM CDT Performed at: - [facility] [address] [id number] Pipe Machine Operator: Dawit Burks PhD, Phone: [phone] us Angie Tamez PRINTER REPAIR TECHNICIAN LABORATORY Final Res ult [facility] [address] [place] [address] [facility] 1 from Last 3 Months or Most Recently Relevant to Health Maintenance Insurance MEDICAID MEDICARE
--- OUTSIDE RECORDS SUMMARY | 2024-06-16 17:46 | XMS_ITS ---
Author Organization [facility] [place] Address [address] [address] Care Team Providers Care Manager Personal Name Role Phone Kit Palacios [phone] Encounters Encounter Location Date Provider Diagnosis [facility] [address] [place] [address] 04/28/2023 Kit Palacios PLAN OF TREATMENT No Information Progress Notes * Uriel HARRISONB:1955 (67 yo F)Acc No.[id number]:04/28/2023 Patient: Makenna HARRISON :1955 Age:67 Y Sex:Female Address:[address] [place] [address], [place] [address] * true * Date:
--- OUTSIDE RECORDS SUMMARY | 2024-06-16 17:46 | XMS_ITS | Data Portability ---
Author Organization [facility] IP Address [address] [place] [address] Assessment No assessment recorded. Plan of Treatment Reminders Order Date Submit Date Provider Last Modified By Organization Details Last Modified Time Details Appointments None recorded. Lab None recorded. Referral physical therapy knee referral 2020 021 [email or web address] Not available 12:30:15 Procedures None recorded. Surgeries None recorded. Imaging XR, knee 2020 021 [email or web address] [facility] ([facility]), [address] [place], [address], 12:17:20 XR, knee 2020 021 [email or web address] [facility] ([facility]), [address] [place], [address], 14:41:02 XR, knee 2020 021 [email or web address] [facility] ([facility]), [address] [place], [address], 11:53:53 XR, knee 2020 021 [email or web address] [facility] ([facility]), [address] [place], [address], 14:16:25 Medication Orders None recorded. Patient TargetsNo targets recorded. Patient Instructions Encounter Date Encounter Id Patient Instructions Last Modified By Organization Details Last Modified Time 05/02/2020 [id number] Out of work and school until next appointment dschwarze Not available 05/02/2020 14:58:28 Fracture treatment, including operative and nonoperative care, was discussed at length with the patient. Detailed explanations were provided to patient for different treatments. If patient desires surgical intervention, then would need to be referred to [facility] as this type of surgery is not performed by ri. The patient prefers nonoperative treatment and desires continued follow up here at [facility]. The patient accepts the risks of, but not limited to, nonunion, malunion, stiffness, persistent pain, loss of motion and strength, and possible need for future referral for surgery. dschwarze Not available 05/02/2020 14:58:38 05/26/2020 [id number] Out of work and school until next appointment dschwarze Not available 05/26/2020 11:17:55 Fracture treatment, including operative and nonoperative care, was discussed at length with the patient. Detailed explanations were provided to patient for different treatments. If patient desires surgical intervention, then would need to be referred to [facility] as this type of surgery is not performed by ri. The patient prefers nonoperative treatment and desires continued follow up here at [facility]. The patient accepts the risks of, but not limited to, nonunion, malunion, stiffness, persistent pain, loss of motion and strength, and possible need for future referral for surgery. dschwarze Not available 05/26/2020 11:17:54 06/20/2020 [id number] Out of work and school until next appointment dschwarze Not available 06/20/2020 14:51:44 Fracture treatment, including operative and nonoperative care, was discussed at length with the patient. Detailed explanations were provided to patient for different treatments. If patient desires surgical intervention, then would need to be referred to [facility] as this type of surgery is not performed by ri. The patient prefers nonoperative treatment and desires continued follow up here at [facility]. The patient accepts the risks of, but not limited to, nonunion, malunion, stiffness, persistent pain, loss of motion and strength, and possible need for future referral for surgery. dschwarze Not available 06/20/2020 14:51:44 07/11/2020 [id number] Out of work and school until next appointment dschwarze Not available 07/11/2020 14:39:00 Fracture treatment, including operative and nonoperative care, was discussed at length with the patient. Detailed explanations were provided to patient for different treatments. If patient desires surgical intervention, then would need to be referred to [facility] as this type of surgery is not performed by ri. The patient prefers nonoperative treatment and desires continued follow up here at [facility]. The patient accepts the risks of, but not limited to, nonunion, malunion, stiffness, persistent pain, loss of motion and strength, and possible need for future referral for surgery. dschwarze Not available 07/11/2020 14:39:00 09/01/2020 [id number] Out of work and school until next appointment dschwarze Not available 09/01/2020 11:53:50 Fracture treatment, including operative and nonoperative care, was discussed at length with the patient. Detailed explanations were provided to patient for different treatments. If patient desires surgical intervention, then would need to be referred to [facility] as this type of surgery is not performed by [facility]. The patient prefers nonoperative treatment and desires continued follow up here at [facility]. The patient accepts the risks of, but [...] knee withou t contra st. 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 Minima l depres [...] KIRAN ANDERS MD Date: 2020 09:26 dschwarkenna [facility] (Rad) [address] [place], [address], 04/28/2020 12:10:28 05/03/19 21 05/02/2020 XR, knee EXAMIN ATION: Left knee ACCESS ION: [id number] EXAM DATE: 05/03/19 21 1:24 PM REASON FOR EXAM: [id number] 003: Closed fractu re proxim al tibia, [...] PALAK BEAVER, RIGOBERTO Date: 2020 13:56 dscwar [facility] [address] [place], [address], 05/02/2020 17:21:55 05/27/1905/26/2020 XR, knee Examin ation: Left knee 3 views Access ion: [id number] Exam Date/T bessy: 05/27/19 10:33 AM Reason [...] BY: CHIKA GOODWIN Date: 2020 10:52 dschwarze [facility]) [address] [place], [address], 05/26/2020 13:23:05 07/12/19 21 07/11/2020 XR, knee EXAMIN ATION: Left knee ACCESS ION: [id number] EXAM DATE: 021 1:47 PM REASON FOR [...] BY: PALAK BEAVER, RIGOBERTO Date: 2020 14:33 [facility] [address] [place], [address], 07/11/2020 16:41:11 09/02/19 21 09/01/2020 XR, knee EXAMIN ATION: Left knee ACCESS ION: [id number] EXAM DATE: 09/02/19 11:18 AM REASON FOR EXAM: [id number] 003: Fractu re of condyl e of [...] BY: PALAK BEAVER, RIGOBERTO Date: 2020 14:06 [facility] [address] [place], [address], 09/05/2020 14:45:41 Result Notes None recorded. Problems No Known Problems Procedures Surgical History None recorded. Imaging Results Imaging Date Name Status Lastified by [facility] Details LastModified Time 04/23/2020 XR, hip + pelvis, unilateral completed [facility] Information not available 04/25/2020 10:07:08 04/23/2020 XR, knee completed [facility] Information no t available 04/25/2020 10:07:08 04/25/2020 CT, lower extremity, w/o contrast completed dschwarze [facility] ([facility]) [address], [place], [address], 04/28/2020 12:10:28 05/02/2020 XR, knee completed dschwarze [facility] ([facility]) [address], [place], [address], 05/02/2020 17:21:55 05/26/2020 XR, knee completed dschwarze [facility] ([facility]) [address], [place], [address], 05/26/2020 13:23:05 07/11/2020 XR, knee completed dschwarze [facility] ([facility]) [address], [place], [address], 07/11/2020 16:41:11 09/01/2020 XR, knee completed dschwarze [facility] ([facility]) [address], [place], [address], 09/05/2020 14:45:41 Procedure Notes None recorded. Medical [...] 134 mm[Hg] 80 mm[Hg] Anita Peters LPN [facility] 1 14:08:33 Date Recorded Body height Heart rate Respiratory rate Body temperature Pain severity - 0-10 verbal numeric rating [Score] - Reported Systolic blood pressure Diastolic blood pressure Provider Name and Address Organization Details Last Updated DateTime 1 167.64 cm 67 /min 20 /min 97.5 [degF] 6 124 mm[Hg] 74 mm[Hg] Anita Peters LPN [facility] 1 11:14:30 Date Recorded Body height Heart rate Respiratory rate Body temperature Pain severity - 0-10 verbal numeric rating [Score] - Reported Systolic blood pressure Diastolic blood pressure Provider Name and Address Organization Details Last Updated DateTime 1 167.64 cm 65 /min 18 /min 98 [degF] 0 134 mm[Hg] 76 mm[Hg] Anita Peters LPN [facility] 1 14:44:12 Date Recorded Body height Heart [...] Updated DateTime 1 167.64 cm 35.4 kg/m2 63420.1 7 g 68 /min 18 /min 97.3 [...] SNOMED-CT Code Diagnosis ICD10 Code Diagnosis Note [id number] Jeevan Clements MD [facility] [address] [place] [address] 04/25/2020 14:19:48 05/02/2020 11:41:45 Pain in left knee 0967114999 15516 M25.562 Closed fra cture of left tibial plateau 9723289454 6548472 S82.142A Strict NWMPercoce tKnee Immobilize r full timeRTC 1 wk to review CT20 min discussion of Tx plan [id number] Jeevan Clements MD [facility] [address] [place] [address] 05/02/2020 14:00:54 05/03/2020 11:39:43 Pain in left knee 6941500392 83458 M25.562 Closed fra cture of left tibial plateau 3458581113 4712555 S82.142A Strict NWBPercoce t prn start weaning soonKnee Immobilize r full [id number] min discussion of Tx planReq pt to remain housebound , limit mobilizati on to decrease shoulder painDeclin e PT for crutch training [id number] Jeevan Clements MD [facility] [address] [place] [address] 05/26/2020 11:07:36 05/26/2020 13:41:44 Pain in left knee 6899283488 40562 M25.562 Closed fra cture of left tibial plateau 2799330746 8731041 S82.142A Strict NWB Percocet prn start weaning Knee Immobilize r wean OOW 20 min discussion of current Tx plan Req pt to remain housebound , limit mobilizati on to decrease shoulder pain Decline PT for crutch training [id number] Jeevan Clements MD [facility] [address] [place] [address] 06/20/2020 14:17:01 06/23/2020 16:56:15 Pain in left knee 3465449595 15038 M25.562 Closed fra cture of left tibial plateau 7923012108 5891137 S82.142A Strict NWB encouraged , return to walker, w/c, crutches, 10 min Percocet prn start weaning Knee Immobilize r wean OOW 20 min discussion of current Tx plan and consequenc es of WBAT 15 min Req pt to remain housebound , limit mobilizati on to decrease shoulder pain Decline hospital for XRs Decline PT for crutch training [id number] Jeevan Clements MD [facility] [address] [place] [address] 07/11/2020 14:10:26 07/12/2020 11:26:00 Pain in left knee 7474904803 14234 M25.562 Closed fra cture of left tibial plateau 6454498983 0835384 S82.142A Start WBAT encouraged , D/C brace start weaning Knee Immobilize r wean OOW, anticipate RTW next 2-3 weeks 20 min discussion of current Tx plan and consequenc es of XR change [id number] Jeevan Clements MD [facility] [address] [place] [address] 09/01/2020 10:39:46 09/05/2020 11:10:16 Pain in left knee 7662379191 06545 M25.562 Closed fra cture of left tibial plateau [id number] 6780728 S82.142A WBAT Health Concerns Section Related Observation LastModified by Organization Detai ls LastModified Time None Recorded Concern Status LastModified by Organization Details LastModified Time None Recorded Advance Directives Directive None Recorded Payers Encounter Date Sequence Insurance Name Policy Number Policy Ramos Covered Member ID Ramos Member ID Guarantor Name 05/02/2020 1 [employer] (PPO) Makenna Harrison [id number] Makenna Harrison 05/02/2020 1 MEDICAID-[place]: [place] DEPARTMENT OF PUBLIC AID Makenna Harrison [id number] Makenna Harrison 05/26/2020 1 [place] [facility] OF PUBLIC AID Makenna Harrison [id number] Makenna Harrison 06/20/2020 1 MEDICAID-ID: [facility] PUBLIC AID Makenna Harrison [id number] Makenna Harrison 07/11/2020 1 [facility] (MEDICAID O) [id number] Makenna Harrison [id number] Makenna Harrison 09/01/2020 1 [facility] (MEDICAID HMO) [id number] Makenna Harrison [id number] Makenna Harrison Notes Date Note Type Note [...] PT:none Work Related:no Working:noNotes:Has job starting at [employer] sit down work availableHas wheelchair comingHas walker and crutchesShoulders hurt from using walker too muchRequesting handicap sticker DOI 04/23/20 Jeevan Clements MD [address] [place], [address], [facility] 05/02/2020 14:58:57 05/26/2020 text/html KneeReported bypatient.Location:lef t; posterior; lateral; deep Quality:stabbing; throbbing; sharp; deep; constant; improving Severity:moderate Duration:continuous since onset Timing:acute Context:fall; lost balance and fell backwards Alleviating Factors:ice; rest; elevation; narcotics; brace; walker Aggravating Factors:standing Associated Symptoms:weakness;swel ling;radiation down leg Previous Surgery:none Prior Imaging:x ray; [facility] Previous Injections:none Previous PT:none Work Related:no Working:noNotes:[facility] sit down work availableHas wheelchairHas walker and crutchesShoulders hurt from using walker too muchRequesting handicap sticker DOI 04/23/20 Jeevan Clements MD [address] [place], [address], [facility] 05/26/2020 11:56:36 06/20/2020 text/html KneeReported bypatient.Location:lef t; posterior; lateral; deep Quality:aching; stabbing; throbbing; deep; improving Severity:moderate Duration:continuous since onset Timing:acute Context:fall; lost balance and fell backwards Alleviating Factors:ice; rest; elevation; narcotics; brace; walker Aggravating Factors:standing Associated Symptoms:weakness;swel ling;radiation down leg Previous Surgery:none Prior Imaging:x ray; [facility] Previous Injections:none Previous PT:none Work Related:no Working:noNotes:Has job starting at [employer], on holdNo sit down work available, OOWHas wheelchair, not usingHas walker and crutches, not usingShoulders hurt from using walker/ crutches too much, so stop usingRequesting handicap sticker DOI 04/23/20 Not using walker, crutches, but using cane occ Jeevan Clements MD [address] [place], [address], [facility] 06/20/2020 15:01:49 07/11/2020 text/html KneeReported bypatient.Location:lef t; posterior; lateral; deep Quality:aching; stabbing; throbbing; deep; improving Severity:moderate Duration:continuous since onset Timing:acute Context:fall; lost balance and fell backwards Alleviating Factors:ice; rest; elevation; narcotics; brace; walker Aggravating Factors:standing Associated Symptoms:weakness;swel ling;radiation down leg Previous Surgery:none Prior Imaging:x ray; [facility] Previous Injections:none Previous PT:none Work Related:no Working:noNotes:Has job starting at [employer], on holdNo sit down work available, OOWHas wheelchair, not usingHas walker and crutchesShoulders hurt from using walker/ crutches too much, so stop usingRequesting handicap sticker DOI 04/23/20 using walker, BUT WBAT in hallways Jeevan Clements MD [address] [place], [address], [facility] 07/11/2020 15:10:12 09/01/2020 text/html KneeReported bypatient.Location:lef t; posterior; lateral; deep Quality:aching; stabbing; throbbing; deep; improving Severity:moderate Duration:continuous since onset Timing:acute Context:fall; lost balance and fell backwards Alleviating Factors:ice; rest; elevation; narcotics; brace; walker Aggravating Factors:standing Associated Symptoms:weakness;swel ling;radiation down leg Previous Surgery:none Prior Imaging:x ray; [facility] Previous Injections:none Previous PT:none Work Related:no Working:noNotes:Has job starting at [facility], on holdNo sit down work available, OOWHas wheelchair, not usingHas walker and crutchesShoulders hurt from using walker/ crutches too much, so stop usingRequesting handicap sticker DOI 04/23/20 using walker, BUT WBAT in hallways Jeevan Clements MD [address] [place], [address], [facility] 09/01/2020 12:43:33 OBGyn Episode No OBEpisode recorded.
--- OUTSIDE RECORDS SUMMARY | 2024-06-16 17:46 | XMS_ITS | Clinical Summary ---
Author Organization [facility] [employer] Address [address] [place] [address] Care Team Providers Care Inspector Tubes Name Role Phone Jasper Easton MD Unavailable [phone] Oren Morfin MD Unavailable [phone] Angie Tamez PRODUCT DEVELOPER-[facility] Primary Care Provi karine Source Comments [facility],non-owned Affiliates and Associated Physician Practices is amultiple site organization consisting of ambulatory clinics and hospital sitesin [place], [place], [place] and [place]. This disclosure is being madepursuant to the Care Everywhere program and may not contain all information available regarding this patient. Last updated 17.[facility] Allergies Active Allergy Reactions Criticality Noted Date Comments Tuberculin Purified Protein Derivative Other 02/02/2016 Had positive PPD not to be retested Medications * Be aware that medications may not be up to date on this document. Alwaysverify current medications with the patient. Vitamins/Mineral s TABS Take 1 Tab by mouth once daily. Active cyanocobalamin (VITAMIN B-12) injection Inject 1,000 mcg into muscle every 30 days 1 mL 5 8 Active ondansetron (ZOFRAN) 4 MG tablet Take 1 tablet by mouth every 6 hours as needed for Nausea/Vomiting 10 tablet 9 Active Additional Information Patient not taking.Reported on 07/16/2018 sucralfate (CARAFATE) 1 GM/10ML suspensionIndica tions:Gastroesop hageal reflux disease, esophagitis presence not specified Take 10 mL by mouth 4 times daily 1200 mL 9 Active omeprazole (PRILOSEC) 20 MG capsuleIndicatio ns:Gastroesophag eal reflux disease, esophagitis presence not specified,S/P gastric bypass Take 1 capsule by mouth once daily 30 capsule 9 Active ondansetron, disintegrating, (ZOFRAN ODT) 4 MG tablet Take 1 tablet by mouth every 6 hours as needed for Nausea/Vomiting Allow tablet to dissolve on the tongue 30 tablet 9 Active vitamin D, ergocalciferol, (DRISDOL) 74779 units capsule Take 1 capsule by mouth every 7 days 12 capsule 9 Active vitamin D, ergocalciferol, (DRISDOL) 98856 units capsule TAKE ONE CAPSULE BY MOUTH EVERY 30 DAYS 12 capsule 9 Active omeprazole (PRILOSEC) 20 MG capsuleIndicatio ns:Bariatric surgery status,Nausea without vomiting,Heartbu rn Take 1 capsule by mouth daily before breakfast 30 capsule 0 Active sucralfate (CARAFATE) 1 GM/10ML suspensionIndica tions:Bariatric surgery status,Nausea without vomiting,Heartbu rn Take 10 mL by mouth 4 times daily 1200 mL 0 Active ondansetron (ZOFRAN) 4 MG tabletIndication s:Bariatric surgery status,Nausea without vomiting,Heartbu rn Take 1 tablet by mouth every 6 hours as needed for Nausea/Vomiting 10 tablet 0 Active Active Problems Problem Noted Date Diagnosed [...] 12/30/2011 04/05/19 16 Morbid obesity 10/26/2015 Immunizations Immunization Administration Dates Next Due INFLUENZA VACCINE 10/10/2017 [...] = 0.6 oz p ure alcohol) SOCIAL/RARE Comments No Sex and Gender Information Value Date Recorded Sex Assigned at Not on file Legal Sex Female 12:05 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 Medical Devices Implanted Type Area Engine Dynamometer Tester Device Identifier Shelf Expiration Date Model / Serial / Lot Stent Nphurstm 24cm 8.5fr [place] [employer] Pgtl Implanted:Qty: 1 on 03/29/2018 at [facility] [employer] 11/14/2020 [id number] / / [id number] Description: Stent Uret 6fr 26cm Pgtl Crv Tpr Tip Implanted:Qty: 1 on 04/10/2018 by Andrey Cardenas MD at [facility] [employer] 01/29/2021 [id number] / / [id number] Procedures Procedure Name Priority Date/Time Associated Diagnosis Comments COMPREHENSIVE METABOLIC PANEL Routine 07/16/2018 9:41 AM CDT Bariatric surgery status Epigastric pain Morbid obesity BMI 26.0-26.9,adult Vitamin D deficiency Vitamin deficiency Gastroesophageal reflux disease without esophagitis Nausea without vomiting LIPID PROFILE Routine 08/14/2017 1:24 PM CDT History of diabetes mellitus, type II HEPATITIS C ANTIBODY Routine 02/14/2016 7:30 AM HIGH REACH OPERATOR Bariatric surgery status MAMMO BILAT SCREENING Routine 02/07/2015 10:58 AM HIGH REACH OPERATOR Visit for screening mammogram ENDOSCOPY, COLON, SCREENING [...] Resulting Agency Comment Lab Testing performed at: Replaced by [facility] [address] [place] [id number] us Ivy Encarnacion PRODUCT DEVELOPER-ERGONOMICS TECHNICIAN LAB - CHEMISTRY ORDE RABCHAPINCITO Final Result [facility] ACCOUNT BILL [address] [place] [address] * LIPID PROFILE (08/14/2017 1:24 PM CDT) [facility] Cholesterol 196 100 - 199 mg/dL [facility] [...] CDT 08/14/2017 Narrative Resulting Agency Comment [facility] [address] [phone] us Darlin Mcclain PRODUCT DEVELOPER-ERGONOMICS TECHNICIAN LAB - CHEMISTRY ORDERAB LES Final Result [facility] INSURANCE BILL [address] [place] [address] * HEPATITIS C ANTIBODY (02/14/2016 7:30 AM HIGH REACH OPERATOR) HCV Antibody Screen Non Reactive Non Reactive 02/14/2016 3:06 PM HIGH REACH OPERATOR [facility] HCV S/C Ratio 0.12 0.00 - 0.79 02/14/2016 3:06 PM HIGH REACH OPERATOR [facility] Comment: Zlunid-zw-yjxxro ratio (S/CO) <0.80: Non Reactive Blood BLOOD SPECIMEN / Unknown Lab Venipuncture / Unknown 02/14/2016 7:30 AM HIGH REACH OPERATOR 02/14/2016 7:41 AM HIGH REACH OPERATOR Narrative [facility] - 02/14/2016 3:06 PM HIGH REACH OPERATOR Non Reactive - Antibodies to Hepatitis C virus (HCV) were not detected, result does not exclude early acute HCV infection. Leena Keita MD LAB - CHEMISTRY ORDERABLES Fin al Result [facility] [address] [place] [address] * MAMMO SCREENING DIGITAL IMAGE BILAT G0202 (02/07/2015 10:58 AM HIGH REACH OPERATOR) Anatomical Region Laterality Modality Breast Bilateral Mammography 02/07/2015 1:53 PM HIGH REACH OPERATOR Narrative 02/07/2015 1:55 PM HIGH REACH OPERATOR FULL FIELD DIGITAL BILATERAL SCREENING MAMMOGRAMS WITH [...] if suspicious findings are present clinically. An [employer] Facility. [facility] utilize [employer] as a reminder system to notify patients of their next recommended mammograms. us Rodriguez Ashvin Peoples DO MAMMO ORDERABLES Final Result * ENDOSCOPY, COLON, SCREENING (02/25/2012) Justyn Phillips MD GI PROCEDURE ORDERABLES Fin al Result * DEXA BONE DENSITY 2 SITES (12/12/2010 [...] T SCORE Mary Gonzalez MD DEXA ORDERABLES Final Result from Last 3 Months or Most Recently Relevant to Health Maintenance Insurance [employer] Advance Directives * Full Code (Latest Code [...] 2:50 PM 09/28/2011 12:42 PM Care Teams Inspector Tubes Relationship Specialty Start Date End Date Angie Tamez, PRODUCT DEVELOPER-ERGONOMICS TECHNICIAN [address] [place] [address] PCP - General 08/18/20 [place] [address] [address] [place] [address] Pulmonary Disease 05/09/12 [place] [address] [place] [address] Orthopedic Surgery 09/09/14
--- OUTSIDE RECORDS SUMMARY | 2024-06-16 17:46 | XMS_ITS | Encounter Summary ---
Author Organization [facility] Address [address] [place] [address] Care Team Providers Care Supervisor Soakers Name Role Phone Unavailable Primary Care Provider Unavailabl e Reason for Visit * Reason Comments Establish Care Iron deficiency anem ia Encounter Details Date Type Department Care Team ([facility] st Contact Info) Description 06/16/2024 2:30 PM CDT Office Visit [facility] Oncology and Hematology - [place]o [address] [place] [address] Kristina Bajwa MD [address] [place] [address] Iron deficiency anemia, unspecified iron deficiency anemia type (Primary Dx) Social History Tobacco Use Types Packs/Day Years Used Date Smoking Tobacco: Never Alcohol Use Standard Drinks/Week Comments Never 0 (1 standard drink = 0.6 oz pur e alcohol) Comments Unknown Sex and Gender Information Value Date Recorded Sex Assigned at Not on file Legal Sex Female 5:43 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 Gender Identity Not on file Sexual Orientation Not on file documented as of this encounter Last Filed Vital Signs Vital Sign Reading Time Taken Comments Blood Pressure 98/58 06/16/2024 2:45 PM CDT Pulse 64 06/16/2024 2:39 PM CDT Temperature 36.5 C (97.7 F) 06/16/2024 2:39 PM CDT Respiratory Rate 16 06/16/2024 2:39 PM CDT Oxygen Saturation 98% 06/16/2024 2:39 PM CDT Inhaled Oxygen Concentration - - Weight 65.2 kg (143 lb 11 oz) 06/16/2024 2:39 PM CDT Height 167.6 cm (5' 6 ) 06/16/2024 2:39 PM CDT Body Mass Index 23.19 06/16/2024 2:39 PM CDT documented in this encounter Progress Notes * Kristina Bajwa MD - 06/16/2024 4:00 PM CDT Hematology-oncology consult Note Requesting Physician Primary Care Physician No primary care provider on file. Problem list There is no problem list on file for this patient. Reason for Visit Makenna Harrison is a 68 y.o. female who was referred for consultation for iron deficiency anemia. History of present illness Makenna Harrison is a pleasant 68-year-old female presented to hematology clinic on 06/16/2024 for further management of iron deficiency anemia secondary to gastric bypass surgery. Patient reports that she underwent gastric bypass surgery in 2011 and has been on B12 injections once a month since then. She has been noted to have anemia. Patient has been trying to get laminectomy for about past few years for work- related back injury. She has been told that she is anemic and need hematologic intervention before the surgery. CBC done 06/15/2023 showed hemoglobin of 8.3 hematocrit of 28.9 MCV 65.2 iron saturations 7% with a ferritin of5.18. Repeated CBCs in 2023 showed continued iron deficiency. The most recent CBC has been done on April 29, 2024 which shows hemoglobin of 8.3, hematocrit 28.9 iron saturations 4% and ferritin 5.97. Patient has seen printed circuit board preassembler Dr. Sav Astudillo and underwent a EGD and colonoscopy on September which showed normal colon. The EGD showed 2 marginal ulcers at gastrojejunostomy junction. Shethen underwent another EGD on 10/12/2021 which showed continued presence of 2 ulcers at the anastomosis of the gastric jejunostomy junction. Patient is on omeprazole 40 mg daily. Patient is presenting today for management of iron deficiency anemia. 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 She is a non-smoker and no alcohol use. Past Medical History No past medical history on file. Surgical History Past Surgical History: Procedure Laterality Date HX CERVICAL LAMINECTOMY 2020 HX GASTRIC BYPASS 2011 HX PARATHYROIDECTOMY 2011 Medications Current Outpatient Medications Medication Sig Dispense Refill metoprolol succinate (TOPROL XL) 25 mg Extended Release 24 hour tablet Take 0.5 Tablets by mouth daily. alendronate (FOSAMAX) 35 mg tablet Take 35 mg by mouth every 7 days. cholecalciferol 1,250 mcg (50,000 unit) Capsule Take 1 Capsule by mouth every 7 days. cyanocobalamin (VITAMIN B-12) 1,000 mcg/mL Solution Inject 1,000 mcg by intramuscular injection every 30 days. DULoxetine (CYMBALTA) 60 mg Capsule, Delayed Release(E.C.) Take 60 mg by mouth daily. omeprazole (PriLOSEC) 40 mg Capsule, Delayed Release(E.C.) Take 40 mg by mouth 2 times daily. acetaminophen (Tylenol Extra Strength) 500 mg tablet Take 500 mg by mouth 1 time daily as needed for Pain. No current facility-administered medications for this visit. Allergies No Known Allergies Immunizations: Immunization History Administered Date(s) Administered (SPIKEVAX) (12 YRS UP PRIMARY SERIES) COVID-19 VACCINE - MRNA-1273(PF) 100 MCG/0.5 ML IM SUSP 04/22/2020 Family History Family History Problem Relation Name Age of Onset Diabetes Father Diabetes Mother No Known Problems Brother No Known Problems Child Social History Social History Tobacco Use Smoking status: Never Smokeless tobacco: Not on file Substance Use Topics Alcohol use: Never Review of Systems Constitutional: Patient reports fatigue, daytime sleepiness, low energy level. NEENT: Patient did not mention headache; no change in vision; no change in hearing; no sore throat;no dysphagia Respiratory: Patient did not mention shortness of breath; no pleuritic chest pain; no cough; no hemoptysis Cardiac: Patient did not mention cardiac-like chest pain; no palpitations; no orthopnea; no PND; noDOE Breasts: Patient did not mention tenderness; no masses GI: Patient did not mention abdominal pain; no nausea; no vomiting; no diarrhea; no hematochezia; no melena : Patient did not mention dysuria; no frequency; no hesitancy; no hematuria [employer] SKIN: Musculosketetal: Patient did not mention bone pain; no arthralgia; no joint swelling; no myalgia; Skin: Patient did not mention pruritis; no rash; no petechiae; no ecchymoses Endocrine: Patient did not mention polydipsia; no polyuria; no unusual weight gain Neuro: Patient did not mention headache; no change in vision; no sensory changes; no muscle weakness; no confusion; no seizures Psych: Patient did not mention anxiety; no depression; Physical Exam Vitals: As per nursing note Constitutional: Alert and oriented x 3, no acute distress Eyes: PERRL, conjunctiva normal HEENT: Atraumatic, external ears normal, nose normal, oropharynx moist, no pharyngeal exudates. no sinus tenderness Neck- normal range of motion, no tenderness, supple Respiratory: No respiratory distress, normal breath sounds, no rales, no wheezing Cardiovascular: Normal rate, normal rhythm, no murmurs, no gallops, no rubs GI: Soft, nondistended, normal bowel sounds, nontender, no splenomegaly, no hepatomegaly, no mass, no rebound, no guarding Musculoskeletal: No edema, no tenderness, no deformities. Back- no tenderness Integument: Well hydrated, no rash, Digits and nails inspection normal Neurologic: Alert & oriented x 3, CN 2-12 normal, normal motor function, normal sensory function, no focal deficits noted Psychiatric: Speech and behavior appropriate ? labs CBC 06/15/2023 showed hemoglobin of 8.3, hematocrit of 28.9, MCV 65.2, iron saturations 7% with a ferritin of 5.18. CBC 04/29/2024 showed hemoglobin of 8.3, hematocrit 28.9, iron saturations 4% and ferritin 5.97. Pathology ? GI studies EGD and colonoscopy on October 05, 2020 which showed normal colon. The EGD showed 2 marginal ulcers at gastrojejunostomy junction. Another EGD on 10/12/2021 which showed continued presence of 2 ulcers at the anastomosis of the gastric jejunostomy junction. Assessment / Plan: This is a 68-year-old female with- Iron deficiency anemia- Patient was severe iron deficiency with most recent iron studies showing saturations of 4% and ferritin of 5.97 on 04/29/2024. Similar lab results were noted in 2023 labs. Iron deficiency has been investigated by GI with EGD and colonoscopy and there were 2 ulcers noted at the anastomosis site of tee rojejunostomy junction. I believe her iron deficiency is from gastric bypass surgery and she will be needing lifelong parenteral iron. I have ordered CBC, iron studies, B12, folic acid levels. I will also enter IV iron orders which patient will be getting after insurance approval in the next few weeks. She will then see Dr. Enriquez in 5 weeks with repeat studies for surgical clearance after improvement in hemoglobin. TOBACCO COUNSELING She is not a tobacco/nicotine user. Kristina Bajwa MD ,06/16/2024 4:00 PM ? Total time spent 60 minutes, two third of the total time spent counseling patient [id number]. CC:? documented in this encounter Plan of Treatment Upcoming Encounters Date Type Department Care Team (Late st Contact Info) Description 07/22/2024 2:30 PM CDT Office Visit [facility] Oncology and Hematology - [place] [address] [facility] [address] [place] [address] Dennys Enriquez MD [address] [facility] [address] [place] [address] Scheduled Orders Name Type Priority Associated Diagnoses Orde r Schedule COMPREHENSIVE METABOLIC PANEL Lab Routine Iron deficiency anemia, unspecified iron deficiency anemia type Expected: 06/16/2024, Expires: 06/16/2025 CBC WITH DIFFERENTIAL Lab Routine Iron deficiency anemia, unspecified iron deficiency anemia type Expected: 06/16/2024, Expires: 06/16/2025 IRON, TIBC, AND PERCENT SATURATION Lab Routine Iron deficiency anemia, unspecified iron deficiency anemia type Expected: 06/16/2024, Expires: 06/16/2025 FERRITIN Lab Routine Iron deficiency anemia, unspecified iron deficiency anemia type Expected: 06/16/2024, Expires: 06/16/2025 VITAMIN B12 AND FOLATE Lab Routine Iron deficiency anemia, unspecified iron deficiency anemia type Expected: 06/16/2024, Expires: 06/16/2025 COMPREHENSIVE METABOLIC PANEL Lab Routine Iron deficiency anemia, unspecified iron deficiency anemia type Expected: 08/18/2024, Expires: 06/16/2025 CBC WITH DIFFERENTIAL Lab Routine Iron deficiency anemia, unspecified iron deficiency anemia type Expected: 08/18/2024, Expires: 06/16/2025 IRON, TIBC, AND PERCENT SATURATION Lab Routine Iron deficiency anemia, unspecified iron deficiency anemia type Expected: 08/18/2024, Expires: 06/16/2025 FERRITIN Lab Routine Iron deficiency anemia, unspecified iron deficiency anemia type Expected: 08/18/2024, Expires: 06/16/2025 VITAMIN B12 AND FOLATE Lab Routine Iron deficiency anemia, unspecified iron deficiency anemia type Expected: 08/18/2024, Expires: 06/16/2025 documented as of this encounter Visit Diagnoses Diagnosis Iron deficiency anemia, unspecified iron deficiency anemia type- Primary documented in this encounter
--- OUTSIDE RECORDS SUMMARY | 2024-06-16 17:46 | XMS_ITS | Encounter Summary ---
Author Organization [facility] Address [facility] [place] [address] Care Team Providers Care Chainstitch Hemmer Name Role Phone Angie Tamez NP Primary Care Provider [phone] Encounter Details Date Type Department Care Team ([facility] st Contact Info) Description 08/31/2020 Fwd[facility]altht Message Enc [facility] Family Medicine [facility] [address] [address] Angie Tamez, KERRIE [address] [address] RE: Question Social History Tobacco Use Types [...] documented as of this encounter Care Teams Chainstitch Hemmer Relationship Specialty Start Date End Date Angie Tamez NP [address] [place] [address] [place] [address] PCP - General NURSE PRACTITIONER 05/11/20 11/25/23 documented as of this encounter
--- OUTSIDE RECORDS SUMMARY | 2024-06-16 17:46 | XMS_ITS | Clinical Summary ---
Author Organization [facility]ov[facility]olina morse [address] Address [address] [place] [address] Care Team Providers Care Old Testament Professor Name Role Phone Unavailable Primary Care Provider Unavailabl e Allergies No known active allergies Medications omeprazole (PriLOSEC) 40 mg Capsule, Delayed Release(E.C.) Take 40 mg by mouth 2 times daily. Active metoprolol succinate (TOPROL XL) 25 mg Extended Release 24 hour tablet Take 0.5 Tablets by mouth daily. 5 Active alendronate (FOSAMAX) 35 mg tablet Take 35 mg by mouth every 7 days. 5 Active cholecalcifero l 1,250 mcg (50,000 unit) Capsule Take 1 Capsule by mouth every 7 days. 5 Active cyanocobalamin (VITAMIN B-12) 1,000 mcg/mL Solution Inject 1,000 mcg by intramuscular injection every 30 days. 5 Active acetaminophen (Tylenol Extra Strength) 500 mg tablet Take 500 mg by mouth 1 time daily as needed for Pain. Active DULoxetine (CYMBALTA) 60 mg Capsule, Delayed Release(E.C.) Take 60 mg by mouth daily. 5 Active Active Problems No known active problems Encounters Date Type Department Care Team Description 06/16/2024 2:30 PM CDT Office Visit [facility] Oncology and Hematology - [place] [address] [place] [address] Kristina Bajwa MD Iron deficiency anemia, unspecified iron deficiency anemia type (Primary Dx) from Last 3 Months Family History Medical History Relation Name Comments No Known Problems Brother No Known Problems Child Diabetes Father Diabetes Mother Relation Name Status Comments Brother Alive Child Alive Father Mother Social History Tobacco Use Types Packs/Day Years Used Date Smoking Tobacco: Never Alcohol Use Standard Drinks/Week Comments Never 0 (1 standard drink = 0.6 oz pur e alcohol) Comments Unknown Sex and Gender Information Value Date Recorded Sex Assigned at Not on file 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 Gender Identity Not on file Sexual Orientation [...] Mass Index 23.19 06/16/2024 2:39 PM CDT Plan of Treatment Upcoming Encounters Date Type Department Care Team (Late st Contact Info) Description 07/22/2024 2:30 PM CDT Office Visit [facility] Oncology and Hematology - [place] [address] [place] [address] [facility] [address] [place] [address] Dennys Enriquez MD [address] [facility] [address] [place] [address] Health Maintenance Due Date Last Done Comments FIT-DNA Q 3 years 2001 FIT/FOBT Q 1 year 2001 Flex Sig/CT Colonography Q 5 years 2001 ZOSTER VACCINE (1 of 2) 2006 BREAST CANCER SCREENING 02/08/2016 02/07/2015 RSV VACCINE (60+ or ) (1 - Risk 60-74 years 1-dose series) 2016 PNEUMOCOCCAL VACCINE 50+ YEA RS (2 of 2 - PCV) 12/12/2018 12/12/2017, 09/28/2011 OSTEOPOROSIS SCREENING 2021 12/12/2010, 2010 INFLUENZA VACCINE (#1) 2023 12/11/2019 COVID-19 Vaccine (3 - 2023-2 5 season) 2023 05/27/2020, 04/22/2020 Medicare Ad[place]age ([place]) Preventative Visit/Annual Wellness Visit 02/26/2024 07/20/2020, 12/11/2019, 07/31/2017, Additional history exists DTAP/TDAP/TD VACCINES (2 - T d or Tdap) 12/03/2027 12/02/2017, 09/26/2010 COLORECTAL SCREENING 10/05/2030 10/05/2020, 02/25/20 12 Colorectal Cancer Screening 10/05/2030 Insurance
--- OUTSIDE RECORDS SUMMARY | 2024-06-16 17:46 | XMS_ITS ---
Author Organization [facility] Address [address] [place] [address] Care Team Providers Care Edge Brusher Name Role Phone PhilipIrvinKit Unavailable [phone] REASON FOR VISIT New Patient / L4-5 LIZBETH (local) / WC CHAO VASQUEZ Encounters Encounter Location Date Provider Diagnosis [place] [facility] [address] [place] [address] 04/19/2023 Kit Palacios PLAN OF TREATMENT No Information Progress Notes * Makenna PEGUERO:[birth year] (68 yo F)Acc No.[id number]:04/19/2023 Progress Notes Patient: Makenna PEGUERO Sada Provider: Kit Palacios DO :1955 Age:67 Y Sex:Female Date:04/19/2023 Address:[address] [place] [address];[facility] Subjective: * Chief Complaints: * 1. New Patient / L4-5 LIZBETH (local) / WC CHAO VASQUEZ. * Medical History: Objective: Assessment: Plan: * Treatment: * Images: * Sign off status: Pending * Provider: Kit Palacios DO Date: 04/19/2023
--- OUTSIDE RECORDS SUMMARY | 2024-06-16 17:46 | XMS_ITS | Encounter Summary ---
Author Organization [facility] Address 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
--- OUTSIDE RECORDS SUMMARY | 2024-06-16 17:46 | XMS_ITS | Continuity of Care Document ---
Author Organization [facility] Address [address] [place] [address] Phone Care Team Providers Care Roofing Machine Operator Name Role Phone Irvin Shepherd MD Unavailable [...] Diagnoses Date Provider Providers Copied on Encounter [facility], [address], [place], [place], [id number], [place] tel:[phone] [facility] No Information Joao Bryan. [address] [place], [place], [id number], [place]. tel:[phone] Referring Provider: Mitchell Graham [address], [place], [address]. tel:[phone] Family History Family Member Type Diagnosis Age At Onset No Information Payers Payer name Insurance type Covered green party ID Authorxenaa titony(s) [employer] [id number] Social History Type Description Quantity Date Captured [...]
== END 2024-06-16 15:43 | disposition home or self-care (01) ==
LOC: ANHLAB 15:42
PROVIDERS: PCP Nurse Practitioner Family; Visit Provider Internal Medicine Hematology & Oncology
DX: D50.9 Iron deficiency anemia, unspecified (principal)
CPT/HCPCS: 36415; 80053; 82607; 82728; 82746; 83540; 83550; 85025

== ENCOUNTER 2024-07-22 14:13 | Outpatient (CLI) | payer MEDICARE, SELFPAY ==
--- OUTSIDE RECORDS SUMMARY | 2024-07-22 14:18 | XMS_ITS | Patient Health Record ---
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
--- OUTSIDE RECORDS SUMMARY | 2024-07-22 14:18 | XMS_ITS ---
Author Organization [facility] Address [address] [place] [address] Care Team Providers Care Manager Of Software Name Role Phone PhilipIrvinKit Unavailable [phone] REASON FOR VISIT New Patient / L4-5 LIZBETH (local) / WC CHAO VASQUEZ Encounters Encounter Location Date Provider Diagnosis [place] [facility] [address] [place] [place] [address] 04/19/2023 Kit Palacios PLAN OF TREATMENT No Information Progress Notes * Makenna PEGUERO:[birth year] (68 yo F)Acc No.[id number]:04/19/2023 Progress Notes Patient: Makenna PEGUERO Sada Provider: Kit Palacios DO :1955 Age:67 Y Sex:Female Date:04/19/2023 Address:[address] [place] [address];[facility] Subjective: * Chief Complaints: * 1. New Patient / L4-5 LIZBETH (local) / WC CHAO VASQUEZ. * Medical History: Objective: Assessment: Plan: * Treatment: * Images: * Sign off status: Pending * Provider: Kit Palacios DO Date: 04/19/2023
--- OUTSIDE RECORDS SUMMARY | 2024-07-22 14:18 | XMS_ITS ---
Author Organization [facility] Address [address] [place] [address] Care Team Providers Care Cooler Man Name Role Phone Kit Palacios Unavailable [phone] ALLERGIES No Known Allergies REASON FOR VISIT WC--CHAO VASQUEZ/ Dr. Julian Cardoso/ PHYSICIAN CODING SPECIALIST and L4/5 LIZBETH (local) MEDICATIONS Medication SIG (Take, Route, Frequency, Duration) Notes Start Date End Date Status Ibuprofen PRN Active Omeprazole 40 MG TAKE [address] [place] [facility] DAILY Oral for 90 Days Active [...] ment of lumbar intervertebral disc without myelopathy (02727688) Problem Lumbosacral radiculopathy (M54.17) Active confirmed Lumbosacral radiculopathy (7056440) Problem Spondylolisthesis at L4-L5 level (M43.16) Active confirmed Acquired spondylolisthesis (690006879) Problem DDD (degenerative disc disease), lumbar (M51.36) Active confirmed Degenerative disc disease (13877960) VITAL SIGNS Temperature 97.9 degrees Fahrenheit 04/30/19 24 Blood pressure systolic 99 mm Hg 04/30/19 24 Blood pressure diastolic 65 mm Hg 024 Heart Rate 55 /min 04/30/2023 Respiratory Rate 18 /min 04/30/2023 Height 66 in 04/30/2023 Weight 140 lbs 04/30/2023 BMI 22.59 kg/m2 04/30/2023 Encounters Encounter Location Date Provider Diagnosis [place] [facility] [address] [place] [address] 04/30/2023 Kit Palacios Herniated lumbar dis c [...] MARIELENA Makenna Sada:[birth year] (67 yo F)Acc No.[id number]:04/30/2023 Progress Notes Patient: Makenna HARRISON Provider: Kit Palacios DO :1955 Age:67 Y Sex:Female Date:04/30/2023 Address:[address] [place], [place] [id number] Subjective: * Chief Complaints: * WC--CHAO VASQUEZ/ Dr. Julian Cardoso/ PHYSICIAN CODING SPECIALIST and L4/5 LIZBETH (local) * HPI: New [...] from Dr. Jaron Cardoso, her orthopedic spine surgical coder, requesting midline (interlaminar) L4/5 epidural steroid injection. [...] approach, easily entering the epidural space with [id number] to preservative-free saline technique. Confirmation of needle [...] from Dr. Jaron Cardoso, her orthopedic spine surgical coder, requesting midline (interlaminar) L4/5 epidural steroid injection. [...] than right hemipelvis. Neurologic Patient does not yonana cribe areas of persistent sensory loss in [...]
--- OUTSIDE RECORDS SUMMARY | 2024-07-22 14:19 | XMS_ITS ---
Author Organization [facility] Address [address] [place] [address] Care Team Providers Care Flexible Shaft Winder Name Role Phone Kit Palacios [phone] Encounters Encounter Location Date Provider Diagnosis [place] [facility] [address] [place] [address] 04/28/2023 Kit Palacios PLAN OF TREATMENT No Information Progress Notes * Uriel HARRISONB:1955 (67 yo F)Acc No.[id number]:04/28/2023 Patient: Makenna HARRISON :1955 Age:67 Y Sex:Female Address:[address] [place] [address], [place] [address] * true * Date:
[2024-07-22 14:29] LABS: Basophils Absolute Auto 0.1 K/mm3 (0.0-0.1); Basophils Percent Auto 1.1 % (0.2-1.2); Eosinophils Absolute Auto 0.1 K/mm3 (0-0.3); Hematocrit 29.9 % (37.0-47.0); Hemoglobin 8.7 g/dL (12.0-15.0); Immature Granulocyte Absolute 0.01 K/mm3 (0.00-0.031); Immature Granulocyte Percent A 0.2 % (0-0.5); Lymphocytes Absolute Auto 2.32 K/mm3 (0.9-3.2); Lymphocytes Percent Auto 35.9 % (18.3-44.2); Mean Corpuscular HGB Conc 29.1 g/dl (32-36); Mean Corpuscular Hemoglobin 17.9 pg (26-34); Mean Corpuscular Volume 61.6 fl (80-100); Mean Platelet Volume 8.4 fl (7.4-10.4); Monocytes Absolute Auto 0.5 K/mm3 (0.1-0.6); Neutrophils Absolute Auto 3.5 K/mm3 (1.3-6.7); Neutrophils Percent Auto 53.8 % (45.5-73.1); Platelet Count Result 268 k/mm3 (150-375); Red Blood Count 4.85 M/mm3 (4.2-5.4); Red Cell Distribution Width 19.3 % (11.5-14.5); White Blood Count 6.5 K/mm3 (4.5-10.0)
[2024-07-22 14:38] LABS: Platelet Estimate Adequate (Adequate); Schistocytes None Seen
[2024-07-22 14:40] LABS: Hypochromasia 1+
[2024-07-22 14:41] LABS: Anisocytosis 2+; Ovalocytes 1+
[2024-07-22 17:47] LABS: Iron 29 ug/dL (37-170)
[2024-07-22 18:02] LABS: Percent Iron Saturation 6 % (20-50)
[2024-07-22 18:25] LABS: Ferritin 4.98 ng/mL (11.1-264)
== END 2024-07-22 14:14 | disposition home or self-care (01) ==
LOC: ANHLAB 14:14
PROVIDERS: Visit Provider Internal Medicine Hematology & Oncology
DX: D50.9 Iron deficiency anemia, unspecified (principal)
CPT/HCPCS: 36415; 82728; 83540; 83550; 85025

== ENCOUNTER 2024-12-25 14:52 | Emergency (ER) | payer MEDICARE, SELFPAY ==
--- NOTE | ~2024-12-25 | XR_ITS ---
EXAMINATION: XR chest 2V DATE: 12/25/2024 18:04 INDICATION: Upper respiratory tract infection with cough and fevers TECHNIQUE: frontal and lateral views of the chest were obtained. COMPARISON: Chest radiograph dated 05/19/2024 FINDINGS: The lungs remain clear with no focal airspace opacities, pulmonary edema, pleural effusion or pneumothorax. Heart size is normal. Small sliding-type hiatal hernia projecting over the left vertebral phrenic angle. Lower cervical anterior spinal fusion including interbody fusion device and anterior plate- screw fixation. 35 degrees thoracic dextroscoliosis with moderate spondylosis. IMPRESSION: 1. No acute cardiopulmonary disease. 2. Small sliding-type hiatal hernia. Reviewed, dictated and finalized at location A.
--- NOTE | ~2024-12-25 | CT_ITS ---
CT abdomen pelvis w con INDICATION:R sided abd pain, fevers, N/V/D . COMPARISON: None. TECHNIQUE: Axial images of the abdomen and pelvis were obtained following infusion of 100 mL Isovue 300. Dose optimization technique was utilized. FINDINGS: The lung bases are clear. There is a small hiatal hernia. The liver parenchyma is unremarkable. No intrahepatic mass or ductal dilatation is evident. Cholelithiasis is noted. There is no CT evidence of acute cholecystitis. The pancreas and spleen are normal in appearance. The adrenal glands are symmetric in size. The kidneys demonstrate symmetric uptake and excretion of contrast. No cystic mass is evident. There is no solid mass. There is no hydronephrosis. Evaluation of the stomach and bowel loops are limited due to lack of oral contrast. There is no evidence of bowel obstruction or acute appendicitis. The bladder and rectum are normal. No free intraperitoneal fluid or air is evident. There is no significant retroperitoneal lymphadenopathy. The aorta, visceral vessels and renal arteries demonstrate normal caliber and patency. The lower thoracic and lumbar vertebrae are in normal alignment. IMPRESSION: No acute abnormality is noted in the abdomen and pelvis. Cholelithiasis without evidence of acute cholecystitis. Small hiatal hernia. All CT scans at this facility are performed using low dose modulation techniques as appropriate to perform exam including the following: automated exposure control; use of iterative reconstruction technique; adjustment of the mA and/or kV according to patient size (this includes techniques or standardized protocols for targeted exams where dose is matched to indication/reason for exam). Reviewed, dictated and finalized at location S. IMPRESSION: No acute abnormality is noted in the abdomen and pelvis. Cholelithiasis without evidence of acute cholecystitis. Small hiatal hernia. All CT scans at this facility are performed using low dose modulation techniqu es as appropriate to perform exam including the following: automated exposure c ontrol; use of iterative reconstruction technique; adjustment of the mA and/or kV according to patient size (this includes techniques or standardized protocol s for targeted exams where dose is matched to indication/reason for exam).
--- OUTSIDE RECORDS SUMMARY | 2024-12-25 14:55 | XMS_ITS | Encounter Summary ---
Author Organization [facility] Address [address] [place] [address] Care Team Providers Care Early Childhood Education Specialist Name Role Phone Unavailable Primary Care Provider Unavailabl e Encounter Details Date Type Department Care Team (Late st Contact Info) Description 06/07/2008 Outpatient Historical HIS ORTHOPEDIC TRAUMA Sedrick Mehta MD [address] [facility] [address] [place] [address] Social History Tobacco Use Types Packs/Day Years Used Date Smoking Tobacco: Never Assessed Comments Unknown Sex and Gender Information Value Date Recorded Sex Assigned at Not on file Legal Sex Female 5:43 AM ORE GRADER Gender Identity Not on file Sexual Orientation Not on file documented as of this encounter Plan of Treatment Upcoming Encounters Date Type Department Care Team (Late st Contact Info) Description 01/13/2025 2:00 PM ORE GRADER Office Visit [facility] Oncology and Hematology - Deangelo [address] [facility] [address] [place] [address] Dennys Enriquez MD [address] [facility] [address] [place] [address] documented as of this encounter Visit Diagnoses Not on filedocumented in this encounter
--- OUTSIDE RECORDS SUMMARY | 2024-12-25 14:55 | XMS_ITS | Clinical Summary ---
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 Medications Nerve Stimulator (TENS THERAPY PAIN RELIEF) DeviceIndication s:Chronic bilateral low back pain with bilateral sciatica Apply to affected area for pain relief 1 each 1 Active VITAMIN D2, ERGOCALCIFEROL, 44596 UNITS capsuleIndicatio ns:Vitamin D deficiency TAKE ONE [...] 10 mL 1 Active Syringe/Needle, Disp, (SYRINGE 3CC/25GX5/8) 25G X 5/8 3 ML MiscIndications: Vitamin [...] (09/28/2020): Added automatically from request for surgery [id number] History of colon polyps 09/28/2020 Overview (09/28/2020): Added automatically from request for surgery [id number] Lumbar radiculopathy 08/23/2020 Prediabetes 07/20/2020 Anxiety and depression 01/12/2019 Vitamin D deficiency 12/23/2017 Hyperlipidemia 12/23/2017 Heart murmur 12/02/2017 History of parathyroidectomy 12/02/2017 History of bariatric surgery 12/02/2017 Screening examination for sexually transmitted d isease 02/11/2014 Overview (10/07/2020): Added automatically from request for surgery [id number] GERD (gastroesophageal reflux disease) 2 Overview (10/07/2020): On PPI daily and PRN carafate per [facility] Primary hyperparathyroidism 06/25/2011 Obesity 11/02/2010 Cardiomegaly 11/02/2010 Family history [...] P M CDT Height 167.6 cm (5' 6) 10/10/2021 2:55 PM CDT Body Mass Index 29.41 10/10/2021 2:55 PM CDT Plan of Treatment Health Maintenance Due Date Last Done Comments Mammogram Screening 1996 Zoster Vaccines (1 of 2) 02/06/2018 Pneumococcal Vaccine: 50+ Years (2 of 2 - PCV) 12/12/2018 12/12/2017, 09/28/2011 Annual Medicare Wellness Visit 2021 Dexa Scan (General) 2021 PHQ-2 (Physician Davilla) 02/26/2024 COVID-19 Vaccine (3 - season) 2024 05/27/2020, 04/22/2020 Influenza Adult (#1) 2024 12/11/2019, 12/09/2017, 10/10/2017, Additional history exists DTaP, Tdap and Td Vaccines (2 - Td or Tdap) 12/03/2027 12/02/2017, 09/26/2010 Colorectal Cancer Screening Colonoscopy (10 Years) 10/05/2030 10/05/2020 RSV Immunization or 60+ Years (1 - 1-dose 75+ series) 10/26/2031 Hepatitis C Completed 07/21/2020 Hepatitis A Vaccines Aged Out No long er eligible based on patient's age to complete this topic Meningococcal B Vaccine Aged Out No l [...] with a HCV Nucleic Acid Amplification test ([id number]). 07/21/2020 12:2 8 PM CDT 07/21/2020 Narrative [facility] - 07/22/2020 8:08 AM CDT Performed at: 01 - [facility] [id number] Abrading Machine Tender: Dawit Burks PhD, Phone: [phone] us Angieselene Tamez STATION REPAIRER LABORATORY Final Res ult [facility] [address] [place] [address] [facility] 1 from Last 3 Months or Most Recently Relevant to Health Maintenance Insurance MEDICAID MEDICARE
--- OUTSIDE RECORDS SUMMARY | 2024-12-25 14:55 | XMS_ITS | Encounter Summary ---
Author Organization [facility] Address [address] [facility] [place] [address] Care Team Providers Care Building Operator Name Role Phone Jasper Esaton MD Unavailable [phone] Michael Peoples DO Primary Care Provider [phone] Oren Morfin MD Unavailable [phone] BrothDeon tabor Primary Care Provider [phone] Keerthi Knight MD Primary Care Provider [phone] Leena Keita MD Primary Care Provider [phone] Leena Keita MD Primary Care Provider [phone] Angie Tamez SHIPYARD HELPER-GLOST TILE SORTER Primary Care Provi karine Leena Keita MD Unavailable [phone] Leena Keita MD Unavailable [phone] Ivy Encarnacion SHIPYARD HELPER-GLOST TILE SORTER Unavailable [phone] Encounter Details Date Type Department Care Team (Late st Contact Info) Description 10/19/2010 [facility] DEPT Unknown, Provider Social History Tobacco Use Types Packs/Day Years Used Date Smoking Tobacco: Never Assessed Comments Unknown Sex and Gender Information Value Date Recorded Sex Assigned at Not on file Legal Sex Female 12:05 PM MANAGER AGENCY Gender Identity Not on file Sexual Orientation Not on file documented as of this encounter Plan of Treatment Not on file documented as of this encounter Visit Diagnoses Not on filedocumented in this encounter Care Teams Building Operator Relationship Specialty Start Date End Date Peoples Rodriguez AshvinDO [address] [place] [address] PCP - General Family Medicine 02/16/13 04/03/15 Deon Lopez DO [address] [place], [place] [id number] PCP - General Family Medicine 04/04/15 10/25/15 Keerthi Knight MD [address] [place] [address] PCP - General Family Medicine 10/26/15 02/01/16 [place] [address] [place] [address] PCP - General Internal Medicine 02/02/16 04/09/18 [place] [address] [place] [address] PCP - General 04/11/18 08/17/20 Angie Tamez APRN-GLOST TILE SORTER [address] [place] [address] PCP - General 08/18/20 [place] [address] [place] [address] PCP - Attributed-Exclusive Choice 08/10/16 12/15/16 [place] [address] [facility] [address] [place], [place] [address] PCP - Attributed-Exclusive Choice 05/16/17 12/26/17 Ivy Encarnacion APRN-GLOST TILE SORTER [address] [facility] [address] [place] [address] PCP - Attributed-Exclusive Choice 12/16/16 05/15/17 [place] [address] [facility] [address] [place] [address] Pulmonary Disease 05/09/12 [place] [address] [facility] [address] [place], [place] [address] Orthopedic Surgery 09/09/14 documented as of this encounter
--- OUTSIDE RECORDS SUMMARY | 2024-12-25 14:55 | XMS_ITS | Encounter Summary ---
Author Organization [facility] Address [address] [place] [address] Care Team Providers Care Requirements Manager Name Role Phone Unavailable Primary Care Provider Unavailabl e Encounter Details Date Type Department Care Team (Late st Contact Info) Description 12/23/2024 External Device Data ST[facility] ABSTRACTION Provider, Abstract NO ADDRESS ON FILE Social History Tobacco Use Types Packs/Day Years Used Date Smoking Tobacco: Never Alcohol Use Standard Drinks/Week Comments Never 0 (1 standard drink = 0.6 oz pur e alcohol) Comments Unknown Sex and Gender Information Value Date Recorded Sex Assigned at Not on file Legal Sex Female 5:43 AM FACTORY EXPERT Gender Identity Not on file Sexual Orientation Not on file documented as of this encounter Plan of Treatment Upcoming Encounters Date Type Department Care Team (Late st Contact Info) Description 01/13/2025 2:00 PM FACTORY EXPERT Office Visit [facility] Oncology and Hematology - [place] [address] [place] [address] [facility] [address] [place] [address] Dennys Enriquez MD [address] [facility] [address] [place] [address] documented as of this encounter Visit Diagnoses Not on filedocumented in this encounter
--- OUTSIDE RECORDS SUMMARY | 2024-12-25 14:55 | XMS_ITS | Clinical Summary ---
Author Organization [facility] Address [address] [facility] [place] [address] Care Team Providers Care Research Geologist Name Role Phone Jasper Easton MD Unavailable [phone] Oren Morfin MD Unavailable [phone] Angie Tamez MENTAL HEALTH DIRECTOR-[facility] Primary Care Provi karine Source Comments [facility],non-owned Affiliates and Associated Physician Practices is amultiple site organization consisting of ambulatory clinics and hospital sitesin [place], [place], [place] and [place]. This disclosure is being madepursuant to the Care Everywhere program and may not contain all information available regarding this patient. Last updated 17.[facility] Allergies Active Allergy Reactions Criticality [...] tablet 9 Active vitamin D, ergocalciferol, (DRISDOL) 11233 units capsule Take 1 capsule by mouth every 7 days 12 capsule 9 Active vitamin D, ergocalciferol, (DRISDOL) 49657 units capsule TAKE ONE CAPSULE BY MOUTH [...] on file Legal Sex Female 12:05 PM DESKIDDING MACHINE OPERATOR Gender Identity Not on file [...] 7:10 AM CDT Height 167.6 cm (5' 6) 07/16/2018 7:10 AM CDT Body Mass Index [...] 02/25/2012 LIPID TESTING 08/14/2022 08/14/2017, 04/25, 09/22/2010 DEPRESSION SCREENING 02/26/2024 COVID-19 VACCINE ( season) 2024 INFLUENZA VACCINE (#1) 2024 10/10/2017 BONE DENSITY TESTING Completed 12/12/2010 [...] per time) Exercise Natalee Cyr Note: The [employer] recommends all adults [...] overall healthier. Medical Devices Implanted Type Area Consultant In Ergonomics And Safety Device Identifier Shelf Expiration Date Model / Serial / Lot Stent Nphurstm 24cm 8.5fr [employer] Pgtl Implanted:Qty: 1 on 03/29/2018 at [facility] [employer] 11/14/2020 [id number] / / [id number] Description: Stent Uret 6fr 26cm Pgtl Crv Tpr Tip Implanted:Qty: 1 on 04/10/2018 by Andrey Cardenas MD at [facility] [employer] 01/29/2021 [id number] / / [id number] Procedures Procedure Name Priority Date/Time Associated Diagnosis Comments COMPREHENSIVE METABOLIC PANEL Routine 07/16/2018 9:41 AM CDT Bariatric surgery status Epigastric pain Morbid obesity BMI 26.0-26.9,adult Vitamin D deficiency Vitamin deficiency Gastroesophageal reflux disease without esophagitis Nausea without vomiting LIPID PROFILE Routine 08/14/2017 1:24 PM CDT History of diabetes mellitus, type II HEPATITIS C ANTIBODY Routine 02/14/2016 7:30 AM DESKIDDING MACHINE OPERATOR Bariatric surgery status MAMMO BILAT SCREENING Routine 02/07/2015 10:58 AM DESKIDDING MACHINE OPERATOR Visit for screening mammogram ENDOSCOPY, COLON, [...] Resulting Agency Comment Lab Testing performed at: [facility] [address] [place] [id number] us Ivy Encarnacion MENTAL HEALTH DIRECTOR-RN LIAISON LAB - CHEMISTRY ORDE RABCHAPINCITO Final Result [facility] ACCOUNT BILL [address] [place] [address] * LIPID PROFILE (08/14/2017 1:24 PM CDT) [facility] Cholesterol 196 100 - 199 mg/dL [facility] [...] CDT 08/14/2017 Narrative Resulting Agency Comment [facility] [address] [facility] [id number] us Darlin Mcclain MENTAL HEALTH DIRECTOR-RN LIAISON LAB - CHEMISTRY ORDERAB LES Final Result [facility] INSURANCE BILL [address] [place] [address] * HEPATITIS C ANTIBODY (02/14/2016 7:30 AM DESKIDDING MACHINE OPERATOR) HCV Antibody Screen Non Reactive Non Reactive 02/14/2016 3:06 PM DESKIDDING MACHINE OPERATOR [facility] HCV S/C Ratio 0.12 0.00 - 0.79 02/14/2016 3:06 PM DESKIDDING MACHINE OPERATOR [facility] Comment: Uxxeeg-to-zwnewa ratio (S/CO) <0.80: Non Reactive Blood BLOOD SPECIMEN / Unknown Lab Venipuncture / Unknown 02/14/2016 7:30 AM DESKIDDING MACHINE OPERATOR 02/14/2016 7:41 AM DESKIDDING MACHINE OPERATOR Narrative [facility] - 02/14/2016 3:06 PM DESKIDDING MACHINE OPERATOR Non Reactive - Antibodies to Hepatitis C virus (HCV) were not detected, result does not exclude early acute HCV infection. Leena Keita MD LAB - CHEMISTRY ORDERABLES Fin al Result [facility] [address] [place] [address] * MAMMO SCREENING DIGITAL IMAGE BILAT [id number] (02/07/2015 10:58 AM DESKIDDING MACHINE OPERATOR) Anatomical Region Laterality Modality Breast Bilateral Mammography 02/07/2015 1:53 PM DESKIDDING MACHINE OPERATOR Narrative 02/07/2015 1:55 PM DESKIDDING MACHINE OPERATOR FULL FIELD DIGITAL BILATERAL SCREENING MAMMOGRAMS [...] if suspicious findings are present clinically. An [employer] Certified [employer] Facility. [facility] Breast Centers utilize Biometric Security as a reminder system to notify patients [...] Recently Relevant to Health Maintenance Insurance [employer] Advance Directives * Full [...] 2:50 PM 09/28/2011 12:42 PM Care Teams Research Geologist Relationship Specialty Start Date End Date Angie Tamez, MENTAL HEALTH DIRECTOR-RN LIAISON [address] [place] [address] PCP - General 08/18/20 [place] [address] [facility] [address] [place] [address] Pulmonary Disease 05/09/12 [place] [address] [facility] [place] [address] Orthopedic Surgery 09/09/14
--- OUTSIDE RECORDS SUMMARY | 2024-12-25 14:55 | XMS_ITS | Clinical Summary ---
Author Organization [facility] Ophelia [facility] Address [address] [place] [address] Care Team Providers Care Newspaper Press Operator Apprentice Name Role Phone Unavailable Primary Care Provider Unavailabl e Allergies No known active allergies Medications omeprazole (PriLOSEC) 40 mg Capsule, Delayed Release(E.C.) Take 40 mg by mouth 2 times daily. Active metoprolol succinate (TOPROL XL) 25 mg Extended Release 24 hour tablet Take 0.5 Tablets by mouth daily. Active alendronate (FOSAMAX) 35 mg tablet Take 35 mg by mouth every 7 days. Active cholecalcifero l 1,250 mcg (50,000 unit) Capsule Take 1 Capsule by mouth every 7 days. Active cyanocobalamin (VITAMIN B-12) 1,000 mcg/mL Solution Inject 1,000 mcg by intramuscular injection every 30 days. Active acetaminophen (Tylenol Extra Strength) 500 mg tablet Take 500 mg by mouth 1 time daily as needed for Pain. Active DULoxetine (CYMBALTA) 60 mg Capsule, Delayed Release(E.C.) Take 60 mg by mouth daily. Active Active Problems No known active problems Encounters Date Type Department Care Team Description 12/23/2024 External Device Data STL ABSTRACTION Provider, Abstract 12/23/2024 External Device Data STL ABSTRACTION Provider, Abstract 12/16/2024 External Device Data STL ABSTRACTION Provider, Abstract 12/15/2024 External Device Data STL ABSTRACTION Provider, Abstract 11/10/2024 External Device Data STL ABSTRACTION Provider, Abstract 11/03/2024 External Device Data STL ABSTRACTION Provider, Abstract 10/08/2024 10:15 AM CDT Office Visit [facility] Oncology and Hematology - Deangelo [address] [place] [address] Dennys Enriquez MD Chronic anemia (Primary Dx); Iron deficiency anemia, unspecified iron deficiency anemia type 10/06/2024 Orders Only [facility] Oncology and Hematology - Deangelo [address] [facility] [address] [place] [address] Dennys Enriquez MD 09/30/2024 External Device Data STL ABSTRACTION Provider, Abstract from Last 3 Months Family History Medical History Relation Name Comments No Known Problems Brother No Known Problems Child Diabetes Father Diabetes Mother Relation Name Status Comments Brother Alive Child Alive Father Mother Social History Tobacco Use Types Packs/Day Years Used Date Smoking Tobacco: Never Tobacco Cessation:Counseling Given: Not Answered Alcohol Use Standard Drinks/Week Comments Never 0 (1 standard drink = 0.6 oz pur e alcohol) Comments Unknown Sex and Gender Information Value Date Recorded Sex Assigned at Not on file Legal Sex Female 5:43 AM VISUAL MERCHANDISING DIRECTOR Gender Identity Not on file Sexual Orientation Not on file Last Filed Vital Signs Vital Sign Reading Time Taken Comments Blood Pressure 97/56 10/08/2024 10:20 AM CDT Pulse 60 10/08/2024 10:20 AM CDT Temperature 36.9 C (98.4 F) 10/08/2024 10:20 AM CDT Respiratory Rate 15 10/08/2024 10:20 AM CDT Oxygen Saturation 98% 10/08/2024 10:20 AM CDT Inhaled Oxygen Concentration - - Weight 68 kg (150 lb) 10/08/2024 10:20 AM CDT Height 167.6 cm (5' 6) 06/16/2024 2:39 PM CDT Body Mass Index 24.21 06/16/2024 2:39 PM CDT Plan of Treatment Upcoming Encounters Date Type Department Care Team (Late st Contact Info) Description 01/13/2025 2:00 PM VISUAL MERCHANDISING DIRECTOR Office Visit [facility] Oncology and Hematology - [place]angelo [address] [place] [address] Dennys Enriquez MD [address] [facility] [address] [place] [address] Health Maintenance Due Date Last Done Comments FIT-DNA Q 3 years 2001 FIT/FOBT Q 1 year 2001 Flex Sig/CT Colonography Q 5 years 2001 RSV VACCINE (60+ or ) (1 - Risk 50-74 years 1-dose series) 2006 ZOSTER VACCINE (1 of 2) 2006 BREAST CANCER SCREENING 02/08/2016 02/07/2015 PNEUMOCOCCAL VACCINE 50+ YEA RS (2 of 2 - PCV) 12/12/2018 12/12/2017, 09/28/2011 OSTEOPOROSIS SCREENING 2021 12/12/2010, 2010 INFLUENZA VACCINE (#1) 2024 12/11/2019 COVID-19 Vaccine (3 - season) 10/26/202403/2020, 04/22/2020 DTAP/TDAP/TD VACCINES (2 - Td or Tdap) 12/03/2027, 09/26/2010 COLORECTAL SCREENING 10/05/2030 10/05/2020, 02/25/20 12 Colorectal Cancer Screening 10/05/2030 Procedures Procedure Name Priority Date/Time Associated Diagnosis Comments COMPREHENSIVE METABOLIC PANEL Routine 10/05/2024 12:46 PM CDT CBC WITH AUTODIFFERENTIAL Routine 2024 12:33 PM CDT from Last 3 Months Results * COMPREHENSIVE METABOLIC PANEL (10/05/2024 12:46 PM CDT) Blood Dennys Enriquez MD CHEMISTRY ORDERABLES Final Resu lt * CBC WITH AUTODIFFERENTIAL (10/05/2024 12:33 PM CDT) Blood us Dennys Enriquez MD HEMATOLOGY ORDERABLES Final Res ult from Last 3 Months Insurance [facility] OPEN ACCESS [facility]
--- OUTSIDE RECORDS SUMMARY | 2024-12-25 14:55 | XMS_ITS | Encounter Summary ---
Author Organization [facility] Address [facility] [place] [address] Care Team Providers Care Rug Underlay Machine Operator Name Role Phone Angie Tamez NP Primary Care Provider [phone] Encounter Details Date Type Department Care Team ([facility] st Contact Info) Description 08/31/2020 InfiKnot Message Enc [facility] Family Medicine [facility] [address] [address] Angie Tamez, KERRIE [address] [address] RE: Question Social History Tobacco Use Types [...] documented as of this encounter Care Teams Rug Underlay Machine Operator Relationship Specialty Start Date End Date Angie Tamez NP [address] [place] [address] [place] [address] PCP - General NURSE PRACTITIONER 05/11/20 11/25/23 documented as of this encounter
--- OUTSIDE RECORDS SUMMARY | 2024-12-25 14:55 | XMS_ITS | Encounter Summary ---
Author Organization [facility] Address [address] [place] [address] Care Team Providers Care Regulatory Compliance Manager Name Role Phone Unavailable Primary Care [...] on file Legal Sex Female 5:43 AM CRANE HELPER Gender Identity Not on file Sexual Orientation Not on file documented as of this encounter Plan of Treatment Upcoming Encounters Date Type Department Care Team (Late st Contact Info) Description 01/13/2025 2:00 PM CRANE HELPER Office Visit [facility] Oncology and Hematology - [place] [address] [place] [address] [facility] [address] [place] [address] Dennys Enriquez MD [address] [facility] [address] [place] [address] documented as of this encounter Visit Diagnoses Not on filedocumented in this encounter
--- OUTSIDE RECORDS SUMMARY | 2024-12-25 14:55 | XMS_ITS | Patient Health Record ---
Author Organization [facility] Address [address] [facility] [place] [address] Care Team Providers Care Coordinate Measuring Machine Technician Name Role Phone Kit Palacios Unavailable [phone] Allergies No Known Allergies Reason For Referral No Information Medications Medication SIG (Take, Route, Frequency, Duration) Notes Start Date End Date Status Ibuprofen PRN Active Omeprazole 40 MG TAKE 1 CAPSULE BY MO UTH DAILY Oral; Duration: 90 Days Active Naproxen PRN Active Tylenol Extra Strength 500 MG 1 tablet as needed Orally every 6 hrs Active Advil PRN Active Social History Tobacco Use: Social History Observation Description Date Details (start date - stop date) Never Smoker NA - NA Tobacco Use/Smoking Question Answer Notes Are you a nonsmoker Problems Problem Type SNOMED Code ICD Code Onset Dates Problem Status W/U Status Risk Notes Problem Degenerative disc disease (35641901) DDD (degenerative disc disease), lumbar (M51.36) Active confirmed Problem Acquired spondylolisthesis (737389424) Spondylolisthesis at L4-L5 level (M43.16) Active confirmed Problem Displacement of lumbar intervertebral disc without myelopathy (00176416) 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) Active confirmed Problem Lumbosacral radiculopathy (6592190) Lumbosacral radiculopathy (M54.17) Active confirmed Plan Of Treatment No Information Medications Administered Medication Instructions Date of Administration Dosage Notes Midline (Interlaminar) L4/5 LIZBETH 04/30/2023 Medical (General) History Medical History History ICD Code parathyroidectomy arthritis kidney stones reflux pepticulcer panic attacks urinary incontinence Surgical History Surgery Date(Month/Year) parathyroidectomy gastric bypass 2011 Revision surgery C6/7/ Artificial Disc O ctober 2022 Prior C6/7 A/P fusion
[2024-12-25 14:56] VITALS: BP 105/58; PULSE 85; RESP 16; TEMP 36.6; O2SAT 100
[2024-12-25 15:47] LABS: Influenza A QL RT-PCR Negative (Negative); Influenza B QL RT-PCR Negative (Negative); RSV RNA, RT-PCR Negative (Negative); SARS-CoV-2 RNA PCR Negative (Negative)
[2024-12-25] MEDS: SODIUM CHLORIDE 0.9% IV 1,000 ML 999 ML IV CONT (17:39)
[2024-12-25] MEDS: ONDANSETRON INJ 4 MG/2 ML VIAL IV PUSH (17:39)
--- NOTE | 2024-12-25 17:53 | ED.URI ---
HPI - URI/Sore Throat General Chief Complaint: Upper Respiratory Infection Stated Complaint: Fever, Chills x 5 Days Time Seen by Provider: 12/25/24 17:00 Source: patient Mode of arrival: ambulatory Limitations: no limitations History of Present Illness HPI Narrative: Patient is a 69-year-old female who presents the ED with report of flu-like symptoms. Patient reports she has not been feeling well for the past 4-5 days. Reports fever, chills, cough, sore throat, congestion, nausea, vomiting, diarrhea. Reports right-sided abdominal pain/cramping. Denies sick contacts. Has been taking some leftover prednisone reports this has improved her symptoms slightly. Patient wanting to see if she has COVID. Related Data Home Medications ?Medication ?Instructions ?Recorded ?Confirmed ?Last Taken ?Type calcium carbonate [Calcium 500] 1 tablet PO DAILY 06/25/23 10/21/24 11/26/23 History acetaminophen 500 mg tablet 500 mg PO QID PRN Pain 10/15/23 10/21/24 11/26/23 History (Acetaminophen Extra Strength) fluticasone propionate 50 1 spray intranasal BID PRN 05/07/24 10/21/24 Unknown History mcg/actuation nasal allergies spray,suspension (Flonase Allergy Relief) metoprolol succinate 25 mg 25 mg PO DAILY 05/07/24 10/21/24 Unknown History tablet,extended release 24 hr Allergies Allergy/AdvReac Type Severity Reaction Status Date / Time No Known Allergies Allergy Mild Verified 12/25/24 15:02 Review of Systems Review of Systems: All systems reviewed & are unremarkable except as noted in HPI. 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 Anemia Cervical vertebral fusion GERD (gastroesophageal reflux disease) Anxiety Surgical History Surgical History History of laminectomy H/O gastric bypass H/O parathyroidectomy Family History Family History Mother Cerebrovascular accident Diabetes mellitus Hypertension Heart disease Father Heart disease Diabetes mellitus Hypertension Social History Social History Smoking status: Never smoker Alcohol intake: never Alcohol use details: Very Rarely Substance use: never Substance use type: does not use Lack of Transportation: No Lack of Food: Often True Current Housing: I Have Housing Concerned About Future Housing: No Difficulty Paying Gas/Electric Bills: YES Difficulty Paying for Meds: YES Currently Unemployed: No Education: Master's Degree or Higher Difficulty w/ Childcare or Family Care: No Living arrangements: with family Spiritual care concerns: No Exam Narrative: GENERAL: Mildly unkempt, well-nourished, non-toxic, in no acute distress. HEAD: Normocephalic, atraumatic. RESPIRATORY: Airway patent, respirations nonlabored. Clear to auscultation bilaterally, no rales, rhonchi, wheezing. CARDIOVASCULAR: Regular rate and rhythm without murmurs, rubs, or gallops. ABDOMINAL: Soft, mild diffuse tenderness throughout right-sided abdomen, nondistended. Normoactive BS. MUSCULOSKELETAL: Moves all extremities. No gross deformities. SKIN: Warm, dry, normal color. NEURO: A&O X3. Speech clear. Cranial nerves II-XII grossly intact. Steady gait. No ataxic movements. PSYCHIATRIC: Appropriate mood and affect. Normal interaction. Course Vital Signs Vital signs: Vital Signs Temperature 98 F 12/25/24 14:56 Pulse Rate 85 12/25/24 14:56 Respiratory Rate 16 12/25/24 14:56 Blood Pressure 105/58 L 12/25/24 14:56 Pulse Oximetry 100 12/25/24 14:56 Temperature 98.1 F 12/25/24 20:14 Pulse Rate 58 L 12/25/24 20:14 Respiratory Rate 16 12/25/24 20:14 Blood Pressure 114/65 12/25/24 20:14 Pulse Oximetry 100 12/25/24 20:14 Oxygen Delivery Room Air 12/25/24 17:14 MDM - URI/Sore Throat MDM Narrative Medical decision making narrative: Patient presented to ED with flu-like symptoms for the past several days, fever, cough, nausea/vomiting/diarrhea. Vital signs are stable upon arrival. Patient is afebrile here. Viral swabs are negative. Laboratory studies are fairly unremarkable. No leukocytosis or anemia. Stable electrolytes. Stable kidney function. No significant signs of dehydration. Magnesium within normal range. Lactic acid within normal range. UA is clear. Chest x-ray without acute pneumonia. CT scan of abdomen/pelvis was obtained also without acute findings. Does show evidence of cholelithiasis without evidence of cholecystitis. Discussed lab and imaging findings, overall reassuring workup with patient. She is feeling improved with supportive therapy. Discussed high likelihood of viral URI, gastroenteritis. Discussed continued management of such including [id number] therapies to try. Will prescribe Zofran for home. Discussed dietary modifications. Discussed strict return precautions. Recommended she follow-up with PCP. Patient in agreement with plan. Discharged in stable condition. Medical Records Attestation: I reviewed the patient's medical records. Lab Data Attestation: I reviewed the patient's lab results. 12/25/24 17:36 12/25/24 17:36 Labs: Lab Results 12/25/24 12/25/24 Range/Units 15:05 17:36 WBC 7.2 (4.5-10.0) K/mm3 RBC 5.37 (4.2-5.4) M/mm3 Hgb 12.4 D (12.0-15.0) g/dL Hct 39.0 (37.0-47.0) % MCV 72.6 L (80-100) fl MCH 23.1 L (26-34) pg MCHC 31.8 L (32-36) g/dl RDW TNP Plt Count 232 (150-375) k/mm3 MPV 8.6 (7.4-10.4) fl Immature Gran % (Auto) 0.1 (0-0.5) % Neut % (Auto) 56.1 (45.5-73.1) % Lymph % (Auto) 35.2 (18.3-44.2) % [place] % (Auto) 6.8 (2.6-8.5) % Eos % (Auto) 1.0 (0-4.4) % Baso % (Auto) 0.8 (0.2-1.2) % Lymph # (Auto) 2.54 (0.9-3.2) K/mm3 [place] # (Auto) 0.5 (0.1-0.6) K/mm3 Eos # (Auto) 0.1 (0-0.3) K/mm3 Baso # (Auto) 0.1 (0.0-0.1) K/mm3 Abs Immat Gran (auto) 0.01 (0.00-0.031) K/mm3 Absolute Neuts (auto) 4.1 (1.3-6.7) K/mm3 Absolute Nucleated RBC 0.000 (0.0-0.012) K/mm3 Band Neutrophils % 0 (0-6) % Nucleated RBC % 0.0 (0.0-0.2) % Platelet Estimate Adequate (Adequate) Hypochromasia 1+ Anisocytosis 3+ Microcytosis 1+ (NORMAL) Schistocytes None seen Sodium 134 L (137-145) mmol/L Potassium 4.4 (3.4-5.0) mmol/L Chloride 103 (98-107) mmol/L Carbon Dioxide 25 (22-30) mmol/L Anion Gap 6 (4-12) mmol/L BUN 10 (7-17) mg/dL Creatinine 0.69 L (0.7-1.0) mg/dL Estim Creat Clear Calc 58 ml/min Estimated GFR > 60 (59 - ) Glucose 79 (65-110) mg/dL Lactic Acid 0.8 (0.7-2.0) mmol/L Calcium 8.6 (8.4-10.2) mg/dL Magnesium 2.2 (1.6-2.3) mg/dL Total Bilirubin 0.3 (0.2-1.3) mg/dL AST 25 (14-36) U/L ALT 12 (6-35) U/L Alkaline Phosphatase 78 (38-126) U/L Total Protein 7.5 (6.3-8.2) g/dL Albumin 4.3 (3.5-5.1) g/dL Lipase 87 (23-300) U/L Urine Color Yellow (Yellow) Urine Appearance Clear (Clear) Urine pH 5.0 (5.0-9.0) Ur Specific [place] 1.010 (1.001-1.035) Urine Protein Negative (Negative) mg/dL Urine Glucose (UA) Negative (Negative) mg/dL Urine Ketones Negative (Negative) mg/dL Ur Blood (Man) Negative (Negative) Urine Nitrate Negative (Negative) Urine Bilirubin Negative (Negative) Urine Urobilinogen 0.2 (<2.0) mg/dL Leukocyte Esterase Rfl Negative (Negative) TEODORO/UL Influenza A (RT-PCR) Negative (Negative) Influenza B (RT-PCR) Negative (Negative) RSV (RT-PCR) Negative (Negative) SARS-CoV-2 RNA (RT-PCR) Negative (Negative) Imaging Data Attestation: I personally reviewed and interpreted this imaging study as follows: Radiologist's impression: ITS Impressions Chest X-Ray 12/25/24 18:34 IMPRESSION: 1. No acute cardiopulmonary disease. 2. Small sliding-type hiatal hernia. Abdomen/Pelvis CT 12/25/24 19:21 IMPRESSION: No acute abnormality is noted in the abdomen and pelvis. Cholelithiasis without evidence of acute cholecystitis. Small hiatal hernia. All CT scans at this facility are performed using low dose modulation techniques as appropriate to perform exam including the following: automated exposure control; use of iterative reconstruction technique; adjustment of the mA and/or kV according to patient size (this includes techniques or standardized protocols for targeted exams where dose is matched to indication/reason for exam). Discharge Plan Discharge Clinical Impression: Viral syndrome Upper respiratory infection Qualifiers: URI type: unspecified URI Qualified Code(s): J06.9 - Acute upper respiratory infection, unspecified Nausea and vomiting Qualifiers: Vomiting type: unspecified Qualified Code(s): R11.2 - Nausea with vomiting, unspecified Cholelithiasis Qualifiers: Cholelithiasis location: gallbladder Cholecystitis presence: without cholecystitis Biliary obstruction: without biliary obstruction Qualified Code(s): K80.20 - Calculus of gallbladder without cholecystitis without obstruction Patient Disposition: Home Condition: Stable Instructions: Antibiotic Form, Gallstones (ED), Low Fat Diet (ED), Acute Nausea and Vomiting (ED), Viral Syndrome (ED), Cold Symptoms (ED) Additional Instructions: Your workup here was reassuring. It is likely you have a viral infection that should improve on its own. Stay well-hydrated at home. Recommend electrolyte rich fluids, Gatorade, Pedialyte, body armor. Zofran as needed for nausea. Recommend Tylenol and Ibuprofen for discomfort and/or fevers. Recommend [id number] cough and cold medicines for symptom relief, Delsym, Mucinex, DayQuil, NyQuil, Sudafed, Robitussin, TheraFlu. Follow with primary care doctor for further evaluation if needed. Return to the ED if you experience chest pain, difficulty breathing, unable to keep down food or drink, severe pain, or any other symptoms of concern. Your CT scan did show evidence of gallstones. Recommend following low-fat diet. Patient Language: Icelandic Prescriptions: New ondansetron 4 mg tablet,disintegrating 4 mg PO Q8H PRN (Reason: nausea and vomiting) Qty: 15 0RF No Action famotidine 40 mg tablet 40 mg PO QHS Qty: 30 2RF omeprazole 40 mg capsule,delayed release(DR/EC) 40 mg PO BID Qty: 180 3RF cyanocobalamin (vitamin B-12) 1,000 mcg/mL solution 1,000 mcg IM MONTHLY Qty: 1 11RF cholecalciferol (vitamin D3) 1,250 mcg (50,000 unit) capsule 1,250 mcg PO WEEKLY Qty: 4 5RF (DME) syringe with needle [Nexant Luer Lock Syr-needle] 3 mL 23 gauge x 1 1/2 syringe See Rx Instructions .Route Qty: 1 11RF Rx Instructions: As directed fluticasone propionate [Flonase Allergy Relief] 50 mcg/actuation spray,suspension 1 spray intranasal BID PRN (Reason: allergies) Rx Instructions: administer one spray into each nostril twice daily metoprolol succinate 25 mg tablet extended release 24 hr 25 mg PO DAILY Patient Comments: Pt reports being non compliant with this. Plans to start taking it as prescribed. sodium,potassium,mag sulfates [Suprep Bowel Prep Kit] 17.5-3.13-1.6 gram recon soln See Rx Instructions .ROUTE .COMPLEX Qty: 354 0RF Rx Instructions: FOLLOW INSTRUCTIONS FROM YOUR PROVIDER calcium carbonate [Calcium 500] 1 tablet PO DAILY sodium,potassium,mag sulfates [Suprep Bowel Prep Kit] 17.5-3.13-1.6 gram recon soln See Rx Instructions PO .COMPLEX Qty: 354 0RF Rx Instructions: Take as directed per written instructions alendronate 35 mg tablet 35 mg PO WEEKLY Qty: 12 3RF multivitamin with iron Tablet 1 tablet PO DAILY Qty: 30 5RF acetaminophen [Acetaminophen Extra Strength] 500 mg Tablet 500 mg PO QID PRN (Reason: Pain) Patient Comments: .. Follow-up/Referrals: Suni Campos APRN [Primary Care Provider, [facility]] Time of Disposition: 20:01
[2024-12-25 17:54] LABS: Add Urine Microscopic? NO; Appearance Urine Clear (Clear); Glucose Urine UA Negative (Negative); Hematocrit 39.0 % (37.0-47.0); Hemoglobin 12.4 g/dL (12.0-15.0); Immature Granulocyte Percent A 0.1 % (0-0.5); Leukocyte Esterase Ur Negative LEU/UL (Negative); Lymphocytes Absolute Auto 2.54 K/mm3 (0.9-3.2); Mean Corpuscular HGB Conc 31.8 g/dl (32-36); Mean Corpuscular Hemoglobin 23.1 pg (26-34); Mean Corpuscular Volume 72.6 fl (80-100); Nitrate Urine Negative (Negative); Nucleated Red Blood Cells Absolute Auto 0.000 K/mm3 (0.0-0.012); Nucleated Red Blood Cells Perc 0.0 % (0.0-0.2); Platelet Count Result 232 k/mm3 (150-375); Red Blood Count 5.37 M/mm3 (4.2-5.4); Specific Grav Ur 1.010 (1.001-1.035); White Blood Count 7.2 K/mm3 (4.5-10.0)
[2024-12-25 18:19] LABS: Anisocytosis 3+; Microcytosis 1+ (NORMAL); Schistocytes None Seen
[2024-12-25 18:20] LABS: Band Neutrophils Percent 0 % (0-6); Hypochromasia 1+
[2024-12-25 18:21] LABS: Alanine Aminotransferase 12 U/L (6-35); Albumin Level 4.3 g/dL (3.5-5.1); Alkaline Phosphatase 78 U/L (38-126); Anion Gap 6 mmol/L (4-12); Aspartate Amino Transferase 25 U/L (14-36); Bilirubin,Total 0.3 mg/dL (0.2-1.3); Blood Urea Nitrogen 10 mg/dL (7-17); Calcium 8.6 mg/dL (8.4-10.2); Carbon Dioxide 25 mmol/L (22-30); Chloride 103 mmol/L (98-107); Estimated CRCL calculation 58 ml/min; Estimated Glomerular Filt Rate > 60; Glucose 79 mg/dL (65-110); Lipase 87 U/L (23-300); Magnesium 2.2 mg/dL (1.6-2.3); Potassium 4.4 mmol/L (3.4-5.0); Sodium 134 mmol/L (137-145); Total Protein 7.5 g/dL (6.3-8.2)
--- NOTE | 2024-12-25 19:20 | PC.NURSE ---
Received report from JEREMIAH Zhou for cont. of care. Pt AOx4 lying on stretcher on cont. oxygen monitoring, respirations even and unlabored. Pt denies any pain and/or discomfort at this time.
[2024-12-25 20:14] VITALS: BP 114/65; PULSE 58; RESP 16; TEMP 36.7; O2SAT 100
== END 2024-12-25 20:20 | disposition home or self-care (01) ==
PROVIDERS: Student in an Organized Health Care Education/Training Program; Emergency Provider Physician Assistant; PCP Nurse Practitioner Family
DX: J06.9 Acute upper respiratory infection, unspecified (principal); B34.9 Viral infection, unspecified; K80.20 Calculus of gallbladder without cholecystitis without obstruction; Z20.822 Contact with and (suspected) exposure to COVID-19; E78.5 Hyperlipidemia, unspecified; E55.9 Vitamin D deficiency, unspecified; E53.8 Deficiency of other specified B group vitamins; D50.9 Iron deficiency anemia, unspecified; R32 Unspecified urinary incontinence; K21.9 Gastro-esophageal reflux disease without esophagitis; M85.80 Other specified disorders of bone density and structure, unspecified site; F32.A Depression, unspecified; F41.9 Anxiety disorder, unspecified; Z98.84 Bariatric surgery status; Z90.89 Acquired absence of other organs; Z79.899 Other long term (current) drug therapy; K44.9 Diaphragmatic hernia without obstruction or gangrene
CPT/HCPCS: 36415; 71046; 74177; 80053; 81003; 83605; 83690; 83735; 85025; 87637; 96361; 96374; 99284; J2405; J7030; Q9967